=== PATIENT | male | born 1950 | race Caucasian/White ===

== ENCOUNTER 2017-05-04 19:00 | Inpatient (IN) ==
--- NOTE | 2017-05-04 19:23 | Emergency Department Note ---
Disposition Clinical Impression: Acute kidney injury Osteomyelitis Qualifiers: Osteomyelitis type: unspecified type Osteomyelitis location: foot Laterality: left Qualified Code(s): M86.9 - Osteomyelitis, unspecified Septic arthritis Qualifiers: Septic arthritis location: foot Septic arthritis organism: due to unspecified organism Laterality: left Qualified Code(s): M00.9 - Pyogenic arthritis, unspecified Leukocytosis Qualifiers: Leukocytosis type: unspecified Qualified Code(s): D72.829 - Elevated white blood cell count, unspecified Disposition: Admitted As Inpatient Condition: Fair Referrals: NONE,PCP [Primary Care Provider] - Extremity Problem HPI - General Chief complaint: ED Extremity Problem,Nontraumatic Stated complaint: Left Foot Infection Time Seen by Provider: 05/04/17 19:08 Source: patient, EMS Mode of arrival: EMS Limitations: no limitations Nursing Notes Reviewed: Yes Vital Signs Reviewed: Yes - History of Present Illness HPI Narrative: 67-year-old male presents to the ER via EMS from the [facility] due to concern for left foot wound. Patient states that he fell on the of this month. States prior to that that his foot had no discoloration whatsoever. States he has had an ulcer on the left foot for one month. He denies any diabetes but he has not seen a physician since 1994. Denies any fevers nausea vomiting or diarrhea. No chest pain or shortness of breath. No recent antibiotics. No other complaints. Pt Subjective Complaint: extremity swelling Onset (ago): day(s) Consistency: constant Injury Location: left, lower extremity Pain Scale: 3 Radiation: none Improves with: nothing Worsens with: nothing Associated symptoms: Reports: denies other symptoms - Related Data Home Medications Medication Instructions Recorded Confirmed No Known Home Drugs 05/04/17 05/04/17 Allergies Allergy/AdvReac Type Severity Reaction Status Date / Time No Known Allergies Allergy Verified 05/04/17 16:35 All systems ED: reviewed and negative except as stated. Constitutional: Denies: fever, chills Cardiovascular: Denies: chest pain Respiratory: Denies: dyspnea Gastrointestinal: Denies: abdominal pain, nausea, vomiting Integumentary: Reports: lesions Past Medical History - Past Medical History Attestation: Yes The following information was validated with the patient. Source: patient Medical history: Reports: no medical history Psychiatric history: Reports: no psych history - Social History Smoking Status: Never smoker Smokeless Tobacco Status: No Alcohol use: Reports: none Drug use: Reports: none Physical Exam - General Limitations: no limitations General appearance: alert, in no apparent distress - Head Head exam: atraumatic, normocephalic - Eye Eye exam: Present: normal appearance - ENT ENT exam: normal exam - Neck Neck exam: Present: normal inspection, full ROM - Chest Chest inspection: Present: normal inspection, symmetric chest wall rise - Respiratory Respiratory exam: Present: normal lung sounds bilaterally - Cardiovascular Cardiovascular exam: Present: regular rate, normal rhythm, normal heart sounds - Abdominal Exam Abdominal exam: Present: soft, Non-Tender. Absent: tenderness - Extremities Exam Extremities exam: Present: normal inspection, full ROM - Expanded Upper Extremity Exam Shoulder exam: Present: normal inspection, full ROM Arm exam: Present: normal inspection, full ROM Elbow exam: Present: normal inspection, full ROM Forearm/Wrist exam: Present: normal inspection, full ROM Hand exam: Present: normal inspection, full ROM - Expanded Lower Extremity Exam Hip/Pelvis exam: Present: normal inspection, full ROM Upper leg exam: Present: normal inspection, full ROM Knee exam: Present: normal inspection, full ROM Lower leg exam: Present: normal inspection, full ROM Ankle exam: Present: full ROM Foot/toe exam: Present: full ROM, swelling (There is significant swelling to the left lower extremity from the ankle to the toes as well as overlying erythematous changes with discoloration of the left toes. There is also an open ulceration to the plantar aspect of the left foot over the first metatarsal.) - Skin Skin exam: Present: warm, dry Course Course Narrative: Patient seen and examined. Vital signs reviewed. We will get labs, CT imaging of the left leg and admit for IV antibiotics and podiatry consultation. - Reevaluation(s) Reevaluation #1: Discussed results of imaging and labs with the patient. Evidence of osteomyelitis and septic arthritis. He has an acute kidney injury with a creatinine of 3.9. He is agreeable with staying. - Consultations Consultation #1: I spoke with the on-call barrel assembler helper Dr. Garcia. Discussed the patient's history exam and labs including a creatinine of 3.9. Electrolytes stable. Agreeable to see the patient in consultation. Consultation #2: I spoke with the on-call supervisor forming and tempering Dr. ba. Discussed the patient's history exam CT findings and labs as well as hemodynamics. Agreeable to see the patient in the morning in consultation. Agrees with IV antibiotics. Vital Signs Temperature 97.5 F L 05/04/17 19:03 Pulse Rate 83 05/04/17 19:03 Respiratory Rate 18 05/04/17 19:03 Blood Pressure 114/87 05/04/17 19:03 O2 Sat by Pulse Oximetry 90 05/04/17 19:03 Temperature 97.5 F L 05/04/17 19:03 Pulse Rate 83 05/04/17 19:03 Respiratory Rate 18 05/04/17 19:03 Blood Pressure 114/87 05/04/17 19:03 O2 Sat by Pulse Oximetry 90 05/04/17 19:03 Oxygen Delivery Oxygen Delivery Room Air Extremity Problem, Nontraumati - MDM Narrative Medical decision making narrative: 67-year-old male presents to the ER with a chief complaint of left foot wound. Ulcer there for the last month. Discoloration over the last 2-3 days. Afebrile here. Hemodynamically stable. He has a large ulcer as well as soft tissue swelling to the left foot. Labs reviewed with a markedly leukocytosis. Acute kidney injury with creatinine of 3.9 with stable electrolytes. Case discussed with nephrology and podiatry. Patient given broad-spectrum antibiotics. Admitted to the hospitalist service with consultation to nephrology and podiatry. - Lab Data Lab results reviewed: Yes I reviewed the patient's lab results. Result diagrams: 05/04/17 19:38 05/04/17 19:38 Lab Results 05/04/17 05/04/17 05/04/17 Range/Units 19:38 19:38 19:38 WBC 22.6 H (4.3-11.1) K/mcL RBC 6.18 H (4.19-5.50) M/mcL Hgb 16.8 (12.9-16.9) g/dL Hct 49.3 (37.5-50.1) % MCV 79.8 L (83.0-100.0) fL MCH 27.2 L (28.0-33.3) pg MCHC 34.1 (31.6-35.5) g/dL RDW 16.8 H (11.5-14.5) % Plt Count 128 L (140-400) K/mcL MPV 11.8 (9.4-12.4) fL Immature Gran % 0.5 (0-4) % Seg Neutrophils % 90.2 % Lymphocytes % 3.5 % Monocytes % 5.6 % Eosinophils % 0.0 % Basophils % 0.2 % Neutrophils # 20.4 H (1.6-8.9) K/mcL Lymphocytes # 0.8 (0.6-4.6) K/mcL Monocytes # 1.3 (0.0-1.3) K/mcL Eosinophils # 0.0 (0.0-0.6) K/mcL Basophils # 0.1 (0.0-0.2) K/mcL ESR 56 H (0-10) mm/hr PT (9.4-12.1) Seconds INR Sodium 127 L (136-145) mEq/L Potassium 4.9 (3.5-5.1) mEq/L Chloride 93 L (98-107) mEq/L Carbon Dioxide 18 L (23-29) mEq/L BUN 98 H (8-23) mg/dL Creatinine 3.91 H (0.70-1.30) mg/dL Est GFR ( Amer) 19 L (> 60) Est GFR (Non-Af Amer) 15 L (> 60) BUN/Creatinine Ratio 25 (6-26) Glucose 156 H (70-105) mg/dL Calculated Osmolality 298 (280-300) Calcium 7.7 L (8.6-10.3) mg/dL C-Reactive Protein (Less than 10) mg/L 05/04/17 05/04/17 Range/Units 19:38 19:38 WBC (4.3-11.1) K/mcL RBC (4.19-5.50) M/mcL Hgb (12.9-16.9) g/dL Hct (37.5-50.1) % MCV (83.0-100.0) fL MCH (28.0-33.3) pg MCHC (31.6-35.5) g/dL RDW (11.5-14.5) % Plt Count (140-400) K/mcL MPV (9.4-12.4) fL Immature Gran % (0-4) % Seg Neutrophils % % Lymphocytes % % Monocytes % % Eosinophils % % Basophils % % Neutrophils # (1.6-8.9) K/mcL Lymphocytes # (0.6-4.6) K/mcL Monocytes # (0.0-1.3) K/mcL Eosinophils # (0.0-0.6) K/mcL Basophils # (0.0-0.2) K/mcL ESR (0-10) mm/hr PT 13.6 H (9.4-12.1) Seconds INR 1.3 Sodium (136-145) mEq/L Potassium (3.5-5.1) mEq/L Chloride (98-107) mEq/L Carbon Dioxide (23-29) mEq/L BUN (8-23) mg/dL Creatinine (0.70-1.30) mg/dL Est GFR ( Amer) (> 60) Est GFR (Non-Af Amer) (> 60) BUN/Creatinine Ratio (6-26) Glucose (70-105) mg/dL Calculated Osmolality (280-300) Calcium (8.6-10.3) mg/dL C-Reactive Protein 265 H (Less than 10) mg/L - Radiology Data Radiology results reviewed: Yes I reviewed the patient's radiology results. Lower Extremity CT 05/04/17 19:20 IMPRESSION: 1. Deep soft tissue ulceration plantar to the 1st MTP joint with soft tissue gas throughout the 1st digit and dorsal to the 1st metatarsal and medial cuneiform. Diffuse subcutaneous fat stranding compatible with cellulitis. No well-defined drainable fluid collection. 2. Gas within the 1st metatarsal head and 1st proximal phalangeal base and shaft compatible with osteomyelitis. If clinically indicated MRI could be obtained to evaluate the extent of osteomyelitis. 3. Gas within the 1st metatarsophalangeal joint space compatible with septic arthritis. D/ / Roger Deutsch MD / Roger Deutsch MD Interpreting Provider: Roger Deutsch MD Chest X-Ray 05/04/17 20:39 IMPRESSION: No acute process. D/ / Valentin Walter MD / Valentin Walter MD Interpreting Provider: Valentin Walter MD Critical Care Time Critical Care Time: Yes Total Critical Care Time: 40 Attestation: Critical care performed: Time is exclusive of separately billable procedures. Time includes: direct patient care, patient reassessment, coordination of patient care, interpretation of data (laboratory data, radiology data, and respiratory data), review of patient's medical records, medical consultation and documentation of patient care. Procedures included in critical care time: Procedures excluded from critical care time: S.B.A.R. - S.B.A.R. Situation: Demographics, MOA Background: Presenting Complaint, Relevant PMH, Meds, & Allergies Assessment: Vital Signs, Course and respsone to treatment, Exam Concerns, Patient/Family Expectation, Pertinant Lab Results Recommendation: Barrier(s) to disposition, Recommendation based on pending studies, treatments, or consults S.B.A.RShirlene Report Given to: Dr. Gaona Attestation Statement - Attestation Attestation: I, Froylan Donaldson MD, personally evaluated this patient and discussed their management with the resident physician. I reviewed the resident's note and agree with the documented findings, medical decision making, and plan of care. 67-year-old male presents to the emergency department with a complaint of pain and swelling and redness and discoloration of his left foot which started 2 days ago after he fell and hurt foot. There is an ulceration on the plantar aspect of the foot which has been present for about a month. He states that it looked just like his other foot until 2 days ago actually fell and since then it is turned black with some sloughing of the skin on the dorsum of the foot. He has not noticed any fever. No chest pain or shortness of breath. On examination patient is a well-developed well-nourished elderly male in no acute distress. He is alert and oriented 3. There is no cyanosis or diaphoresis. Breath sounds are clear and equal bilaterally. Heart regular rate and rhythm. Abdomen soft and nontender with normal bowel sounds. Patient has gangrene of the distal left foot with an open foul smelling ulcer on the plantar aspect and some skin sloughing on the dorsum of the foot. Erythema and swelling. Black discoloration of the toes and distal foot. Labs reviewed. WBC 22.6 with 90.2% segs. ESR 56. CRP 265. Creatinine 3.91. Chest x-ray negative. CT of the extremities shows: 1. Deep soft tissue ulceration plantar to the 1st MTP joint with soft tissue gas throughout the 1st digit and dorsal to the 1st metatarsal and medial cuneiform. Diffuse subcutaneous fat stranding compatible with cellulitis. No well-defined drainable fluid collection. 2. Gas within the 1st metatarsal head and 1st proximal phalangeal base and shaft compatible with osteomyelitis. If clinically indicated MRI could be obtained to evaluate the extent of osteomyelitis. 3. Gas within the 1st metatarsophalangeal joint space compatible with septic arthritis. Cultures obtained. IV antibiotics initiated. Dr. Goncalves discussed the case with nephrology and also podiatry. The hospitalist, Dr. Gaona, was consulted and accepted admission of the patient.
[2017-05-04 19:48] LABS: Basophils # 0.1 K/mcL (0.0-0.2); Basophils % 0.2 %; Hematocrit 49.3 % (37.5-50.1); Hemoglobin 16.8 g/dL (12.9-16.9); Immature Granulocytes % 0.5 % (0-4); Lymphocytes # 0.8 K/mcL (0.6-4.6); Lymphocytes % 3.5 %; Mean Corpuscular HGB Conc 34.1 g/dL (31.6-35.5); Mean Corpuscular Hemoglobin 27.2 pg (28.0-33.3); Mean Corpuscular Volume 79.8 fL (83.0-100.0); Mean Platelet Volume 11.8 fL (9.4-12.4); Monocytes # 1.3 K/mcL (0.0-1.3); Monocytes % 5.6 %; Neutrophils # 20.4 K/mcL (1.6-8.9); Platelet Count 128 K/mcL (140-400); Red Blood Count 6.18 M/mcL (4.19-5.50); Red Cell Distribution Width 16.8 % (11.5-14.5); Segmented Neutrophils % 90.2 %
[2017-05-04 19:50] LABS: INR 1.3; Prothrombin Time 13.6 Seconds (9.4-12.1)
[2017-05-04 20:05] LABS: Calcium 7.7 mg/dL (8.6-10.3); Potassium 4.9 mEq/L (3.5-5.1)
[2017-05-04] MEDS ORDERED: Piperacillin/Tazobactam 3.375 GM in 0.9 % Sodium Chloride Mini Bag 100 ML IVPB ONE (20:41)
[2017-05-04] MEDS ORDERED: Clindamycin 600 MG/50 ML 600 MG/50 ML IV.SOLN IVPB ONE (21:29)
[2017-05-04] MEDS ORDERED: 0.9 % Sodium Chloride 1,000 ML IVC SCH (23:45)
[2017-05-04] MEDS ORDERED: Naloxone 0.4 MG/ML INJ IVP PRN (23:45)
--- NOTE | 2017-05-04 23:56 | Internal Med History&Physical ---
Date of Encounter: 05/05/17 Time of Encounter: 23:30 Assessment and Plan (1) Septic arthritis Current visit: No Status: Inactive Left foot septic arthritis, osteomyelitis secondary to foot ulcer. Patient hemodynamically stable and podiatry consulted from ED. - Continue IV vancomycin and zosyn - Blood cultures pending - Podiatry consult - likely to OR in AM - appreciate assistance Qualifiers: Septic arthritis location: foot Septic arthritis organism: due to unspecified organism Laterality: left Qualified Code(s): M00.9 - Pyogenic arthritis, unspecified (2) Acute kidney injury Current visit: No Status: Inactive Likely multifactorial (dehydration, possible rhabdo?, sepsis?, etc). Unknown baseline creatinine. - Nephrology consulted from ED - IV fluids - Check CK, Urinalysis - Treat infectious process (3) Leukocytosis Current visit: No Status: Inactive Secondary to infectious process in foot. Treat as above. Qualifiers: Leukocytosis type: unspecified Qualified Code(s): D72.829 - Elevated white blood cell count, unspecified (4) Hyponatremia Current visit: Yes Status: Acute Sodium 127, likely hypovolemic hyponaremia - Volume resuscitation - Recheck Na in AM (5) Pre-op evaluation Current visit: Yes Status: Acute Patient states he can perform 4 METS (can climb two flights of stairs), no history of cardiopulmonary disease. EKG pending. Given the urgent need for surgical intervention on his septic arthritis, no further testing indicated at this time, patient medically optimized for surgery (pending EKG). Internal Medicine - H&P: HPI Chief complaint: Left foot pain, weakness Admitted From: Emergency Dept Plans for Post Hospital Care: Home History of present illness: Mr. Collado is a 67 year old male without known medical history (has not seen physician since 1994), who presented to the ED this evening because of left foot pain and erythema and fall and weakness. He states that he has had ulcers on the plantar surface of bilateral MTPs for the past one month. Two days ago he was walking out of his house and his legs "gave out" and he fell. He was extremely weak and unable to get up, so he spent two hour slowly dragging himself back into his house. He then laid on the floor and slept for nine hours. When he woke up he was able to drag himself to his sofa where he sat until today he was able to reach his phone and call for help. He had a gallon of milk sitting on the floor where he had been bringing in groceries at the time of the fall, and he was able to drink it for the past two days. He has had nothing to eat. He noticed that his left foot was more painful and the great toe had become dark colored. [facility] to have evidence of an ALEK with creatinine >3. He denies history of known kidney disease. He denies fever, but did notice that he had chills three days ago. He does not look at his feet often, and is unsure when the left foot began to look dark. Past Med Surg Social Fam HX - Past Medical History Medical history: no medical history Psychiatric history: no psych history - Social History Smoking Status: Never smoker Smokeless Tobacco Status: No Alcohol use: none Drug use: none Internal Medicine - H&P: Meds No Known Home Drugs 05/04/17 [History] 3 Allergy/AdvReac Type Severity Reaction Status Date / Time No Known Allergies Allergy Verified 05/04/17 16:35 All Systems PM: A 10-system review of systems was performed and is negative for pertinent findings except as documented above in the HPI. - Constitutional Constitutional: chills, falls, weakness - EENT Eyes: no change in vision Nose, mouth and throat: no mouth pain, no sinus pain - Cardiovascular Cardiovascular ROS IM: no chest pain, no claudication, no diaphoresis - Respiratory Respiratory: no dyspnea, no hemoptysis - Gastrointestinal Gastrointestinal: no abdominal pain - Musculoskeletal Musculoskeletal ROS IM: no muscle cramps, no muscle weakness - Integumentary Integumentary IM: no rash - Neurological Neurological ROS: weakness - Psychiatric Psychiatric: no confusion - Constitutional Vitals: Temp Pulse Resp BP Pulse Ox 97.5 F L 83 20 125/78 90 05/04/17 19:03 05/04/17 19:03 05/04/17 23:33 05/04/17 23:33 05/04/17 19:03 General appearance: Present: A&O X 3, pleasant, no acute distress - Head Head exam: Present: atraumatic - Eye Eye exam: Present: EOMI, sclera anicteric - ENT ENT exam: Present: mucous membranes dry - Neck Neck exam general surgery: Present: supple - Respiratory Respiratory exam: Present: CTAB - Cardiovascular Cardiovascular exam: Present: RRR. Absent: diastolic murmur, gallop, rubs, systolic murmur - GI/Abdominal GI/Abdominal exam: Present: normal bowel sounds, soft. Absent: distended, tenderness - Extremities Exam Additional comments: Bilateral changes consistent with venous stasis. Right foot with ulcer at plantar surface of MTP #1, no surrounding erythema. Left foot with ulcer on plantar surface of left MTP #1 with surrounding erythema and darkened skin along dorsal surface of Toes #1 and #2 extending up to medial midfoot. Large area of skin sloughing on dorsal aspect of midfoot. - Neurological Exam Neurological exam: Present: CN II-XII intact Additional comments: 3/5 strength in bilateral lower extremities throughout - Skin Skin exam: Absent: rash Internal Med - H&P Results - Labs CBC & Chem 7: 05/05/17 00:15 05/04/17 19:38
[2017-05-05 01:24] LABS: Hemoglobin A1C 7.6 %
[2017-05-05 01:36] LABS: Basophils % 0.2 %; Hematocrit 50.1 % (37.5-50.1); Hemoglobin 16.7 g/dL (12.9-16.9); Immature Granulocytes % 0.4 % (0-4); Lymphocytes # 0.5 K/mcL (0.6-4.6); Lymphocytes % 3.3 %; Mean Corpuscular HGB Conc 33.3 g/dL (31.6-35.5); Mean Corpuscular Hemoglobin 27.2 pg (28.0-33.3); Mean Corpuscular Volume 81.5 fL (83.0-100.0); Mean Platelet Volume 11.6 fL (9.4-12.4); Monocytes # 0.2 K/mcL (0.0-1.3); Monocytes % 1.1 %; Neutrophils # 15.3 K/mcL (1.6-8.9); Nucleated Red Blood Cells 0.1 /100 WBC (0); Platelet Count 130 K/mcL (140-400); Red Blood Count 6.15 M/mcL (4.19-5.50); Red Cell Distribution Width 15.9 % (11.5-14.5)
[2017-05-05 01:42] LABS: INR 1.2
[2017-05-05 02:09] LABS: Alanine Aminotransferase > 500 Units/L (7-52); Albumin 3.1 g/dL (3.5-5.7); Albumin/Globulin Ratio 0.7 (1.1-2.2); Alkaline Phosphatase 80 Units/L (34-104); Aspartate Amino Transferase 605 Units/L (13-39); BUN/Creatinine Ratio 26 (6-26); Bilirubin,Total 1.4 mg/dL (0.3-1.0); Blood Urea Nitrogen 101 mg/dL (8-23); Calcium 7.6 mg/dL (8.6-10.3); Carbon Dioxide 21 mEq/L (23-29); Chloride 92 mEq/L (98-107); Globulin 4.5 g/dL (2.4-3.5); Glucose 185 mg/dL (70-105); Osmolality,Calculated 302 (280-300); Potassium 4.8 mEq/L (3.5-5.1); Sodium 128 mEq/L (136-145); Total Protein 7.6 g/dL (6.4-8.9); eGFR For African Americans 19 (> 60); eGFR For Non-African Americans 15 (> 60)
[2017-05-05 02:19] LABS: Alanine Aminotransferase > 500 Units/L (7-52); Albumin 3.1 g/dL (3.5-5.7); Albumin/Globulin Ratio 0.7 (1.1-2.2); Alkaline Phosphatase 82 Units/L (34-104); Aspartate Amino Transferase 617 Units/L (13-39); Bilirubin,Direct 0.6 mg/dL (0.0-0.2); Bilirubin,Indirect 0.8 mg/dL (0.0-1.2); Bilirubin,Total 1.4 mg/dL (0.3-1.0); Creatine Kinase 8304 Units/L (30-223); Globulin 4.6 g/dL (2.4-3.5); Total Protein 7.7 g/dL (6.4-8.9)
[2017-05-05] MEDS: 0.9 % Sodium Chloride 1,000 ML IVC SCH ×9 (02:53→20:52)
[2017-05-05 03:52] LABS: Alanine Aminotransferase > 500 Units/L (7-52); Albumin 2.6 g/dL (3.5-5.7); Albumin/Globulin Ratio 0.7 (1.1-2.2); Alkaline Phosphatase 86 Units/L (34-104); Aspartate Amino Transferase 465 Units/L (13-39); BUN/Creatinine Ratio 27 (6-26); Bilirubin,Total 1.2 mg/dL (0.3-1.0); Blood Urea Nitrogen 104 mg/dL (8-23); Carbon Dioxide 18 mEq/L (23-29); Chloride 95 mEq/L (98-107); Globulin 3.9 g/dL (2.4-3.5); Glucose 237 mg/dL (70-105); Osmolality,Calculated 306 (280-300); Potassium 4.5 mEq/L (3.5-5.1); Sodium 128 mEq/L (136-145); Total Protein 6.5 g/dL (6.4-8.9); eGFR For African Americans 19 (> 60); eGFR For Non-African Americans 15 (> 60)
[2017-05-05 05:41] LABS: Bilirubin,Urine Negative (Negative); Blood,Urine Large (Negative); Clarity,Urine Turbid (Clear); Color,Urine Yellow (Yellow); Glucose,Urine (UA) 100 mg/dL (Normal); Ketones,Urine Negative (Negative); Leukocyte Esterase,Urine Negative (Negative); Nitrite,Urine Negative (Negative); Protein,Urine 30 mg/dL (Neg-Trace); Specific Gravity,Urine 1.024 (1.010-1.025); Urobilinogen,Urine Normal (Normal)
[2017-05-05 05:43] LABS: Squamous Epithelial Cell,Urine Many per lpf (None-Few)
[2017-05-05 05:58] LABS: Amorphous Sediment,Urine Moderate (Few); Bacteria,Urine Few per hpf (None-Few)
[2017-05-05 05:59] LABS: Hyaline Casts,Urine Few per lpf (None-Few); WBC,Urine 15-30 per hpf (0-3)
--- NOTE | 2017-05-05 11:23 | Podiatry Consult Note ---
Date of Encounter: 05/05/17 Time of Encounter: 11:21 Assessment and Plan (1) Osteomyelitis Current visit: No Status: Acute The patient was instructed that he has ischemic tissue secondary to infection on the medial aspect of his left foot. The patient was instructed that he needs an aggressive debridement to prevent loss of limb. The patient was instructed that at this time there is a small chance that we are able to save his foot. The patient was instructed that there is a chance also that he may need a below the knee amputation at a later time. The patient was instructed that this time we will try to remove the infection aggressively and if his tissue improves we might be able to save his foot. The patient understands that this is a salvage procedure and that it may fail. The procedure discussed was a left midfoot amputation. The patient understands that if this is unsuccessful we will need to proceed with a below the knee amputation. After discussion with the hospitalist, the hospitalist will like him to get into surgery as soon as possible due to his sepsis. The surgery was discussed at length with the patient and the patient is agreeable with the foot salvage procedure.Patient was informed of the risks and complications of surgery. These may include but are not limited to the following; nerve damage, numbness, tingling, RSD/CRPS, loss of motor function, loss of toe, loss of limb, loss of life, ischemia, wound healing issues, infection, scarring, keloid formation, continued pain, arthritis, non-union, mal-union, prominent hardware, displaced hardware, reaction to hardware, the need to remove hardware, bruising, continued limp, the need for future surgery, over correction, under correction, chronic swelling, the need for physical therapy, stiffness of joints, ulceration , slow healing, wound dehiscence, reaction to implant, reaction to sutures. The patient was informed of the possible conservative treatments available which may include but are not limited to the following: Orthotics, bracing, non -weight bearing, physical therapy, padding, taping, steroid injections, NSAIDS, casting. The patient was given the option to seek a second opinion. It was explained that surgery is an art and not an exact science therefore results cannot be guaranteed. All the patients questions and concerns were addressed. Patient agrees to have the surgery despite the possible risks and complications. Absolutely no guarantees were given or implied. Qualifiers: Osteomyelitis type: unspecified type Osteomyelitis location: foot Laterality: left Qualified Code(s): M86.9 - Osteomyelitis, unspecified History of Present Illness Chief complaint: Left foot infection HPI: Mr. Collado is a 67 year old male who states that a couple days ago he noticed his foot infection. Patient relates no medical history. Patient relates that he does not see doctors. Patient is not sure of why his foot is hurting or infected. Patient thinks that it may be from an injury on may 02. Past Med Surg Social Fam HX - Past Medical History Medical history: no medical history Psychiatric history: no psych history - Social History Smoking Status: Never smoker Smokeless Tobacco Status: No Alcohol use: none Drug use: none - Family History Mother History Unknown: Yes Living Status: Cause of : "organs failed" Medications and Allergies No Known Home Drugs 05/04/17 [History] 3 Allergy/AdvReac Type Severity Reaction Status Date / Time No Known Allergies Allergy Verified 05/04/17 16:35 All Systems Reviewed: A 10-system review of systems was performed and is negative for pertinent findings except as documented above in the HPI. Physical Exam - Constitutional Vitals: Temp Pulse Resp BP Pulse Ox 97.4 F L 80 20 96/60 97 05/05/17 07:20 05/05/17 07:20 05/05/17 07:20 05/05/17 07:20 05/05/17 09:40 Exam: Ischemia noted to the first and second digits of the left foot and extending up to the midfoot. Severely malodorous tissue noted and the ischemic tissue corresponds with the gas seen on the CT scan. Pedal pulses are dopplerable. The patient has capillary fill time intact to the remaining digits. Sensation slightly decreased to light touch. Patient is able to dorsiflex and plantarflex ankle. Results - Labs Result Diagrams: 05/05/17 00:15 05/05/17 02:54 Labs: Abnormal lab results WBC 16.1 K/mcL (4.3-11.1) H 05/05/17 00:15 RBC 6.15 M/mcL (4.19-5.50) H 05/05/17 00:15 MCV 81.5 fL (83.0-100.0) L 05/05/17 00:15 MCH 27.2 pg (28.0-33.3) L 05/05/17 00:15 RDW 15.9 % (11.5-14.5) H 05/05/17 00:15 Plt Count 130 K/mcL (140-400) L 05/05/17 00:15 Neutrophils # 15.3 K/mcL (1.6-8.9) H 05/05/17 00:15 Lymphocytes # 0.5 K/mcL (0.6-4.6) L 05/05/17 00:15 Nucleated RBCs/100 WBC 0.1 /100 WBC (0) H 05/05/17 00:15 ESR 56 mm/hr (0-10) H 05/04/17 19:38 PT 13.0 Seconds (9.4-12.1) H 05/05/17 00:15 Sodium 128 mEq/L (136-145) L 05/05/17 02:54 Chloride 95 mEq/L (98-107) L 05/05/17 02:54 Carbon Dioxide 18 mEq/L (23-29) L 05/05/17 02:54 BUN 104 mg/dL (8-23) H 05/05/17 02:54 Creatinine 3.90 mg/dL (0.70-1.30) H 05/05/17 02:54 Est GFR ( Amer) 19 (> 60) L 05/05/17 02:54 Est GFR (Non-Af Amer) 15 (> 60) L 05/05/17 02:54 BUN/Creatinine Ratio 27 (6-26) H 05/05/17 02:54 Glucose 237 mg/dL (70-105) H 05/05/17 02:54 POC Glucose 234 (58-89) H 05/05/17 05:58 Hemoglobin A1c 7.6 % (-5.6) H 05/04/17 19:38 Calculated Osmolality 306 (280-300) H 05/05/17 02:54 Calcium 7.0 mg/dL (8.6-10.3) L 05/05/17 02:54 Total Bilirubin 1.2 mg/dL (0.3-1.0) H 05/05/17 02:54 Direct Bilirubin 0.6 mg/dL (0.0-0.2) H 05/05/17 00:15 AST 465 Units/L (13-39) H 05/05/17 02:54 ALT > 500 Units/L (7-52) H 05/05/17 02:54 Creatine Kinase 6003 Units/L (30-223) H 05/05/17 02:54 C-Reactive Protein 265 mg/L (Less than 10) H 05/04/17 19:38 Albumin 2.6 g/dL (3.5-5.7) L 05/05/17 02:54 Globulin 3.9 g/dL (2.4-3.5) H 05/05/17 02:54 Albumin/Globulin Ratio 0.7 (1.1-2.2) L 05/05/17 02:54 Urine Clarity Turbid (Clear) A 05/05/17 05:30 Urine Protein 30 mg/dL (Neg-Trace) H 05/05/17 05:30 Urine Glucose (UA) 100 mg/dL (Normal) H 05/05/17 05:30 Urine Blood Large (Negative) H 05/05/17 05:30 Urine Microscopic RBC 5-15 per hpf (0-3) H 05/05/17 05:30 Urine Microscopic WBC 15-30 per hpf (0-3) H 05/05/17 05:30 Ur Squamous Epith Cells Many per lpf (None-Few) H 05/05/17 05:30 Amorphous Sediment Moderate (Few) H 05/05/17 05:30 H & H 05/05/17 Range/Units 00:15 Hgb 16.7 (12.9-16.9) g/dL Hct 50.1 (37.5-50.1) % All other labs normal. Consult Discharge Plan - Plan Referrals: NONE,PCP [Primary Care Provider] -
[2017-05-05] MEDS ORDERED: Bupivacaine/Clonidine Syringe 1 EACH SYRINGE ONE (13:28)
--- NOTE | 2017-05-05 13:32 | Anesthesia Evaluation PreOp ---
Date of Encounter: 05/05/17 Time of Encounter: 13:31 - Past History Planned Operation: Left mid foot ampuation Cardiac History: Denies any Significant Hx HOT TAMALE MAN History: Denies Any Significant HX Other Medical History: Renal (ALEK), Other (Sepsis, osteomyelitis, hyponatremia) Anesthesia History: No Prior Anesthetic Complications, Past Anesthesia ( tonsillectomy) Alcohol Use: none Drug use: none Medications and Allergies No Known Home Drugs 05/04/17 [History] 3 Allergy/AdvReac Type Severity Reaction Status Date / Time chicken derived Allergy Vomiting Verified 05/05/17 12:26 - Meds/Allergy Pre-op Review Medications Reviewed: Yes Allergies Reviewed: Yes Beta Blockers on Current Med List: No Anesthesia Results - Labs 05/05/17 00:15 05/05/17 02:54 Anesthesia Exam Vital Signs/O2 Sat, Most Current Temp Pulse Resp BP Pulse Ox 96.1 F L 74 16 92/65 94 05/05/17 11:30 05/05/17 11:30 05/05/17 11:30 05/05/17 11:30 05/05/17 11:30 Height: 1.65m Weight: 90kg NPO (# of Hours): >8 - HEENT Pupil (Motor): Pupils equal, EOMI Mallampati: II Teeth: Poor dentition Oral Opening: Greater than 3 - HOT TAMALE MAN LOC: Oriented HOT [place] MAN Motor: Normal RUE, Normal LUE, Normal RLE, Normal LLE, Normal Face H[employer] MAN Sensory: Normal: RUE, LUE, RLE, LLE, Face - Cardiac Rhythm: Regular - Pulmonary Breath Sounds: bilateral Clear Respiratory Effort: Symmetrical Anesthesia Assess/Plan ASA Score: 3 (sepsis, alek, osteomyelitis, hyponatremia) Anesthetic Plan: General, MAC Monitoring Plan: Standard Monitors Recovery Plan: PACU
[2017-05-05] MEDS ORDERED: *HR* OxyCODONE Immed Rel 5 MG TABLET PO PRN (13:34)
[2017-05-05] MEDS ORDERED: Ondansetron 4 MG/2 ML VIAL IVP ONE (13:34)
[2017-05-05] MEDS ORDERED: *HR* Promethazine 25 MG/ML VIAL IVP PRN (13:34)
[2017-05-05] MEDS ORDERED: *HR* Meperidine 25 MG/ML SYRINGE IVP PRN (13:34)
[2017-05-05] MEDS ORDERED: Lidocaine -MPF 2% 2 ML VIAL ONE (13:37)
[2017-05-05] MEDS ORDERED: *HR* Midazolam HCl 2 MG/2 ML VIAL ONE (13:38)
[2017-05-05] MEDS ORDERED: *HR* Propofol 200 MG/20 ML VIAL IVP ONE (13:38)
[2017-05-05] MEDS ORDERED: 0.9 % Sodium Chloride 500 ML IVC SCH (13:45)
--- NOTE | 2017-05-05 13:49 | Nephrology Consult Note ---
Date of Encounter: 05/05/17 Time of Encounter: 12:15 Assessment and Plan (1) ALEK (acute kidney injury) Current Visit: Yes Status: Acute Elevated SCr in the setting of possible sepsis, rhabdo and decreased po intake Agree with volume repletion already done, will reduce rate Continue to avoid nephrotoxinsis possible No acute indication for PHYSIATRIST at this time will check urine studies will check uric acid levels (2) Hyponatremia Current Visit: Yes Status: Acute sodium noted at 127 improving to 128 with IVF, will monitor (3) Osteomyelitis Current Visit: No Status: Inactive Per podiatry, OR time planned Qualifiers: Osteomyelitis type: unspecified type Osteomyelitis location: foot Laterality: left Qualified Code(s): M86.9 - Osteomyelitis, unspecified History of Present Illness - Reason for Consult Consult date: 05/05/17 Acute Kidney Injury Requesting physician: Sukhi Goncalves - History of Present Illness 67 y o male with no known PMH (no doctor visits since ) admitted with leg pain after recent fall on his way out of his house. he dragged himself inside but remained down to a length of time sustaining on milk till calling for help. renal consulted as he was noted to have Scr at 3.91 on presentation. No previous baseline SCr exist as he has not had any labs in years. He denies any prior history of renal disease and felt he was in good health as he did not drink or smoke. LLE noted with necrotic tissue on presentation. CK noted in the 8000s on presentation. Past Med Surg Social Fam HX - Past Medical History Medical history: no medical history Psychiatric history: no psych history - Social History Smoking Status: Never smoker Smokeless Tobacco Status: No Alcohol use: none Drug use: none - Family History Mother History Unknown: Yes Living Status: Cause of : "organs failed" Medications and Allergies No Known Home Drugs 05/04/17 [History] 3 Allergy/AdvReac Type Severity Reaction Status Date / Time chicken derived Allergy Vomiting Verified 05/05/17 12:26 Review of Systems All Systems: reviewed and no additional remarkable complaints except as stated ( 10 systems noted and reviewed) Exam - Vital Signs Vital signs: Initial Vital Signs Temp Pulse Resp BP Pulse Ox 97.5 F L 83 18 114/87 90 05/04/17 19:03 05/04/17 19:03 05/04/17 19:03 05/04/17 19:03 05/04/17 19:03 Vital Signs - Last 8 Hours Temp Pulse Resp BP Pulse Ox 05/05/17 11:30 96.1 F L 74 16 92/65 94 05/05/17 09:40 97 05/05/17 07:20 97.4 F L 80 20 96/60 96 Intake and Output 05/04/17 05/05/17 05/05/17 23:59 07:59 15:59 Intake Total 2450 / 2450 1817 / 1817 Output Total 475 / 475 225 / 225 Balance 1974 1592 / 1592 Intake: IV Fluids 1999 1817 / 1817 0.9 % Sodium Chloride 1,000 ML 1999 1717 / 1717 @ 500 mls/hr IVC .Q2H [facility]O Rx#: [id number] Zosyn 3.375 GM In 0.9 % Sodium 100 / 100 Chloride 100 ML @ 25 mls/hr IVPB Q12H [facility]ANDO Rx#:[id number] Oral 450 / 450 Output: Urine 350 / 350 150 / 150 Catheter 125 / 125 75 / 75 Other: Meal npo Percent of Meal Consumed 100% # Voids 2 Blood Glucose* 234 194 - General Appearance General appearance: chronically ill EENT: ATNC, mucous membranes dry Neck: no JVD, supple Respiratory: clear (ant bilat) Cardiology: no edema ( RLE wrapped in sheet, unable to exam due to pain), normal S1, normal S2 Gastrointestinal: no tenderness, no guarding Integumentary: warm and dry, ulcer Neurologic: no focal deficit Musculoskeletal: no deformities Psychiatric: mood/affect appropriate, cooperative Results - Lab Results 05/06/17 08:40 05/06/17 08:40 Most recent lab results Calcium 7.0 mg/dL (8.6-10.3) L 05/05/17 02:54 Consult Discharge Plan - Plan Instructions: Diabetic Foot Care (DC), Managing Diabetes During Sick Days (DC) , Diabetic Hyperglycemia (DC), Diabetes Mellitus Type 2 in Adults, Biophysics Teacher (GEN) Referrals: NONE,PCP [Primary Care Provider] -
[2017-05-05] MEDS ORDERED: *HR* PHENYLEPHRINE 1,000 MCG/10 ML SYRINGE IVP ONE (14:34)
[2017-05-05] MEDS ORDERED: EPHEDrine 50 MG/ML VIAL ONE (14:35)
--- NOTE | 2017-05-05 16:11 | Anesthesia Evaluation Post Op ---
Date of Encounter: 05/05/17 Time of Encounter: 16:11 - Vital Signs Vital Signs: Vital Signs/O2 Sat, Most Current Temp Pulse Resp BP Pulse Ox 97.1 F L 84 18 93/59 96 05/05/17 15:35 05/05/17 16:05 05/05/17 16:05 05/05/17 16:05 05/05/17 16:05 - Lungs Lungs: Clear Ascult./Percussion - Airway Airway: Non-obstructed - Cardiovascular Regular Rate - Mental Status Mental Status: Alert & Oriented, Answers Appropriately - Pain Pain Scale: 0 Pain Scale used: Numeric (1 - 10) - Nausea Vomiting Nausea Vomiting: Not Present - Hydration Hydration: NPO - Discharge PostOp Status: Transfer Patient to floor Attestation: I have assessed this patient and find they meet discharge criteria.
--- NOTE | 2017-05-05 17:26 | Internal Med Progress Note ---
Date of Encounter: 05/05/17 Time of Encounter: 11:00 - Assessment and plan (1) Sepsis Current Visit: Yes Status: Acute Assessment and plan: Secondary to left foot osteomyelitis Continue IV vancomycin and zosyn in addition to IV fluid resuscitation Blood cultures pending Qualifiers: Sepsis type: sepsis due to unspecified organism Qualified Code(s): A41.9 - Sepsis, unspecified organism (2) Osteomyelitis Current Visit: No Status: Acute Assessment and plan: -CT of the left lower leg showed: 1. Deep soft tissue ulceration plantar to the 1st MTP joint with soft tissue gas throughout the 1st digit and dorsal to the 1st metatarsal and medial cuneiform. Diffuse subcutaneous fat stranding compatible with cellulitis. No well-defined drainable fluid collection. 2. Gas within the 1st metatarsal head and 1st proximal phalangeal base and shaft compatible with osteomyelitis. If clinically indicated MRI could be obtained to evaluate the extent of osteomyelitis. 3. Gas within the 1st metatarsophalangeal joint space compatible with septic arthritis. -Podiatry consulted and patient was taken to surgery for amputation this morning -Continue IV Zosyn and vancomycin until culture results Qualifiers: Osteomyelitis type: unspecified type Osteomyelitis location: foot Laterality: left Qualified Code(s): M86.9 - Osteomyelitis, unspecified (3) Hyponatremia Current Visit: Yes Status: Acute Assessment and plan: -Sodium 127 on admission and 128 this morning -Fall G following and appreciate recommendations (4) Acute renal failure (ARF) Current Visit: Yes Status: Acute Assessment and plan: -Patient with a creatinine of 3.9 and GFR of 15 -Nephrology consulted and appreciate recommendations Qualifiers: Acute renal failure type: unspecified Qualified Code(s): N17.9 - Acute kidney failure, unspecified - Subjective Interval history: Patient for procedure this afternoon with podiatry - Constitutional Vitals: Temp Pulse Resp BP Pulse Ox 97.1 F L 80 16 92/64 94 05/05/17 15:35 05/05/17 17:00 05/05/17 16:27 05/05/17 17:00 05/05/17 17:00 General appearance: Present: A&O X 3, pleasant, no acute distress - Respiratory Respiratory exam: Present: CTAB. Absent: accessory muscle use, rales, rhonchi, wheezes - Cardiovascular Cardiovascular exam: Present: RRR, +S1, +S2. Absent: diastolic murmur, gallop, rubs, systolic murmur Internal Medicine: Result - Labs CBC & Chem 7: 05/05/17 00:15 05/05/17 02:54 Labs: Short CBC 05/05/17 Range/Units 00:15 WBC 16.1 H (4.3-11.1) K/mcL Hgb 16.7 (12.9-16.9) g/dL Hct 50.1 (37.5-50.1) % Plt Count 130 L (140-400) K/mcL Neutrophils # 15.3 H (1.6-8.9) K/mcL BMP 05/05/17 05/05/17 00:15 02:54 Sodium 128 L 128 L Potassium 4.8 4.5 Chloride 92 L 95 L Carbon Dioxide 21 L 18 L BUN 101 H 104 H Creatinine 3.90 H 3.90 H Glucose 185 H 237 H Calcium 7.6 L 7.0 L Liver Function 05/05/17 05/05/17 05/05/17 Range/Units 00:15 00:15 02:54 Total Bilirubin 1.4 H 1.4 H 1.2 H (0.3-1.0) mg/dL Direct Bilirubin 0.6 H (0.0-0.2) mg/dL AST 617 H 605 H 465 H (13-39) Units/L ALT > 500 H > 500 H > 500 H (7-52) Units/L Alkaline Phosphatase 82 80 86 (34-104) Units/L Albumin 3.1 L 3.1 L 2.6 L (3.5-5.7) g/dL Urine 05/05/17 Range/Units 05:30 Urine Color Yellow (Yellow) Urine Clarity Turbid A (Clear) Urine pH 5.0 (5.0-8.0) pH Units Ur Specific [place] 1.024 (1.010-1.025) Urine Protein 30 H (Neg-Trace) mg/dL Urine Glucose (UA) 100 H (Normal) mg/dL - ABG Interpretation ABG results: PT/INR, D-dimer PT 13.0 Seconds (9.4-12.1) H 05/05/17 00:15 - VTE Documentation of Mechanical Device: Intermittent pneumatic compression device Consult Discharge Plan - Plan Referrals: NONE,PCP [Primary Care Provider] -
[2017-05-05 17:52] LABS: Protein/Creatinine Ratio,Urine 0.59 mg/mg (0.00-0.20); Sodium, Urine 19.8 mEq/L
--- NOTE | 2017-05-05 21:42 | Operative Note ---
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 Post-op diagnosis: same Procedure: Proximal transmetatarsal amputation with bone biopsy with partial resection of the medial cuneiform with flap advancement, all left foot. Implants: wound vac Anesthesia: [facility] [place] Surgeon: Jeramy Saavedra Was there an neurosurgical physician assistant present: No Estimated blood loss (cc): 20 Specimen: wound cultures, bone cultures/biopsy 1st metatarsal, clearance fragment cun Condition: stable Disposition: floor Procedure in Detail: The patient was transported to the operative room and placed on the operating table in the supine position. Following anesthesia the site was localized with a marking clonidine matrix. After the site was localized and incision was made near the ischemic tissue. There was noted to be bleeding and the tourniquet was inflated to minimize bleeding. The ischemic tissue was excised. The ischemic tissue ran from the second and first digits along the dorsal aspect of the foot especially along the first metatarsal. After the ischemic tissue was resected the transmetatarsal amputation was performed. There is noted to be a flap of skin plantarly that could be moved in a dorsal direction to cover the skin defect. The plantar flap was moved dorsally along the dorsal aspect of the foot. There is noted to be enough skin to close the side or almost close the site. After further inspection of the first metatarsal and the cuneiform there is noted to be additional bony destruction along the first metatarsal. A clearance fragment of bone was obtained from the cuneiform and bone biopsy was obtained from the metatarsal which was also sent for culture. The site was irrigated thoroughly with pulse irrigation. Wound cultures were obtained as well. The plantar flap was removed dorsally and loosely sutured in place. A wound VAC was applied along the incision line and will be utilized to potentially close the site. If this is unsuccessful the patient will need a [id number] amputation. In summary-Partial resection of the metatarsals 2,3,4 and 5 was performed, complete resection of the first metatarsal and partial resection of the cuneiform was performed. The patient tolerated the procedure and anesthesia well and without complications. The patient will have wound VAC changes every Sunday, Sunday, Sunday. We will await either healing or demarcation of the surgical site. The patient will need continued antibiotic coverage for osteomyelitis due to the fact that purulence was intact with the bone and the patient had gas gangrene. The patient will need to remain nonweightbearing.
[2017-05-06] MEDS ORDERED: Ibuprofen 400 MG TABLET PO PRN (01:29)
[2017-05-06] MEDS ORDERED: traMADol 50 MG TABLET PO PRN (01:29)
[2017-05-06] MEDS ORDERED: Naloxone 0.4 MG/ML INJ IVP PRN (01:29)
[2017-05-06] MEDS: 0.9 % Sodium Chloride 1,000 ML IVC SCH ×5 (01:39→20:55)
[2017-05-06] MEDS: *HR* Heparin 5,000 UNIT/ML VIAL SQ SCH ×3 (05:35→20:55)
[2017-05-06] MEDS: *HR* OxyCODONE Immed Rel 5 MG TABLET PO PRN ×2 (05:35→20:56)
[2017-05-06 09:02] LABS: Basophils % 0.2 %; Immature Granulocytes % 0.8 % (0-4); Segmented Neutrophils % 88.7 %
[2017-05-06 09:04] LABS: Hematocrit 45.6 % (37.5-50.1); Hemoglobin 14.8 g/dL (12.9-16.9); Immature Platelets 8.5 % (1.1-6.1); Lymphocytes # 0.8 K/mcL (0.6-4.6); Lymphocytes % 4.2 %; Mean Corpuscular HGB Conc 32.5 g/dL (31.6-35.5); Mean Corpuscular Hemoglobin 27.1 pg (28.0-33.3); Mean Corpuscular Volume 83.5 fL (83.0-100.0); Mean Platelet Volume 12.2 fL (9.4-12.4); Monocytes # 1.1 K/mcL (0.0-1.3); Monocytes % 6.1 %; Neutrophils # 16.1 K/mcL (1.6-8.9); Red Blood Count 5.46 M/mcL (4.19-5.50); Red Cell Distribution Width 16.9 % (11.5-14.5)
[2017-05-06 09:08] LABS: Platelet Count 87 K/mcL (140-400)
[2017-05-06 09:25] LABS: Magnesium 2.7 mg/dL (1.6-2.6); Phosphorous 7.1 mg/dL (2.7-4.5)
[2017-05-06 09:26] LABS: Calcium 6.4 mg/dL (8.6-10.3); Potassium 4.9 mEq/L (3.5-5.1)
[2017-05-06 09:29] LABS: Albumin 2.6 g/dL (3.5-5.7); Albumin/Globulin Ratio 0.7 (1.1-2.2); Bilirubin,Total 1.1 mg/dL (0.3-1.0); Calcium 6.4 mg/dL (8.6-10.3); Globulin 3.6 g/dL (2.4-3.5); Potassium 4.8 mEq/L (3.5-5.1); Total Protein 6.2 g/dL (6.4-8.9)
[2017-05-06 10:09] LABS: Platelet Estimate Slight Decrease (Normal)
[2017-05-06] MEDS ORDERED: *HR* Dextrose 50 % in Water (Syg) 50 ML SYRINGE IVP PRN (10:21)
[2017-05-06] MEDS ORDERED: D5% in Water 1,000 ML IVC PRN (10:21)
[2017-05-06] MEDS ORDERED: Dextrose Gel 15 GM/37.5 ML TUBE PO PRN ×2 (10:21)
[2017-05-06] MEDS: Insulin LISPRO 300 UNITS/3 ML VIAL SQ SCH ×3 (11:36→20:54)
--- NOTE | 2017-05-06 13:54 | Nephrology Progress Note ---
Date of Encounter: 05/06/17 Time of Encounter: 13:00 - Assessment and Plan (1) ALEK (acute kidney injury) Status: Resolved SCr slightly improved at 3.54, GFR 17 UOP good at 1120cc in the past 24hrs No acute indication for PROGRESSIVE CARE NURSE today Continue IVF and avoid nephrotoxins if possible, vanco by levels only CPK decreasing, uric acid elevated around 11 Urine sodium low consistent with pre-renal US of kidney pending Mild acidotic, will consider adding bicarb to fluids once adequately volume resuscitated (2) Hyponatremia Status: Resolved Improving with NS at 133, will continue (3) Osteomyelitis Status: Inactive s/p TMA, per podiatry Qualifiers: Osteomyelitis type: unspecified type Osteomyelitis location: foot Laterality: left Qualified Code(s): M86.9 - Osteomyelitis, unspecified (4) Hypocalcemia Status: Resolved Calcium noted at 6.4, corrected better given low albumin Will check ionized calcium, PTH and vitamin d levels. currently asymptomatic, no repletion needed Subjective Interval history: Pt seen and examined, interim events noted s/p TMA with Dr Sessions. Objective - Vital Signs Vital signs: Vital Signs Temp Pulse Resp BP Pulse Ox 05/06/17 11:25 93 05/06/17 11:10 97.4 F L 81 18 116/70 93 05/06/17 07:45 96.7 F L 77 19 100/63 92 05/06/17 07:41 92 05/06/17 03:51 97.6 F 72 20 97/71 96 05/06/17 00:10 97.9 F 81 22 97/65 95 05/05/17 22:00 86 20 104/74 92 05/05/17 19:42 74 96/54 92 05/05/17 18:44 97.8 F 82 20 102/61 96 05/05/17 18:41 100/70 05/05/17 18:25 98/67 98 05/05/17 18:08 81/59 05/05/17 17:57 73 20 97/63 94 05/05/17 17:31 75 20 81/61 93 05/05/17 17:00 80 92/64 94 05/05/17 16:27 81 16 90/66 93 05/05/17 16:05 84 18 93/59 96 05/05/17 15:55 85 18 90/62 95 05/05/17 15:45 85 18 84/62 96 05/05/17 15:35 97.1 F L 87 24 121/67 98 Intake and Output 05/05/17 05/06/17 05/06/17 23:59 07:59 15:59 Intake Total 2401 / 2401 2200 / 2200 1815 / 1815 Output Total 400 / 400 450 / 450 225 / 225 Balance 2000 1750 / 1750 1590 / 1590 Intake: IV Fluids 2101 / 2101 1999 975 / 975 0.9 % Sodium Chloride 1,000 ML 2000 975 / 975 @ 200 mls/hr IVC .Q5H [facility] Rx#: [id number] Zosyn 3.375 GM In 0.9 % Sodium 100 / 100 Chloride 100 ML @ 25 mls/hr IVPB Q12H [facility]O Rx#:[id number] Oral 300 / 300 200 / 200 840 / 840 Output: Urine 150 / 150 175 / 175 Stool 75 / 75 Catheter 250 / 250 200 / 200 225 / 225 Other: Meal Lunch Percent of Meal Consumed 20% Stool Size Small Small Stool Consistency loose liquid liquid Stool Color Brown Brown Black # Bowel Movements 1 Weight 89.721 kg Blood Glucose* 162 194 212 Patient Weight 05/06/17 23:59 Weight 89.721 kg - General Appearance General appearance: Present: chronically ill EENT: Present: ATNC, mucous membranes moist Neck: Present: no JVD, supple Respiratory: Present: clear Cardiology: Present: no edema (RLE with dressing), normal S1, normal S2 Gastrointestinal: Present: no tenderness, no guarding Integumentary: Present: warm and dry Neurologic: Present: no focal deficit Musculoskeletal: Present: no deformities Psychiatric: Present: mood/affect appropriate - Lab 05/15/17 05:05 05/15/17 05:05 Most recent lab results Calcium 6.4 mg/dL (8.6-10.3) L 05/06/17 08:40 Phosphorus 7.1 mg/dL (2.7-4.5) H 05/06/17 08:40 Magnesium 2.7 mg/dL (1.6-2.6) H 05/06/17 08:40 Urine Creatinine 188 mg/dL 05/05/17 17:14 Urine Sodium 19.8 mEq/L 05/05/17 17:14 Urine Total Protein 110 mg/dL (1-14) H 05/05/17 17:14 - VTE Documentation of Mechanical Device: Intermittent pneumatic compression device Consult Discharge Plan - Plan Instructions: Diabetic Foot Care (DC), Managing Diabetes During Sick Days (DC) , Diabetic Hyperglycemia (DC), Diabetes Mellitus Type 2 in Adults, Facilities Locator (GEN) Additional Instructions: Monitor ESR and CRP every week, continue ciprofloxacin and ampicillin IV for total of 6 weeks, follow-up with infectious diseases within the next 2 weeks. Continue insulin Referrals: Wound,Care [Other] - 05/17/17 9:30 am Argenis Werner, EXTRUDING PRESS ADJUSTER [Advanced Practice Nurse] - 05/29/17 9:00 am [facility],PCP [Non-Partnered Physician] - (patient is going to [facility] no PCP appointment needed) Prescriptions: OxyCODONE Immed Rel [Roxicodone 5 MG] 5 mg PO Q6HR PRN 7 Days #28 tablet PRN Reason: Severe Pain Ampicillin Sodium 2 gm IJ Q6H 30 Days vial Ciprofloxacin 400 MG/200 ML [Cipro Premix 400 MG/200 ML] 400 mg IVPB BID 30 Days #60 bag Insulin DETEMIR [Levemir] 5 unit SQ HS 30 Days [id number] Insulin LISPRO [HumaLOG] 2 units SQ TIDAC 30 Days vial
--- NOTE | 2017-05-06 18:35 | Internal Med Progress Note ---
Date of Encounter: 05/06/17 Time of Encounter: 11:00 - Assessment and plan (1) Sepsis Current Visit: Yes Status: Acute Assessment and plan: Secondary to left foot osteomyelitis Continue IV vancomycin and zosyn in addition to IV fluid resuscitation Wound culture positive for gram-negative rods;Blood cultures pending Qualifiers: Sepsis type: sepsis due to unspecified organism Qualified Code(s): A41.9 - Sepsis, unspecified organism (3) Hyponatremia Current Visit: Yes Status: Acute Assessment and plan: -Sodium 127 on admission and 128 on 05/05/17 and 133 on 05/06/17 -Nephrology following and appreciate recommendations (4) Acute renal failure (ARF) Current Visit: Yes Status: Acute Assessment and plan: -Patient with a creatinine of 3.9 on 05/05/17 and now 3.54 on 05/06/17 -Continue IV fluids -Nephrology consulted and appreciate recommendations Qualifiers: Acute renal failure type: unspecified Qualified Code(s): N17.9 - Acute kidney failure, unspecified (5) DVT prophylaxis Current Visit: Yes Status: Acute Assessment and plan: Subcutaneous heparin - Subjective Interval history: Patient found to have left foot osteomyelitis with gas gangrene Podiatry consulted status post proximal transmetatarsal amputation with bone biopsy with partial resection of the medial cuneiform with flap advancement, all left foot. Patient also with acute renal failure and nephrology following - Constitutional Vitals: Temp Pulse Resp BP Pulse Ox 97.4 F L 78 17 105/69 91 05/06/17 16:18 05/06/17 16:18 05/06/17 16:18 05/06/17 16:18 05/06/17 16:18 General appearance: Present: A&O X 3, pleasant, no acute distress - Respiratory Respiratory exam: Present: CTAB. Absent: accessory muscle use, rales, rhonchi, wheezes - Cardiovascular Cardiovascular exam: Present: RRR, +S1, +S2. Absent: diastolic murmur, gallop, rubs, systolic murmur Internal Medicine: Result - Labs CBC & Chem 7: 05/06/17 08:40 05/06/17 08:40 Labs: Short CBC 05/06/17 Range/Units 08:40 WBC 18.1 H (4.3-11.1) K/mcL Hgb 14.8 D (12.9-16.9) g/dL Hct 45.6 (37.5-50.1) % Plt Count 87 L (140-400) K/mcL Neutrophils # 16.1 H (1.6-8.9) K/mcL BMP 05/06/17 05/06/17 08:40 08:40 Sodium 132 L 133 L Potassium 4.9 4.8 Chloride 106 106 Carbon Dioxide 14 L 15 L BUN 102 H 100 H Creatinine 3.50 H 3.54 H Glucose 222 H 221 H Calcium 6.4 L 6.4 L Liver Function 05/06/17 Range/Units 08:40 Total Bilirubin 1.1 H (0.3-1.0) mg/dL AST 172 H (13-39) Units/L ALT 452 H (7-52) Units/L Alkaline Phosphatase 72 (34-104) Units/L Albumin 2.6 L (3.5-5.7) g/dL - ABG Interpretation ABG results: PT/INR, D-dimer PT 13.0 Seconds (9.4-12.1) H 05/05/17 00:15 - VTE Documentation of Mechanical Device: Intermittent pneumatic compression device Consult Discharge Plan - Plan Instructions: Diabetic Foot Care (DC), Managing Diabetes During Sick Days (DC) , Diabetic Hyperglycemia (DC), Diabetes Mellitus Type 2 in Adults, Cabbage Salter (GEN) Referrals: NONE,PCP [Primary Care Provider] -
--- NOTE | 2017-05-06 23:06 | Podiatry Progress Note ---
Date of Encounter: 05/06/17 Time of Encounter: 23:04 - Assessment and Plan (1) Osteomyelitis Current Visit: No Status: Inactive The patient will need to remain nonweightbearing to the left. The patient will keep the wound VAC intact and have it changed every Sunday, Sunday, Sunday. The patient will possibly need a below the knee amputation if his wound does not heal. Qualifiers: Osteomyelitis type: unspecified type Osteomyelitis location: foot Laterality: left Qualified Code(s): M86.9 - Osteomyelitis, unspecified Subjective Principal diagnosis: Infection, left Interval history: Patient is more lucid today and relates that he has no pain. Objective - Vital Signs Vital Signs: Vital Signs Temp Pulse Resp BP Pulse Ox 05/06/17 18:42 97.4 F L 80 20 113/63 92 05/06/17 16:18 97.4 F L 78 17 105/69 91 05/06/17 11:25 93 05/06/17 11:10 97.4 F L 81 18 116/70 93 05/06/17 07:45 96.7 F L 77 19 100/63 92 05/06/17 07:41 92 05/06/17 03:51 97.6 F 72 20 97/71 96 05/06/17 00:10 97.9 F 81 22 97/65 95 Intake and Output 05/06/17 05/06/17 05/06/17 07:59 15:59 23:59 Intake Total 2200 / 2200 1915 / 1915 2300 / 2300 Output Total 450 / 450 335 / 335 325 / 325 Balance 1750 / 1750 1580 / 1580 1974 / 1974 Intake: IV Fluids 1999 1075 / 1075 2100 / 2100 0.9 % Sodium Chloride 1,000 ML 1999 975 / 975 1999 @ 200 mls/hr IVC .Q5H [facility] Rx#: [id number] Zosyn 3.375 GM In 0.9 % Sodium 100 / 100 100 / 100 Chloride 100 ML @ 25 mls/hr IVPB Q12H [facility] Rx#:[id number] Oral 200 / 200 840 / 840 Free Water 200 / 200 Output: Urine 175 / 175 Stool 75 / 75 Catheter 200 / 200 335 / 335 325 / 325 Other: Meal Lunch Percent of Meal Consumed 20% Stool Size Small Small Small Stool Consistency loose liquid liquid liquid Stool Color Brown Brown Brown Black Black # Bowel Movements 1 Weight 89.721 kg Blood Glucose* 194 212 158 Patient Weight 05/06/17 23:59 Weight 89.721 kg - Exam Exam: Slight signs of ischemia noted on the dorsal aspect of the left lateral foot. No other ischemia noted at this time. Wound VAC is intact. Stable at this time. - Lab Result Diagrams: 05/06/17 08:40 05/06/17 08:40 Labs: Abnormal lab results WBC 18.1 K/mcL (4.3-11.1) H 05/06/17 08:40 MCH 27.1 pg (28.0-33.3) L 05/06/17 08:40 RDW 16.9 % (11.5-14.5) H 05/06/17 08:40 Plt Count 87 K/mcL (140-400) L 05/06/17 08:40 Neutrophils # 16.1 K/mcL (1.6-8.9) H 05/06/17 08:40 Nucleated RBCs/100 WBC 0.1 /100 WBC (0) H 05/05/17 00:15 Platelet Estimate Slight Decrease (Normal) L 05/06/17 08:40 Immature Plt Fraction 8.5 % (1.1-6.1) H 05/06/17 08:40 ESR 56 mm/hr (0-10) H 05/04/17 19:38 PT 13.0 Seconds (9.4-12.1) H 05/05/17 00:15 Sodium 133 mEq/L (136-145) L 05/06/17 08:40 Carbon Dioxide 15 mEq/L (23-29) L 05/06/17 08:40 BUN 100 mg/dL (8-23) H 05/06/17 08:40 Creatinine 3.54 mg/dL (0.70-1.30) H 05/06/17 08:40 Est GFR ( Amer) 21 (> 60) L 05/06/17 08:40 Est GFR (Non-Af Amer) 17 (> 60) L 05/06/17 08:40 BUN/Creatinine Ratio 28 (6-26) H 05/06/17 08:40 Glucose 221 mg/dL (70-105) H 05/06/17 08:40 POC Glucose 164 (58-89) H 05/06/17 16:24 Hemoglobin A1c 7.6 % (-5.6) H 05/04/17 19:38 Calculated Osmolality 314 (280-300) H 05/06/17 08:40 Uric Acid 11.8 mg/dL (2.3-7.6) H 05/05/17 17:14 Calcium 6.4 mg/dL (8.6-10.3) L 05/06/17 08:40 Phosphorus 7.1 mg/dL (2.7-4.5) H 05/06/17 08:40 Magnesium 2.7 mg/dL (1.6-2.6) H 05/06/17 08:40 Total Bilirubin 1.1 mg/dL (0.3-1.0) H 05/06/17 08:40 Direct Bilirubin 0.6 mg/dL (0.0-0.2) H 05/05/17 00:15 AST 172 Units/L (13-39) H 05/06/17 08:40 ALT 452 Units/L (7-52) H 05/06/17 08:40 Creatine Kinase 1404 Units/L (30-223) H 05/06/17 08:40 C-Reactive Protein 265 mg/L (Less than 10) H 05/04/17 19:38 Serum Total Protein 6.2 g/dL (6.4-8.9) L 05/06/17 08:40 Albumin 2.6 g/dL (3.5-5.7) L 05/06/17 08:40 Globulin 3.6 g/dL (2.4-3.5) H 05/06/17 08:40 Albumin/Globulin Ratio 0.7 (1.1-2.2) L 05/06/17 08:40 Urine Clarity Turbid (Clear) A 05/05/17 05:30 Urine Protein 30 mg/dL (Neg-Trace) H 05/05/17 05:30 Urine Glucose (UA) 100 mg/dL (Normal) H 05/05/17 05:30 Urine Blood Large (Negative) H 05/05/17 05:30 Urine Microscopic RBC 5-15 per hpf (0-3) H 05/05/17 05:30 Urine Microscopic WBC 15-30 per hpf (0-3) H 05/05/17 05:30 Ur Squamous Epith Cells Many per lpf (None-Few) H 05/05/17 05:30 Amorphous Sediment Moderate (Few) H 05/05/17 05:30 Microalb/Creat Ratio 74 mcg/mg (Less than 30) H 05/05/17 17:14 Protein/Creatinin Ratio 0.59 mg/mg (0.00-0.20) H 05/05/17 17:14 Urine Total Protein 110 mg/dL (1-14) H 05/05/17 17:14 Microbiology, Last 48 Hours 05/05/17 09:48 Surgical Biopsy Culture - Preliminary Left Foot - VTE Documentation of Mechanical Device: Intermittent pneumatic compression device Consult Discharge Plan - Plan Instructions: Diabetic Foot Care (DC), Managing Diabetes During Sick Days (DC) , Diabetic Hyperglycemia (DC), Diabetes Mellitus Type 2 in Adults, Fleet Director (GEN) Referrals: NONE,PCP [Primary Care Provider] -
[2017-05-07] MEDS: 0.9 % Sodium Chloride 1,000 ML IVC SCH ×4 (03:24→21:55)
[2017-05-07 04:44] LABS: VBG Ionized Calcium 0.83 mmol/L (1.15-1.35); VBG PH 7.21 pH Units (7.32-7.42)
[2017-05-07 04:46] LABS: Basophils % 0.2 %; Eosinophils % 0.3 %; Mean Corpuscular Volume 84.3 fL (83.0-100.0)
[2017-05-07 04:48] LABS: Eosinophils # 0.1 K/mcL (0.0-0.6); Hemoglobin 14.3 g/dL (12.9-16.9); Immature Granulocytes % 1.7 % (0-4); Immature Platelets 10.8 % (1.1-6.1); Lymphocytes # 1.3 K/mcL (0.6-4.6); Lymphocytes % 7.3 %; Mean Corpuscular HGB Conc 31.8 g/dL (31.6-35.5); Mean Corpuscular Hemoglobin 26.8 pg (28.0-33.3); Mean Platelet Volume 11.3 fL (9.4-12.4); Monocytes # 1.3 K/mcL (0.0-1.3); Monocytes % 7.3 %; Neutrophils # 14.3 K/mcL (1.6-8.9); Red Blood Count 5.34 M/mcL (4.19-5.50); Red Cell Distribution Width 16.7 % (11.5-14.5); Segmented Neutrophils % 83.2 %
[2017-05-07 04:51] LABS: Platelet Count 92 K/mcL (140-400)
[2017-05-07] MEDS: *HR* Heparin 5,000 UNIT/ML VIAL SQ SCH ×3 (04:52→20:26)
[2017-05-07 05:01] LABS: Albumin 2.6 g/dL (3.5-5.7); Albumin/Globulin Ratio 0.7 (1.1-2.2); Bilirubin,Total 1.2 mg/dL (0.3-1.0); Calcium 6.6 mg/dL (8.6-10.3); Globulin 3.6 g/dL (2.4-3.5); Potassium 4.7 mEq/L (3.5-5.1); Total Protein 6.2 g/dL (6.4-8.9)
[2017-05-07] MEDS: Insulin LISPRO 300 UNITS/3 ML VIAL SQ SCH ×4 (08:40→20:27)
--- NOTE | 2017-05-07 17:06 | Podiatry Progress Note ---
Date of Encounter: 05/07/17 Time of Encounter: 16:45 - Assessment and Plan (1) Sepsis Current Visit: Yes Status: Acute s/p proximal transmetatarsal amputation with bone biopsy with partial resection of the medial cuneiform with flap advancement, all left foot by Dr. Saavedra on 05/05/17. WBC: 17.2, CRP: 265. ESR: 56. Microbiology 05/04/17 19:54 Left Foot Wound Culture - Preliminary Klebsiella oxytoca Proteus mirabilis Enterococcus species 05/05/17 09:48 Left Foot Surgical Biopsy Culture - Preliminary Proteus mirabilis 05/05/17 09:48 Left Foot Wound Culture - Preliminary Proteus mirabilis Plan: Remain nonweightbearing to the left. Keep the wound VAC intact and have it changed every Sunday, Sunday, Sunday. Wound vac changed today at bedside. Infectious Disease consulted for antibiotic therapy. Will continue to closely monitor the patient. The patient will possibly need a below the knee amputation if his wound does not heal. Qualifiers: Sepsis type: sepsis due to unspecified organism Qualified Code(s): A41.9 - Sepsis, unspecified organism Subjective Principal diagnosis: Infection, left Interval history: Patient is s/p proximal transmetatarsal amputation with bone biopsy with partial resection of the medial cuneiform with flap advancement, all left foot by Sessions on 05/05/17. Patient is lying in bed with wound vac intact, 120 ml of serosanguineous drainage observed to canister. Patient rates left foot pain at a 6 out of 10. No c/o fever or chills. Objective - Vital Signs Vital Signs: Vital Signs Temp Pulse Resp BP Pulse Ox 05/07/17 16:42 97.6 F 67 19 118/77 92 05/07/17 11:30 97.5 F L 76 20 134/80 96 05/07/17 07:41 96.8 F L 74 18 113/71 92 05/07/17 03:35 98.4 F 73 18 119/77 97 05/06/17 23:04 97.5 F L 77 20 122/72 93 05/06/17 18:42 97.4 F L 80 20 113/63 92 Intake and Output 05/07/17 05/07/17 05/07/17 07:59 15:59 23:59 Intake Total 1999 1860 / 1860 Output Total 800 / 800 1626 / 1626 Balance 1200 / 1200 234 / 234 Intake: IV Fluids 1999 1000 / 1000 0.9 % Sodium Chloride 1,000 ML 1999 1000 / 1000 @ 200 mls/hr IVC .Q5H [facility] Rx#: [id number] Oral 860 / 860 Output: Urine 550 / 550 Catheter 250 / 250 1525 / 1525 Wound Drainage 101 / 101 Left Foot 101 / 101 Other: Meal Lunch Percent of Meal Consumed 85% Weight 107.2 kg Blood Glucose* 138 161 135 Patient Weight 05/07/17 23:59 Weight 107.2 kg - Exam Exam: General appearance: alert awake oriented X 3. Calm and pleasant, no acute distress.. Vascular: Unable to palpate pedal pulses secondary to edema, Edema graded at 1+/ 4, Skin Temperature warm, No calf pain with manual compression. capillary refill time is immediate. Neurologic: Sensation intact with light touch to foot. . Postop Exam: S/P Sutures intact to incision line with an open area to the distal medial aspect of the incision line measuring 2 cm in length x 0.2 cm in width x 1 cm in depth. No pus, no odor. Surrounding wound edges proximally laterally are dusky. Macerated wound edges to the medial aspect of the incision line. 120 mls of serosanguineous drainage observe to canister. 2 + edema. - Lab Result Diagrams: 05/07/17 04:28 05/07/17 04:28 Labs: Abnormal lab results WBC 17.2 K/mcL (4.3-11.1) H 05/07/17 04:28 MCH 26.8 pg (28.0-33.3) L 05/07/17 04:28 RDW 16.7 % (11.5-14.5) H 05/07/17 04:28 Plt Count 92 K/mcL (140-400) L 05/07/17 04:28 Neutrophils # 14.3 K/mcL (1.6-8.9) H 05/07/17 04:28 Nucleated RBCs/100 WBC 0.1 /100 WBC (0) H 05/05/17 00:15 Platelet Estimate Slight Decrease (Normal) L 05/06/17 08:40 Immature Plt Fraction 10.8 % (1.1-6.1) H 05/07/17 04:28 ESR 56 mm/hr (0-10) H 05/04/17 19:38 PT 13.0 Seconds (9.4-12.1) H 05/05/17 00:15 VBG pH 7.21 pH Units (7.32-7.42) L 05/07/17 04:41 Sodium 134 mEq/L (136-145) L 05/07/17 04:28 Chloride 109 mEq/L (98-107) H 05/07/17 04:28 Carbon Dioxide 16 mEq/L (23-29) L 05/07/17 04:28 BUN 97 mg/dL (8-23) H 05/07/17 04:28 Creatinine 2.89 mg/dL (0.70-1.30) H 05/07/17 04:28 Est GFR ( Amer) 26 (> 60) L 05/07/17 04:28 Est GFR (Non-Af Amer) 22 (> 60) L 05/07/17 04:28 BUN/Creatinine Ratio 34 (6-26) H 05/07/17 04:28 Glucose 170 mg/dL (70-105) H 05/07/17 04:28 POC Glucose 161 (58-89) H 05/07/17 11:33 Hemoglobin A1c 7.6 % (-5.6) H 05/04/17 19:38 Calculated Osmolality 312 (280-300) H 05/07/17 04:28 Uric Acid 11.8 mg/dL (2.3-7.6) H 05/05/17 17:14 Calcium 6.6 mg/dL (8.6-10.3) L 05/07/17 04:28 Venous Ioniz Calcium 0.83 mmol/L (1.15-1.35) L 05/07/17 04:41 Phosphorus 7.1 mg/dL (2.7-4.5) H 05/06/17 08:40 Magnesium 2.7 mg/dL (1.6-2.6) H 05/06/17 08:40 Total Bilirubin 1.2 mg/dL (0.3-1.0) H 05/07/17 04:28 Direct Bilirubin 0.6 mg/dL (0.0-0.2) H 05/05/17 00:15 AST 111 Units/L (13-39) H 05/07/17 04:28 ALT 353 Units/L (7-52) H 05/07/17 04:28 Creatine Kinase 863 Units/L (30-223) H 05/07/17 04:28 C-Reactive Protein 265 mg/L (Less than 10) H 05/04/17 19:38 Serum Total Protein 6.2 g/dL (6.4-8.9) L 05/07/17 04:28 Albumin 2.6 g/dL (3.5-5.7) L 05/07/17 04:28 Globulin 3.6 g/dL (2.4-3.5) H 05/07/17 04:28 Albumin/Globulin Ratio 0.7 (1.1-2.2) L 05/07/17 04:28 25-OH Vitamin D Total 13 ng/mL (30-80) L 05/07/17 04:28 PTH Intact 243.3 pg/ml (10.0-65.0) H 05/07/17 04:28 Urine Clarity Turbid (Clear) A 05/05/17 05:30 Urine Protein 30 mg/dL (Neg-Trace) H 05/05/17 05:30 Urine Glucose (UA) 100 mg/dL (Normal) H 05/05/17 05:30 Urine Blood Large (Negative) H 05/05/17 05:30 Urine Microscopic RBC 5-15 per hpf (0-3) H 05/05/17 05:30 Urine Microscopic WBC 15-30 per hpf (0-3) H 05/05/17 05:30 Ur Squamous Epith Cells Many per lpf (None-Few) H 05/05/17 05:30 Amorphous Sediment Moderate (Few) H 05/05/17 05:30 Microalb/Creat Ratio 74 mcg/mg (Less than 30) H 05/05/17 17:14 Protein/Creatinin Ratio 0.59 mg/mg (0.00-0.20) H 05/05/17 17:14 Urine Total Protein 110 mg/dL (1-14) H 05/05/17 17:14 Microbiology, Last 48 Hours 05/05/17 09:48 Surgical Biopsy Culture - Preliminary Left Foot Proteus mirabilis 05/05/17 09:48 Wound Culture - Preliminary Left Foot Proteus mirabilis - VTE Documentation of Mechanical Device: Intermittent pneumatic compression device Consult Discharge Plan - Plan Instructions: Diabetic Foot Care (DC), Managing Diabetes During Sick Days (DC) , Diabetic Hyperglycemia (DC), Diabetes Mellitus Type 2 in Adults, Starting Gate Driver (GEN) Referrals: NONE,PCP [Primary Care Provider] -
--- NOTE | 2017-05-07 17:30 | Nephrology Progress Note ---
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 Continue IVF but cand decrease rate and avoid nephrotoxins if possible, vanco by levels only CPK decreasing US of kidney pending Mild acidotic, will consider adding bicarb to fluids once adequately volume resuscitated (2) Hyponatremia Status: Resolved Improving with NS at 134, will continue (3) Osteomyelitis Status: Inactive s/p TMA, per podiatry Qualifiers: Osteomyelitis type: unspecified type Osteomyelitis location: foot Laterality: left Qualified Code(s): M86.9 - Osteomyelitis, unspecified (4) Hypocalcemia Status: Resolved Ionized calcium low, vitamin D low and PTH high, will start tums tid and ergocalciferol weekly Subjective Principal diagnosis: Infection, left Interval history: Pt seen and examined sitting up in chair eating luch. Pain controlled s/p TMA with wound vac in place Objective - Vital Signs Vital signs: Vital Signs Temp Pulse Resp BP Pulse Ox 05/07/17 16:42 97.6 F 67 19 118/77 92 05/07/17 11:30 97.5 F L 76 20 134/80 96 05/07/17 07:41 96.8 F L 74 18 113/71 92 05/07/17 03:35 98.4 F 73 18 119/77 97 05/06/17 23:04 97.5 F L 77 20 122/72 93 05/06/17 18:42 97.4 F L 80 20 113/63 92 Intake and Output 05/07/17 05/07/17 05/07/17 07:59 15:59 23:59 Intake Total 1999 Output Total 800 / 800 1626 / 1626 Balance 1200 / 1200 334 / 334 Intake: IV Fluids 1999 1100 / 1100 0.9 % Sodium Chloride 1,000 ML 1999 1000 / 1000 @ 200 mls/hr IVC .Q5H [facility] Rx#: [id number] Zosyn 3.375 GM In 0.9 % Sodium 100 / 100 Chloride 100 ML @ 25 mls/hr IVPB Q12H [facility] Rx#:[id number] Oral 860 / 860 Output: Urine 550 / 550 Catheter 250 / 250 1525 / 1525 Wound Drainage 101 / 101 Left Foot 101 / 101 Other: Meal Lunch Percent of Meal Consumed 85% Weight 107.2 kg Blood Glucose* 138 161 135 Patient Weight 05/07/17 23:59 Weight 107.2 kg - General Appearance General appearance: Present: chronically ill EENT: Present: ATNC, mucous membranes moist Neck: Present: no JVD, supple Respiratory: Present: clear Cardiology: Present: no edema (RLE with dressing), normal S1, normal S2 Gastrointestinal: Present: no tenderness, no guarding Integumentary: Present: warm and dry Neurologic: Present: no focal deficit Musculoskeletal: Present: no deformities Psychiatric: Present: mood/affect appropriate - Lab 05/15/17 05:05 05/15/17 05:05 Most recent lab results Calcium 6.6 mg/dL (8.6-10.3) L 05/07/17 04:28 Phosphorus 7.1 mg/dL (2.7-4.5) H 05/06/17 08:40 Magnesium 2.7 mg/dL (1.6-2.6) H 05/06/17 08:40 Urine Creatinine 188 mg/dL 05/05/17 17:14 Urine Sodium 19.8 mEq/L 05/05/17 17:14 Urine Total Protein 110 mg/dL (1-14) H 05/05/17 17:14 - VTE Documentation of Mechanical Device: Intermittent pneumatic compression device Consult Discharge Plan - Plan Instructions: Diabetic Foot Care (DC), Managing Diabetes During Sick Days (DC) , Diabetic Hyperglycemia (DC), Diabetes Mellitus Type 2 in Adults, [employer] (GEN) Additional Instructions: Monitor ESR and CRP every week, continue ciprofloxacin and ampicillin IV for total of 6 weeks, follow-up with infectious diseases within the next 2 weeks. Continue insulin Referrals: Wound,Care [Other] - 05/17/17 9:30 am Argenis Werner LIBRARY MEDIA TECHNICIAN [Advanced Practice Nurse] - 05/29/17 9:00 am [facility] [Non-Partnered Physician] - (patient is going to [facility] no PCP appointment needed) Prescriptions: OxyCODONE Immed Rel [Roxicodone 5 MG] 5 mg PO Q6HR PRN 7 Days #28 tablet PRN Reason: Severe Pain Ampicillin Sodium 2 gm IJ Q6H 30 Days vial Ciprofloxacin 400 MG/200 ML [Cipro Premix 400 MG/200 ML] 400 mg IVPB BID 30 Days #60 bag Insulin DETEMIR [Levemir] 5 unit SQ HS 30 Days [id number] Insulin LISPRO [HumaLOG] 2 units SQ TIDAC 30 Days vial
--- NOTE | 2017-05-07 17:56 | Internal Med Progress Note ---
Date of Encounter: 05/07/17 Time of Encounter: 11:00 - Assessment and plan (1) Sepsis Current Visit: Yes Status: Acute Assessment and plan: Secondary to left foot osteomyelitis Podiatry consulted; POD 2 proximal transmetatarsal amputation with bone biopsy with partial resection of the medial cuneiform with flap advancement, all left foot. Not much improvement in leukocytosis Continue IV vancomycin and zosyn in addition to IV fluid resuscitation Wound culture positive for gram-negative rods;Blood cultures pending Qualifiers: Sepsis type: sepsis due to unspecified organism Qualified Code(s): A41.9 - Sepsis, unspecified organism (2) Hyponatremia Current Visit: Yes Status: Acute Assessment and plan: -Sodium 127 on admission (05/04/17) and now 134 on 05/07/17 -Will continue to monitor -Nephrology following and appreciate recommendations (3) Acute renal failure (ARF) Current Visit: Yes Status: Acute Assessment and plan: -Patient with a creatinine of 3.91 on admission and is now 2.89 -Continue IV fluids -Will continue to monitor -Nephrology consulted and appreciate recommendations Qualifiers: Acute renal failure type: unspecified Qualified Code(s): N17.9 - Acute kidney failure, unspecified (4) DVT prophylaxis Current Visit: Yes Status: Acute Assessment and plan: Subcutaneous heparin - Subjective Interval history: Patient 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 Patient also with acute renal failure which is improving - Constitutional Vitals: Temp Pulse Resp BP Pulse Ox 97.6 F 67 19 118/77 92 05/07/17 16:42 05/07/17 16:42 05/07/17 16:42 05/07/17 16:42 05/07/17 16:42 General appearance: Present: A&O X 3, pleasant, no acute distress - Respiratory Respiratory exam: Present: CTAB. Absent: accessory muscle use, rales, rhonchi, wheezes - Cardiovascular Cardiovascular exam: Present: RRR, +S1, +S2. Absent: diastolic murmur, gallop, rubs, systolic murmur - GI/Abdominal GI/Abdominal exam: Present: distended, no peritoneal signs Internal Medicine: Result - Labs CBC & Chem 7: 05/07/17 04:28 05/07/17 04:28 Labs: Short CBC 05/07/17 Range/Units 04:28 WBC 17.2 H (4.3-11.1) K/mcL Hgb 14.3 (12.9-16.9) g/dL Hct 45.0 (37.5-50.1) % Plt Count 92 L (140-400) K/mcL Neutrophils # 14.3 H (1.6-8.9) K/mcL BMP 05/07/17 04:28 Sodium 134 L Potassium 4.7 Chloride 109 H Carbon Dioxide 16 L BUN 97 H Creatinine 2.89 H Glucose 170 H Calcium 6.6 L Liver Function 05/07/17 Range/Units 04:28 Total Bilirubin 1.2 H (0.3-1.0) mg/dL AST 111 H (13-39) Units/L ALT 353 H (7-52) Units/L Alkaline Phosphatase 79 (34-104) Units/L Albumin 2.6 L (3.5-5.7) g/dL - ABG Interpretation ABG results: PT/INR, D-dimer PT 13.0 Seconds (9.4-12.1) H 05/05/17 00:15 - Impressions Impressions Retroperitoneum Ultrasound 05/07/17 15:00 IMPRESSION: Unremarkable bilateral renal ultrasound. Unremarkable urinary bladder ultrasound. Question intraluminal filling defects, likely artifactual. D/ : / 05/07/2017 16:01:01 Andrew Adams MD / nakita Interpreting Provider: Andrew Adams MD - VTE Documentation of Mechanical Device: Intermittent pneumatic compression device Consult Discharge Plan - Plan Instructions: Diabetic Foot Care (DC), Managing Diabetes During Sick Days (DC) , Diabetic Hyperglycemia (DC), Diabetes Mellitus Type 2 in Adults, Jammer Operator (GEN) Referrals: NONE,PCP [Primary Care Provider] -
[2017-05-08 03:49] LABS: Basophils % 0.2 %; Eosinophils % 1.5 %
[2017-05-08 03:50] LABS: Eosinophils # 0.2 K/mcL (0.0-0.6); Hematocrit 43.5 % (37.5-50.1); Immature Granulocytes % 1.5 % (0-4); Lymphocytes % 8.3 %; Mean Corpuscular HGB Conc 32.2 g/dL (31.6-35.5); Mean Corpuscular Hemoglobin 26.9 pg (28.0-33.3); Mean Corpuscular Volume 83.5 fL (83.0-100.0); Mean Platelet Volume 11.7 fL (9.4-12.4); Monocytes # 0.8 K/mcL (0.0-1.3); Monocytes % 6.7 %; Neutrophils # 10.2 K/mcL (1.6-8.9); Red Blood Count 5.21 M/mcL (4.19-5.50); Red Cell Distribution Width 16.4 % (11.5-14.5); Segmented Neutrophils % 81.8 %
[2017-05-08 03:51] LABS: Platelet Count 94 K/mcL (140-400)
[2017-05-08 04:11] LABS: Albumin 2.3 g/dL (3.5-5.7); Albumin/Globulin Ratio 0.7 (1.1-2.2); Bilirubin,Total 1.5 mg/dL (0.3-1.0); Globulin 3.5 g/dL (2.4-3.5); Potassium 4.1 mEq/L (3.5-5.1); Total Protein 5.8 g/dL (6.4-8.9)
[2017-05-08 04:13] LABS: Chol/HDL Ratio 8.5 (0-4.9)
[2017-05-08] MEDS: 0.9 % Sodium Chloride 1,000 ML IVC SCH ×2 (06:13→15:07)
[2017-05-08] MEDS: *HR* Heparin 5,000 UNIT/ML VIAL SQ SCH ×3 (06:15→21:01)
[2017-05-08] MEDS ORDERED: Aminoglycoside Consult 1 EACH MC ONE (07:18)
[2017-05-08] MEDS: Insulin LISPRO 300 UNITS/3 ML VIAL SQ SCH ×4 (08:39→20:43)
--- NOTE | 2017-05-08 09:30 | Internal Med Progress Note ---
<Teofilo Mckenzie - Last Filed: 05/08/17 15:42> Date of Encounter: 05/08/17 Time of Encounter: 09:28 - Assessment and plan (1) Sepsis Current Visit: Yes Status: Acute Assessment and plan: 2/2 L foot osteomyelitis Podiatry consulted; POD 3 proximal transmetatarsal amputation with bone biopsy w / partial resection of the medial cuneiform with flap advancement, all left foot. Last WC was 12.5, down from 17.2 Plan: IVF NS at 125 ml/h IV vancomycin and zosyn will be switched to IV ancef and cipro Wound CX + for GNRs Blood CX pending Qualifiers: Sepsis type: sepsis due to unspecified organism Qualified Code(s): A41.9 - Sepsis, unspecified organism (2) Osteomyelitis Current Visit: Yes Status: Acute Assessment and plan: CT of the LE on 05/04/17 demonstrated the followin. Deep soft tissue ulceration plantar to the 1st MTP joint with soft tissue gas throughout the 1st digit and dorsal to the 1st metatarsal and medial cuneiform. Diffuse subcutaneous fat stranding compatible with cellulitis. No well-defined drainable fluid collection. 2. Gas within the 1st metatarsal head and 1st proximal phalangeal base and shaft compatible with osteomyelitis. If clinically indicated MRI could be obtained to evaluate the extent of osteomyelitis. 3. Gas within the 1st metatarsophalangeal joint space compatible with septic arthritis. Podiatry on board; continue IV abx Qualifiers: Osteomyelitis type: unspecified type Osteomyelitis location: foot Laterality: left Qualified Code(s): M86.9 - Osteomyelitis, unspecified (3) Acute renal failure (ARF) Current Visit: Yes Status: Acute Assessment and plan: -Patient with a creatinine of 3.91 on admission and is now 1.95 -Continue IV fluids -Will continue to monitor -Nephrology consulted; would appreciate recommendations Qualifiers: Acute renal failure type: unspecified Qualified Code(s): N17.9 - Acute kidney failure, unspecified (4) Hyponatremia Current Visit: Yes Status: Acute Assessment and plan: -Sodium 127 on admission (05/04/17) and now 135 -Will continue to monitor -Nephrology following and appreciate recommendations (5) DVT prophylaxis Current Visit: Yes Status: Acute Assessment and plan: SQ heparin - Subjective Interval history: Mr. Collado is a 67 year old male without known medical history (has not seen physician since 1994), who presented to the ED on 05/04/17 with L foot pain and erythema and fall and weakness. Has had ulcers on the plantar surface of b/l MTPs for the past month. Two days prior, was walking out of his house and his legs "gave out" and he fell. He was extremely weak and unable to get up, so he spent two hour slowly dragging himself back into his house. He then laid on the floor and slept for 9 hours. When he woke up he was able to drag himself to his sofa where he sat until he was able to reach his phone and call for help. He had a gallon of milk sitting on the floor where he had been bringing in groceries at the time of the fall, and he was able to drink it for the past two days. He has had nothing to eat. He noticed that his L foot was more painful and the great toe had become dark colored. [facility] to have evidence of an ALEK with creatinine >3. He denies history of known kidney disease. He denies fever, but did notice that he had chills three days ago. He does not look at his feet often, and is unsure when the left foot began to look dark. Podiatry was consulted on 05/05. Underwent proximal transmetatarsal amputation. Currently POD 3. States that he is feeling well today. No pain in his foot. L foot is currently wrapped. No blood or discharge observed. No complaints at this time. - Constitutional Vitals: Temp Pulse Resp BP Pulse Ox 97.4 F L 77 18 121/77 98 05/08/17 07:33 05/08/17 07:33 05/08/17 07:33 05/08/17 07:33 05/08/17 07:33 General appearance: Present: A&O X 3, pleasant, no acute distress - Head Head exam: Present: atraumatic, normocephalic - Eye Eye exam: Present: PERRL, conjuntiva pink, sclera anicteric Pupils: Present: PERRL - Neck Neck exam general surgery: Present: supple, trachea midline. Absent: lymphadenopathy - Respiratory Respiratory exam: Present: CTAB. Absent: accessory muscle use, rales, rhonchi, wheezes - Cardiovascular Cardiovascular exam: Present: RRR, +S1, +S2. Absent: diastolic murmur, gallop, rubs, systolic murmur - GI/Abdominal GI/Abdominal exam: Present: normal bowel sounds, soft, no peritoneal signs. Absent: distended, tenderness - Extremities Exam Extremities exam: Present: warm, radial pulses palpable and symmetrical. Absent : calf tenderness, cyanotic, pedal edema - Neurological Exam Neurological exam: Present: CN II-XII intact, oriented X3, no focal deficits. Absent: pronater drift, facial droop, speech deficit - Skin Skin exam: Present: dry, intact Internal Medicine: Result - Labs CBC & Chem 7: 05/08/17 02:34 05/08/17 02:34 Labs: Short CBC 05/08/17 Range/Units 02:34 WBC 12.5 H (4.3-11.1) K/mcL Hgb 14.0 (12.9-16.9) g/dL Hct 43.5 (37.5-50.1) % Plt Count 94 L (140-400) K/mcL Neutrophils # 10.2 H (1.6-8.9) K/mcL BMP 05/08/17 02:34 Sodium 135 L Potassium 4.1 Chloride 110 H Carbon Dioxide 16 L BUN 72 H Creatinine 1.95 H Glucose 146 H Calcium 7.0 L Liver Function 05/08/17 Range/Units 02:34 Total Bilirubin 1.5 H (0.3-1.0) mg/dL AST 68 H (13-39) Units/L ALT 253 H (7-52) Units/L Alkaline Phosphatase 75 (34-104) Units/L Albumin 2.3 L (3.5-5.7) g/dL - ABG Interpretation ABG results: PT/INR, D-dimer PT 13.0 Seconds (9.4-12.1) H 05/05/17 00:15 - Impressions Impressions Retroperitoneum Ultrasound 05/07/17 15:00 IMPRESSION: Unremarkable bilateral renal ultrasound. Unremarkable urinary bladder ultrasound. Question intraluminal filling defects, likely artifactual. D/ / 05/07/2017 16:01:01 Andrew Adams MD / nakita Interpreting Provider: Yariel. Bryan, MD - VTE Documentation of Mechanical Device: Intermittent pneumatic compression device Consult Discharge Plan - Plan Instructions: Diabetic Foot Care (DC), Managing Diabetes During Sick Days (DC) , Diabetic Hyperglycemia (DC), Diabetes Mellitus Type 2 in Adults, Senior [employer] D[employer] (GEN) Referrals: Wound,Care [Other] - 05/17/17 9:30 am NONE,PCP [Primary Care Provider] - (patient is going to [facility] No PCP appointment needed) <Peter Pennington - Last Filed: 05/08/17 16:31> Date of Encounter: 05/08/17 - Constitutional Vitals: Temp Pulse Resp BP Pulse Ox 97.5 F L 63 14 117/81 96 05/08/17 16:00 05/08/17 16:00 05/08/17 16:00 05/08/17 16:00 05/08/17 16:00 Internal Medicine: Result - Labs CBC & Chem 7: 05/08/17 02:34 05/08/17 02:34 Labs: Short CBC 05/08/17 Range/Units 02:34 WBC 12.5 H (4.3-11.1) K/mcL Hgb 14.0 (12.9-16.9) g/dL Hct 43.5 (37.5-50.1) % Plt Count 94 L (140-400) K/mcL Neutrophils # 10.2 H (1.6-8.9) K/mcL BMP 05/08/17 02:34 Sodium 135 L Potassium 4.1 Chloride 110 H Carbon Dioxide 16 L BUN 72 H Creatinine 1.95 H Glucose 146 H Calcium 7.0 L Liver Function 05/08/17 Range/Units 02:34 Total Bilirubin 1.5 H (0.3-1.0) mg/dL AST 68 H (13-39) Units/L ALT 253 H (7-52) Units/L Alkaline Phosphatase 75 (34-104) Units/L Albumin 2.3 L (3.5-5.7) g/dL - ABG Interpretation ABG results: PT/INR, D-dimer PT 13.0 Seconds (9.4-12.1) H 05/05/17 00:15 - Attending Attestation I personally interviewed and examined this patient. I agree with the findings, assessment, and plan of Dr. Mckenzie, internal medicine post graduate intern. She continues on IV antibiotics as outlined above with infectious disease to follow. He is currently on Ancef and Cipro (day #1 of these antibiotics). Patient's renal failure appears to be improving. This is likely a combination of sepsis and possibly mild rhabdo. Did Hep-Lock his IV fluids today and continue him to encourage oral fluid area and his hyponatremia has resolved. This is likely a hypovolemic hyponatremia. She otherwise is improved. Awaiting final disposition. Physical exam: Gen. no acute distress Oral pharynx moist Supple Clear bilaterally Heart regular rate and rhythm without murmur Abdomen nontender soft with normal active bowel sounds Strongly show 1+ edema bilaterally Her logical grossly nonfocal. Foot is dressed
--- NOTE | 2017-05-08 09:38 | Podiatry Progress Note ---
Date of Encounter: 05/08/17 Time of Encounter: 07:00 - Assessment and Plan (1) Sepsis Current Visit: Yes Status: Acute s/p proximal transmetatarsal amputation with bone biopsy with partial resection of the medial cuneiform with flap advancement, all left foot by Dr. Saavedra on 05/05/17. Flap is pink, warm and dry with immediate capillary refill time. Proximal lateral wound edge of incision line is dusky with erythema. WBC: decreased to 12.5, CRP: 265. ESR: 56. Microbiology 05/04/17 19:54 Left Foot Wound Culture - Final Klebsiella oxytoca Proteus mirabilis Enterococcus faecalis Plan: Remain nonweightbearing to the left. Keep the wound VAC intact and have it changed every Sunday, Sunday, Sunday. Small black simplace wound vac sponge to incision line, connected to 125mmhg continuous suction. Currently receiving IV Vancomycin and Zosyn. Recommend consult to Infectious Disease for antibiotic therapy recommendations. Will continue to closely monitor the patient. The patient will possibly need a below the knee amputation if his wound does not heal. Qualifiers: Sepsis type: sepsis due to unspecified organism Qualified Code(s): A41.9 - Sepsis, unspecified organism Subjective Principal diagnosis: Infection, left Interval history: Patient is s/p proximal transmetatarsal amputation with bone biopsy with partial resection of the medial cuneiform with flap advancement, all left foot by Dr. Saavedra on 05/05/17. Patient is lying in bed with wound vac intact, 20 ml of serosanguineous drainage observed to canister. No c/o fever or chills. Objective - Vital Signs Vital Signs: Vital Signs Temp Pulse Resp BP Pulse Ox 05/08/17 07:33 97.4 F L 77 18 121/77 98 05/08/17 04:55 73 18 96 05/08/17 04:07 97.8 F 72 18 124/74 96 05/08/17 00:15 71 19 96 05/08/17 00:02 97.9 F 68 19 125/82 96 05/07/17 21:22 68 18 94 05/07/17 19:14 98.7 F 64 18 116/78 94 05/07/17 16:42 97.6 F 67 19 118/77 92 05/07/17 11:30 97.5 F L 76 20 134/80 96 Intake and Output 05/07/17 05/08/17 05/08/17 23:59 07:59 15:59 Intake Total 340 / 340 1000 / 1000 140 / 140 Output Total 450 / 450 3200 / 3200 Balance -110 / -110 -2200 / -2200 140 / 140 Intake: IV Fluids 100 / 100 1000 / 1000 0.9 % Sodium Chloride 1,000 ML 1000 / 1000 @ 125 mls/hr IVC .Q8H [facility] Rx#: [id number] Zosyn 3.375 GM In 0.9 % Sodium 100 / 100 Chloride 100 ML @ 25 mls/hr IVPB Q12H [facility] Rx#:[id number] Oral 240 / 240 140 / 140 Output: Urine 900 / 900 Catheter 450 / 450 2300 / 2300 Other: Meal Dinner Breakfast Percent of Meal Consumed 35% 75% Weight 106.5 kg Blood Glucose* 148 142 Patient Weight 05/08/17 23:59 Weight 106.5 kg - Exam Exam: General appearance: alert awake oriented X 3. Calm and pleasant, no acute distress.. Vascular: Unable to palpate pedal pulses secondary to edema, Edema graded at 1+/ 4, Skin Temperature warm, No calf pain with manual compression. capillary refill time is immediate to skin flap. Neurologic: Sensation intact with light touch to foot. . Postop Exam: S/P Sutures intact to incision line with an open area to the distal medial aspect of the incision line measuring 2 cm in length x 0.2 cm in width x 1 cm in depth. No pus, no odor. Surrounding wound edges proximally laterally are dusky. Macerated wound edges to the medial aspect of the incision line. 20 mls of serosanguineous drainage observe to canister. 2 + edema. - Lab Result Diagrams: 05/08/17 02:34 05/08/17 02:34 Labs: Abnormal lab results WBC 12.5 K/mcL (4.3-11.1) H 05/08/17 02:34 MCH 26.9 pg (28.0-33.3) L 05/08/17 02:34 RDW 16.4 % (11.5-14.5) H 05/08/17 02:34 Plt Count 94 K/mcL (140-400) L 05/08/17 02:34 Neutrophils # 10.2 K/mcL (1.6-8.9) H 05/08/17 02:34 Nucleated RBCs/100 WBC 0.1 /100 WBC (0) H 05/05/17 00:15 Platelet Estimate Slight Decrease (Normal) L 05/06/17 08:40 Immature Plt Fraction 11.0 % (1.1-6.1) H 05/08/17 02:34 ESR 56 mm/hr (0-10) H 05/04/17 19:38 PT 13.0 Seconds (9.4-12.1) H 05/05/17 00:15 VBG pH 7.21 pH Units (7.32-7.42) L 05/07/17 04:41 Sodium 135 mEq/L (136-145) L 05/08/17 02:34 Chloride 110 mEq/L (98-107) H 05/08/17 02:34 Carbon Dioxide 16 mEq/L (23-29) L 05/08/17 02:34 BUN 72 mg/dL (8-23) H 05/08/17 02:34 Creatinine 1.95 mg/dL (0.70-1.30) H 05/08/17 02:34 Est GFR ( Amer) 42 (> 60) L 05/08/17 02:34 Est GFR (Non-Af Amer) 34 (> 60) L 05/08/17 02:34 BUN/Creatinine Ratio 37 (6-26) H 05/08/17 02:34 Glucose 146 mg/dL (70-105) H 05/08/17 02:34 POC Glucose 135 (58-89) H 05/07/17 16:47 Hemoglobin A1c 7.6 % (-5.6) H 05/04/17 19:38 Calculated Osmolality 304 (280-300) H 05/08/17 02:34 Uric Acid 11.8 mg/dL (2.3-7.6) H 05/05/17 17:14 Calcium 7.0 mg/dL (8.6-10.3) L 05/08/17 02:34 Venous Ioniz Calcium 0.83 mmol/L (1.15-1.35) L 05/07/17 04:41 Phosphorus 7.1 mg/dL (2.7-4.5) H 05/06/17 08:40 Magnesium 2.7 mg/dL (1.6-2.6) H 05/06/17 08:40 Total Bilirubin 1.5 mg/dL (0.3-1.0) H 05/08/17 02:34 Direct Bilirubin 0.6 mg/dL (0.0-0.2) H 05/05/17 00:15 AST 68 Units/L (13-39) H 05/08/17 02:34 ALT 253 Units/L (7-52) H 05/08/17 02:34 Creatine Kinase 352 Units/L (30-223) H 05/08/17 02:34 C-Reactive Protein 265 mg/L (Less than 10) H 05/04/17 19:38 Serum Total Protein 5.8 g/dL (6.4-8.9) L 05/08/17 02:34 Albumin 2.3 g/dL (3.5-5.7) L 05/08/17 02:34 Albumin/Globulin Ratio 0.7 (1.1-2.2) L 05/08/17 02:34 Triglycerides 225 mg/dL (< 150) H 05/08/17 02:34 VLDL Cholesterol, Calc 45 mg/dL (< 31) H 05/08/17 02:34 HDL Cholesterol 13 mg/dL (40-59) L 05/08/17 02:34 Cholesterol/HDL Ratio 8.5 (0-4.9) H 05/08/17 02:34 25-OH Vitamin D Total 13 ng/mL (30-80) L 05/07/17 04:28 PTH Intact 243.3 pg/ml (10.0-65.0) H 05/07/17 04:28 Urine Clarity Turbid (Clear) A 05/05/17 05:30 Urine Protein 30 mg/dL (Neg-Trace) H 05/05/17 05:30 Urine Glucose (UA) 100 mg/dL (Normal) H 05/05/17 05:30 Urine Blood Large (Negative) H 05/05/17 05:30 Urine Microscopic RBC 5-15 per hpf (0-3) H 05/05/17 05:30 Urine Microscopic WBC 15-30 per hpf (0-3) H 05/05/17 05:30 Ur Squamous Epith Cells Many per lpf (None-Few) H 05/05/17 05:30 Amorphous Sediment Moderate (Few) H 05/05/17 05:30 Microalb/Creat Ratio 74 mcg/mg (Less than 30) H 05/05/17 17:14 Protein/Creatinin Ratio 0.59 mg/mg (0.00-0.20) H 05/05/17 17:14 Urine Total Protein 110 mg/dL (1-14) H 05/05/17 17:14 Microbiology, Last 48 Hours 05/05/17 09:48 Surgical Biopsy Culture - Preliminary Left Foot Proteus mirabilis Enterococcus species 05/05/17 09:48 Wound Culture - Preliminary Left Foot Proteus mirabilis - VTE Documentation of Mechanical Device: Intermittent pneumatic compression device Consult Discharge Plan - Plan Instructions: Diabetic Foot Care (DC), Managing Diabetes During Sick Days (DC) , Diabetic Hyperglycemia (DC), Diabetes Mellitus Type 2 in Adults, 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
--- NOTE | 2017-05-08 12:33 | Nephrology Progress Note ---
<Marisol Chaney Praneeth - Last Filed: 05/08/17 12:36> Date of Encounter: 05/08/17 Time of Encounter: 12:28 - Assessment and Plan (1) ALEK (acute kidney injury) Status: Acute Kidney function much better Scr 1.95, GFR 34 UOP 550ml yesterday; 900ml already today Vanco to be dosed by pharmacy/levels Renal ultrasound shows right kidney 11.6cm and left kidney 11.5 cm-WNL; unremarkable bilateral renal ultrasound (2) Hypocalcemia Status: Acute Ca+ up to 7.0 Continue Tums TID and Ergocalciferol weekly (3) Hyponatremia Status: Acute Na+ improving at 135 (4) Osteomyelitis Status: Acute per podiatry team Qualifiers: Osteomyelitis type: unspecified type Osteomyelitis location: foot Laterality: left Qualified Code(s): M86.9 - Osteomyelitis, unspecified Subjective Principal diagnosis: Infection, left foot Interval history: Patient seen and examined. Sitting up in chair, states feeling better. Objective - Vital Signs Vital signs: Vital Signs Temp Pulse Resp BP Pulse Ox 05/08/17 11:38 98.1 F 74 15 124/72 95 05/08/17 07:33 97.4 F L 77 18 121/77 98 05/08/17 04:55 73 18 96 05/08/17 04:07 97.8 F 72 18 124/74 96 05/08/17 00:15 71 19 96 05/08/17 00:02 97.9 F 68 19 125/82 96 05/07/17 21:22 68 18 94 05/07/17 19:14 98.7 F 64 18 116/78 94 05/07/17 16:42 97.6 F 67 19 118/77 92 Intake and Output 05/07/17 05/08/17 05/08/17 23:59 07:59 15:59 Intake Total 340 / 340 1000 / 1000 140 / 140 Output Total 450 / 450 3200 / 3200 400 / 400 Balance -110 / -110 -2200 / -2200 -260 / -260 Intake: IV Fluids 100 / 100 1000 / 1000 0.9 % Sodium Chloride 1,000 ML 1000 / 1000 @ 125 mls/hr IVC .Q8H [facility] Rx#: [id number] Zosyn 3.375 GM In 0.9 % Sodium 100 / 100 Chloride 100 ML @ 25 mls/hr IVPB Q12H [facility] Rx#:[id number] Oral 240 / 240 140 / 140 Output: Urine 900 / 900 Catheter 450 / 450 2300 / 2300 350 / 350 Urethral (Canela) 350 / 350 Wound Drainage 50 / 50 Left Foot 50 / 50 Other: Meal Dinner Breakfast Percent of Meal Consumed 35% 75% Weight 106.5 kg Blood Glucose* 148 142 142 Patient Weight 05/08/17 23:59 Weight 106.5 kg - General Appearance General appearance: Present: obese EENT: Present: ATNC, mucous membranes moist, hearing intact, vision intact Neck: Present: supple Respiratory: Present: clear Cardiology: Present: edema (LLL>RLL), normal S1, normal S2 Gastrointestinal: Present: no tenderness, no guarding, obese Integumentary: Present: warm and dry Neurologic: Present: alert and oriented x3 Psychiatric: Present: mood/affect appropriate, cooperative - Lab 05/08/17 02:34 05/08/17 02:34 Most recent lab results Calcium 7.0 mg/dL (8.6-10.3) L 05/08/17 02:34 Phosphorus 7.1 mg/dL (2.7-4.5) H 05/06/17 08:40 Magnesium 2.7 mg/dL (1.6-2.6) H 05/06/17 08:40 Urine Creatinine 188 mg/dL 05/05/17 17:14 Urine Sodium 19.8 mEq/L 05/05/17 17:14 Urine Total Protein 110 mg/dL (1-14) H 05/05/17 17:14 - VTE Documentation of Mechanical Device: Intermittent pneumatic compression device Consult Discharge Plan - Plan Instructions: Diabetic Foot Care (DC), Managing Diabetes During Sick Days (DC) , Diabetic Hyperglycemia (DC), Diabetes Mellitus Type 2 in Adults, Primary Teaching Assistant (GEN) Additional Instructions: Monitor ESR and CRP every week, continue ciprofloxacin and ampicillin IV for total of 6 weeks, follow-up with infectious diseases within the next 2 weeks. Continue insulin Referrals: Wound,Care [Other] - 05/17/17 9:30 am Argenis Werner, CONSERVATION EDUCATOR [Advanced Practice Nurse] - 05/29/17 9:00 am [facility] Phys[facility] - (patient is going to [facility] no PCP appointment needed) Prescriptions: OxyCODONE Immed Rel [Roxicodone 5 MG] 5 mg PO Q6HR PRN 7 Days #28 tablet PRN Reason: Severe Pain Ampicillin Sodium 2 gm IJ Q6H 30 Days vial Ciprofloxacin 400 MG/200 ML [Cipro Premix 400 MG/200 ML] 400 mg IVPB BID 30 Days #60 bag Insulin DETEMIR [Levemir] 5 unit SQ HS 30 Days [id number] Insulin LISPRO [HumaLOG] 2 units SQ TIDAC 30 Days vial <JuanSamantha cardenas - Last Filed: 05/21/17 16:24> Date of Encounter: 05/08/17 - Assessment and Plan (1) ALEK (acute kidney injury) Status: Resolved (2) Hyponatremia Status: Resolved (3) Osteomyelitis Status: Inactive Qualifiers: Qualified Code(s): M86.9 - Osteomyelitis, unspecified (4) Hypocalcemia Status: Resolved Objective - Lab 05/15/17 05:05 05/15/17 05:05 Most recent lab results Calcium 8.8 mg/dL (8.6-10.3) 05/15/17 05:05 Phosphorus 7.1 mg/dL (2.7-4.5) H 05/06/17 08:40 Magnesium 1.7 mg/dL (1.6-2.6) 05/11/17 04:41 Urine Creatinine 188 mg/dL 05/05/17 17:14 Urine Sodium 19.8 mEq/L 05/05/17 17:14 Urine Total Protein 110 mg/dL (1-14) H 05/05/17 17:14 - Attending Attestation I examined this patient and my medical decision-making was reviewed with the Resident Physician. I agree with the documented findings, disposition and treatment plan as described except to the extent set forth below. Pt seen and examined with no new complaints. SCr continues to improve at 1.95, GFR 34. Cotninue to avoid nephrotoxins if possible and vanco by levels Lytes stabilizing with sodium improving with IVF and calcicum with vitamin D and supplements. UOP very good.
[2017-05-08] MEDS: ceFAZolin 1,000 MG in Water for inj. (sterile) 20 ML 10 ML IVP SCH (18:16)
[2017-05-09] MEDS: 0.9 % Sodium Chloride 1,000 ML IVC SCH ×3 (00:37→16:50)
[2017-05-09] MEDS: Nystatin POWDER 30 GM BOTTLE TP SCH ×3 (01:37→21:19)
[2017-05-09 04:46] LABS: Basophils % 0.1 %; Eosinophils # 0.1 K/mcL (0.0-0.6); Hematocrit 43.1 % (37.5-50.1); Hemoglobin 14.1 g/dL (12.9-16.9); Immature Granulocytes % 0.8 % (0-4); Lymphocytes # 1.1 K/mcL (0.6-4.6); Lymphocytes % 7.9 %; Mean Corpuscular HGB Conc 32.7 g/dL (31.6-35.5); Mean Corpuscular Hemoglobin 27.3 pg (28.0-33.3); Mean Corpuscular Volume 83.4 fL (83.0-100.0); Mean Platelet Volume 12.1 fL (9.4-12.4); Monocytes # 0.9 K/mcL (0.0-1.3); Monocytes % 6.1 %; Neutrophils # 11.7 K/mcL (1.6-8.9); Platelet Count 109 K/mcL (140-400); Red Blood Count 5.17 M/mcL (4.19-5.50); Red Cell Distribution Width 16.3 % (11.5-14.5); Segmented Neutrophils % 84.1 %
[2017-05-09 05:07] LABS: Albumin 2.4 g/dL (3.5-5.7); Albumin/Globulin Ratio 0.7 (1.1-2.2); Bilirubin,Total 1.5 mg/dL (0.3-1.0); Calcium 7.7 mg/dL (8.6-10.3); Globulin 3.6 g/dL (2.4-3.5); Potassium 4.3 mEq/L (3.5-5.1)
[2017-05-09] MEDS: ceFAZolin 1,000 MG in Water for inj. (sterile) 20 ML 10 ML IVP SCH (05:55)
[2017-05-09] MEDS: *HR* Heparin 5,000 UNIT/ML VIAL SQ SCH ×3 (06:04→21:18)
[2017-05-09] MEDS: Insulin LISPRO 300 UNITS/3 ML VIAL SQ SCH ×4 (08:57→20:53)
--- NOTE | 2017-05-09 09:29 | Internal Med Progress Note ---
<Peter Pennington - Last Filed: 05/09/17 12:57> Date of Encounter: 05/09/17 - Constitutional Vitals: Temp Pulse Resp BP Pulse Ox 97.6 F 72 18 139/92 96 05/09/17 11:39 05/09/17 11:39 05/09/17 11:39 05/09/17 11:39 05/09/17 11:39 Internal Medicine: Result - Labs CBC & Chem 7: 05/09/17 04:20 05/09/17 04:20 Labs: Short CBC 05/09/17 Range/Units 04:20 WBC 13.9 H (4.3-11.1) K/mcL Hgb 14.1 (12.9-16.9) g/dL Hct 43.1 (37.5-50.1) % Plt Count 109 L (140-400) K/mcL Neutrophils # 11.7 H (1.6-8.9) K/mcL BMP 05/09/17 04:20 Sodium 138 Potassium 4.3 Chloride 113 H Carbon Dioxide 21 L BUN 52 H Creatinine 1.45 H Glucose 157 H Calcium 7.7 L Liver Function 05/09/17 Range/Units 04:20 Total Bilirubin 1.5 H (0.3-1.0) mg/dL AST 46 H (13-39) Units/L ALT 176 H (7-52) Units/L Alkaline Phosphatase 85 (34-104) Units/L Albumin 2.4 L (3.5-5.7) g/dL - ABG Interpretation ABG results: PT/INR, D-dimer PT 13.0 Seconds (9.4-12.1) H 05/05/17 00:15 - Impressions Impressions Retroperitoneum Ultrasound 05/07/17 15:00 IMPRESSION: Unremarkable bilateral renal ultrasound. Unremarkable urinary bladder ultrasound. Question intraluminal filling defects, likely artifactual. D/ / 05/07/2017 16:01:01 Andrew Adams MD / nakita Interpreting Provider: Andrew Adams MD Consult Discharge Plan - Plan Instructions: Diabetic Foot Care (DC), Managing Diabetes During Sick Days (DC) , Diabetic Hyperglycemia (DC), Diabetes Mellitus Type 2 in Adults, Global Security Architect (GEN) Referrals: Wound,Care [Other] - 05/17/17 9:30 am NONE,PCP [Primary Care Provider] - (patient is going to [facility] No PCP appointment needed) - Attending Attestation I personally interviewed and examined this patient. I agree with the findings, assessment, plan of Dr. Mckenzie, internal medicine audit intern. She has multi organism left foot infection including Klebsiella, Proteus, enterococcus faecalis. He remains on IV Zosyn and vancomycin, and we will consult infectious disease for treatment recommendations. Podiatry input appreciated. Patient's sepsis has resolved. His renal function has improved significantly, today creatinine is 1.45. Once infectious disease recommendations are replaced , we can work towards disposition. <Teofilo Mckenzie - Last Filed: 05/09/17 13:14> Date of Encounter: 05/09/17 Time of Encounter: 09:27 - Assessment and plan (1) Sepsis Current Visit: Yes Status: Acute Assessment and plan: 2/2 L foot osteomyelitis Podiatry consulted; POD 3 proximal transmetatarsal amputation with bone biopsy w / partial resection of the medial cuneiform with flap advancement, all left foot. Last WC was 13.9. Plan: -IVF NS at 125 ml/h -IV ancef and cipro -Wound CX + for GNRs -Blood CX pending Qualifiers: Sepsis type: sepsis due to unspecified organism Qualified Code(s): A41.9 - Sepsis, unspecified organism (2) Osteomyelitis Current Visit: Yes Status: Acute Assessment and plan: CT of the LE on 05/04/17 demonstrated the followin. Deep soft tissue ulceration plantar to the 1st MTP joint with soft tissue gas throughout the 1st digit and dorsal to the 1st metatarsal and medial cuneiform. Diffuse subcutaneous fat stranding compatible with cellulitis. No well-defined drainable fluid collection. 2. Gas within the 1st metatarsal head and 1st proximal phalangeal base and shaft compatible with osteomyelitis. If clinically indicated MRI could be obtained to evaluate the extent of osteomyelitis. 3. Gas within the 1st metatarsophalangeal joint space compatible with septic arthritis. Podiatry on board; continue IV abx Qualifiers: Osteomyelitis type: unspecified type Osteomyelitis location: foot Laterality: left Qualified Code(s): M86.9 - Osteomyelitis, unspecified (3) Acute renal failure (ARF) Current Visit: Yes Status: Acute Assessment and plan: -Patient with a creatinine of 3.91 on admission and is now 1.45 -Continue IV fluids -Will continue to monitor -Nephrology consulted; would appreciate recommendations Qualifiers: Acute renal failure type: unspecified Qualified Code(s): N17.9 - Acute kidney failure, unspecified (4) Hyponatremia Current Visit: Yes Status: Acute Assessment and plan: -Sodium 127 on admission (05/04/17) and now 138 -Will continue to monitor -Nephrology following; would appreciate recommendations (5) DVT prophylaxis Current Visit: Yes Status: Acute Assessment and plan: SQ heparin - Subjective Interval history: Patient was seen and examined at bedside this morning. No complaints todya; denies having any pain in his foot. - Constitutional Vitals: Temp Pulse Resp BP Pulse Ox 97.6 F 82 17 152/88 96 05/09/17 07:40 05/09/17 07:40 05/09/17 07:40 05/09/17 07:40 05/09/17 07:40 General appearance: Present: A&O X 3, pleasant, no acute distress - Head Head exam: Present: atraumatic, normocephalic - Eye Eye exam: Present: PERRL, conjuntiva pink, sclera anicteric Pupils: Present: PERRL - Neck Neck exam general surgery: Present: supple, trachea midline. Absent: lymphadenopathy - Respiratory Respiratory exam: Present: CTAB. Absent: accessory muscle use, rales, rhonchi, wheezes - Cardiovascular Cardiovascular exam: Present: RRR, +S1, +S2. Absent: diastolic murmur, gallop, rubs, systolic murmur - GI/Abdominal GI/Abdominal exam: Present: normal bowel sounds, soft, no peritoneal signs. Absent: distended, tenderness - Extremities Exam Extremities exam: Present: warm, radial pulses palpable and symmetrical. Absent : calf tenderness, cyanotic, pedal edema - Neurological Exam Neurological exam: Present: CN II-XII intact, oriented X3, no focal deficits. Absent: pronater drift, facial droop, speech deficit - Skin Skin exam: Present: dry, intact Internal Medicine: Result - Labs CBC & Chem 7: 05/09/17 04:20 05/09/17 04:20 Labs: Short CBC 05/09/17 Range/Units 04:20 WBC 13.9 H (4.3-11.1) K/mcL Hgb 14.1 (12.9-16.9) g/dL Hct 43.1 (37.5-50.1) % Plt Count 109 L (140-400) K/mcL Neutrophils # 11.7 H (1.6-8.9) K/mcL BMP 05/09/17 04:20 Sodium 138 Potassium 4.3 Chloride 113 H Carbon Dioxide 21 L BUN 52 H Creatinine 1.45 H Glucose 157 H Calcium 7.7 L Liver Function 05/09/17 Range/Units 04:20 Total Bilirubin 1.5 H (0.3-1.0) mg/dL AST 46 H (13-39) Units/L ALT 176 H (7-52) Units/L Alkaline Phosphatase 85 (34-104) Units/L Albumin 2.4 L (3.5-5.7) g/dL - ABG Interpretation ABG results: PT/INR, D-dimer PT 13.0 Seconds (9.4-12.1) H 05/05/17 00:15 - Impressions Impressions Retroperitoneum Ultrasound 05/07/17 15:00 IMPRESSION: Unremarkable bilateral renal ultrasound. Unremarkable urinary bladder ultrasound. Question intraluminal filling defects, likely artifactual. D/ / 05/07/2017 16:01:01 Andrew Adams MD / nakita Interpreting Provider: Andrew Adams MD - VTE Documentation of Mechanical Device: Intermittent pneumatic compression device
--- NOTE | 2017-05-09 10:16 | Nephrology Progress Note ---
Date of Encounter: 05/09/17 Time of Encounter: 10:15 - Assessment and Plan (1) ALEK (acute kidney injury) Current Visit: Yes Status: Acute Renal function continues to improve. No change in management at this time. (2) Osteomyelitis Current Visit: Yes Status: Acute Continue antibiotics per primary team. Qualifiers: Osteomyelitis type: unspecified type Osteomyelitis location: foot Laterality: left Qualified Code(s): M86.9 - Osteomyelitis, unspecified (3) Sepsis Current Visit: Yes Status: Acute secondary to osteomyelitis. Continue antibiotics per primary team. Qualifiers: Sepsis type: sepsis due to unspecified organism Qualified Code(s): A41.9 - Sepsis, unspecified organism Subjective Principal diagnosis: Infection, left Interval history: Patient was seen and evaluated. He feels better. He has no new complaint. Objective - Vital Signs Vital signs: Vital Signs Temp Pulse Resp BP Pulse Ox 05/09/17 07:40 97.6 F 82 17 152/88 96 05/09/17 04:35 97.9 F 77 18 135/85 100 05/09/17 04:20 78 05/09/17 00:37 79 05/08/17 22:40 97.9 F 76 17 144/83 90 05/08/17 19:54 78 05/08/17 18:39 98.2 F 83 18 133/77 93 05/08/17 16:00 97.5 F L 63 14 117/81 96 05/08/17 11:38 98.1 F 74 15 124/72 95 Intake and Output 05/08/17 05/09/17 05/09/17 23:59 07:59 15:59 Intake Total 1210 / 1210 1800 / 1800 1940 / 1940 Output Total 2705 / 2705 2850 / 2850 950 / 950 Balance -1495 / -1495 -1050 / -1050 990 / 990 Intake: IV Fluids 110 / 110 1000 / 1000 1000 / 1000 0.9 % Sodium Chloride 1,000 ML 1000 / 1000 1000 / 1000 @ 125 mls/hr IVC .Q8H [facility] Rx#: [id number] Ancef 1,000 MG In Water for inj 10 / 10 . (sterile) 10 ML @ 200 mls/hr IVP Q12HR [facility] Rx#:[id number] Zosyn 3.375 GM In 0.9 % Sodium 100 / 100 Chloride 100 ML @ 25 mls/hr IVPB Q8H [facility] Rx#:[id number] Oral 1100 / 1100 800 / 800 940 / 940 Output: Catheter 2700 / 2700 2800 / 2800 900 / 900 Wound Drainage 5 / 5 50 / 50 50 / 50 Left Foot 5 / 5 50 / 50 50 / 50 Other: Meal Dinner Breakfast Percent of Meal Consumed 100% 5% Stool Size Small Stool Consistency loose Stool Color Brown Green Weight 106.7 kg Blood Glucose* 146 147 Patient Weight 05/09/17 23:59 Weight 106.7 kg - General Appearance General appearance: Present: well-developed, well-nourished EENT: Present: ATNC Cardiology: Present: edema, regular rate Integumentary: Present: warm and dry Neurologic: Present: alert and oriented x3 Psychiatric: Present: mood/affect appropriate - Lab 05/10/17 06:21 05/10/17 06:21 Most recent lab results Calcium 7.7 mg/dL (8.6-10.3) L 05/09/17 04:20 Phosphorus 7.1 mg/dL (2.7-4.5) H 05/06/17 08:40 Magnesium 2.7 mg/dL (1.6-2.6) H 05/06/17 08:40 Urine Creatinine 188 mg/dL 05/05/17 17:14 Urine Sodium 19.8 mEq/L 05/05/17 17:14 Urine Total Protein 110 mg/dL (1-14) H 05/05/17 17:14 - VTE Documentation of Mechanical Device: Intermittent pneumatic compression device Consult Discharge Plan - Plan Instructions: Diabetic Foot Care (DC), Managing Diabetes During Sick Days (DC) , Diabetic Hyperglycemia (DC), Diabetes Mellitus Type 2 in Adults, Filter Tank Tender (GEN) Referrals: Wound,Care [Other] - 05/17/17 9:30 am NONE,PCP [Primary Care Provider] - (patient is going to [facility] No PCP appointment needed)
--- NOTE | 2017-05-09 11:04 | Podiatry Progress Note ---
Date of Encounter: 05/09/17 Time of Encounter: 09:45 - Assessment and Plan (1) Sepsis Current Visit: Yes Status: Acute s/p proximal transmetatarsal amputation with bone biopsy with partial resection of the medial cuneiform with flap advancement, all left foot by Dr. Saavedra on 05/05/17. Flap is pink, warm and dry with immediate capillary refill time. Proximal lateral wound edge of incision line is dusky with erythema, there is a small area of granulation tissue. WBC: 13.9, CRP: 265. ESR: 56. Microbiology 05/04/17 19:54 Left Foot Wound Culture - Final Klebsiella oxytoca Proteus mirabilis Enterococcus faecalis Plan: Remain nonweightbearing to the left. Keep the wound VAC intact and have it changed every Sunday, Sunday, Sunday. Small black simplace wound vac sponge to incision line, connected to 125mmhg continuous suction. Wound vac changed today. Currently receiving IV Vancomycin and Zosyn. Recommend consult to Infectious Disease for antibiotic therapy recommendations. Will continue to closely monitor the patient. The patient will possibly need a below the knee amputation if his wound does not heal. Qualifiers: Sepsis type: sepsis due to unspecified organism Qualified Code(s): A41.9 - Sepsis, unspecified organism Subjective Principal diagnosis: Infection, left Interval history: Patient is s/p proximal transmetatarsal amputation with bone biopsy with partial resection of the medial cuneiform with flap advancement, all left foot by Dr. Saavedra on 05/05/17. Patient is sitting up in chair with wound vac intact, 200 ml of serosanguineous drainage observed to canister. No c/o fever or chills. Objective - Vital Signs Vital Signs: Vital Signs Temp Pulse Resp BP Pulse Ox 05/09/17 07:40 97.6 F 82 17 152/88 96 05/09/17 04:35 97.9 F 77 18 135/85 100 05/09/17 04:20 78 05/09/17 00:37 79 05/08/17 22:40 97.9 F 76 17 144/83 90 05/08/17 19:54 78 05/08/17 18:39 98.2 F 83 18 133/77 93 05/08/17 16:00 97.5 F L 63 14 117/81 96 05/08/17 11:38 98.1 F 74 15 124/72 95 Intake and Output 05/08/17 05/09/17 05/09/17 23:59 07:59 15:59 Intake Total 1210 / 1210 1800 / 1800 1940 / 1940 Output Total 2705 / 2705 2850 / 2850 950 / 950 Balance -1495 / -1495 -1050 / -1050 990 / 990 Intake: IV Fluids 110 / 110 1000 / 1000 1000 / 1000 0.9 % Sodium Chloride 1,000 ML 1000 / 1000 1000 / 1000 @ 125 mls/hr IVC .Q8H [facility] Rx#: [id number] Ancef 1,000 MG In Water for inj . (sterile) 10 ML @ 200 mls/hr IVP Q12HR [facility] Rx#:[id number] Zosyn 3.375 GM In 0.9 % Sodium 100 / 100 Chloride 100 ML @ 25 mls/hr IVPB Q8H [facility] Rx#:[id number] Oral 1100 / 1100 800 / 800 940 / 940 Output: Catheter 2700 / 2700 2800 / 2800 900 / 900 Wound Drainage 5 / 5 50 / 50 50 / 50 Left Foot 5 / 5 50 / 50 50 / 50 Other: Meal Dinner Breakfast Percent of Meal Consumed 100% 5% Stool Size Small Stool Consistency loose Stool Color Brown Green Weight 106.7 kg Blood Glucose* 146 147 Patient Weight 05/09/17 23:59 Weight 106.7 kg - Exam Exam: General appearance: alert awake oriented X 3. Calm and pleasant, no acute distress.. Vascular: Unable to palpate pedal pulses secondary to edema, Edema graded at 1+/ 4, Skin Temperature warm, No calf pain with manual compression. capillary refill time is immediate. Neurologic: Sensation intact with light touch to foot. . Postop Exam: S/P Sutures intact to incision line with an open area to the distal medial aspect of the incision line measuring 2 cm in length x 0.2 cm in width x 1 cm in depth. No pus, no odor. Surrounding wound edges proximally laterally are dusky, with a small amount of the granulation tissue. Macerated wound edges to the medial aspect of the incision line. 120 mls of serosanguineous drainage observe to canister. 2 + edema. - Lab Result Diagrams: 05/09/17 04:20 05/09/17 04:20 Labs: Abnormal lab results WBC 13.9 K/mcL (4.3-11.1) H 05/09/17 04:20 MCH 27.3 pg (28.0-33.3) L 05/09/17 04:20 RDW 16.3 % (11.5-14.5) H 05/09/17 04:20 Plt Count 109 K/mcL (140-400) L 05/09/17 04:20 Neutrophils # 11.7 K/mcL (1.6-8.9) H 05/09/17 04:20 Nucleated RBCs/100 WBC 0.1 /100 WBC (0) H 05/05/17 00:15 Platelet Estimate Slight Decrease (Normal) L 05/06/17 08:40 Immature Plt Fraction 11.0 % (1.1-6.1) H 05/08/17 02:34 ESR 56 mm/hr (0-10) H 05/04/17 19:38 PT 13.0 Seconds (9.4-12.1) H 05/05/17 00:15 VBG pH 7.21 pH Units (7.32-7.42) L 05/07/17 04:41 Chloride 113 mEq/L (98-107) H 05/09/17 04:20 Carbon Dioxide 21 mEq/L (23-29) L 05/09/17 04:20 BUN 52 mg/dL (8-23) H 05/09/17 04:20 Creatinine 1.45 mg/dL (0.70-1.30) H 05/09/17 04:20 Est GFR ( Amer) 58 (> 60) L 05/09/17 04:20 Est GFR (Non-Af Amer) 48 (> 60) L 05/09/17 04:20 BUN/Creatinine Ratio 36 (6-26) H 05/09/17 04:20 Glucose 157 mg/dL (70-105) H 05/09/17 04:20 POC Glucose 106 (58-89) H 05/08/17 16:03 Hemoglobin A1c 7.6 % (-5.6) H 05/04/17 19:38 Calculated Osmolality 303 (280-300) H 05/09/17 04:20 Uric Acid 11.8 mg/dL (2.3-7.6) H 05/05/17 17:14 Calcium 7.7 mg/dL (8.6-10.3) L 05/09/17 04:20 Venous Ioniz Calcium 0.83 mmol/L (1.15-1.35) L 05/07/17 04:41 Phosphorus 7.1 mg/dL (2.7-4.5) H 05/06/17 08:40 Magnesium 2.7 mg/dL (1.6-2.6) H 05/06/17 08:40 Total Bilirubin 1.5 mg/dL (0.3-1.0) H 05/09/17 04:20 Direct Bilirubin 0.6 mg/dL (0.0-0.2) H 05/05/17 00:15 AST 46 Units/L (13-39) H 05/09/17 04:20 ALT 176 Units/L (7-52) H 05/09/17 04:20 C-Reactive Protein 265 mg/L (Less than 10) H 05/04/17 19:38 Serum Total Protein 6.0 g/dL (6.4-8.9) L 05/09/17 04:20 Albumin 2.4 g/dL (3.5-5.7) L 05/09/17 04:20 Globulin 3.6 g/dL (2.4-3.5) H 05/09/17 04:20 Albumin/Globulin Ratio 0.7 (1.1-2.2) L 05/09/17 04:20 Triglycerides 225 mg/dL (< 150) H 05/08/17 02:34 VLDL Cholesterol, Calc 45 mg/dL (< 31) H 05/08/17 02:34 HDL Cholesterol 13 mg/dL (40-59) L 05/08/17 02:34 Cholesterol/HDL Ratio 8.5 (0-4.9) H 05/08/17 02:34 25-OH Vitamin D Total 13 ng/mL (30-80) L 05/07/17 04:28 PTH Intact 243.3 pg/ml (10.0-65.0) H 05/07/17 04:28 Urine Clarity Turbid (Clear) A 05/05/17 05:30 Urine Protein 30 mg/dL (Neg-Trace) H 05/05/17 05:30 Urine Glucose (UA) 100 mg/dL (Normal) H 05/05/17 05:30 Urine Blood Large (Negative) H 05/05/17 05:30 Urine Microscopic RBC 5-15 per hpf (0-3) H 05/05/17 05:30 Urine Microscopic WBC 15-30 per hpf (0-3) H 05/05/17 05:30 Ur Squamous Epith Cells Many per lpf (None-Few) H 05/05/17 05:30 Amorphous Sediment Moderate (Few) H 05/05/17 05:30 Microalb/Creat Ratio 74 mcg/mg (Less than 30) H 05/05/17 17:14 Protein/Creatinin Ratio 0.59 mg/mg (0.00-0.20) H 05/05/17 17:14 Urine Total Protein 110 mg/dL (1-14) H 05/05/17 17:14 Microbiology, Last 48 Hours 05/05/17 14:30 Anaerobic Culture - Final Left Foot 05/05/17 09:48 Surgical Biopsy Culture - Preliminary Left Foot Proteus mirabilis Enterococcus species 05/05/17 09:48 Wound Culture - Preliminary Left Foot Proteus mirabilis - VTE Documentation of Mechanical Device: Intermittent pneumatic compression device Consult Discharge Plan - Plan Instructions: Diabetic Foot Care (DC), Managing Diabetes During Sick Days (DC) , Diabetic Hyperglycemia (DC), Diabetes Mellitus Type 2 in Adults, Flavorer (GEN) Referrals: Wound,Care [Other] - 05/17/17 9:30 am NONE,PCP [Primary Care Provider] - (patient is going to [facility] No PCP appointment needed)
[2017-05-09] MEDS ORDERED: ceFAZolin 2,000 MG in Water for inj. (sterile) 20 ML IVP SCH (14:00)
[2017-05-09] MEDS ORDERED: CeFAZolin Premix DUPLEX 2,000 MG/50 ML BAG IVPB SCH (14:00)
--- NOTE | 2017-05-09 15:25 | Infectious Disease Consult ---
Date of Encounter: 05/09/17 Time of Encounter: 15:20 Assessment and Plan (1) Sepsis Status: Acute Assessment and plan: Severe sepsis: The patient had two SIRS criteria plus ALEK, hypotension, elevated LFTs, and thrombocytopenia on admission. Likely secondary to left foot infection. Improved. WBC trending down. Afebrile. Hypotension resolved. ALEK and LFTs improving. Thrombocytopenia persists. No blood cultures were drawn on admission. Not sure if any were drawn at the [facility]. Get blood cultures x 2 sets now. Lactic acid normal on admission. Qualifiers: Sepsis type: sepsis due to unspecified organism Qualified Code(s): A41.9 - Sepsis, unspecified organism (2) Osteomyelitis Status: Acute Assessment and plan: Causative organism: E. faecalis and P. mirabilis per bone culture. Wound culture also grew K. oxytoca. Likely secondary to left foot ulcer. CT of the LLE showed findings consistent with OM of the 1st metatarsal and 1st proximal phalanx base. Podiatry consulted. Status post left TMA. Operative note reviewed. Intra-op cultures positive. Pathology pending. Per Podiatry, the patient may require BKA if the wound does not heal. Baseline ESR 56, CRP 265. Continue Cipro, but switch to 400mg IV BID to cover Klebsiella. Discontinue cefazolin. Start Unasyn 3 grams IV Q6H to cover Enterococcus and Proteus, as well as possible anaerobes given the soft tissue gas noted on CT scan. Duration of treatment depends on the clinical picture, but likely 6 weeks of IV antibiotics if the limb is salvageable. Monitor renal function and dose-adjust antibiotics. Avoid insertion of central venous access until blood cultures are negative x 48 hours. Qualifiers: Osteomyelitis type: unspecified type Osteomyelitis location: foot Laterality: left Qualified Code(s): M86.9 - Osteomyelitis, unspecified (3) Gas gangrene Status: Acute Assessment and plan: Location: Left foot. Status post left foot TMA 05/05/[address] Saavedra. Extensive gangrenous tissue noted and was debrided. Wound care per the podiatry team. (4) Rhabdomyolysis Status: Acute Assessment and plan: CK level 2495 on admission. Trending down, 137 today. Likely secondary to fall and lying on the floor for several hours. Management per the primary team. Qualifiers: Rhabdomyolysis type: non-traumatic Qualified Code(s): M62.82 - Rhabdomyolysis (5) ALEK (acute kidney injury) Status: Acute Assessment and plan: Likely multifactorial: sepsis + rhabdo + poor PO intake. Improved. Nephrology consulted and following. Continue to trend. Dose-adjust antibiotics. Avoid nephrotoxins as able. (6) Elevated liver enzymes Status: Acute Assessment and plan: Etiology unclear: sepsis vs. other. Improved. Abdominal exam benign. Continue to trend. (7) Hyponatremia Status: Resolved (8) Hypocalcemia Status: Resolved (9) Diabetes mellitus Status: Acute Assessment and plan: New diagnosis. HgbA1C 7.6%. Recommend aggressive glucose monitoring and control to promote wound healing and prevent re-infection. Management per the primary team. Qualifiers: Diabetes mellitus type: other specified (including THAO) Diabetes mellitus complication status: with skin complications Diabetes mellitus complication detail: with foot ulcer Diabetes mellitus oil heaterman insulin use: without oil heaterman use Qualified Code(s): E13.621 - Other specified diabetes mellitus with foot ulcer; L97.509 - Non-pressure chronic ulcer of other part of unspecified foot with unspecified severity; L97.509 - Non-pressure chronic ulcer of other part of unspecified foot with unspecified severity; L97.509 - Non-pressure chronic ulcer of other part of unspecified foot with unspecified severity; L97.509 - Non-pressure chronic ulcer of other part of unspecified foot with unspecified severity Infectious Disease HPI - Data of Consult Patient: new to practice Consult date: 05/09/17 Requesting Physician: Cruz Alberto Primary Care Provider: PCP NONE - Consult Narrative Reason for consult: Left foot gas gangrene History of present illness: Mr. Collado is a 67 year old male with no known past medical history. She was admitted to the hospital for acute kidney injury, osteomyelitis of the left foot, and septic arthritis of the left foot. We are consulted May 09 for antibiotic recommendations for left foot osteomyelitis. Briefly, the patient is a 67-year-old male with past medical history as stated above. The patient presented to the emergency department from the [facility] with complaints of a left foot infection. Apparently, the patient had sudden onset of generalized weakness on May 02. He states he fell outside his home and it took several hours for him to drag himself in the house. He states he unable to get up and has to while the floor and slept there for about 9 hours before he finally got himself up to the couch and was able to call for help. He states he called the squad and they took him to the [facility] who separately transferred him here due to the extent of his left foot infection. Upon arrival, the patient was afebrile and hemodynamically stable. He did have a neutrophilic leukocytosis with an acute kidney injury and a markedly elevated CK level. His ESR was 56 and a CRP was 265. He underwent a left lower extremity CT scan that showed soft tissue gas over the first digit, metatarsal, and cuneiform as well as findings consistent with cellulitis. There were also osteolytic changes of the first metatarsal and first proximal phalanx base as well as septic arthritis of the first MTP joint. He is x-ray that was negative. A wound culture was obtained grew out Klebsiella oxytoca, Proteus mirabilis, and Enterococcus faecalis. He was started on IV antibiotics and admitted to the hospital for further evaluation. Since admission, the patient has been evaluated by podiatry. He was taken to the OR on May 05 and underwent a proximal TMA. Bone cultures were obtained and were positive for Enterococcus faecalis and Proteus mirabilis. Allergy was consulted due to his acute kidney injury as well. He also has markedly elevated transaminases that have been improving. His CK level has trended down. His white blood cell count remains elevated at 13,000 today. His antibiotics were transitioned from vancomycin and Zosyn to Cipro and cefazolin. We have been asked to evaluate and make further recommendations. My exam today, the patient endorses a history as stated above. He tells me that he doesn't really have any major medical problems and he has not seen a doctor since 1994. He denies any illness up until the day that he fell and states he just suddenly felt weak. He denies any fevers or chills or rigors except a couple of days prior to his fall he said he felt like he couldn't get warm with shivering, but states this resolved. He denies any congestion, earache, or sore throat. He denies any chest pain, shortness of breath, or cough. He denies any nausea, vomiting, diarrhea, or constipation. He reports pain in the left foot since surgery, but denies the pain prior to that. He states he is unsure when his foot started to develop the ulcer and states he was unaware that anything was wrong with [facility] He states that up until the day he was admitted his appetite was fine and he was in his usual state of health. Patient lives at home alone. He is retired. He denies any tobacco, alcohol, or illicit drug use. CC: Cruz Alberto Past Med Surg Social Fam HX - Past Medical History Attestation: Yes The following information was validated with the patient. Source: patient, old records reviewed, nursing notes reviewed Medical history: no medical history Psychiatric history: no psych history - Past Surgical History Surgical History: other (Tonsillectomy) - Social History Smoking Status: Never smoker Smokeless Tobacco Status: No Alcohol use: none Drug use: none Occupational status: retired Current living situation: Home - Independent Activity Level: Independent ambulation Recent Out of Country Travel Within the Last 8 Weeks: No Exposure or Possible Exposure to Illness During Travel: No - Family History Mother History Unknown: Yes Living Status: Cause of : "organs failed" Infectious Disease-CN:Meds No Known Home Drugs 05/04/17 [History] 3 Allergy/AdvReac Type Severity Reaction Status Date / Time chicken derived Allergy Vomiting Verified 05/05/17 12:26 All systems: reviewed and no additional remarkable complaints except as stated Exam - Constitutional Vitals: Temp Pulse Resp BP Pulse Ox 97.6 F 72 18 139/92 96 05/09/17 11:39 05/09/17 11:39 05/09/17 11:39 05/09/17 11:39 05/09/17 11:39 General appearance: cooperative, no acute distress, obese - Head Head exam: Present: atraumatic, normal inspection, normocephalic - Eye Eye exam: Present: EOMI, normal appearance, PERRL Pupils: Present: normal accommodation - ENT ENT exam: Present: mucous membranes moist Additional comments: Very poor dentition noted. - Neck Neck exam: Present: normal inspection - Respiratory Respiratory exam: Present: CTAB. Absent: rales, respiratory distress, rhonchi, wheezes - Cardiovascular Cardiovascular exam: Present: RRR, +S1, +S2 - GI/Abdominal GI/Abdominal exam: Present: distended ( Obese), normal bowel sounds, soft. Absent: tenderness - Extremities Exam Additional comments: The stasis dermatitis noted to the bilateral extremities. Scabbed lesions noted to the right anterior calf and right knee without marked erythema or warmth or drainage. Left foot dressing clean, dry, and intact with wound VAC with small amount of serous sanguinous drainage noted in the canister - Neurological Exam Neurological exam: Present: alert, oriented X3, no focal deficits - Psychiatric Psychiatric exam: Present: normal affect, normal mood - Skin Skin exam: Present: dry, intact, normal color, warm Infectious Disease CN: Results - Labs CBC & Chem 7: 05/09/17 04:20 05/09/17 04:20 Cultures: Cultures 05/05/17 09:48 Wound Culture - Final Left Foot Proteus mirabilis 05/05/17 14:30 Anaerobic Culture - Final Left Foot 05/05/17 09:48 Surgical Biopsy Culture - Preliminary Left Foot Proteus mirabilis Enterococcus species Serology: Serology 05/05/17 05/05/17 05/05/17 Range/Units 17:14 17:14 05:30 Urine Color Yellow (Yellow) Urine Clarity Turbid A (Clear) Urine pH 5.0 (5.0-8.0) pH Units Ur Specific [place] 1.024 (1.010-1.025) Urine Protein 30 H (Neg-Trace) mg/dL Urine Glucose (UA) 100 H (Normal) mg/dL Urine Ketones Negative (Negative) mg/dL Urine Blood Large H (Negative) Urine Nitrite Negative (Negative) Urine Bilirubin Negative (Negative) Urine Urobilinogen Normal (Normal) mg/dL Ur Leukocyte Esterase Negative (Negative) Urine Microscopic RBC 5-15 H (0-3) per hpf Urine Microscopic WBC 15-30 H (0-3) per hpf Ur Eosinophil Smear 0 (None Seen) % Ur Squamous Epith Cells Many H (None-Few) per lpf Amorphous Sediment Moderate H (Few) Urine Bacteria Few (None-Few) per hpf Hyaline Casts Few (None-Few) per lpf Ur Culture Indicated? NO (NO) Urine Creatinine 188 mg/dL Urine Microalbumin 139 mg/L Microalb/Creat Ratio 74 H (Less than 30) mcg/mg Protein/Creatinin Ratio 0.59 H (0.00-0.20) mg/mg Urine Sodium 19.8 mEq/L Urine Total Protein 110 H (1-14) mg/dL - VTE Documentation of Mechanical Device: Intermittent pneumatic compression device Consult Discharge Plan - Plan Instructions: Diabetic Foot Care (DC), Managing Diabetes During Sick Days (DC) , Diabetic Hyperglycemia (DC), Diabetes Mellitus Type 2 in Adults, [employer] Ax Consultant (GEN) Referrals: Wound,Care [Other] - 05/17/17 9:30 am NONE,PCP [Primary Care Provider] - (patient is going to [facility] No PCP appointment needed)
[2017-05-09] MEDS: Ampicillin/Sulbactam 3,000 MG in 0.9 % Sodium Chloride Mini Bag 100 ML IVPB SCH (16:51)
[2017-05-10] MEDS: Ampicillin/Sulbactam 3,000 MG in 0.9 % Sodium Chloride Mini Bag 100 ML IVPB SCH ×4 (00:24→17:15)
[2017-05-10] MEDS ORDERED: Ondansetron 4 MG/2 ML VIAL ONE (03:02)
[2017-05-10] MEDS: 0.9 % Sodium Chloride 1,000 ML IVC SCH ×2 (03:03→03:05)
[2017-05-10] MEDS: Ondansetron 4 MG/2 ML VIAL IVP PRN (03:06)
[2017-05-10] MEDS ORDERED: Ondansetron 4 MG/2 ML VIAL IVP SCH (06:00)
[2017-05-10] MEDS: *HR* Heparin 5,000 UNIT/ML VIAL SQ SCH ×3 (06:09→20:31)
[2017-05-10 06:41] LABS: Hematocrit 46.7 % (37.5-50.1); Hemoglobin 15.4 g/dL (12.9-16.9); Mean Corpuscular Hemoglobin 27.5 pg (28.0-33.3); Mean Corpuscular Volume 83.2 fL (83.0-100.0); Mean Platelet Volume 10.9 fL (9.4-12.4); Platelet Count 123 K/mcL (140-400); Red Blood Count 5.61 M/mcL (4.19-5.50); Red Cell Distribution Width 17.7 % (11.5-14.5)
[2017-05-10 07:09] LABS: BUN/Creatinine Ratio 34 (6-26); Blood Urea Nitrogen 34 mg/dL (8-23); Calcium 8.5 mg/dL (8.6-10.3); Carbon Dioxide 19 mEq/L (23-29); Chloride 113 mEq/L (98-107); Glucose 185 mg/dL (70-105); Osmolality,Calculated 302 (280-300); Potassium 4.5 mEq/L (3.5-5.1); Sodium 140 mEq/L (136-145); eGFR For African Americans > 60 (> 60); eGFR For Non-African Americans > 60 (> 60)
--- NOTE | 2017-05-10 07:24 | Internal Med Progress Note ---
<Teofilo Mckenzie - Last Filed: 05/10/17 15:32> Date of Encounter: 05/10/17 Time of Encounter: 09:35 - Assessment and plan (1) Sepsis Current Visit: Yes Status: Acute Assessment and plan: 04/20 L foot osteomyelitis Podiatry consulted; S/P proximal transmetatarsal amputation with bone biopsy w/ partial resection of the medial cuneiform with flap advancement, all left foot. Patient's WC increased to 21.4 from 13.9; patient reports having diarrhea; cdiff pending. Patient denies fever or chills. New onset b/l swelling in LEs; no increase in erythema or weeping observed. Plan: -IVF NS at 125 ml/h -IV unasyn and cipro; ancef was discontinued per the recommendations of ID -Wound CX + for GNRs -Blood CX pending Qualifiers: Sepsis type: sepsis due to unspecified organism Qualified Code(s): A41.9 - Sepsis, unspecified organism (2) Osteomyelitis Current Visit: Yes Status: Acute Assessment and plan: CT of the LE on 05/04/17 demonstrated the followin. Deep soft tissue ulceration plantar to the 1st MTP joint with soft tissue gas throughout the 1st digit and dorsal to the 1st metatarsal and medial cuneiform. Diffuse subcutaneous fat stranding compatible with cellulitis. No well-defined drainable fluid collection. 2. Gas within the 1st metatarsal head and 1st proximal phalangeal base and shaft compatible with osteomyelitis. If clinically indicated MRI could be obtained to evaluate the extent of osteomyelitis. 3. Gas within the 1st metatarsophalangeal joint space compatible with septic arthritis. Podiatry and ID on board; continue IV abx Qualifiers: Osteomyelitis type: unspecified type Osteomyelitis location: foot Laterality: left Qualified Code(s): M86.9 - Osteomyelitis, unspecified (3) Acute renal failure (ARF) Current Visit: Yes Status: Acute Assessment and plan: Resolved -Patient with a creatinine of 3.91 on admission; last Cr was 1.01 -Continue IV fluids -Will continue to monitor -Nephrology consulted; would appreciate recommendations Qualifiers: Acute renal failure type: unspecified Qualified Code(s): N17.9 - Acute kidney failure, unspecified (4) Hyponatremia Current Visit: Yes Status: Resolved Assessment and plan: Resolved -Sodium 127 on admission (05/04/17) and now 140 -Will continue to monitor -Nephrology following; would appreciate recommendations (5) DVT prophylaxis Current Visit: Yes Status: Acute Assessment and plan: SQ heparin (6) Diarrhea Current Visit: Yes Status: Acute Assessment and plan: Patient admits to diarrhea this morning. -Denies any nausea, vomiting, or abdominal pain. -Patient has elevated white count at 21.4. -C diff toxin pending. Qualifiers: Qualified Code(s): R19.7 - Diarrhea, unspecified (7) Swelling of both lower extremities Current Visit: Yes Status: Acute Assessment and plan: Patient admits to swelling in his LEs. -Patient's legs appear larger compared to yesterday. -Currently on would vac. -No new redness, erythema, or pain. -States that this is a chronic issue for him. -Continue to observe. - Subjective Interval history: Patient was seen and examined at bedside this morning. Patient has new onset swelling bilaterally in his lower extremities. Patient denies having any pain in his legs. Patient reports that he has had several episodes like this for years; notes that he ocassionally develops LE swelling without pain and that he usually wraps his legs. He has never received a formal diagnosis for this. Admits to diarrhea this morning. Denies having n/v, abdominal pain, fever, chills, or pain in his LEs. No further complaints at this time. - Constitutional Vitals: Temp Pulse Resp BP Pulse Ox 98.5 F 83 20 144/94 91 05/10/17 03:50 05/10/17 03:50 05/10/17 03:50 05/10/17 03:50 05/10/17 03:50 General appearance: Present: A&O X 3, pleasant, no acute distress - Head Head exam: Present: atraumatic, normocephalic - Eye Eye exam: Present: PERRL, conjuntiva pink, sclera anicteric Pupils: Present: PERRL - Neck Neck exam general surgery: Present: supple, trachea midline. Absent: lymphadenopathy - Respiratory Respiratory exam: Present: CTAB. Absent: accessory muscle use, rales, rhonchi, wheezes - Cardiovascular Cardiovascular exam: Present: RRR, +S1, +S2. Absent: diastolic murmur, gallop, rubs, systolic murmur - GI/Abdominal GI/Abdominal exam: Present: normal bowel sounds, soft, no peritoneal signs. Absent: distended, tenderness - Extremities Exam Extremities exam: Present: warm, radial pulses palpable and symmetrical. Absent : calf tenderness, cyanotic, pedal edema - Neurological Exam Neurological exam: Present: CN II-XII intact, oriented X3, no focal deficits. Absent: pronater drift, facial droop, speech deficit - Skin Skin exam: Present: dry, intact Internal Medicine: Result - Labs CBC & Chem 7: 05/10/17 06:21 05/10/17 06:21 Labs: Short CBC 05/10/17 Range/Units 06:21 WBC 21.4 H D (4.3-11.1) K/mcL Hgb 15.4 (12.9-16.9) g/dL Hct 46.7 (37.5-50.1) % Plt Count 123 L (140-400) K/mcL BMP 05/10/17 06:21 Sodium 140 Potassium 4.5 Chloride 113 H Carbon Dioxide 19 L BUN 34 H Creatinine 1.01 Glucose 185 H Calcium 8.5 L - ABG Interpretation ABG results: PT/INR, D-dimer PT 13.0 Seconds (9.4-12.1) H 05/05/17 00:15 - VTE Documentation of Mechanical Device: Intermittent pneumatic compression device Consult Discharge Plan - Plan Instructions: Diabetic Foot Care (DC), Managing Diabetes During Sick Days (DC) , Diabetic Hyperglycemia (DC), Diabetes Mellitus Type 2 in Adults, Plant Taxonomist (GEN) Referrals: Wound,Care [Other] - 05/17/17 9:30 am [facility] Physician] - (patient is going to [facility] no PCP appointment needed) <Peter Pennington - Last Filed: 05/10/17 15:50> Date of Encounter: 05/10/17 - Subjective Interval history: Other than HPI, a 10 pt ROS is negative - Constitutional Vitals: Temp Pulse Resp BP Pulse Ox 97.2 F L 83 22 129/82 97 05/10/17 11:13 05/10/17 11:13 05/10/17 11:13 05/10/17 11:13 05/10/17 11:13 Internal Medicine: Result - Labs CBC & Chem 7: 05/10/17 06:21 05/10/17 06:21 Labs: Short CBC 05/10/17 Range/Units 06:21 WBC 21.4 H D (4.3-11.1) K/mcL Hgb 15.4 (12.9-16.9) g/dL Hct 46.7 (37.5-50.1) % Plt Count 123 L (140-400) K/mcL Neutrophils # 19.2 H (1.6-8.9) K/mcL BMP 05/10/17 06:21 Sodium 140 Potassium 4.5 Chloride 113 H Carbon Dioxide 19 L BUN 34 H Creatinine 1.01 Glucose 185 H Calcium 8.5 L Liver Function 05/10/17 Range/Units 06:21 Total Bilirubin 1.6 H (0.3-1.0) mg/dL Direct Bilirubin 0.4 H (0.0-0.2) mg/dL AST 47 H (13-39) Units/L ALT 117 H (7-52) Units/L Alkaline Phosphatase 83 (34-104) Units/L Albumin 2.6 L (3.5-5.7) g/dL - ABG Interpretation ABG results: PT/INR, D-dimer PT 13.0 Seconds (9.4-12.1) H 05/05/17 00:15 - Attending Attestation I personally interviewed and examined this patient. I agree with the findings, assessment, and plan of Dr. Mckenzie, internal medicine risk intern. Antibiotics as outlined by infectious disease, we are waiting final culture data. Patient does have an increased white blood cell count today and we will monitor. Duration of antibiotic treatment as of yet unknown, and will depend on his clinical course. We are also awaiting final decision regarding potential further procedures. She remains hemogenic stable. Creatinine has normalized. I will also as outlined above.
[2017-05-10] MEDS: Nystatin POWDER 30 GM BOTTLE TP SCH ×2 (09:02→20:32)
[2017-05-10] MEDS: Insulin LISPRO 300 UNITS/3 ML VIAL SQ SCH ×4 (09:02→20:12)
--- NOTE | 2017-05-10 10:05 | Nephrology Progress Note ---
Date of Encounter: 05/10/17 Time of Encounter: 10:01 - Assessment and Plan (1) ALEK (acute kidney injury) Current Visit: Yes Status: Acute Kidney function now WNL Extremely robust UOP Nephrology will sign off case Patient should have a BMP 1 week after discharge and f/u with nephrology in 3-4 weeks Please re-consult if kidney function should decrease before discharge (2) Hypocalcemia Current Visit: Yes Status: Resolved Ca+ up to 8.5 Continue Tums TID and Ergocalciferol weekly (3) Hyponatremia Current Visit: Yes Status: Resolved Na+ 140 WNL (4) Osteomyelitis Current Visit: Yes Status: Acute per podiatry team Qualifiers: Osteomyelitis type: unspecified type Osteomyelitis location: foot Laterality: left Qualified Code(s): M86.9 - Osteomyelitis, unspecified Subjective Principal diagnosis: Infection, left Interval history: Patient seen and examined. Lying in bed getting bath, states feeling better. Objective - Vital Signs Vital signs: Vital Signs Temp Pulse Resp BP Pulse Ox 05/10/17 07:36 97.5 F L 83 20 162/110 96 05/10/17 03:50 98.5 F 83 20 144/94 91 05/09/17 23:09 98.4 F 96 18 128/70 96 05/09/17 19:07 98.3 F 71 20 115/89 96 05/09/17 16:15 97.8 F 85 19 130/77 91 05/09/17 11:39 97.6 F 72 18 139/92 96 Intake and Output 05/09/17 05/10/17 05/10/17 23:59 07:59 15:59 Intake Total 2110 / 2110 1800 / 1800 Output Total 3290 / 3290 1310 / 1310 25 / 25 Balance -1180 / -1180 490 / 490 -25 / -25 Intake: IV Fluids 1300 / 1300 1200 / 1200 0.9 % Sodium Chloride 1,000 ML 1000 / 1000 1000 / 1000 @ 125 mls/hr IVC .Q8H [facility] Rx#: [id number] Unasyn 3,000 MG In 0.9 % Sodium 100 / 100 200 / 200 Chloride (Mini-Bag +) 100 ML @ 200 mls/hr IVPB Q6HR [facility] Rx#: [id number] Cipro Premix 400 MG/200 ML 400 200 / 200 mg In 200 ml @ 200 mls/hr IVPB Q12HR [facility] Rx#:[id number] Oral 810 / 810 600 / 600 Output: Urine 1000 / 1000 1250 / 1250 Catheter 2250 / 2250 Wound Drainage 40 / 40 60 / 60 25 / 25 Left Foot 40 / 40 60 / 60 25 / 25 Other: Meal Dinner Percent of Meal Consumed 50% Stool Size Small Stool Consistency loose Stool Color Brown # Bowel Movements 1 Weight 106.2 kg Blood Glucose* 170 Patient Weight 05/10/17 23:59 Weight 106.2 kg - General Appearance General appearance: Present: obese EENT: Present: ATNC, mucous membranes moist, hearing intact, vision intact Neck: Present: supple Respiratory: Present: clear Cardiology: Present: edema, normal S1, normal S2 Gastrointestinal: Present: no tenderness, no guarding, obese Integumentary: Present: warm and dry Neurologic: Present: alert and oriented x3 Psychiatric: Present: mood/affect appropriate, cooperative - Lab 05/10/17 06:21 05/10/17 06:21 Most recent lab results Calcium 8.5 mg/dL (8.6-10.3) L 05/10/17 06:21 Phosphorus 7.1 mg/dL (2.7-4.5) H 05/06/17 08:40 Magnesium 2.7 mg/dL (1.6-2.6) H 05/06/17 08:40 Urine Creatinine 188 mg/dL 05/05/17 17:14 Urine Sodium 19.8 mEq/L 05/05/17 17:14 Urine Total Protein 110 mg/dL (1-14) H 05/05/17 17:14 - VTE Documentation of Mechanical Device: Intermittent pneumatic compression device Consult Discharge Plan - Plan Instructions: Diabetic Foot Care (DC), Managing Diabetes During Sick Days (DC) , Diabetic Hyperglycemia (DC), Diabetes Mellitus Type 2 in Adults, Nib Finisher (GEN) Referrals: Wound,Care [Other] - 05/17/17 9:30 am NONE,PCP [Primary Care Provider] - (patient is going to [facility] No PCP appointment needed)
--- NOTE | 2017-05-10 12:51 | Infectious Disease Progress No ---
Date of Encounter: 05/10/17 Time of Encounter: 12:48 - Assessment and Plan (1) Sepsis Current Visit: Yes Status: Acute Severe sepsis: The patient had two SIRS criteria plus ALEK, hypotension, elevated LFTs, and thrombocytopenia on admission. Likely secondary to left foot infection. Improved. WBC back up to 21 this morning. No differential done, but will call lab and ask them to add it on. Afebrile. Hypotension resolved. ALEK resolved and LFTs improving. Thrombocytopenia improving. No blood cultures were drawn on admission. Not sure if any were drawn at the [facility]. Blood cultures x 2 sets drawn 05/09/17 are pending. Lactic acid normal on admission. Qualifiers: Sepsis type: sepsis due to unspecified organism Qualified Code(s): A41.9 - Sepsis, unspecified organism (2) Osteomyelitis Current Visit: Yes Status: Acute Causative organism: E. faecalis and P. mirabilis per bone culture. Wound culture also grew K. oxytoca. Likely secondary to left foot ulcer. CT of the LLE showed findings consistent with OM of the 1st metatarsal and 1st proximal phalanx base. Podiatry consulted. Status post left TMA. Operative note reviewed. Intra-op cultures positive. Pathology positive for gangrenous changes. Per Podiatry, the patient may require BKA if the wound does not heal. Baseline ESR 56, CRP 265. Continue Cipro 400mg IV BID to cover Klebsiella. Continue Unasyn 3 grams IV Q6H to cover Enterococcus and Proteus, as well as possible anaerobes given the soft tissue gas noted on CT scan. Duration of treatment depends on the clinical picture, but likely 6 weeks of IV antibiotics if the limb is salvageable. Monitor renal function and dose-adjust antibiotics. Avoid insertion of central venous access until blood cultures are negative x 48 hours. Qualifiers: Osteomyelitis type: unspecified type Osteomyelitis location: foot Laterality: left Qualified Code(s): M86.9 - Osteomyelitis, unspecified (3) Gas gangrene Current Visit: Yes Status: Acute Location: Left foot. Status post left foot TMA 05/05/[address] Saavedra. Extensive gangrenous tissue noted and was debrided. Wound care per the podiatry team. (4) Rhabdomyolysis Current Visit: Yes Status: Resolved CK level 2495 on admission. Trending down. Likely secondary to fall and lying on the floor for several hours. Re-check CK level. Management per the primary team. Qualifiers: Rhabdomyolysis type: non-traumatic Qualified Code(s): M62.82 - Rhabdomyolysis (5) ALEK (acute kidney injury) Current Visit: Yes Status: Resolved Likely multifactorial: sepsis + rhabdo + poor PO intake. Resolved. Nephrology consulted and following. Continue to trend. Dose-adjust antibiotics. Avoid nephrotoxins as able. (6) Elevated liver enzymes Current Visit: Yes Status: Acute Etiology unclear: sepsis vs. other. Improved. Abdominal exam benign. Continue to trend. (7) Hyponatremia Current Visit: Yes Status: Resolved (8) Hypocalcemia Current Visit: Yes Status: Resolved (9) Diabetes mellitus Current Visit: Yes Status: Acute New diagnosis. HgbA1C 7.6%. Recommend aggressive glucose monitoring and control to promote wound healing and prevent re-infection. Management per the primary team. Needs to establish with PCP on discharge to assist with management. Qualifiers: Diabetes mellitus type: other specified (including THAO) Diabetes mellitus complication status: with skin complications Diabetes mellitus complication detail: with foot ulcer Diabetes mellitus terminal operator insulin use: without senior care use Qualified Code(s): E13.621 - Other specified diabetes mellitus with foot ulcer; L97.509 - Non-pressure chronic ulcer of other part of unspecified foot with unspecified severity; L97.509 - Non-pressure chronic ulcer of other part of unspecified foot with unspecified severity; L97.509 - Non-pressure chronic ulcer of other part of unspecified foot with unspecified severity; L97.509 - Non-pressure chronic ulcer of other part of unspecified foot with unspecified severity (10) Diarrhea Current Visit: Yes Status: Acute Etiology unclear: medications vs. infectious. The patient had three loose watery stools yesterday and two overnight. C. diff testing ordered by the primary team. Continue C. diff precautions. Start Flagyl 500mg PO TID empirically. If C. diff testing negative, discontinue Flagyl and C. diff precautions. Qualifiers: Diarrhea type: presumed infectious Qualified Code(s): R19.7 - Diarrhea, unspecified - Subjective Interval history: Patient seen and examined. No acute events noted overnight. Patient reports that overall he doesn't feel well today. Reports one episode of abdominal pain with nausea and vomiting this morning after breakfast. Denies fevers, chills, or rigors. Denies chest pain, shortness of breath, or cough. Reports 3 loose stools yesterday and two so far this morning. Denies urinary complaints. Complains of pain with movement of the left foot. Denies oral thrush or new skin lesions. Infect Dis PN-Objective Data - Labs CBC & Chem 7: 05/11/17 08:47 05/11/17 04:41 Labs: Laboratory Results - last 24 hr 05/08/17 05/09/17 05/09/17 20:11 07:42 11:42 WBC RBC Hgb Hct MCV MCH MCHC RDW Plt Count MPV Sodium Potassium Chloride Carbon Dioxide BUN Creatinine Est GFR ( Amer) Est GFR (Non-Af Amer) BUN/Creatinine Ratio Glucose POC Glucose 146 H 147 H 202 H Calculated Osmolality Calcium 05/09/17 05/10/17 05/10/17 16:18 06:21 06:21 WBC 21.4 H D RBC 5.61 H Hgb 15.4 Hct 46.7 MCV 83.2 MCH 27.5 L MCHC 33.0 RDW 17.7 H Plt Count 123 L MPV 10.9 Sodium 140 Potassium 4.5 Chloride 113 H Carbon Dioxide 19 L BUN 34 H Creatinine 1.01 Est GFR ( Amer) > 60 Est GFR (Non-Af Amer) > 60 BUN/Creatinine Ratio 34 H Glucose 185 H POC Glucose 145 H Calculated Osmolality 302 H Calcium 8.5 L Cultures: Cultures 05/05/17 09:48 Wound Culture - Final Left Foot Proteus mirabilis 05/05/17 14:30 Anaerobic Culture - Final Left Foot 05/05/17 09:48 Surgical Biopsy Culture - Preliminary Left Foot Proteus mirabilis Enterococcus species Serology 05/05/17 05/05/17 05/05/17 Range/Units 17:14 17:14 05:30 Urine Color Yellow (Yellow) Urine Clarity Turbid A (Clear) Urine pH 5.0 (5.0-8.0) pH Units Ur Specific [place] 1.024 (1.010-1.025) Urine Protein 30 H (Neg-Trace) mg/dL Urine Glucose (UA) 100 H (Normal) mg/dL Urine Ketones Negative (Negative) mg/dL Urine Blood Large H (Negative) Urine Nitrite Negative (Negative) Urine Bilirubin Negative (Negative) Urine Urobilinogen Normal (Normal) mg/dL Ur Leukocyte Esterase Negative (Negative) Urine Microscopic RBC 5-15 H (0-3) per hpf Urine Microscopic WBC 15-30 H (0-3) per hpf Ur Eosinophil Smear 0 (None Seen) % Ur Squamous Epith Cells Many H (None-Few) per lpf Amorphous Sediment Moderate H (Few) Urine Bacteria Few (None-Few) per hpf Hyaline Casts Few (None-Few) per lpf Ur Culture Indicated? NO (NO) Urine Creatinine 188 mg/dL Urine Microalbumin 139 mg/L Microalb/Creat Ratio 74 H (Less than 30) mcg/mg Protein/Creatinin Ratio 0.59 H (0.00-0.20) mg/mg Urine Sodium 19.8 mEq/L Urine Total Protein 110 H (1-14) mg/dL Exam - Constitutional Vitals: Temp Pulse Resp BP Pulse Ox 97.2 F L 83 22 129/82 97 05/10/17 11:13 05/10/17 11:13 05/10/17 11:13 05/10/17 11:13 05/10/17 11:13 Exam: Severe sepsis: The patient had two SIRS criteria plus ALEK, hypotension, elevated LFTs, and thrombocytopenia on admission. Likely secondary to left foot infection. Improved. WBC back up to 21 this morning. Afebrile. Hypotension resolved. ALEK resolved and LFTs improving. Thrombocytopenia improving as well. Blood cultures x 2 sets drawn 05/09/17 are pending. Lactic acid normal on admission. - Head Head exam: Present: atraumatic, normal inspection, normocephalic - Eye Eye exam: Present: EOMI, normal appearance, PERRL Pupils: Present: normal accommodation - ENT ENT exam: Present: mucous membranes moist Additional comments: Very poor dentition noted. - Neck Neck exam: Present: normal inspection - Respiratory Respiratory exam: Present: CTAB. Absent: rales, respiratory distress, rhonchi, wheezes - Cardiovascular Cardiovascular exam: Present: RRR, +S1, +S2 - GI/Abdominal GI/Abdominal exam: Present: normal bowel sounds, soft. Absent: distended, tenderness - Extremities Exam Additional comments: Left foot surgical site with wound VAC dressing C/d/I. Small amount of serosanguinous drainage noted in the wound VAC canister. One area of duskiness noted to the skin on the dorsal medial aspect of the foot with slight maceration of the surgical wound. No fluctuance noted. Erythema improved. - Neurological Exam Neurological exam: Present: alert, oriented X3, no focal deficits - Psychiatric Psychiatric exam: Present: normal affect, normal mood - Skin Skin exam: Present: dry, intact, normal color, warm - VTE Documentation of Mechanical Device: Intermittent pneumatic compression device Consult Discharge Plan - Plan Instructions: Diabetic Foot Care (DC), Managing Diabetes During Sick Days (DC) , Diabetic Hyperglycemia (DC), Diabetes Mellitus Type 2 in Adults, Cancer Program Director (GEN) Referrals: Wound,Care [Other] - 05/17/17 9:30 am [facility]P [Non-Partnered Physician] - (patient is going to [facility] no PCP appointment needed) - Attending Attestation I examined this patient and my medical decision-making was reviewed with the Resident Physician. I agree with the documented findings, disposition and treatment plan as described except to the extent set forth below.
[2017-05-10 14:44] LABS: Albumin 2.6 g/dL (3.5-5.7); Bilirubin,Direct 0.4 mg/dL (0.0-0.2); Bilirubin,Indirect 1.2 mg/dL (0.0-1.2); Bilirubin,Total 1.6 mg/dL (0.3-1.0)
[2017-05-10 14:48] LABS: Basophils # 0.1 K/mcL (0.0-0.2); Basophils % 0.3 %; Eosinophils # 0.1 K/mcL (0.0-0.6); Eosinophils % 0.3 %; Immature Granulocytes % 0.9 % (0-4); Lymphocytes # 1.1 K/mcL (0.6-4.6); Lymphocytes % 5.1 %; Monocytes # 0.8 K/mcL (0.0-1.3); Monocytes % 3.8 %; Neutrophils # 19.2 K/mcL (1.6-8.9); Nucleated Red Blood Cells 0.2 /100 WBC (0); Segmented Neutrophils % 89.6 %
[2017-05-10 14:50] LABS: Alanine Aminotransferase 117 Units/L (7-52); Albumin/Globulin Ratio 0.7 (1.1-2.2); Alkaline Phosphatase 83 Units/L (34-104); Aspartate Amino Transferase 47 Units/L (13-39); Creatine Kinase 96 Units/L (30-223); Globulin 3.9 g/dL (2.4-3.5); Total Protein 6.5 g/dL (6.4-8.9)
--- NOTE | 2017-05-10 16:58 | Podiatry Progress Note ---
Date of Encounter: 05/10/17 Time of Encounter: 15:45 - Assessment and Plan (1) Sepsis Current Visit: Yes Status: Acute s/p proximal transmetatarsal amputation with bone biopsy with partial resection of the medial cuneiform with flap advancement, all left foot by Dr. Saavedra on 05/05/17. Flap is pink, warm and dry with immediate capillary refill time. Proximal lateral wound edge of incision line is dusky with erythema, there is a small area of granulation tissue. WBC: increased to 21.4 from 13.9 yesterday, CRP: 265. ESR: 56. Blood cultures pending. Microbiology 05/05/17 09:48 Left Foot Wound Culture - Final Proteus mirabilis 05/04/17 19:54 Left Foot Wound Culture - Final Klebsiella oxytoca Proteus mirabilis Enterococcus faecalis Plan: Remain nonweightbearing to the left. Keep the wound VAC intact and have it changed every Sunday, Sunday, Sunday. Small black simplace wound vac sponge to incision line, connected to 125mmhg continuous suction. Infectious disease was consulted and following patient. Cefazolin was discontinued and Cipro dosage was increased with the addition of Unasyn. Will continue to closely monitor the patient, if no improvement in WBC with adjustment of antibiotics patient will most likely need a below the knee amputation. Qualifiers: Sepsis type: sepsis due to unspecified organism Qualified Code(s): A41.9 - Sepsis, unspecified organism Subjective Principal diagnosis: Infection, left Interval history: Patient is s/p proximal transmetatarsal amputation with bone biopsy with partial resection of the medial cuneiform with flap advancement, all left foot by Dr. Saavedra on 05/05/17. Patient is sitting up in bed with wound vac intact , 100 ml of serosanguineous drainage observed to canister. No c/o fever or chills. Patient denies any pain at rest. Objective - Vital Signs Vital Signs: Vital Signs Temp Pulse Resp BP Pulse Ox 05/10/17 16:03 97.2 F L 84 18 136/101 92 05/10/17 11:13 97.2 F L 83 22 129/82 97 05/10/17 07:36 97.5 F L 83 20 162/110 96 05/10/17 03:50 98.5 F 83 20 144/94 91 05/09/17 23:09 98.4 F 96 18 128/70 96 05/09/17 19:07 98.3 F 71 20 115/89 96 Intake and Output 05/10/17 05/10/17 05/10/17 07:59 15:59 23:59 Intake Total 1999 / 1999 720 / 720 Output Total 1310 / 1310 1650 / 1650 Balance 690 / 690 -930 / -930 Intake: IV Fluids 1400 / 1400 100 / 100 0.9 % Sodium Chloride 1,000 ML 1000 / 1000 @ 125 mls/hr IVC .Q8H [facility] Rx#: [id number] Unasyn 3,000 MG In 0.9 % Sodium 200 / 200 100 / 100 Chloride (Mini-Bag +) 100 ML @ 200 mls/hr IVPB Q6HR [facility] Rx#: [id number] Cipro Premix 400 MG/200 ML 400 200 / 200 mg In 200 ml @ 200 mls/hr IVPB Q12HR [facility] Rx#:[id number] Oral 600 / 600 620 / 620 Output: Urine 1250 / 1250 1600 / 1600 Wound Drainage 60 / 60 50 / 50 Left Foot 60 / 60 25 / 25 right foot near great toe. 25 / 25 Other: Meal Lunch Percent of Meal Consumed 20% Weight 106.2 kg Blood Glucose* 193 182 Patient Weight 05/10/17 23:59 Weight 106.2 kg - Exam Exam: General appearance: alert awake oriented X 3. Calm and pleasant, no acute distress.. Vascular: Unable to palpate pedal pulses secondary to edema, Edema graded at 1+/ 4, Skin Temperature warm, No calf pain with manual compression. capillary refill time is immediate. Neurologic: Sensation intact with light touch to foot. . Postop Exam: S/P Small black simplace wound vac sponge intact to the left foot, connected to 125 mmhg continuous suction. 100 mls of serosanguineous drainage observe to canister. 2 + edema with periwound erythema, no pus, no odor, no fluctuance. - Lab Result Diagrams: 05/10/17 06:21 05/10/17 06:21 Labs: Abnormal lab results WBC 21.4 K/mcL (4.3-11.1) H D 05/10/17 06:21 RBC 5.61 M/mcL (4.19-5.50) H 05/10/17 06:21 MCH 27.5 pg (28.0-33.3) L 05/10/17 06:21 RDW 17.7 % (11.5-14.5) H 05/10/17 06:21 Plt Count 123 K/mcL (140-400) L 05/10/17 06:21 Neutrophils # 19.2 K/mcL (1.6-8.9) H 05/10/17 06:21 Nucleated RBCs/100 WBC 0.2 /100 WBC (0) H 05/10/17 06:21 Platelet Estimate Slight Decrease (Normal) L 05/06/17 08:40 Immature Plt Fraction 11.0 % (1.1-6.1) H 05/08/17 02:34 ESR 56 mm/hr (0-10) H 05/04/17 19:38 PT 13.0 Seconds (9.4-12.1) H 05/05/17 00:15 VBG pH 7.21 pH Units (7.32-7.42) L 05/07/17 04:41 Chloride 113 mEq/L (98-107) H 05/10/17 06:21 Carbon Dioxide 19 mEq/L (23-29) L 05/10/17 06:21 BUN 34 mg/dL (8-23) H 05/10/17 06:21 BUN/Creatinine Ratio 34 (6-26) H 05/10/17 06:21 Glucose 185 mg/dL (70-105) H 05/10/17 06:21 POC Glucose 145 (58-89) H 05/09/17 16:18 Hemoglobin A1c 7.6 % (-5.6) H 05/04/17 19:38 Calculated Osmolality 302 (280-300) H 05/10/17 06:21 Uric Acid 11.8 mg/dL (2.3-7.6) H 05/05/17 17:14 Calcium 8.5 mg/dL (8.6-10.3) L 05/10/17 06:21 Venous Ioniz Calcium 0.83 mmol/L (1.15-1.35) L 05/07/17 04:41 Phosphorus 7.1 mg/dL (2.7-4.5) H 05/06/17 08:40 Magnesium 2.7 mg/dL (1.6-2.6) H 05/06/17 08:40 Total Bilirubin 1.6 mg/dL (0.3-1.0) H 05/10/17 06:21 Direct Bilirubin 0.4 mg/dL (0.0-0.2) H 05/10/17 06:21 AST 47 Units/L (13-39) H 05/10/17 06:21 ALT 117 Units/L (7-52) H 05/10/17 06:21 C-Reactive Protein 265 mg/L (Less than 10) H 05/04/17 19:38 Albumin 2.6 g/dL (3.5-5.7) L 05/10/17 06:21 Globulin 3.9 g/dL (2.4-3.5) H 05/10/17 06:21 Albumin/Globulin Ratio 0.7 (1.1-2.2) L 05/10/17 06:21 Triglycerides 225 mg/dL (< 150) H 05/08/17 02:34 VLDL Cholesterol, Calc 45 mg/dL (< 31) H 05/08/17 02:34 HDL Cholesterol 13 mg/dL (40-59) L 05/08/17 02:34 Cholesterol/HDL Ratio 8.5 (0-4.9) H 05/08/17 02:34 25-OH Vitamin D Total 13 ng/mL (30-80) L 05/07/17 04:28 PTH Intact 243.3 pg/ml (10.0-65.0) H 05/07/17 04:28 Urine Clarity Turbid (Clear) A 05/05/17 05:30 Urine Protein 30 mg/dL (Neg-Trace) H 05/05/17 05:30 Urine Glucose (UA) 100 mg/dL (Normal) H 05/05/17 05:30 Urine Blood Large (Negative) H 05/05/17 05:30 Urine Microscopic RBC 5-15 per hpf (0-3) H 05/05/17 05:30 Urine Microscopic WBC 15-30 per hpf (0-3) H 05/05/17 05:30 Ur Squamous Epith Cells Many per lpf (None-Few) H 05/05/17 05:30 Amorphous Sediment Moderate (Few) H 05/05/17 05:30 Microalb/Creat Ratio 74 mcg/mg (Less than 30) H 05/05/17 17:14 Protein/Creatinin Ratio 0.59 mg/mg (0.00-0.20) H 05/05/17 17:14 Urine Total Protein 110 mg/dL (1-14) H 05/05/17 17:14 Microbiology, Last 48 Hours 05/05/17 09:48 Wound Culture - Final Left Foot Proteus mirabilis - VTE Documentation of Mechanical Device: Intermittent pneumatic compression device Consult Discharge Plan - Plan Instructions: Diabetic Foot Care (DC), Managing Diabetes During Sick Days (DC) , Diabetic Hyperglycemia (DC), Diabetes Mellitus Type 2 in Adults, Driving Teacher (GEN) Referrals: Wound,Care [Other] - 05/17/17 9:30 am [facility] [Non-Partnered Physician] - (patient is going to [facility] no PCP appointment needed)
[2017-05-11] MEDS: Ampicillin/Sulbactam 3,000 MG in 0.9 % Sodium Chloride Mini Bag 100 ML IVPB SCH ×4 (02:22→20:23)
[2017-05-11 05:05] LABS: BUN/Creatinine Ratio 29 (6-26); Blood Urea Nitrogen 30 mg/dL (8-23); Calcium 8.8 mg/dL (8.6-10.3); Carbon Dioxide 23 mEq/L (23-29); Chloride 110 mEq/L (98-107); Glucose 157 mg/dL (70-105); Magnesium 1.7 mg/dL (1.6-2.6); Osmolality,Calculated 295 (280-300); Potassium 4.6 mEq/L (3.5-5.1); Sodium 138 mEq/L (136-145); eGFR For African Americans > 60 (> 60); eGFR For Non-African Americans > 60 (> 60)
[2017-05-11] MEDS: *HR* Heparin 5,000 UNIT/ML VIAL SQ SCH ×3 (06:36→20:24)
--- NOTE | 2017-05-11 07:54 | Electrocardiograph Report ---
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
[2017-05-11] MEDS: Insulin LISPRO 300 UNITS/3 ML VIAL SQ SCH ×4 (08:20→20:25)
[2017-05-11] MEDS: Nystatin POWDER 30 GM BOTTLE TP SCH ×2 (08:20→20:24)
--- NOTE | 2017-05-11 08:26 | Internal Med Progress Note ---
<PenningtonPeter - Last Filed: 05/11/17 14:33> Date of Encounter: 05/11/17 - Subjective Interval history: Other than HPI a 10 pt ROS is negative, - Constitutional Vitals: Temp Pulse Resp BP Pulse Ox 97.3 F L 77 20 135/87 97 05/11/17 11:32 05/11/17 11:32 05/11/17 11:32 05/11/17 11:32 05/11/17 11:32 Internal Medicine: Result - Labs CBC & Chem 7: 05/11/17 08:47 05/11/17 04:41 Labs: Short CBC 05/10/17 05/11/17 Range/Units 06:21 08:47 WBC 21.4 H D 21.8 H (4.3-11.1) K/mcL Hgb 15.4 14.3 (12.9-16.9) g/dL Hct 46.7 44.5 (37.5-50.1) % Plt Count 123 L 123 L (140-400) K/mcL Neutrophils # 19.2 H 19.2 H (1.6-8.9) K/mcL BMP 05/10/17 05/11/17 06:21 04:41 Sodium 140 138 Potassium 4.5 4.6 Chloride 113 H 110 H Carbon Dioxide 19 L 23 BUN 34 H 30 H Creatinine 1.01 1.03 Glucose 185 H 157 H Calcium 8.5 L 8.8 Liver Function 05/10/17 Range/Units 06:21 Total Bilirubin 1.6 H (0.3-1.0) mg/dL Direct Bilirubin 0.4 H (0.0-0.2) mg/dL AST 47 H (13-39) Units/L ALT 117 H (7-52) Units/L Alkaline Phosphatase 83 (34-104) Units/L Albumin 2.6 L (3.5-5.7) g/dL - ABG Interpretation ABG results: PT/INR, D-dimer PT 13.0 Seconds (9.4-12.1) H 05/05/17 00:15 Consult Discharge Plan - Plan Instructions: Diabetic Foot Care (DC), Managing Diabetes During Sick Days (DC) , Diabetic Hyperglycemia (DC), Diabetes Mellitus Type 2 in Adults, 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 Agree with the findings, assessment, and plan of Dr. Mckenzie internal medicine internal review and audit compliance. Input of infectious diseases and podiatry is greatly appreciated. She continues to have an elevated white blood cell count. Blood cultures thus far no growth to date. As per infectious disease note will likely need 6 weeks of IV antibiotics. Patient is at risk for BKA if he does not improve. All else as outlined above. note EKG AFib with rate controlled. No hx of afib. Will add asa (no anticoag for now due to surgical issue) and order echo. Pt is asymptomatic. Monitor eletrolytes. <Teofilo Mckenzie - Last Filed: 05/11/17 15:16> Date of Encounter: 05/11/17 Time of Encounter: 09:55 - Assessment and plan (1) Sepsis Current Visit: Yes Status: Acute Assessment and plan: 2/2 L foot osteomyelitis Podiatry consulted; S/P proximal transmetatarsal amputation with bone biopsy w/ partial resection of the medial cuneiform with flap advancement, all left foot. Patient's WC increased to 21.4 from 13.9; patient reports having diarrhea; cdiff pending. Patient denies fever or chills. New onset b/l swelling in LEs; no increase in erythema or weeping observed. Plan: -IVF NS at 125 ml/h -IV unasyn and cipro -Wound CX + for GNRs -Blood CX negative x2 Qualifiers: Sepsis type: sepsis due to unspecified organism Qualified Code(s): A41.9 - Sepsis, unspecified organism (2) Osteomyelitis Current Visit: Yes Status: Acute Assessment and plan: CT of the LE on 05/04/17 demonstrated the followin. Deep soft tissue ulceration plantar to the 1st MTP joint with soft tissue gas throughout the 1st digit and dorsal to the 1st metatarsal and medial cuneiform. Diffuse subcutaneous fat stranding compatible with cellulitis. No well-defined drainable fluid collection. 2. Gas within the 1st metatarsal head and 1st proximal phalangeal base and shaft compatible with osteomyelitis. If clinically indicated MRI could be obtained to evaluate the extent of osteomyelitis. 3. Gas within the 1st metatarsophalangeal joint space compatible with septic arthritis. Podiatry and ID on board; continue IV abx Per podiatry: -Remain nonweightbearing to the left. -Wound vac M W F -Patient may need below the knee amputation if white count does not improve Qualifiers: Osteomyelitis type: unspecified type Osteomyelitis location: foot Laterality: left Qualified Code(s): M86.9 - Osteomyelitis, unspecified (3) Acute renal failure (ARF) Current Visit: Yes Status: Acute Assessment and plan: Resolved -Patient with a creatinine of 3.91 on admission; last Cr was 1.03 -Continue IV fluids -Will continue to monitor Qualifiers: Acute renal failure type: unspecified Qualified Code(s): N17.9 - Acute kidney failure, unspecified (4) Hyponatremia Current Visit: Yes Status: Resolved Assessment and plan: Resolved -Sodium 127 on admission (05/04/17) and now 138 -Will continue to monitor -Nephrology following; would appreciate recommendations (5) DVT prophylaxis Current Visit: Yes Status: Acute Assessment and plan: SQ heparin (6) Diarrhea Current Visit: Yes Status: Acute Assessment and plan: Etiology unclear: medications vs. infectious. -Denies any nausea, vomiting, or abdominal pain. -Patient has elevated white count at 21.8. -C diff toxin pending. -C. diff precautions. -Start Flagyl 500mg PO TID empirically. If C. diff testing negative, discontinue Flagyl and C. diff precautions. Qualifiers: Qualified Code(s): R19.7 - Diarrhea, unspecified (7) Swelling of both lower extremities Current Visit: Yes Status: Acute Assessment and plan: Patient admits to swelling in his LEs. -Currently on would vac. -No new redness, erythema, or pain. -States that this is a chronic issue for him. -Continue to observe. - Subjective Interval history: Patient was seen and examined at bedside this morning. - Constitutional Vitals: Temp Pulse Resp BP Pulse Ox 97.5 F L 80 20 144/83 97 05/11/17 07:21 05/11/17 07:21 05/11/17 07:21 05/11/17 07:21 05/11/17 07:21 General appearance: Present: A&O X 3, pleasant, no acute distress - Head Head exam: Present: atraumatic, normocephalic - Eye Eye exam: Present: PERRL, conjuntiva pink, sclera anicteric Pupils: Present: PERRL - Neck Neck exam general surgery: Present: supple, trachea midline. Absent: lymphadenopathy - Respiratory Respiratory exam: Present: CTAB. Absent: accessory muscle use, rales, rhonchi, wheezes - Cardiovascular Cardiovascular exam: Present: RRR, +S1, +S2. Absent: diastolic murmur, gallop, rubs, systolic murmur - GI/Abdominal GI/Abdominal exam: Present: normal bowel sounds, soft, no peritoneal signs. Absent: distended, tenderness - Extremities Exam Extremities exam: Present: warm, radial pulses palpable and symmetrical. Absent : calf tenderness, cyanotic, pedal edema - Neurological Exam Neurological exam: Present: CN II-XII intact, oriented X3, no focal deficits. Absent: pronater drift, facial droop, speech deficit - Skin Skin exam: Present: dry, intact Internal Medicine: Result - Labs CBC & Chem 7: 05/11/17 08:47 05/11/17 04:41 Labs: Short CBC 05/10/17 Range/Units 06:21 WBC 21.4 H D (4.3-11.1) K/mcL Hgb 15.4 (12.9-16.9) g/dL Hct 46.7 (37.5-50.1) % Plt Count 123 L (140-400) K/mcL Neutrophils # 19.2 H (1.6-8.9) K/mcL BMP 05/10/17 05/11/17 06:21 04:41 Sodium 140 138 Potassium 4.5 4.6 Chloride 113 H 110 H Carbon Dioxide 19 L 23 BUN 34 H 30 H Creatinine 1.01 1.03 Glucose 185 H 157 H Calcium 8.5 L 8.8 Liver Function 05/10/17 Range/Units 06:21 Total Bilirubin 1.6 H (0.3-1.0) mg/dL Direct Bilirubin 0.4 H (0.0-0.2) mg/dL AST 47 H (13-39) Units/L ALT 117 H (7-52) Units/L Alkaline Phosphatase 83 (34-104) Units/L Albumin 2.6 L (3.5-5.7) g/dL - ABG Interpretation ABG results: PT/INR, D-dimer PT 13.0 Seconds (9.4-12.1) H 05/05/17 00:15 - VTE Documentation of Mechanical Device: Intermittent pneumatic compression device
[2017-05-11 08:54] LABS: Basophils % 0.1 %; Eosinophils # 0.1 K/mcL (0.0-0.6); Eosinophils % 0.6 %; Hematocrit 44.5 % (37.5-50.1); Hemoglobin 14.3 g/dL (12.9-16.9); Immature Granulocytes % 0.8 % (0-4); Lymphocytes # 1.4 K/mcL (0.6-4.6); Lymphocytes % 6.5 %; Mean Corpuscular HGB Conc 32.1 g/dL (31.6-35.5); Mean Corpuscular Hemoglobin 27.2 pg (28.0-33.3); Mean Corpuscular Volume 84.6 fL (83.0-100.0); Mean Platelet Volume 11.3 fL (9.4-12.4); Monocytes # 0.8 K/mcL (0.0-1.3); Monocytes % 3.4 %; Neutrophils # 19.2 K/mcL (1.6-8.9); Platelet Count 123 K/mcL (140-400); Red Blood Count 5.26 M/mcL (4.19-5.50); Red Cell Distribution Width 16.4 % (11.5-14.5); Segmented Neutrophils % 88.6 %
--- NOTE | 2017-05-11 09:28 | Infectious Disease Progress No ---
Date of Encounter: 05/11/17 Time of Encounter: 09:26 - Assessment and Plan (1) Sepsis Current Visit: Yes Status: Acute Severe sepsis: The patient had two SIRS criteria plus ALEK, hypotension, elevated LFTs, and thrombocytopenia on admission. Likely secondary to left foot infection. Improved. WBC remains elevated at 21 this morning. Afebrile. Hypotension resolved. ALEK resolved. LFTs remain slighlt elevated. Thrombocytopenia improving. No blood cultures were drawn on admission. Not sure if any were drawn at the [facility]. Blood cultures x 2 sets drawn 05/09/17 are NGTD. Lactic acid normal on admission. Qualifiers: Sepsis type: sepsis due to unspecified organism Qualified Code(s): A41.9 - Sepsis, unspecified organism (2) Osteomyelitis Current Visit: Yes Status: Acute Causative organism: E. faecalis and P. mirabilis per bone culture. Wound culture also grew K. oxytoca. Likely secondary to left foot ulcer. CT of the LLE showed findings consistent with OM of the 1st metatarsal and 1st proximal phalanx base. Podiatry consulted. Status post left TMA. Operative note reviewed. Intra-op cultures positive. Pathology positive for gangrenous changes. Per Podiatry, the patient may require BKA if the wound does not heal. Baseline ESR 56, CRP 265. Given the patient's persistent leukocytosis, concerned that the infection is not clearing. Will discuss with Podiatry. Continue Cipro 400mg IV BID to cover Klebsiella. Continue Unasyn 3 grams IV Q6H to cover Enterococcus and Proteus, as well as possible anaerobes given the soft tissue gas noted on CT scan. Duration of treatment depends on the clinical picture, but likely 6 weeks of IV antibiotics if the limb is salvageable. Monitor renal function and dose-adjust antibiotics. Qualifiers: Osteomyelitis type: unspecified type Osteomyelitis location: foot Laterality: left Qualified Code(s): M86.9 - Osteomyelitis, unspecified (3) Gas gangrene Current Visit: Yes Status: Acute Location: Left foot. Status post left foot TMA 05/05/[address] Saavedra. Extensive gangrenous tissue noted and was debrided. Wound care per the podiatry team. (4) Rhabdomyolysis Current Visit: Yes Status: Resolved CK level 2495 on admission. Trending down. Likely secondary to fall and lying on the floor for several hours. Repeat CK level yesterday normal. Management per the primary team. Qualifiers: Rhabdomyolysis type: non-traumatic Qualified Code(s): M62.82 - Rhabdomyolysis (5) ALEK (acute kidney injury) Current Visit: Yes Status: Resolved Likely multifactorial: sepsis + rhabdo + poor PO intake. Resolved. Nephrology consulted and following. Continue to trend. Dose-adjust antibiotics. Avoid nephrotoxins as able. (6) Elevated liver enzymes Current Visit: Yes Status: Acute Etiology unclear: sepsis vs. other. Improved. Abdominal exam benign. Continue to trend. (7) Hyponatremia Current Visit: Yes Status: Resolved (8) Hypocalcemia Current Visit: Yes Status: Resolved (9) Diabetes mellitus Current Visit: Yes Status: Acute New diagnosis. HgbA1C 7.6%. Recommend aggressive glucose monitoring and control to promote wound healing and prevent re-infection. Management per the primary team. Needs to establish with PCP on discharge to assist with management. Qualifiers: Diabetes mellitus type: other specified (including THAO) Diabetes mellitus complication status: with skin complications Diabetes mellitus complication detail: with foot ulcer Diabetes mellitus manager intermediate insulin use: without [facility] use Qualified Code(s): E13.621 - Other specified diabetes mellitus with foot ulcer; L97.509 - Non-pressure chronic ulcer of other part of unspecified foot with unspecified severity; L97.509 - Non-pressure chronic ulcer of other part of unspecified foot with unspecified severity; L97.509 - Non-pressure chronic ulcer of other part of unspecified foot with unspecified severity; L97.509 - Non-pressure chronic ulcer of other part of unspecified foot with unspecified severity (10) Diarrhea Current Visit: Yes Status: Acute Likely secondary to antibiotics. Improved. C. diff negative. Start probiotics. Qualifiers: Diarrhea type: presumed infectious Qualified Code(s): R19.7 - Diarrhea, unspecified - Subjective Interval history: Patient seen and examined. No acute events noted overnight. Patient states he feels okay today. Denies nausea or vomiting today. Denies fevers, chills, or rigors. Denies chest pain, shortness of breath, or cough. Reports diarrhea has improved. Denies urinary complaints. Complains of pain with movement of the left foot. Denies oral thrush or new skin lesions. Infect Dis PN-Objective Data - Labs CBC & Chem 7: 05/11/17 08:47 05/11/17 04:41 Labs: Laboratory Results - last 24 hr 05/09/17 05/10/17 05/10/17 19:43 06:21 06:21 WBC 21.4 H D RBC 5.61 H Hgb 15.4 Hct 46.7 MCV 83.2 MCH 27.5 L MCHC 33.0 RDW 17.7 H Plt Count 123 L MPV 10.9 Immature Gran % 0.9 Seg Neutrophils % 89.6 Lymphocytes % 5.1 Monocytes % 3.8 Eosinophils % 0.3 Basophils % 0.3 Neutrophils # 19.2 H Lymphocytes # 1.1 Monocytes # 0.8 Eosinophils # 0.1 Basophils # 0.1 Nucleated RBCs/100 WBC 0.2 H Sodium 140 Potassium 4.5 Chloride 113 H Carbon Dioxide 19 L BUN 34 H Creatinine 1.01 Est GFR ( Amer) > 60 Est GFR (Non-Af Amer) > 60 BUN/Creatinine Ratio 34 H Glucose 185 H POC Glucose 170 H Calculated Osmolality 302 H Calcium 8.5 L Magnesium Total Bilirubin 1.6 H Direct Bilirubin 0.4 H Indirect Bilirubin 1.2 AST 47 H ALT 117 H Alkaline Phosphatase 83 Creatine Kinase 96 Serum Total Protein 6.5 Albumin 2.6 L Globulin 3.9 H Albumin/Globulin Ratio 0.7 L Stl C. diff Tox B Gene 05/10/17 05/10/17 05/10/17 11:18 11:21 16:04 WBC RBC Hgb Hct MCV MCH MCHC RDW Plt Count MPV Immature Gran % Seg Neutrophils % Lymphocytes % Monocytes % Eosinophils % Basophils % Neutrophils # Lymphocytes # Monocytes # Eosinophils # Basophils # Nucleated RBCs/100 WBC Sodium Potassium Chloride Carbon Dioxide BUN Creatinine Est GFR ( Amer) Est GFR (Non-Af Amer) BUN/Creatinine Ratio Glucose POC Glucose 193 H 182 H Calculated Osmolality Calcium Magnesium Total Bilirubin Direct Bilirubin Indirect Bilirubin AST ALT Alkaline Phosphatase Creatine Kinase Serum Total Protein Albumin Globulin Albumin/Globulin Ratio Stl C. diff Tox B Gene Negative 05/10/17 05/11/17 05/11/17 20:05 04:41 08:47 WBC 21.8 H RBC 5.26 Hgb 14.3 Hct 44.5 MCV 84.6 MCH 27.2 L MCHC 32.1 RDW 16.4 H Plt Count 123 L MPV 11.3 Immature Gran % 0.8 Seg Neutrophils % 88.6 Lymphocytes % 6.5 Monocytes % 3.4 Eosinophils % 0.6 Basophils % 0.1 Neutrophils # 19.2 H Lymphocytes # 1.4 Monocytes # 0.8 Eosinophils # 0.1 Basophils # 0.0 Nucleated RBCs/100 WBC Sodium 138 Potassium 4.6 Chloride 110 H Carbon Dioxide 23 BUN 30 H Creatinine 1.03 Est GFR ( Amer) > 60 Est GFR (Non-Af Amer) > 60 BUN/Creatinine Ratio 29 H Glucose 157 H POC Glucose 161 H Calculated Osmolality 295 Calcium 8.8 Magnesium 1.7 Total Bilirubin Direct Bilirubin Indirect Bilirubin AST ALT Alkaline Phosphatase Creatine Kinase Serum Total Protein Albumin Globulin Albumin/Globulin Ratio Stl C. diff Tox B Gene Cultures: Cultures 05/05/17 09:48 Surgical Biopsy Culture - Final Left Foot Proteus mirabilis Enterococcus species 05/09/17 16:07 Blood Culture - Preliminary Peripheral Venipuncture No growth. 05/09/17 16:07 Blood Culture - Preliminary Peripheral Venipuncture No growth. 05/05/17 09:48 Wound Culture - Final Left Foot Proteus mirabilis 05/05/17 14:30 Anaerobic Culture - Final Left Foot Serology 05/10/17 05/05/17 05/05/17 Range/Units 11:21 17:14 17:14 Urine Color (Yellow) Urine Clarity (Clear) Urine pH (5.0-8.0) pH Units Ur Specific [place] (1.010-1.025) Urine Protein (Neg-Trace) mg/dL Urine Glucose (UA) (Normal) mg/dL Urine Ketones (Negative) mg/dL Urine Blood (Negative) Urine Nitrite (Negative) Urine Bilirubin (Negative) Urine Urobilinogen (Normal) mg/dL Ur Leukocyte Esterase (Negative) Urine Microscopic RBC (0-3) per hpf Urine Microscopic WBC (0-3) per hpf Ur Eosinophil Smear 0 (None Seen) % Ur Squamous Epith Cells (None-Few) per lpf Amorphous Sediment (Few) Urine Bacteria (None-Few) per hpf Hyaline Casts (None-Few) per lpf Ur Culture Indicated? (NO) Urine Creatinine 188 mg/dL Urine Microalbumin 139 mg/L Microalb/Creat Ratio 74 H (Less than 30) mcg/mg Protein/Creatinin Ratio 0.59 H (0.00-0.20) mg/mg Urine Sodium 19.8 mEq/L Urine Total Protein 110 H (1-14) mg/dL Stl C. diff Tox B Gene Negative (Negative) 05/05/17 Range/Units 05:30 Urine Color Yellow (Yellow) Urine Clarity Turbid A (Clear) Urine pH 5.0 (5.0-8.0) pH Units Ur Specific [place] 1.024 (1.010-1.025) Urine Protein 30 H (Neg-Trace) mg/dL Urine Glucose (UA) 100 H (Normal) mg/dL Urine Ketones Negative (Negative) mg/dL Urine Blood Large H (Negative) Urine Nitrite Negative (Negative) Urine Bilirubin Negative (Negative) Urine Urobilinogen Normal (Normal) mg/dL Ur Leukocyte Esterase Negative (Negative) Urine Microscopic RBC 5-15 H (0-3) per hpf Urine Microscopic WBC 15-30 H (0-3) per hpf Ur Eosinophil Smear (None Seen) % Ur Squamous Epith Cells Many H (None-Few) per lpf Amorphous Sediment Moderate H (Few) Urine Bacteria Few (None-Few) per hpf Hyaline Casts Few (None-Few) per lpf Ur Culture Indicated? NO (NO) Urine Creatinine mg/dL Urine Microalbumin mg/L Microalb/Creat Ratio (Less than 30) mcg/mg Protein/Creatinin Ratio (0.00-0.20) mg/mg Urine Sodium mEq/L Urine Total Protein (1-14) mg/dL Stl C. diff Tox B Gene (Negative) Exam - Constitutional Vitals: Temp Pulse Resp BP Pulse Ox 97.5 F L 80 20 144/83 97 05/11/17 07:21 05/11/17 07:21 05/11/17 07:21 05/11/17 07:21 05/11/17 07:21 General appearance: cooperative, no acute distress, obese - Head Head exam: Present: atraumatic, normal inspection, normocephalic - Eye Eye exam: Present: EOMI, normal appearance, PERRL Pupils: Present: normal accommodation - ENT ENT exam: Present: mucous membranes moist - Neck Neck exam: Present: normal inspection - Respiratory Respiratory exam: Present: CTAB. Absent: rales, respiratory distress, rhonchi, wheezes - Cardiovascular Cardiovascular exam: Present: RRR, +S1, +S2 - GI/Abdominal GI/Abdominal exam: Present: distended (obese), normal bowel sounds, soft. Absent: tenderness - Extremities Exam Extremities exam: Present: tenderness (Left foot). Absent: pedal edema Additional comments: Left foot with global edema. Wound VAC dressing intact with small amount of serosanguinous drainage noted in the wound VAC canister. Area of developing skin discoloration/ecchymosis noted to the dorsal/lateral aspect of the surgical wound. No fluctuance noted. Erythema persists, but not worsening. 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 I agree with the documented findings, disposition and treatment plan as described except to the extent set forth below.
[2017-05-11] MEDS: Lactobacillus 1 EACH CAP.SPRINK PO SCH (11:35)
--- NOTE | 2017-05-11 13:00 | Electrocardiograph Report ---
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
--- NOTE | 2017-05-11 13:09 | Podiatry Progress Note ---
Date of Encounter: 05/11/17 Time of Encounter: 12:30 - Assessment and Plan (1) Gas gangrene Current Visit: Yes Status: Acute s/p proximal transmetatarsal amputation with bone biopsy with partial resection of the medial cuneiform with flap advancement, all left foot by Dr. Saavedra on 05/05/17. Flap is pink, warm and dry with immediate capillary refill time. lateral wound edge of incision line is dusky and macerated, there is minimal granulation tissue. medial edge is macerated but not noted to be dusky at this time Wound erythema and edema has improved since previous assessment however skin maceration and dusky appearance of worsened slightly WBC: increased to 21.8 and remains elevated - concerned for continued infection of foot Will obtain repeat xray of ankle/remaining aspect of foot to evaluate for gas within the tissue There is minimal noted erythema or edema remaining to foot, no drainage, odor, streaking or fluctuance consistent with foot being continued source of infection however, due to continued elevated WBC will order a MRI Spoke with patient about plan, if gas noted, will consider possible BKA- patient verbalizes understanding Will reapply wound vac- 125mmHG suction- small back simplace sponge Blood cultures pending. Microbiology 05/05/17 09:48 Left Foot Wound Culture - Final Proteus mirabilis 05/04/17 19:54 Left Foot Wound Culture - Final Klebsiella oxytoca Proteus mirabilis Enterococcus faecalis Plan: Remain nonweightbearing to the left. Keep the wound VAC intact and have it changed every Sunday, Sunday, Sunday. Small black simplace wound vac sponge to incision line, connected to 125mmhg continuous suction. Infectious disease was consulted and following patient. Cefazolin was discontinued and Cipro dosage was increased with the addition of Unasyn. . (2) Sepsis Current Visit: Yes Status: Acute Qualifiers: Sepsis type: sepsis due to unspecified organism Qualified Code(s): A41.9 - Sepsis, unspecified organism Subjective Principal diagnosis: Infection, left Interval history: Patient is s/p proximal transmetatarsal amputation with bone biopsy with partial resection of the medial cuneiform with flap advancement, all left foot by Dr. Saavedra on 05/05/17. Patient is resting in bed with wound vac intact, 250 ml of serosanguineous drainage observed to canister. No c/o fever or chills. Patient denies any pain at rest. Objective - Vital Signs Vital Signs: Vital Signs Temp Pulse Resp BP Pulse Ox 05/11/17 11:32 97.3 F L 77 20 135/87 97 05/11/17 07:21 97.5 F L 80 20 144/83 97 05/11/17 04:31 68 20 95 05/11/17 03:48 97.3 F L 75 20 128/83 95 05/11/17 00:33 77 17 94 05/10/17 23:30 98.1 F 74 17 94 05/10/17 21:15 98.1 F 74 17 94 05/10/17 20:02 97.6 F 76 18 131/84 05/10/17 16:03 97.2 F L 84 18 136/101 92 Intake and Output 05/10/17 05/11/17 05/11/17 23:59 07:59 15:59 Intake Total 300 / 300 500 / 500 840 / 840 Output Total 400 / 400 530 / 530 525 / 525 Balance -100 / -100 -30 / -30 315 / 315 Intake: IV Fluids 300 / 300 Unasyn 3,000 MG In 0.9 % Sodium 100 / 100 Chloride (Mini-Bag +) 100 ML @ 200 mls/hr IVPB Q6HR [facility] Rx#: [id number] Cipro Premix 400 MG/200 ML 400 200 / 200 mg In 200 ml @ 200 mls/hr IVPB Q12HR [facility] Rx#:[id number] Oral 500 / 500 840 / 840 Output: Urine 400 / 400 530 / 530 500 / 500 Wound Drainage 25 / 25 Left Foot 25 / 25 Other: Meal Breakfast Percent of Meal Consumed 100% Weight 107.2 kg Blood Glucose* 161 136 245 Patient Weight 05/11/17 23:59 Weight 107.2 kg - Exam Exam: General appearance: alert awake oriented X 3. Calm and pleasant, no acute distress.. Vascular: Unable to palpate pedal pulses secondary to edema, Edema graded at 1+/ 4, Skin Temperature warm, No calf pain with manual compression. capillary refill time is immediate. Neurologic: Sensation intact with light touch to foot. . Postop Exam: S/P Small black simplace wound vac sponge intact to the left foot, connected to 125 mmhg continuous suction. 100 mls of serosanguineous drainage observe to canister. 1+ edema with periwound erythema, no pus, no odor, no fluctuance. Wound vac removed. Wound margins remain necrotic. 2.5 of necrotic skin along lateral incision with proximal macerated skin tissue noted to margins which appears dark and may become necrotic as well. Medial wound is macerated but intact. There is a small opening to medial distal surgical line, known, surgically created and has been packed with vac- [id number]. Painful to probe. There is decreasing edema and minimal erythema or warmth. No odor. No active drainage noted at this time. - Lab Result Diagrams: 05/14/17 04:47 05/14/17 04:47 Labs: Abnormal lab results WBC 21.8 K/mcL (4.3-11.1) H 05/11/17 08:47 MCH 27.2 pg (28.0-33.3) L 05/11/17 08:47 RDW 16.4 % (11.5-14.5) H 05/11/17 08:47 Plt Count 123 K/mcL (140-400) L 05/11/17 08:47 Neutrophils # 19.2 K/mcL (1.6-8.9) H 05/11/17 08:47 Nucleated RBCs/100 WBC 0.2 /100 WBC (0) H 05/10/17 06:21 Platelet Estimate Slight Decrease (Normal) L 05/06/17 08:40 Immature Plt Fraction 11.0 % (1.1-6.1) H 05/08/17 02:34 ESR 56 mm/hr (0-10) H 05/04/17 19:38 PT 13.0 Seconds (9.4-12.1) H 05/05/17 00:15 VBG pH 7.21 pH Units (7.32-7.42) L 05/07/17 04:41 Chloride 110 mEq/L (98-107) H 05/11/17 04:41 BUN 30 mg/dL (8-23) H 05/11/17 04:41 BUN/Creatinine Ratio 29 (6-26) H 05/11/17 04:41 Glucose 157 mg/dL (70-105) H 05/11/17 04:41 POC Glucose 161 (58-89) H 02/22/18 20:05 Hemoglobin A1c 7.6 % (-5.6) H 05/04/17 19:38 Uric Acid 11.8 mg/dL (2.3-7.6) H 05/05/17 17:14 Venous Ioniz Calcium 0.83 mmol/L (1.15-1.35) L 05/07/17 04:41 Phosphorus 7.1 mg/dL (2.7-4.5) H 05/06/17 08:40 Total Bilirubin 1.6 mg/dL (0.3-1.0) H 05/10/17 06:21 Direct Bilirubin 0.4 mg/dL (0.0-0.2) H 05/10/17 06:21 AST 47 Units/L (13-39) H 05/10/17 06:21 ALT 117 Units/L (7-52) H 05/10/17 06:21 C-Reactive Protein 265 mg/L (Less than 10) H 05/04/17 19:38 Albumin 2.6 g/dL (3.5-5.7) L 05/10/17 06:21 Globulin 3.9 g/dL (2.4-3.5) H 05/10/17 06:21 Albumin/Globulin Ratio 0.7 (1.1-2.2) L 05/10/17 06:21 Triglycerides 225 mg/dL (< 150) H 05/08/17 02:34 VLDL Cholesterol, Calc 45 mg/dL (< 31) H 05/08/17 02:34 HDL Cholesterol 13 mg/dL (40-59) L 05/08/17 02:34 Cholesterol/HDL Ratio 8.5 (0-4.9) H 05/08/17 02:34 25-OH Vitamin D Total 13 ng/mL (30-80) L 05/07/17 04:28 PTH Intact 243.3 pg/ml (10.0-65.0) H 05/07/17 04:28 Urine Clarity Turbid (Clear) A 05/05/17 05:30 Urine Protein 30 mg/dL (Neg-Trace) H 05/05/17 05:30 Urine Glucose (UA) 100 mg/dL (Normal) H 05/05/17 05:30 Urine Blood Large (Negative) H 05/05/17 05:30 Urine Microscopic RBC 5-15 per hpf (0-3) H 05/05/17 05:30 Urine Microscopic WBC 15-30 per hpf (0-3) H 05/05/17 05:30 Ur Squamous Epith Cells Many per lpf (None-Few) H 05/05/17 05:30 Amorphous Sediment Moderate (Few) H 05/05/17 05:30 Microalb/Creat Ratio 74 mcg/mg (Less than 30) H 05/05/17 17:14 Protein/Creatinin Ratio 0.59 mg/mg (0.00-0.20) H 05/05/17 17:14 Urine Total Protein 110 mg/dL (1-14) H 05/05/17 17:14 Microbiology, Last 48 Hours 05/05/17 09:48 Surgical Biopsy Culture - Final Left Foot Proteus mirabilis Enterococcus species 05/09/17 16:07 Blood Culture - Preliminary Peripheral Venipuncture No growth. 05/09/17 16:07 Blood Culture - Preliminary Peripheral Venipuncture No growth. 05/05/17 09:48 Wound Culture - Final Left Foot Proteus mirabilis - VTE Documentation of Mechanical Device: Intermittent pneumatic compression device Consult Discharge Plan - Plan Instructions: Diabetic Foot Care (DC), Managing Diabetes During Sick Days (DC) , Diabetic Hyperglycemia (DC), Diabetes Mellitus Type 2 in Adults, Family Day Carer (GEN) Referrals: Wound,Care [Other] - 05/17/17 9:30 am [facility] - (patient is going to [facility] no PCP appointment needed)
[2017-05-11] MEDS: Aspirin 81 MG TAB.CHEW PO SCH (15:38)
--- NOTE | 2017-05-11 17:54 | Electrocardiograph Report ---
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
[2017-05-11] MEDS: *HR* OxyCODONE Immed Rel 5 MG TABLET PO PRN (20:22)
[2017-05-12] MEDS: Ampicillin/Sulbactam 3,000 MG in 0.9 % Sodium Chloride Mini Bag 100 ML IVPB SCH ×4 (01:27→21:04)
[2017-05-12] MEDS: *HR* Heparin 5,000 UNIT/ML VIAL SQ SCH ×3 (05:34→21:04)
[2017-05-12] MEDS: Insulin LISPRO 300 UNITS/3 ML VIAL SQ SCH ×4 (07:55→21:02)
[2017-05-12] MEDS: Lactobacillus 1 EACH CAP.SPRINK PO SCH (07:58)
[2017-05-12] MEDS: Aspirin 81 MG TAB.CHEW PO SCH (07:58)
[2017-05-12] MEDS: Nystatin POWDER 30 GM BOTTLE TP SCH ×2 (08:00→21:04)
--- NOTE | 2017-05-12 11:00 | Internal Med Progress Note ---
Date of Encounter: 05/12/17 Time of Encounter: 09:00 - Assessment and plan (1) Osteomyelitis Current Visit: Yes Status: Acute Assessment and plan: CT of the LE on 05/04/17 demonstrated the followin. Deep soft tissue ulceration plantar to the 1st MTP joint with soft tissue gas throughout the 1st digit and dorsal to the 1st metatarsal and medial cuneiform. Diffuse subcutaneous fat stranding compatible with cellulitis. No well-defined drainable fluid collection. 2. Gas within the 1st metatarsal head and 1st proximal phalangeal base and shaft compatible with osteomyelitis. If clinically indicated MRI could be obtained to evaluate the extent of osteomyelitis. 3. Gas within the 1st metatarsophalangeal joint space compatible with septic arthritis. Podiatry and ID on board; continue IV abx Per podiatry: -Remain nonweightbearing to the left. -Wound vac M W F -Patient may need below the knee amputation if white count does not improve 05/12: Sepsis due to osteomyelitis present on admission, sepsis now resolved Patient understands that he may ultimately need a left BKA. He continues on IV antibiotics for multi-organism infection of his left foot including Proteus, Klebsiella, and Enterococcus faecalis. He is currently on Unasyn day #2 as well as Cipro day #4 for Klebsiella as directed by infectious disease. 3. Blood cultures remain negative and he will ultimately need a PICC line for long-term IV antibiotics. Still awaiting final surgical decision Qualifiers: Osteomyelitis type: unspecified type Osteomyelitis location: foot Laterality: left Qualified Code(s): M86.9 - Osteomyelitis, unspecified (2) Acute renal failure (ARF) Current Visit: Yes Status: Acute Assessment and plan: Resolved -Patient with a creatinine of 3.91 on admission; last Cr was 1.03 -Continue IV fluids -Will continue to monitor 05/12: Resolved, avoid unnecessary nephrotoxins Qualifiers: Acute renal failure type: unspecified Qualified Code(s): N17.9 - Acute kidney failure, unspecified (3) Diabetes mellitus Current Visit: Yes Status: Acute Assessment and plan: Has had reasonable glycemic control but now his blood sugars elevated. We will continue with insulin sliding scale. And will likely need to add basal insulin as well. Qualifiers: Diabetes mellitus type: type 2 Diabetes mellitus complication status: with skin complications Diabetes mellitus complication detail: with foot ulcer Diabetes mellitus manager long term care insulin use: without manager long term care use Qualified Code( s): E11.621 - Type 2 diabetes mellitus with foot ulcer; L97.509 - Non-pressure chronic ulcer of other part of unspecified foot with unspecified severity; L97.509 - Non-pressure chronic ulcer of other part of unspecified foot with unspecified severity; L97.509 - Non-pressure chronic ulcer of other part of unspecified foot with unspecified severity; L97.509 - Non-pressure chronic ulcer of other part of unspecified foot with unspecified severity (4) Hyponatremia Current Visit: Yes Status: Resolved Assessment and plan: Resolved - Time Spent With Patient 25 - 35 minutes - Subjective Interval history: Mr. Collado is a 67 year old male without known medical history (has not seen physician since 1994), who presented to the ED this evening because of left foot pain and erythema and fall and weakness. He states that he has had ulcers on the plantar surface of bilateral MTPs for the past one month. Two days ago he was walking out of his house and his legs "gave out" and he fell. He was extremely weak and unable to get up, so he spent two hour slowly dragging himself back into his house. He then laid on the floor and slept for nine hours. When he woke up he was able to drag himself to his sofa where he sat until today he was able to reach his phone and call for help. He had a gallon of milk sitting on the floor where he had been bringing in groceries at the time of the fall, and he was able to drink it for the past two days. He has had nothing to eat. He noticed that his left foot was more painful and the great toe had become dark colored. [facility] of an ALEK with creatinine >3. He denies history of known kidney disease. He denies fever, but did notice that he had chills three days ago. He does not look at his feet often, and is unsure when the left foot began to look dark. 05/12: Patient states his foot is feeling well. He now has a VAC dressing in place. Infectious disease and podiatry are both following along. White blood cell count continues to elevate, currently at 21.8. His renal failure has resolved. Denies any fevers or chills. No chest pain or shortness of breath. No nausea, vomiting, diarrhea. Patient understands that he may ultimately need a left BKA. He continues on IV antibiotics for multi-organism infection of his left foot including Proteus, Klebsiella, and Enterococcus faecalis. He is currently on Unasyn day #2 as well as Cipro day #4 for Klebsiella as directed by infectious disease. 3. Blood cultures remain negative and he will ultimately need a PICC line for long-term IV antibiotics. Still awaiting final surgical decision. Other than HPI a 10 pt ROS is negative, - Constitutional Vitals: Temp Pulse Resp BP Pulse Ox 97.9 F 67 16 123/73 94 05/12/17 07:37 05/12/17 07:37 05/12/17 07:37 05/12/17 07:37 05/12/17 07:37 General appearance: Present: A&O X 3, pleasant, no acute distress - Head Head exam: Present: atraumatic, normocephalic - Neck Neck exam general surgery: Present: supple, trachea midline. Absent: lymphadenopathy - Respiratory Respiratory exam: Present: CTAB. Absent: accessory muscle use, rales, rhonchi, wheezes - Cardiovascular Cardiovascular exam: Present: RRR, +S1, +S2. Absent: diastolic murmur, gallop, rubs, systolic murmur - GI/Abdominal GI/Abdominal exam: Present: normal bowel sounds, soft, no peritoneal signs. Absent: distended, tenderness - Extremities Exam Additional comments: Left foot has a VAC dressing in place. The foot appears clean and dry, not warm. Mildly edematous. - Neurological Exam Neurological exam: Present: CN II-XII intact, oriented X3, no focal deficits. Absent: pronater drift, facial droop, speech deficit - Skin Skin exam: Present: dry, intact Internal Medicine: Result - Labs CBC & Chem 7: 05/11/17 08:47 05/11/17 04:41 - ABG Interpretation ABG results: PT/INR, D-dimer PT 13.0 Seconds (9.4-12.1) H 05/05/17 00:15 - Impressions Impressions Ankle X-Ray 05/11/17 12:52 IMPRESSION: Interval left foot amputation with no acute abnormality in the left ankle. D/ / Luis Borja MD / Luis Borja MD Interpreting Provider: Luis Borja MD Foot MRI 05/11/17 16:34 IMPRESSION: Recent midfoot amputation. No definite focal drainable fluid collection is seen. Subcutaneous edema and soft tissue swelling likely relate to recent surgery. Packing material is in place along the medial aspect of the midfoot. 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
[2017-05-12 13:04] LABS: Basophils % 0.2 %; Eosinophils # 0.2 K/mcL (0.0-0.6); Eosinophils % 1.1 %; Hematocrit 44.1 % (37.5-50.1); Hemoglobin 14.4 g/dL (12.9-16.9); Immature Granulocytes % 0.7 % (0-4); Immature Platelets 7.1 % (1.1-6.1); Lymphocytes # 1.4 K/mcL (0.6-4.6); Lymphocytes % 8.1 %; Mean Corpuscular HGB Conc 32.7 g/dL (31.6-35.5); Mean Corpuscular Hemoglobin 27.6 pg (28.0-33.3); Mean Corpuscular Volume 84.5 fL (83.0-100.0); Monocytes # 0.8 K/mcL (0.0-1.3); Monocytes % 4.7 %; Platelet Count 136 K/mcL (140-400); Red Blood Count 5.22 M/mcL (4.19-5.50); Red Cell Distribution Width 16.3 % (11.5-14.5); Segmented Neutrophils % 85.2 %
[2017-05-13] MEDS: Ampicillin/Sulbactam 3,000 MG in 0.9 % Sodium Chloride Mini Bag 100 ML IVPB SCH ×4 (03:55→20:30)
[2017-05-13] MEDS: *HR* Heparin 5,000 UNIT/ML VIAL SQ SCH ×3 (06:13→20:30)
[2017-05-13 07:49] LABS: BUN/Creatinine Ratio 29 (6-26); Blood Urea Nitrogen 31 mg/dL (8-23); Calcium 8.7 mg/dL (8.6-10.3); Carbon Dioxide 25 mEq/L (23-29); Chloride 107 mEq/L (98-107); Glucose 186 mg/dL (70-105); Osmolality,Calculated 293 (280-300); Potassium 4.4 mEq/L (3.5-5.1); Sodium 136 mEq/L (136-145); eGFR For African Americans > 60 (> 60); eGFR For Non-African Americans > 60 (> 60)
[2017-05-13 07:59] LABS: Basophils # 0.1 K/mcL (0.0-0.2); Basophils % 0.3 %; Eosinophils # 0.1 K/mcL (0.0-0.6); Eosinophils % 0.8 %; Hematocrit 42.6 % (37.5-50.1); Hemoglobin 13.7 g/dL (12.9-16.9); Immature Granulocytes % 0.5 % (0-4); Lymphocytes # 1.2 K/mcL (0.6-4.6); Lymphocytes % 7.1 %; Mean Corpuscular HGB Conc 32.2 g/dL (31.6-35.5); Mean Corpuscular Hemoglobin 26.9 pg (28.0-33.3); Mean Corpuscular Volume 83.7 fL (83.0-100.0); Mean Platelet Volume 11.4 fL (9.4-12.4); Monocytes # 0.8 K/mcL (0.0-1.3); Monocytes % 4.5 %; Neutrophils # 14.9 K/mcL (1.6-8.9); Platelet Count 138 K/mcL (140-400); Red Blood Count 5.09 M/mcL (4.19-5.50); Red Cell Distribution Width 16.5 % (11.5-14.5); Segmented Neutrophils % 86.8 %
[2017-05-13] MEDS: Lactobacillus 1 EACH CAP.SPRINK PO SCH (08:27)
[2017-05-13] MEDS: Aspirin 81 MG TAB.CHEW PO SCH (08:27)
[2017-05-13] MEDS: Nystatin POWDER 30 GM BOTTLE TP SCH ×2 (08:31→20:30)
[2017-05-13] MEDS: Insulin LISPRO 300 UNITS/3 ML VIAL SQ SCH ×4 (08:31→20:30)
--- NOTE | 2017-05-13 10:51 | Internal Med Progress Note ---
Date of Encounter: 05/13/17 Time of Encounter: 10:00 - Assessment and plan (1) Osteomyelitis Current Visit: Yes Status: Acute Assessment and plan: CT of the LE on 05/04/17 demonstrated the followin. Deep soft tissue ulceration plantar to the 1st MTP joint with soft tissue gas throughout the 1st digit and dorsal to the 1st metatarsal and medial cuneiform. Diffuse subcutaneous fat stranding compatible with cellulitis. No well-defined drainable fluid collection. 2. Gas within the 1st metatarsal head and 1st proximal phalangeal base and shaft compatible with osteomyelitis. If clinically indicated MRI could be obtained to evaluate the extent of osteomyelitis. 3. Gas within the 1st metatarsophalangeal joint space compatible with septic arthritis. Podiatry and ID on board; continue IV abx Per podiatry: -Remain nonweightbearing to the left. -Wound vac M W F -Patient may need below the knee amputation if white count does not improve 05/13: Sepsis due to osteomyelitis present on admission, sepsis now resolved Patient understands that he may ultimately need a left BKA. He continues on IV antibiotics for multi-organism infection of his left foot including Proteus, Klebsiella, and Enterococcus faecalis. He is currently on Unasyn day #3 as well as Cipro day #5 for Klebsiella as directed by infectious disease. Blood cultures remain negative and he will ultimately need a PICC line for long-term IV antibiotics. Still awaiting final surgical decision. Once PICC line established and no further surgical indications, final recommendations in place he can transfer to a facility. Qualifiers: Osteomyelitis type: unspecified type Osteomyelitis location: foot Laterality: left Qualified Code(s): M86.9 - Osteomyelitis, unspecified (2) Acute renal failure (ARF) Current Visit: Yes Status: Acute Assessment and plan: Resolved -Patient with a creatinine of 3.91 on admission; last Cr was 1.03 -Continue IV fluids -Will continue to monitor 05/12: Resolved, avoid unnecessary nephrotoxins Qualifiers: Acute renal failure type: unspecified Qualified Code(s): N17.9 - Acute kidney failure, unspecified (3) Diabetes mellitus Current Visit: Yes Status: Acute Assessment and plan: Has had reasonable glycemic control but now his blood sugars elevated. We will continue with insulin sliding scale. And will likely need to add basal insulin as well. 05/13: Add Levemir 5 units subQ at HS Qualifiers: Diabetes mellitus type: type 2 Diabetes mellitus complication status: with skin complications Diabetes mellitus complication detail: with foot ulcer Diabetes mellitus long term acute care registered nurse insulin use: without long term acute care registered nurse use Qualified Code( s): E11.621 - Type 2 diabetes mellitus with foot ulcer; L97.509 - Non-pressure chronic ulcer of other part of unspecified foot with unspecified severity; L97.509 - Non-pressure chronic ulcer of other part of unspecified foot with unspecified severity; L97.509 - Non-pressure chronic ulcer of other part of unspecified foot with unspecified severity; L97.509 - Non-pressure chronic ulcer of other part of unspecified foot with unspecified severity (4) Hyponatremia Current Visit: Yes Status: Resolved Assessment and plan: Resolved - Time Spent With Patient 25 - 35 minutes - Subjective Interval history: Mr. Collado is a 67 year old male without known medical history (has not seen physician since 1994), who presented to the ED this evening because of left foot pain and erythema and fall and weakness. He states that he has had ulcers on the plantar surface of bilateral MTPs for the past one month. Two days ago he was walking out of his house and his legs "gave out" and he fell. He was extremely weak and unable to get up, so he spent two hour slowly dragging himself back into his house. He then laid on the floor and slept for nine hours. When he woke up he was able to drag himself to his sofa where he sat until today he was able to reach his phone and call for help. He had a gallon of milk sitting on the floor where he had been bringing in groceries at the time of the fall, and he was able to drink it for the past two days. He has had nothing to eat. He noticed that his left foot was more painful and the great toe had become dark colored. [facility] of an ALEK with creatinine >3. He denies history of known kidney disease. He denies fever, but did notice that he had chills three days ago. He does not look at his feet often, and is unsure when the left foot began to look dark. 05/12: Patient states his foot is feeling well. He now has a VAC dressing in place. Infectious disease and podiatry are both following along. White blood cell count continues to elevate, currently at 21.8. His renal failure has resolved. Denies any fevers or chills. No chest pain or shortness of breath. No nausea, vomiting, diarrhea. Patient understands that he may ultimately need a left BKA. He continues on IV antibiotics for multi-organism infection of his left foot including Proteus, Klebsiella, and Enterococcus faecalis. He is currently on Unasyn day #2 as well as Cipro day #4 for Klebsiella as directed by infectious disease. 3. Blood cultures remain negative and he will ultimately need a PICC line for long-term IV antibiotics. Still awaiting final surgical decision. 05/13: Patient states he is comfortable. Denies any chest pain or shortness of breath. No fevers or chills. No nausea, vomiting, diarrhea. Continues on broad-spectrum antibiotics as directed by infectious disease. Blood cultures from May 09 remain negative. Awaiting final ID and Podiatry reccs Other than HPI a 10 pt ROS is negative, - Constitutional Vitals: Temp Pulse Resp BP Pulse Ox 97.8 F 77 14 143/90 96 05/13/17 07:23 05/13/17 07:23 05/13/17 07:23 05/13/17 07:23 05/13/17 07:23 General appearance: Present: A&O X 3, pleasant, no acute distress - Head Head exam: Present: atraumatic, normocephalic - Eye Eye exam: Present: PERRL, conjuntiva pink, sclera anicteric Pupils: Present: PERRL - Neck Neck exam general surgery: Present: supple, trachea midline. Absent: lymphadenopathy - Respiratory Respiratory exam: Present: CTAB. Absent: accessory muscle use, rales, rhonchi, wheezes - Cardiovascular Cardiovascular exam: Present: RRR, +S1, +S2. Absent: diastolic murmur, gallop, rubs, systolic murmur - GI/Abdominal GI/Abdominal exam: Present: normal bowel sounds, soft, no peritoneal signs. Absent: distended, tenderness - Extremities Exam Additional comments: Right foot is bandaged - Neurological Exam Neurological exam: Present: CN II-XII intact, oriented X3, no focal deficits. Absent: pronater drift, facial droop, speech deficit - Skin Skin exam: Present: dry, intact Internal Medicine: Result - Labs CBC & Chem 7: 05/13/17 06:42 05/13/17 06:42 Labs: Short CBC 05/12/17 05/13/17 Range/Units 12:55 06:42 WBC 17.6 H 17.2 H (4.3-11.1) K/mcL Hgb 14.4 13.7 (12.9-16.9) g/dL Hct 44.1 42.6 (37.5-50.1) % Plt Count 136 L 138 L (140-400) K/mcL Neutrophils # 15.0 H 14.9 H (1.6-8.9) K/mcL BMP 05/13/17 06:42 Sodium 136 Potassium 4.4 Chloride 107 Carbon Dioxide 25 BUN 31 H Creatinine 1.06 Glucose 186 H Calcium 8.7 - ABG Interpretation ABG results: PT/INR, D-dimer PT 13.0 Seconds (9.4-12.1) H 05/05/17 00:15 - Impressions Impressions Echocardiogram 05/11/17 14:33 Impressions: Moderately reduced LV systolic function. Recommend repeat Limited echo with Definity for more accurate assessment of LV EF. Atypical septal motion. Indeterminate diastolic function. RV is not well visualized. Mild-moderate eccentric aortic regurgitation. Mild-moderate mitral regurgitation. Mild tricuspid regurgitation. Moderate pulmonary hypertension. RVSP 59 mmHg. Left Ventricular Wall Motion: Rest Echo Findings The apex, apical inferior, mid inferior, basal inferior, basal anterior, apical lateral, mid anterior lateral and basal anterior lateral clancy were hypokinetic. The apical septal, mid inferior septal, basal inferior septal, mid anterior septal and basal anterior septal clancy were dyskinetic. The apical anterior, mid anterior, mid inferior lateral and basal inferior lateral clancy were not visualized. Findings: Study Quality * Technically sub-optimal due to body habitus. ECG Findings * Atrial fibrillation. Left Ventricle * Moderately reduced LV systolic function. * LV wall thickness measurements not well obtained. * Atypical septal motion. * Indeterminate diastolic function. Right Ventricle * RV is not well visualized. Left Atrium * Normal left atrial size. Right Atrium * Normal right atrial size. Aortic Valve * Mild-moderately thickened aortic valve leaflets. * Mild-moderate eccentric aortic regurgitation. * No aortic stenosis. Mitral Valve * Normal mitral valve structure. * No mitral stenosis. * Mild-moderate mitral regurgitation. Tricuspid Valve * Normal tricuspid valve structure. * Mild tricuspid regurgitation. * Estimated RA pressure is 15 mmHg. Pulmonic Valve * Pulmonic valve is not well visualized. * No pulmonic stenosis. * No pulmonic regurgitation. Pulmonary Artery * Pulmonary artery not well visualized. Aorta * Normally sized aortic root. * Ascending aorta not well visualized. Interatrial Septum * No evidence of PFO by color Doppler. Pericardium * There is no pericardial effusion present. IVC * The IVC is dilated. * < 50% respiratory change. - VTE Documentation of Mechanical Device: Intermittent pneumatic compression device Consult Discharge Plan - Plan Instructions: Diabetic Foot Care (DC), Managing Diabetes During Sick Days (DC) , Diabetic Hyperglycemia (DC), Diabetes Mellitus Type 2 in Adults, Sleever (GEN) Referrals: Wound,Care [Other] - 05/17/17 9:30 am [facility] - (patient is going to [facility] no PCP appointment needed)
[2017-05-13] MEDS: Insulin DETEMIR 100 UNIT/ML X5UNITS SQ SCH (20:30)
[2017-05-14] MEDS: Ampicillin/Sulbactam 3,000 MG in 0.9 % Sodium Chloride Mini Bag 100 ML IVPB SCH ×2 (05:47→09:40)
[2017-05-14] MEDS: *HR* Heparin 5,000 UNIT/ML VIAL SQ SCH ×3 (05:52→21:35)
[2017-05-14 05:59] LABS: Basophils # 0.1 K/mcL (0.0-0.2); Basophils % 0.5 %; Eosinophils # 0.1 K/mcL (0.0-0.6); Eosinophils % 0.7 %; Hematocrit 44.8 % (37.5-50.1); Hemoglobin 14.3 g/dL (12.9-16.9); Immature Granulocytes % 0.6 % (0-4); Lymphocytes # 1.3 K/mcL (0.6-4.6); Lymphocytes % 7.3 %; Mean Corpuscular HGB Conc 31.9 g/dL (31.6-35.5); Mean Corpuscular Hemoglobin 27.2 pg (28.0-33.3); Mean Corpuscular Volume 85.3 fL (83.0-100.0); Mean Platelet Volume 12.1 fL (9.4-12.4); Monocytes # 0.9 K/mcL (0.0-1.3); Monocytes % 5.1 %; Neutrophils # 15.2 K/mcL (1.6-8.9); Platelet Count 146 K/mcL (140-400); Red Blood Count 5.25 M/mcL (4.19-5.50); Red Cell Distribution Width 16.6 % (11.5-14.5); Segmented Neutrophils % 85.8 %
[2017-05-14 06:00] LABS: BUN/Creatinine Ratio 28 (6-26); Blood Urea Nitrogen 27 mg/dL (8-23); Calcium 8.9 mg/dL (8.6-10.3); Carbon Dioxide 24 mEq/L (23-29); Chloride 110 mEq/L (98-107); Glucose 147 mg/dL (70-105); Osmolality,Calculated 296 (280-300); Potassium 4.4 mEq/L (3.5-5.1); Sodium 139 mEq/L (136-145); eGFR For African Americans > 60 (> 60); eGFR For Non-African Americans > 60 (> 60)
[2017-05-14] MEDS: Insulin LISPRO 300 UNITS/3 ML VIAL SQ SCH ×4 (08:05→21:42)
--- NOTE | 2017-05-14 09:39 | Internal Med Progress Note ---
<Todd Guzmán - Last Filed: 05/14/17 13:12> Date of Encounter: 05/14/17 Time of Encounter: 09:37 - Assessment and plan (1) Osteomyelitis Current Visit: Yes Status: Acute Assessment and plan: Partial foot amputation done by podiatry. Patients WBC is 17.7 increase from 17.2 yesterday. Podiatry is consulted and following. Per their recommendations: Remain nonweightbearing to the left. Change wound vac every sunday, sunday and sunday. Patient may need below the knee amputation if white count does not improve ID has been consulted. Continue with Unasyn and Cipro Will likely need a picc line and IV antibiotics. Qualifiers: Osteomyelitis type: unspecified type Osteomyelitis location: foot Laterality: left Qualified Code(s): M86.9 - Osteomyelitis, unspecified (2) Diabetes mellitus Current Visit: Yes Status: Acute Assessment and plan: glucose currently 147 Continue current medical management of low dose corrective insulin Qualifiers: Diabetes mellitus type: type 2 Diabetes mellitus complication status: with skin complications Diabetes mellitus complication detail: with foot ulcer Diabetes mellitus terminologist insulin use: without terminologist use Qualified Code( s): E11.621 - Type 2 diabetes mellitus with foot ulcer; L97.509 - Non-pressure chronic ulcer of other part of unspecified foot with unspecified severity; L97.509 - Non-pressure chronic ulcer of other part of unspecified foot with unspecified severity; L97.509 - Non-pressure chronic ulcer of other part of unspecified foot with unspecified severity; L97.509 - Non-pressure chronic ulcer of other part of unspecified foot with unspecified severity (3) ALEK (acute kidney injury) Current Visit: Yes Status: Resolved Assessment and plan: On admission Cr of 3.91 patient's creatinine has normalized and most recently is 0.98. (4) Hyponatremia Current Visit: Yes Status: Resolved Assessment and plan: Patient hyponatremia has resolved. (5) DVT prophylaxis Current Visit: Yes Status: Acute Assessment and plan: 5000 units SQ heparin q8h - Subjective Interval history: Overall patient states that he is getting better. States he feels like his muscles are getting sharp. States that he has been able to eat without issue and has been able to urinate but has only been able to on a bedpan. Overall the patient states that he is feeling better and is gaining strength. - Constitutional Vitals: Temp Pulse Resp BP Pulse Ox 97.6 F 62 12 125/91 98 05/14/17 07:15 05/14/17 07:15 05/14/17 07:15 05/14/17 07:15 05/14/17 07:15 General appearance: Present: A&O X 3, pleasant, no acute distress - Head Head exam: Present: atraumatic, normocephalic - Neck Neck exam general surgery: Present: full ROM, normal inspection, trachea midline - Respiratory Respiratory exam: Present: CTAB. Absent: accessory muscle use, rales, rhonchi, wheezes - Cardiovascular Cardiovascular exam: Present: RRR, +S1, +S2. Absent: diastolic murmur, gallop, rubs, systolic murmur - GI/Abdominal GI/Abdominal exam: Present: normal bowel sounds, soft, no peritoneal signs. Absent: distended, tenderness - Extremities Exam Additional comments: Patient has 2+ pitting edema bilateral lower extremities. Patient had a recent partial dictation of the left foot and a wound VAC dressing is placed on the left foot and is still draining. There is some erythema and bilateral lower extremities. - Neurological Exam Neurological exam: Present: alert, oriented X3, no focal deficits. Absent: facial droop, speech deficit - Psychiatric Psychiatric exam: Present: normal affect, normal mood - Skin Skin exam: Present: dry, erythema (Mild to bilateral lower extremities.) Additional comments: Recent surgery to the left with a partial foot amputation. Currently has a VAC dressing that is draining. Internal Medicine: Result - Labs CBC & Chem 7: 05/14/17 04:47 05/14/17 04:47 Labs: Short CBC 05/14/17 Range/Units 04:47 WBC 17.7 H (4.3-11.1) K/mcL Hgb 14.3 (12.9-16.9) g/dL Hct 44.8 (37.5-50.1) % Plt Count 146 (140-400) K/mcL Neutrophils # 15.2 H (1.6-8.9) K/mcL BMP 05/14/17 04:47 Sodium 139 Potassium 4.4 Chloride 110 H Carbon Dioxide 24 BUN 27 H Creatinine 0.98 Glucose 147 H Calcium 8.9 - ABG Interpretation ABG results: PT/INR, D-dimer PT 13.0 Seconds (9.4-12.1) H 05/05/17 00:15 - VTE Documentation of Mechanical Device: Intermittent pneumatic compression device Consult Discharge Plan - Plan Instructions: Diabetic Foot Care (DC), Managing Diabetes During Sick Days (DC) , Diabetic Hyperglycemia (DC), Diabetes Mellitus Type 2 in Adults, Regulatory Administrator (GEN) Referrals: Wound,Care [Other] - 05/17/17 9:30 [facility] - (patient is going to [facility] no PCP appointment needed) <Elvin Smith - Last Filed: 05/14/17 18:21> Date of Encounter: 05/14/17 - Assessment and plan (1) Osteomyelitis Current Visit: Yes Status: Acute Qualifiers: Osteomyelitis type: other acute Osteomyelitis location: foot Laterality: left Qualified Code(s): M86.172 - Other acute osteomyelitis, left ankle and foot (2) Diabetes mellitus Current Visit: Yes Status: Acute Qualifiers: Diabetes mellitus type: type 2 Diabetes mellitus complication status: with skin complications Diabetes mellitus complication detail: with foot ulcer Diabetes mellitus mcfp insulin use: without terminologist use Qualified Code( s): E11.621 - Type 2 diabetes mellitus with foot ulcer; L97.509 - Non-pressure chronic ulcer of other part of unspecified foot with unspecified severity; L97.509 - Non-pressure chronic ulcer of other part of unspecified foot with unspecified severity; L97.509 - Non-pressure chronic ulcer of other part of unspecified foot with unspecified severity; L97.509 - Non-pressure chronic ulcer of other part of unspecified foot with unspecified severity - Constitutional Vitals: Temp Pulse Resp BP Pulse Ox 98.1 F 84 15 137/80 97 05/14/17 15:18 05/14/17 15:18 05/14/17 15:18 05/14/17 15:18 05/14/17 15:18 Internal Medicine: Result - Labs CBC & Chem 7: 05/14/17 04:47 05/14/17 04:47 Labs: Short CBC 05/14/17 Range/Units 04:47 WBC 17.7 H (4.3-11.1) K/mcL Hgb 14.3 (12.9-16.9) g/dL Hct 44.8 (37.5-50.1) % Plt Count 146 (140-400) K/mcL Neutrophils # 15.2 H (1.6-8.9) K/mcL BMP 05/14/17 04:47 Sodium 139 Potassium 4.4 Chloride 110 H Carbon Dioxide 24 BUN 27 H Creatinine 0.98 Glucose 147 H Calcium 8.9 - ABG Interpretation ABG results: PT/INR, D-dimer PT 13.0 Seconds (9.4-12.1) H 05/05/17 00:15 - Attending Attestation I examined this patient and my medical decision-making was reviewed with the Resident Physician on 05/14/17. I agree with the documented findings, disposition and treatment plan as described except to the extent set forth below. Mr Collado is currently admitted for acute osteomyelitis. He is awaiting [place] for rehab. He remains moderate to high risk due to potential for worsening clinical status. Mr Collado feels OK. No fever or chills. Awaiting discharge to rehab. Exam alert Comfortable Mucus membranes dry Heart reg No wheeze Abd soft Dressing intact I/P 1. OM 2. DM Further diagnoses and plan as above.
[2017-05-14] MEDS: Lactobacillus 1 EACH CAP.SPRINK PO SCH (09:40)
[2017-05-14] MEDS: Aspirin 81 MG TAB.CHEW PO SCH (09:40)
[2017-05-14] MEDS: Nystatin POWDER 30 GM BOTTLE TP SCH ×2 (09:41→21:42)
--- NOTE | 2017-05-14 11:56 | Infectious Disease Progress No ---
Date of Encounter: 05/14/17 Time of Encounter: 11:53 - Assessment and Plan (1) Sepsis Current Visit: Yes Status: Acute Severe sepsis: The patient had two SIRS criteria plus ALEK, hypotension, elevated LFTs, and thrombocytopenia on admission. Likely secondary to left foot infection. Improved. WBC remains elevated at 17 this morning, could be reactive from recent infection and surgery. Afebrile. Hypotension resolved. ALEK resolved. Thrombocytopenia resolved. Blood cultures x 2 sets drawn 05/09/17 are NGTD. Lactic acid normal on admission. Qualifiers: Sepsis type: sepsis due to unspecified organism Qualified Code(s): A41.9 - Sepsis, unspecified organism (2) Osteomyelitis Current Visit: Yes Status: Acute Causative organism: E. faecalis and P. mirabilis per bone culture. Wound culture also grew K. oxytoca. Likely secondary to left foot ulcer. CT of the LLE showed findings consistent with OM of the 1st metatarsal and 1st proximal phalanx base. Podiatry consulted. Status post left TMA. Operative note reviewed. Intra-op cultures positive. Pathology positive for gangrenous changes. Per Podiatry, the patient may require BKA if the wound does not heal. Baseline ESR 56, CRP 265. Ankle x-ray and left foot MRI negative for new/persistent infection. Repeat ESR and CRP. Continue Cipro 400mg IV BID to cover Klebsiella. Discontinue Unasyn and de-escalate to ampicillin since anaerobic culture is negative. Start Ampicillin 2 grams IV Q4H. Duration of treatment depends on the clinical picture, but likely 6 weeks of IV antibiotics if the limb is salvageable. Will plan on continuing IV Cipro Q12H and IV Ampicillin (given via 24 hour continuous IV infusion) when ready for discharge. Monitor renal function and dose-adjust antibiotics. Qualifiers: Osteomyelitis type: unspecified type Osteomyelitis location: foot Laterality: left Qualified Code(s): M86.9 - Osteomyelitis, unspecified (3) Gas gangrene Current Visit: Yes Status: Acute Location: Left foot. Status post left foot TMA 05/05/[address] Saavedra. Extensive gangrenous tissue noted and was debrided. Wound care per the podiatry team. (4) Rhabdomyolysis Current Visit: Yes Status: Resolved CK level 2495 on admission. Trending down. Likely secondary to fall and lying on the floor for several hours. Resolved. Qualifiers: Rhabdomyolysis type: non-traumatic Qualified Code(s): M62.82 - Rhabdomyolysis (5) ALEK (acute kidney injury) Current Visit: Yes Status: Resolved Likely multifactorial: sepsis + rhabdo + poor PO intake. Resolved. Nephrology consulted and following. Continue to trend. Dose-adjust antibiotics. Avoid nephrotoxins as able. (6) Elevated liver enzymes Current Visit: Yes Status: Acute Etiology unclear: sepsis vs. other. Improved. Abdominal exam benign. Repeat LFTs in the AM. Continue to trend. (7) Hyponatremia Current Visit: Yes Status: Resolved (8) Hypocalcemia Current Visit: Yes Status: Resolved (9) Diabetes mellitus Current Visit: Yes Status: Acute New diagnosis. HgbA1C 7.6%. Recommend aggressive glucose monitoring and control to promote wound healing and prevent re-infection. Management per the primary team. Needs to establish with PCP on discharge to assist with management. Qualifiers: Diabetes mellitus type: type 2 Diabetes mellitus complication status: with skin complications Diabetes mellitus complication detail: with foot ulcer Diabetes mellitus snf insulin use: without technician terminal and repeater use Qualified Code( s): E11.621 - Type 2 diabetes mellitus with foot ulcer; L97.509 - Non-pressure chronic ulcer of other part of unspecified foot with unspecified severity; L97.509 - Non-pressure chronic ulcer of other part of unspecified foot with unspecified severity; L97.509 - Non-pressure chronic ulcer of other part of unspecified foot with unspecified severity; L97.509 - Non-pressure chronic ulcer of other part of unspecified foot with unspecified severity (10) Diarrhea Current Visit: Yes Status: Resolved Likely secondary to antibiotics. Improved. C. diff negative. Continue probiotics. Qualifiers: Diarrhea type: presumed infectious Qualified Code(s): R19.7 - Diarrhea, unspecified - Subjective Interval history: Patient seen and examined. Weekend notes reviewed. No acute events noted overnight. Patient states he feels okay today. Denies fevers, chills, or rigors. Denies nausea or vomiting today. Denies chest pain, shortness of breath , or cough. Denies diarrhea, abdominal pain, or urinary complaints. States his appetite is good. Denies pain at the surgical site. Denies oral thrush or new skin lesions. Infect Dis PN-Objective Data - Labs CBC & Chem 7: 05/14/17 04:47 05/14/17 04:47 Labs: Laboratory Results - last 24 hr 05/14/17 05/14/17 04:47 04:47 WBC 17.7 H RBC 5.25 Hgb 14.3 Hct 44.8 MCV 85.3 MCH 27.2 L MCHC 31.9 RDW 16.6 H Plt Count 146 MPV 12.1 Immature Gran % 0.6 Seg Neutrophils % 85.8 Lymphocytes % 7.3 Monocytes % 5.1 Eosinophils % 0.7 Basophils % 0.5 Neutrophils # 15.2 H Lymphocytes # 1.3 Monocytes # 0.9 Eosinophils # 0.1 Basophils # 0.1 Sodium 139 Potassium 4.4 Chloride 110 H Carbon Dioxide 24 BUN 27 H Creatinine 0.98 Est GFR ( Amer) > 60 Est GFR (Non-Af Amer) > 60 BUN/Creatinine Ratio 28 H Glucose 147 H Calculated Osmolality 296 Calcium 8.9 Cultures: Cultures 05/05/17 09:48 Surgical Biopsy Culture - Final Left Foot Proteus mirabilis Enterococcus species 05/09/17 16:07 Blood Culture - Preliminary Peripheral Venipuncture No growth. 05/09/17 16:07 Blood Culture - Preliminary Peripheral Venipuncture No growth. 05/05/17 09:48 Wound Culture - Final Left Foot Proteus mirabilis 05/05/17 14:30 Anaerobic Culture - Final Left Foot Serology 05/10/17 05/05/17 05/05/17 Range/Units 11:21 17:14 17:14 Urine Color (Yellow) Urine Clarity (Clear) Urine pH (5.0-8.0) pH Units Ur Specific [place] (1.010-1.025) Urine Protein (Neg-Trace) mg/dL Urine Glucose (UA) (Normal) mg/dL Urine Ketones (Negative) mg/dL Urine Blood (Negative) Urine Nitrite (Negative) Urine Bilirubin (Negative) Urine Urobilinogen (Normal) mg/dL Ur Leukocyte Esterase (Negative) Urine Microscopic RBC (0-3) per hpf Urine Microscopic WBC (0-3) per hpf Ur Eosinophil Smear 0 (None Seen) % Ur Squamous Epith Cells (None-Few) per lpf Amorphous Sediment (Few) Urine Bacteria (None-Few) per hpf Hyaline Casts (None-Few) per lpf Ur Culture Indicated? (NO) Urine Creatinine 188 mg/dL Urine Microalbumin 139 mg/L Microalb/Creat Ratio 74 H (Less than 30) mcg/mg Protein/Creatinin Ratio 0.59 H (0.00-0.20) mg/mg Urine Sodium 19.8 mEq/L Urine Total Protein 110 H (1-14) mg/dL Stl C. diff Tox B Gene Negative (Negative) 05/05/17 Range/Units 05:30 Urine Color Yellow (Yellow) Urine Clarity Turbid A (Clear) Urine pH 5.0 (5.0-8.0) pH Units Ur Specific [place] 1.024 (1.010-1.025) Urine Protein 30 H (Neg-Trace) mg/dL Urine Glucose (UA) 100 H (Normal) mg/dL Urine Ketones Negative (Negative) mg/dL Urine Blood Large H (Negative) Urine Nitrite Negative (Negative) Urine Bilirubin Negative (Negative) Urine Urobilinogen Normal (Normal) mg/dL Ur Leukocyte Esterase Negative (Negative) Urine Microscopic RBC 5-15 H (0-3) per hpf Urine Microscopic WBC 15-30 H (0-3) per hpf Ur Eosinophil Smear (None Seen) % Ur Squamous Epith Cells Many H (None-Few) per lpf Amorphous Sediment Moderate H (Few) Urine Bacteria Few (None-Few) per hpf Hyaline Casts Few (None-Few) per lpf Ur Culture Indicated? NO (NO) Urine Creatinine mg/dL Urine Microalbumin mg/L Microalb/Creat Ratio (Less than 30) mcg/mg Protein/Creatinin Ratio (0.00-0.20) mg/mg Urine Sodium mEq/L Urine Total Protein (1-14) mg/dL Stl C. diff Tox B Gene (Negative) Exam - Constitutional Vitals: Temp Pulse Resp BP Pulse Ox 97.6 F 62 12 125/91 98 05/14/17 07:15 05/14/17 07:15 05/14/17 07:15 05/14/17 07:15 05/14/17 07:15 General appearance: cooperative, no acute distress, obese - Head Head exam: Present: atraumatic, normal inspection, normocephalic - Eye Eye exam: Present: EOMI, normal appearance, PERRL Pupils: Present: normal accommodation - ENT ENT exam: Present: mucous membranes moist - Neck Neck exam: Present: normal inspection - Respiratory Respiratory exam: Present: CTAB. Absent: rales, respiratory distress, rhonchi, wheezes - Cardiovascular Cardiovascular exam: Present: RRR, +S1, +S2 - GI/Abdominal GI/Abdominal exam: Present: distended (obese), normal bowel sounds, soft. Absent: tenderness - Extremities Exam Extremities exam: Present: pedal edema (1+ BLE). Absent: joint swelling, tenderness Additional comments: Left foot with wound VAC dressing C/D/I with sponge well-compressed. Small amount of serosanguinous drainage noted in the wound VAC canister. Area of ecchymosis noted to the dorsal foot. No tenderness or fluctuance noted. - Neurological Exam Neurological exam: Present: alert, oriented X3, no focal deficits - Psychiatric Psychiatric exam: Present: normal affect, normal mood - Skin Skin exam: Present: dry, intact, normal color, warm - VTE Documentation of Mechanical Device: Intermittent pneumatic compression device Consult Discharge Plan - Plan Instructions: Diabetic Foot Care (DC), Managing Diabetes During Sick Days (DC) , Diabetic Hyperglycemia (DC), Diabetes Mellitus Type 2 in Adults, Dog Races Manager (GEN) Referrals: Wound,Care [Other] - 05/17/17 9:30 am [facility]P [Non-Partnered Physician] - (patient is going to [facility] no PCP appointment needed) - Attending Attestation I examined this patient and my medical decision-making was reviewed with the Resident Physician. I agree with the documented findings, disposition and treatment plan as described except to the extent set forth below.
[2017-05-14] MEDS: Ampicillin 2 GM in 0.9 % Sodium Chloride Mini Bag 100 ML IVPB SCH ×3 (16:02→23:47)
--- NOTE | 2017-05-14 17:05 | Podiatry Progress Note ---
Date of Encounter: 05/14/17 Time of Encounter: 16:30 - Assessment and Plan (1) Sepsis Current Visit: Yes Status: Acute s/p proximal transmetatarsal amputation with bone biopsy with partial resection of the medial cuneiform with flap advancement, all left foot by Sessions on 05/05/17. Flap is pink, warm and dry with immediate capillary refill time. No necrotic or dusky skin observed around wound vac sponge. WBC: 17.7, CRP: 265. ESR: 56. Microbiology 05/05/17 09:48 Left Foot Surgical Biopsy Culture - Final Proteus mirabilis Enterococcus species 05/05/17 09:48 Left Foot Wound Culture - Final Proteus mirabilis 05/05/17 14:30 Left Foot Anaerobic Culture - Final 05/04/17 19:54 Left Foot Wound Culture - Final Klebsiella oxytoca Proteus mirabilis Enterococcus faecalis Plan: Remain nonweightbearing to the left. Keep the wound VAC intact and have it changed every Sunday, Sunday, Sunday. Small black simplace wound vac sponge to incision line, connected to 125mmhg continuous suction. Wound vac changed today by nurse. Infectious disease following patient. Receiving IV Cipro and Ampicillin. Will continue to closely monitor the patient. Qualifiers: Sepsis type: sepsis due to unspecified organism Qualified Code(s): A41.9 - Sepsis, unspecified organism Subjective Principal diagnosis: Infection, left Interval history: Patient is s/p proximal transmetatarsal amputation with bone biopsy with partial resection of the medial cuneiform with flap advancement, all left foot by Sessions on 05/05/17. Patient is sitting up in bed with wound vac intact , 125 ml of serosanguineous drainage observed to canister. No c/o fever or chills. Patient denies any pain at rest. Nurse changed wound vac today. Objective - Vital Signs Vital Signs: Vital Signs Temp Pulse Resp BP Pulse Ox 05/14/17 15:18 98.1 F 84 15 137/80 97 05/14/17 12:00 97.8 F 98 14 141/95 95 05/14/17 07:15 97.6 F 62 12 125/91 98 05/14/17 04:21 98.1 F 86 19 145/80 96 05/13/17 19:03 98.9 F 80 19 149/82 96 Intake and Output 05/14/17 05/14/17 05/14/17 07:59 15:59 23:59 Intake Total 480 / 480 Output Total 810 / 810 300 / 300 Balance -810 / -810 180 / 180 Intake: Oral 480 / 480 Output: Urine 700 / 700 300 / 300 Wound Drainage 110 / 110 Left Foot 110 / 110 Other: Meal Lunch Percent of Meal Consumed 100% Stool Size Small Stool Consistency soft Stool Color Brown # Voids 1 Weight 107.8 kg Blood Glucose* 116 142 124 Patient Weight 05/14/17 23:59 Weight 107.8 kg - Exam Exam: General appearance: alert awake oriented X 3. Calm and pleasant, no acute distress.. Vascular: Unable to palpate pedal pulses secondary to edema, Edema graded at 1+/ 4, Skin Temperature warm, No calf pain with manual compression. capillary refill time is immediate. Neurologic: Sensation intact with light touch to foot. . Postop Exam: S/P Small black simplace wound vac sponge intact to left foot connected to 125 mmhg continuous suction, 125 mls of serosanguineous drainage observe to canister. Light periwound erythema, no necrosis or dusky discoloration to the proximal wound edge. Flap in pink warm and dry, 2 + edema. - Lab Result Diagrams: 05/14/17 04:47 05/14/17 04:47 Labs: Abnormal lab results WBC 17.7 K/mcL (4.3-11.1) H 05/14/17 04:47 MCH 27.2 pg (28.0-33.3) L 05/14/17 04:47 RDW 16.6 % (11.5-14.5) H 05/14/17 04:47 Neutrophils # 15.2 K/mcL (1.6-8.9) H 05/14/17 04:47 Nucleated RBCs/100 WBC 0.2 /100 WBC (0) H 05/10/17 06:21 Platelet Estimate Slight Decrease (Normal) L 05/06/17 08:40 Immature Plt Fraction 7.1 % (1.1-6.1) H 05/12/17 12:55 ESR 56 mm/hr (0-10) H 05/04/17 19:38 PT 13.0 Seconds (9.4-12.1) H 05/05/17 00:15 VBG pH 7.21 pH Units (7.32-7.42) L 05/07/17 04:41 Chloride 110 mEq/L (98-107) H 05/14/17 04:47 BUN 27 mg/dL (8-23) H 05/14/17 04:47 BUN/Creatinine Ratio 28 (6-26) H 05/14/17 04:47 Glucose 147 mg/dL (70-105) H 05/14/17 04:47 POC Glucose 142 (58-89) H 05/14/17 12:02 Hemoglobin A1c 7.6 % (-5.6) H 05/04/17 19:38 Uric Acid 11.8 mg/dL (2.3-7.6) H 05/05/17 17:14 Venous Ioniz Calcium 0.83 mmol/L (1.15-1.35) L 05/07/17 04:41 Phosphorus 7.1 mg/dL (2.7-4.5) H 05/06/17 08:40 Total Bilirubin 1.6 mg/dL (0.3-1.0) H 05/10/17 06:21 Direct Bilirubin 0.4 mg/dL (0.0-0.2) H 05/10/17 06:21 AST 47 Units/L (13-39) H 05/10/17 06:21 ALT 117 Units/L (7-52) H 05/10/17 06:21 C-Reactive Protein 265 mg/L (Less than 10) H 05/04/17 19:38 Albumin 2.6 g/dL (3.5-5.7) L 05/10/17 06:21 Globulin 3.9 g/dL (2.4-3.5) H 05/10/17 06:21 Albumin/Globulin Ratio 0.7 (1.1-2.2) L 05/10/17 06:21 Triglycerides 225 mg/dL (< 150) H 05/08/17 02:34 VLDL Cholesterol, Calc 45 mg/dL (< 31) H 05/08/17 02:34 HDL Cholesterol 13 mg/dL (40-59) L 05/08/17 02:34 Cholesterol/HDL Ratio 8.5 (0-4.9) H 05/08/17 02:34 25-OH Vitamin D Total 13 ng/mL (30-80) L 05/07/17 04:28 PTH Intact 243.3 pg/ml (10.0-65.0) H 05/07/17 04:28 Urine Clarity Turbid (Clear) A 05/05/17 05:30 Urine Protein 30 mg/dL (Neg-Trace) H 05/05/17 05:30 Urine Glucose (UA) 100 mg/dL (Normal) H 05/05/17 05:30 Urine Blood Large (Negative) H 05/05/17 05:30 Urine Microscopic RBC 5-15 per hpf (0-3) H 05/05/17 05:30 Urine Microscopic WBC 15-30 per hpf (0-3) H 05/05/17 05:30 Ur Squamous Epith Cells Many per lpf (None-Few) H 05/05/17 05:30 Amorphous Sediment Moderate (Few) H 05/05/17 05:30 Microalb/Creat Ratio 74 mcg/mg (Less than 30) H 05/05/17 17:14 Protein/Creatinin Ratio 0.59 mg/mg (0.00-0.20) H 05/05/17 17:14 Urine Total Protein 110 mg/dL (1-14) H 05/05/17 17:14 - VTE Documentation of Mechanical Device: Intermittent pneumatic compression device Consult Discharge Plan - Plan Instructions: Diabetic Foot Care (DC), Managing Diabetes During Sick Days (DC) , Diabetic Hyperglycemia (DC), Diabetes Mellitus Type 2 in Adults, Equipment Scheduler (GEN) Referrals: Wound,Care [Other] - 05/17/17 9:30 am [facility] [Non-Partnered Physician] - (patient is going to [facility] no PCP appointment needed)
[2017-05-14] MEDS: Ondansetron 4 MG/2 ML VIAL IVP PRN (21:35)
[2017-05-14] MEDS: Insulin DETEMIR 100 UNIT/ML X5UNITS SQ SCH (21:41)
[2017-05-15 05:27] LABS: Basophils # 0.1 K/mcL (0.0-0.2); Basophils % 0.5 %; Eosinophils # 0.1 K/mcL (0.0-0.6); Eosinophils % 0.5 %; Hematocrit 45.1 % (37.5-50.1); Hemoglobin 14.2 g/dL (12.9-16.9); Immature Granulocytes % 0.5 % (0-4); Lymphocytes # 1.1 K/mcL (0.6-4.6); Lymphocytes % 6.4 %; Mean Corpuscular HGB Conc 31.5 g/dL (31.6-35.5); Mean Corpuscular Hemoglobin 27.2 pg (28.0-33.3); Mean Corpuscular Volume 86.4 fL (83.0-100.0); Mean Platelet Volume 11.3 fL (9.4-12.4); Monocytes # 0.8 K/mcL (0.0-1.3); Monocytes % 4.5 %; Neutrophils # 15.1 K/mcL (1.6-8.9); Platelet Count 151 K/mcL (140-400); Red Blood Count 5.22 M/mcL (4.19-5.50); Red Cell Distribution Width 16.6 % (11.5-14.5); Segmented Neutrophils % 87.6 %
[2017-05-15] MEDS: Ampicillin 2 GM in 0.9 % Sodium Chloride Mini Bag 100 ML IVPB SCH ×2 (05:37→08:44)
[2017-05-15] MEDS: *HR* Heparin 5,000 UNIT/ML VIAL SQ SCH (05:38)
[2017-05-15 06:01] LABS: BUN/Creatinine Ratio 25 (6-26); Blood Urea Nitrogen 23 mg/dL (8-23); Calcium 8.8 mg/dL (8.6-10.3); Carbon Dioxide 26 mEq/L (23-29); Chloride 107 mEq/L (98-107); Glucose 148 mg/dL (70-105); Osmolality,Calculated 292 (280-300); Potassium 4.2 mEq/L (3.5-5.1); Sodium 138 mEq/L (136-145); eGFR For African Americans > 60 (> 60); eGFR For Non-African Americans > 60 (> 60)
[2017-05-15 07:13] VITALS: BP 136/84
[2017-05-15] MEDS: Insulin LISPRO 300 UNITS/3 ML VIAL SQ SCH (08:09)
[2017-05-15] MEDS: Aspirin 81 MG TAB.CHEW PO SCH (08:43)
[2017-05-15] MEDS: Lactobacillus 1 EACH CAP.SPRINK PO SCH (08:43)
[2017-05-15] MEDS: Nystatin POWDER 30 GM BOTTLE TP SCH (08:44)
[2017-05-15] MEDS: *HR* OxyCODONE Immed Rel 5 MG TABLET PO PRN (08:45)
--- NOTE | 2017-05-15 09:56 | Discharge Summary ---
Orders not resulted at time of discharge: Pathology 05/05/17 15:50 Surgical Pathology [PTH] Routine Comment: Department: Surgical Pathology Specimen: Has been collected Specimen placed in fixative?: Yes Tissue Removal Time:: 14:39 Tissue Fixative Time:: 14:25 DATE VIJAY:: 05/05/17 PRE-OP DIAGNOSIS:: left foot infection POST-OP DIAGNOSIS:: pathology pending SPECIMEN & SITE: 1: First Metatarsal Date of Encounter: 05/15/17 Time of Encounter: 09:54 - Discharge Diagnosis (1) Sepsis Priority: Primary Status: Acute Comments: Severe sepsis secondary to left foot osteomyelitis Wound culture was positive for Enterococcus faecalis, Proteus mirabilis and Klebsiella oxytoca Qualifiers: Sepsis type: sepsis due to unspecified organism Qualified Code(s): A41.9 - Sepsis, unspecified organism (2) Gas gangrene Priority: Primary Status: Acute (3) Acute renal failure (ARF) Priority: Primary Status: Acute Comments: Secondary to severe sepsis Qualifiers: Acute renal failure type: unspecified Qualified Code(s): N17.9 - Acute kidney failure, unspecified (4) Osteomyelitis Priority: Primary Status: Acute Qualifiers: Osteomyelitis type: other acute Osteomyelitis location: foot Laterality: left Qualified Code(s): M86.172 - Other acute osteomyelitis, left ankle and foot (5) Hypocalcemia Priority: Secondary Status: Resolved (6) Hyponatremia Priority: Secondary Status: Resolved (7) Rhabdomyolysis Priority: Secondary Status: Resolved Qualifiers: Rhabdomyolysis type: non-traumatic Qualified Code(s): M62.82 - Rhabdomyolysis (8) Diabetes mellitus Priority: Secondary Status: Acute Qualifiers: Diabetes mellitus type: type 2 Diabetes mellitus complication status: with skin complications Diabetes mellitus complication detail: with foot ulcer Diabetes mellitus long-term insulin use: without long-term use Qualified Code( s): E11.621 - Type 2 diabetes mellitus with foot ulcer; L97.509 - Non-pressure chronic ulcer of other part of unspecified foot with unspecified severity; L97.509 - Non-pressure chronic ulcer of other part of unspecified foot with unspecified severity; L97.509 - Non-pressure chronic ulcer of other part of unspecified foot with unspecified severity; L97.509 - Non-pressure chronic ulcer of other part of unspecified foot with unspecified severity Hospital course: Mr. Collado is a 67 year old male without unknown medical history (has not seen physician since 1994), who presented to the ED because of left foot pain and erythema and fall and weakness. He had ulcers on the plantar surface of bilateral MTPs for the past one month. Two days prior to admission he was walking out of his house and his legs "gave out" and he fell. He was extremely weak and unable to get up, so he spent two hour slowly dragging himself back into his house. He then laid on the floor and slept for nine hours. When he woke up he was able to drag himself to his sofa, he was able to reach his phone and call for help. He had a gallon of milk sitting on the floor where he had been bringing in groceries at the time of the fall, and he was able to drink it . He had nothing to eat. He noticed that his left foot was more painful and the great toe had become dark colored. [facility] to have evidence of an ALEK with creatinine >3. He denies history of known kidney disease. He does not look at his feet often, and is unsure when the left foot began to look dark. Labs returned with CK markedly elevated at 8500 - patient is making urine, will transfer to for very aggressive volume resuscitation while closely monitoring respiratory status. Will trend CK. Patient also with significant transaminitis (ALT >500, AST 605), possibly just related to rhabdomyolysis, Creatinine: 3.91 Was diagnosed with Left foot gas gangrene. Status post left foot TMA 05/05/[address] Saavedra. Was evaluated by ID Causative organism: E. faecalis and P. mirabilis per bone culture. Wound culture also grew K. oxytoca. Likely secondary to left foot ulcer. CT of the LLE showed findings consistent with OM of the 1st metatarsal and 1st proximal phalanx base. Podiatry consulted. Status post left TMA. Operative note reviewed. Intra-op cultures positive. Pathology positive for gangrenous changes. Per Podiatry, the patient may require BKA if the wound does not heal. Baseline ESR 56, CRP 265. Ankle x-ray and left foot MRI negative for new/persistent infection. MOnitor ESR and CRP. Continue Cipro 400mg IV BID to cover Klebsiella. Discontinue Unasyn and de-escalate to ampicillin since anaerobic culture is negative. Continue Ampicillin 2 grams IV Q6H. Duration of treatment: 6 weeks of IV antibiotics if the limb is salvageable. Continue IV Cipro Q12H and IV Ampicillin - Time Spent with Patient Total time spent providing and/or coordinating discharge services: Greater than 30 minutes (40 min) - Discharge Medications Prescriptions: OxyCODONE Immed Rel [Roxicodone 5 MG] 5 mg PO Q6HR PRN 7 Days #28 tablet PRN Reason: Severe Pain Ampicillin Sodium 2 gm IJ Q6H 30 Days vial Ciprofloxacin 400 MG/200 ML [Cipro Premix 400 MG/200 ML] 400 mg IVPB BID 30 Days #60 bag Insulin DETEMIR [Levemir] 5 unit SQ HS 30 Days [id number] Insulin LISPRO [HumaLOG] 2 units SQ TIDAC 30 Days vial Home Medications: Ampicillin Sodium 2 gm IJ Q6H 30 Days vial 05/15/17 [Rx] Aspirin 81 mg PO DAILY tab.chew 05/15/17 [Rx] Ciprofloxacin 400 MG/200 ML [Cipro Premix 400 MG/200 ML] 400 mg IVPB BID 30 Days #60 bag 05/15/17 [Rx] Insulin DETEMIR [Levemir] 5 unit SQ HS 30 Days [id number] 05/15/17 [Rx] Insulin LISPRO [HumaLOG] 2 units SQ TIDAC 30 Days vial 05/15/17 [Rx] Lactobacillus [Culturelle] 2 each PO DAILY cap.sprink 05/15/17 [Rx] OxyCODONE Immed Rel [Roxicodone 5 MG] 5 mg PO Q6HR PRN 7 Days #28 tablet [Rx] Allergies/Adverse Reactions: 3 Allergy/AdvReac Type Severity Reaction Status Date / Time chicken derived Allergy Vomiting Verified 05/05/17 12:26 Date of admission: 05/04/17 23:14 Primary care physician: PCP NONE Consults: 05/05/17 00:54 Consult to Procurement Engineer [CONS] Routine Reason for SW Consult: pt will need follow up care and lives alone. pt has no family other than his friend Juliocesar that is an emergency contact. Pt stated that fell at home outside and it took him 6 hours to drag himself up steps. Pt admits it is very difficult to ambulate. Patient is a and will need to a PCP set up. PT/OT will need to [facility]. 05/05/17 01:52 Consult to Wound Care [CONS] Routine Reason for Consult: left foot with ulcer on plantar surface - necrotic/eschar large area of skin sloughing on dorsal aspect of midfoot right foot ulcer at plantar surace Call Completed: No 05/07/17 08:04 Consult to Physical Therapy [CONS] Routine Comment: Evaluate, develop and implement POC Reason for Consult: [facility] s[facility]p [facility] foot amp OT [Consult to Occupational Therapy] [CONS] Routine Comment: Evaluate, develop and implement POC Reason for Consult: placement to [facility] s/p left foot amp 05/08/17 13:51 Consult to Infectious Diseases [CONS] Routine Consulting Provider: Infectious Disease Mayte Reason for Consult: antibiotic recommendations Call Completed: Yes 05/08/17 14:35 Consult to Invasive Line Access Team [CONS] Routine Reason for Consult: Patient to have extended IV antibiotic usage. Likely Ancef in addition to either Cipro or Doxycycline. Dual line or greater preferred. Line Type: PICC PICC line indications: rn long term care Med/Antibiotic - Constitutional Vitals: Temp Pulse Resp BP Pulse Ox 97.8 F 71 16 136/84 90 05/15/17 07:12 05/15/17 07:12 05/15/17 07:12 05/15/17 07:12 05/15/17 07:12 General appearance: Present: A&O X 3, pleasant, no acute distress - Head Head exam: Present: atraumatic, normocephalic - Eye Eye exam: Present: PERRL, conjuntiva pink, sclera anicteric Pupils: Present: PERRL - Neck Neck exam general surgery: Present: supple, trachea midline. Absent: lymphadenopathy - Respiratory Respiratory exam: Present: CTAB. Absent: accessory muscle use, rales, rhonchi, wheezes - Cardiovascular Cardiovascular exam: Present: RRR, +S1, +S2. Absent: diastolic murmur, gallop, rubs, systolic murmur - GI/Abdominal GI/Abdominal exam: Present: normal bowel sounds, soft, no peritoneal signs. Absent: distended, tenderness - Extremities Exam Extremities exam: Present: warm, radial pulses palpable and symmetrical. Absent : calf tenderness, cyanotic, pedal edema - Neurological Exam Neurological exam: Present: CN II-XII intact, oriented X3, no focal deficits. Absent: pronater drift, facial droop, speech deficit - Skin Skin exam: Present: dry. Absent: intact Additional comments: Left foot partial amputation, woundVac in place. +2 pitting edema in both lower extremities - Patient Status Disposition: Transfer SNF Condition: Fair - Discharge Instructions Instructions: Diabetic Foot Care (DC), Managing Diabetes During Sick Days (DC) , Diabetic Hyperglycemia (DC), Diabetes Mellitus Type 2 in Adults, Integrity Consultant (GEN) Follow Up With: Wound,Care [Other] - 05/17/17 9:30 am [facility] [Non-Partnered Physician] - (patient is going to [facility] no PCP appointment needed) Additional Instructions: Monitor ESR and CRP every week, continue ciprofloxacin and ampicillin IV for total of 6 weeks, follow-up with infectious diseases within the next 2 weeks. Continue insulin - Diet and Activity Activity: increase activity as tolerated Diet: diabetic diet - VTE Documentation of Mechanical Device: Intermittent pneumatic compression device
--- NOTE | 2017-05-15 10:19 | Infectious Disease Progress No ---
Date of Encounter: 05/15/17 Time of Encounter: 10:16 - Assessment and Plan (1) Sepsis Current Visit: Yes Status: Acute Severe sepsis: The patient had two SIRS criteria plus ALEK, hypotension, elevated LFTs, and thrombocytopenia on admission. Likely secondary to left foot infection. Improved. WBC remains elevated at 17 this morning, could be reactive from recent infection and surgery. Afebrile. Hypotension resolved. ALEK resolved. Thrombocytopenia resolved. Blood cultures x 2 sets drawn 05/09/17 are negative. Lactic acid normal on admission. Qualifiers: Sepsis type: sepsis due to unspecified organism Qualified Code(s): A41.9 - Sepsis, unspecified organism (2) Osteomyelitis Current Visit: Yes Status: Acute Causative organism: E. faecalis and P. mirabilis per bone culture. Wound culture also grew K. oxytoca. Likely secondary to left foot ulcer. CT of the LLE showed findings consistent with OM of the 1st metatarsal and 1st proximal phalanx base. Podiatry consulted. Status post left TMA. Operative note reviewed. Intra-op cultures positive. Pathology positive for gangrenous changes. Per Podiatry, the patient may require BKA if the wound does not heal. Baseline ESR 56, CRP 265. Ankle x-ray and left foot MRI negative for new/persistent infection. Repeat ESR and CRP.--> Add to AM labs. Continue Cipro 400mg IV BID to cover Klebsiella. Continue Ampicillin 2 grams IV Q4H. Duration of treatment depends on the clinical picture, but likely 6 weeks of IV antibiotics if the limb is salvageable. Will plan on continuing IV Cipro Q12H and IV Ampicillin (given via 24 hour continuous IV infusion) when ready for discharge. Monitor renal function and dose-adjust antibiotics. Will have the [facility] team switch out his Powerglide for a PICC. Will need weekly CBC, BUN/Cr, ESR, and CRP. Will need weekly PICC care. Wound care and activity per the podiatry team. Follow up with ID 05/29/17 at 0900. Qualifiers: Osteomyelitis type: other acute Osteomyelitis location: foot Laterality: left Qualified Code(s): M86.172 - Other acute osteomyelitis, left ankle and foot (3) Gas gangrene Current Visit: Yes Status: Acute Location: Left foot. Status post left foot TMA 05/05/[address] Saavedra. Extensive gangrenous tissue noted and was debrided. Wound care per the podiatry team. (4) Rhabdomyolysis Current Visit: Yes Status: Resolved CK level 2495 on admission. Trending down. Likely secondary to fall and lying on the floor for several hours. Resolved. Qualifiers: Rhabdomyolysis type: non-traumatic Qualified Code(s): M62.82 - Rhabdomyolysis (5) AELK (acute kidney injury) Current Visit: Yes Status: Resolved Likely multifactorial: sepsis + rhabdo + poor PO intake. Resolved. Nephrology consulted and following. Continue to trend. Dose-adjust antibiotics. Avoid nephrotoxins as able. (6) Elevated liver enzymes Current Visit: Yes Status: Acute Etiology unclear: sepsis vs. other. Improved. Abdominal exam benign. Continue to trend. (7) Hyponatremia Current Visit: Yes Status: Resolved (8) Hypocalcemia Current Visit: Yes Status: Resolved (9) Diabetes mellitus Current Visit: Yes Status: Acute New diagnosis. HgbA1C 7.6%. Recommend aggressive glucose monitoring and control to promote wound healing and prevent re-infection. Management per the primary team. Needs to establish with PCP on discharge to assist with management. Qualifiers: Diabetes mellitus type: type 2 Diabetes mellitus complication status: with skin complications Diabetes mellitus complication detail: with foot ulcer Diabetes mellitus adjunct faculty for medical terminology insulin use: without adjunct faculty for medical terminology use Qualified Code( s): E11.621 - Type 2 diabetes mellitus with foot ulcer; L97.509 - Non-pressure chronic ulcer of other part of unspecified foot with unspecified severity; L97.509 - Non-pressure chronic ulcer of other part of unspecified foot with unspecified severity; L97.509 - Non-pressure chronic ulcer of other part of unspecified foot with unspecified severity; L97.509 - Non-pressure chronic ulcer of other part of unspecified foot with unspecified severity (10) Diarrhea Current Visit: Yes Status: Resolved Likely secondary to antibiotics. Improved. C. diff negative. Continue probiotics. Qualifiers: Diarrhea type: presumed infectious Qualified Code(s): R19.7 - Diarrhea, unspecified - Subjective Interval history: Patient seen and examined. No acute events noted overnight. Patient states he doesn't feel very well today. He states the TUMS he is getting has altered his stomach acid and he has been having nausea and vomiting from certain foods. Reports emesis x 1 yesterday and x1 overnight. Reports poor appetite this morning. States he has periumbilical abdominal pain preceding the vomiting that is resolved after vomiting. Denies fevers, chills, or rigors. Denies chest pain , shortness of breath, or cough. Denies diarrhea or urinary complaints. Denies pain at the surgical site. Denies oral thrush or new skin lesions. States he feels like he is getting his strength back. Infect Dis PN-Objective Data - Labs CBC & Chem 7: 05/15/17 05:05 05/15/17 05:05 Labs: Laboratory Results - last 24 hr 05/13/17 05/13/17 05/14/17 16:01 20:15 07:17 WBC RBC Hgb Hct MCV MCH MCHC RDW Plt Count MPV Immature Gran % Seg Neutrophils % Lymphocytes % Monocytes % Eosinophils % Basophils % Neutrophils # Lymphocytes # Monocytes # Eosinophils # Basophils # Sodium Potassium Chloride Carbon Dioxide BUN Creatinine Est GFR ( Amer) Est GFR (Non-Af Amer) BUN/Creatinine Ratio Glucose POC Glucose 156 H 160 H 116 H Calculated Osmolality Calcium 05/14/17 05/14/17 05/15/17 12:02 20:29 05:05 WBC 17.2 H RBC 5.22 Hgb 14.2 Hct 45.1 MCV 86.4 MCH 27.2 L MCHC 31.5 L RDW 16.6 H Plt Count 151 MPV 11.3 Immature Gran % 0.5 Seg Neutrophils % 87.6 Lymphocytes % 6.4 Monocytes % 4.5 Eosinophils % 0.5 Basophils % 0.5 Neutrophils # 15.1 H Lymphocytes # 1.1 Monocytes # 0.8 Eosinophils # 0.1 Basophils # 0.1 Sodium Potassium Chloride Carbon Dioxide BUN Creatinine Est GFR ( Amer) Est GFR (Non-Af Amer) BUN/Creatinine Ratio Glucose POC Glucose 142 H 149 H Calculated Osmolality Calcium 05/15/17 05:05 WBC RBC Hgb Hct MCV MCH MCHC RDW Plt Count MPV Immature Gran % Seg Neutrophils % Lymphocytes % Monocytes % Eosinophils % Basophils % Neutrophils # Lymphocytes # Monocytes # Eosinophils # Basophils # Sodium 138 Potassium 4.2 Chloride 107 Carbon Dioxide 26 BUN 23 Creatinine 0.92 Est GFR ( Amer) > 60 Est GFR (Non-Af Amer) > 60 BUN/Creatinine Ratio 25 Glucose 148 H POC Glucose Calculated Osmolality 292 Calcium 8.8 Cultures: Cultures 05/09/17 16:07 Blood Culture - Final Peripheral Venipuncture No growth. 05/09/17 16:07 Blood Culture - Final Peripheral Venipuncture No growth. 05/05/17 09:48 Surgical Biopsy Culture - Final Left Foot Proteus mirabilis Enterococcus species 05/05/17 09:48 Wound Culture - Final Left Foot Proteus mirabilis 05/05/17 14:30 Anaerobic Culture - Final Left Foot Serology 05/10/17 05/05/17 05/05/17 Range/Units 11:21 17:14 17:14 Urine Color (Yellow) Urine Clarity (Clear) Urine pH (5.0-8.0) pH Units Ur Specific Irwin (1.010-1.025) Urine Protein (Neg-Trace) mg/dL Urine Glucose (UA) (Normal) mg/dL Urine Ketones (Negative) mg/dL Urine Blood (Negative) Urine Nitrite (Negative) Urine Bilirubin (Negative) Urine Urobilinogen (Normal) mg/dL Ur Leukocyte Esterase (Negative) Urine Microscopic RBC (0-3) per hpf Urine Microscopic WBC (0-3) per hpf Ur Eosinophil Smear 0 (None Seen) % Ur Squamous Epith Cells (None-Few) per lpf Amorphous Sediment (Few) Urine Bacteria (None-Few) per hpf Hyaline Casts (None-Few) per lpf Ur Culture Indicated? (NO) Urine Creatinine 188 mg/dL Urine Microalbumin 139 mg/L Microalb/Creat Ratio 74 H (Less than 30) mcg/mg Protein/Creatinin Ratio 0.59 H (0.00-0.20) mg/mg Urine Sodium 19.8 mEq/L Urine Total Protein 110 H (1-14) mg/dL Stl C. diff Tox B Gene Negative (Negative) 05/05/17 Range/Units 05:30 Urine Color Yellow (Yellow) Urine Clarity Turbid A (Clear) Urine pH 5.0 (5.0-8.0) pH Units Ur Specific Irwin 1.024 (1.010-1.025) Urine Protein 30 H (Neg-Trace) mg/dL Urine Glucose (UA) 100 H (Normal) mg/dL Urine Ketones Negative (Negative) mg/dL Urine Blood Large H (Negative) Urine Nitrite Negative (Negative) Urine Bilirubin Negative (Negative) Urine Urobilinogen Normal (Normal) mg/dL Ur Leukocyte Esterase Negative (Negative) Urine Microscopic RBC 5-15 H (0-3) per hpf Urine Microscopic WBC 15-30 H (0-3) per hpf Ur Eosinophil Smear (None Seen) % Ur Squamous Epith Cells Many H (None-Few) per lpf Amorphous Sediment Moderate H (Few) Urine Bacteria Few (None-Few) per hpf Hyaline Casts Few (None-Few) per lpf Ur Culture Indicated? NO (NO) Urine Creatinine mg/dL Urine Microalbumin mg/L Microalb/Creat Ratio (Less than 30) mcg/mg Protein/Creatinin Ratio (0.00-0.20) mg/mg Urine Sodium mEq/L Urine Total Protein (1-14) mg/dL Stl C. diff Tox B Gene (Negative) Exam - Constitutional Vitals: Temp Pulse Resp BP Pulse Ox 97.8 F 71 16 136/84 90 05/15/17 07:12 05/15/17 07:12 05/15/17 07:12 05/15/17 07:12 05/15/17 07:12 General appearance: cooperative, no acute distress, obese - Head Head exam: Present: atraumatic, normal inspection, normocephalic - Eye Eye exam: Present: EOMI, normal appearance, PERRL Pupils: Present: normal accommodation - ENT ENT exam: Present: mucous membranes moist Additional comments: Very poor dentition noted. - Neck Neck exam: Present: normal inspection - Respiratory Respiratory exam: Present: CTAB. Absent: rales, respiratory distress, rhonchi, wheezes - Cardiovascular Cardiovascular exam: Present: RRR, +S1, +S2 - GI/Abdominal GI/Abdominal exam: Present: normal bowel sounds, soft. Absent: distended, tenderness - Extremities Exam Extremities exam: Present: pedal edema (1+ BLE). Absent: joint swelling, tenderness Additional comments: Left foot wound VAC dressing intact with sponge well-compressed with a small amount of serosanguinous drainage noted in the wound VAC canister. Small area of ecchymosis noted to the dorsal aspect of the left foot along the surgical incision. - Neurological Exam Neurological exam: Present: alert, oriented X3, no focal deficits - Psychiatric Psychiatric exam: Present: normal affect, normal mood - Skin Skin exam: Present: dry, intact, normal color, warm - VTE Documentation of Mechanical Device: Intermittent pneumatic compression device Consult Discharge Plan - Plan Instructions: Diabetic Foot Care (DC), Managing Diabetes During Sick Days (DC) , Diabetic Hyperglycemia (DC), Diabetes Mellitus Type 2 in Adults, Crime Laboratory Analyst (GEN) Additional Instructions: Monitor ESR and CRP every week, continue ciprofloxacin and ampicillin IV for total of 6 weeks, follow-up with infectious diseases within the next 2 weeks. Continue insulin Referrals: Wound,Care [Other] - 05/17/17 9:30 am [facility]-Part[facility] Physician[facility] - (patient is going to [facility] no PCP appointment needed) Argenis Werner, [employer] [Advanced Practice Nurse] - 05/29/17 9:00 am Prescriptions: OxyCODONE Immed Rel [Roxicodone 5 MG] 5 mg PO Q6HR PRN 7 Days #28 tablet PRN Reason: Severe Pain Ampicillin Sodium 2 gm IJ Q6H 30 Days vial Ciprofloxacin 400 MG/200 ML [Cipro Premix 400 MG/200 ML] 400 mg IVPB BID 30 Days #60 bag Insulin DETEMIR [Levemir] 5 unit SQ HS 30 Days [id number] Insulin LISPRO [HumaLOG] 2 units SQ TIDAC 30 Days vial - Attending Attestation I examined this patient and my medical decision-making was reviewed with the Resident Physician. I agree with the documented findings, disposition and treatment plan as described except to the extent set forth below.
--- NOTE | 2017-05-15 10:19 | Physician Discharge Referral ---
ExtendedCare Referral Info Provider in Charge after Transfer: PCP Institutional Level of Care: Skilled - Diagnosis (1) Sepsis Status: Acute (2) Gas gangrene Status: Acute (3) Acute renal failure (ARF) Status: Acute (4) Osteomyelitis Status: Acute (5) Hypocalcemia Status: Resolved (6) Hyponatremia Status: Resolved (7) Rhabdomyolysis Status: Resolved (8) Diabetes mellitus Status: Acute - Transfer Medications Prescriptions: OxyCODONE Immed Rel [Roxicodone 5 MG] 5 mg PO Q6HR PRN 7 Days #28 tablet PRN Reason: Severe Pain Ampicillin Sodium 2 gm IJ Q6H 30 Days vial Ciprofloxacin 400 MG/200 ML [Cipro Premix 400 MG/200 ML] 400 mg IVPB BID 30 Days #60 bag Insulin DETEMIR [Levemir] 5 unit SQ HS 30 Days [id number] Insulin LISPRO [HumaLOG] 2 units SQ TIDAC 30 Days vial Home Medications: Ampicillin Sodium 2 gm IJ Q6H 30 Days vial 05/15/17 [Rx] Aspirin 81 mg PO DAILY tab.chew 05/15/17 [Rx] Ciprofloxacin 400 MG/200 ML [Cipro Premix 400 MG/200 ML] 400 mg IVPB BID 30 Days #60 bag 05/15/17 [Rx] Insulin DETEMIR [Levemir] 5 unit SQ HS 30 Days [id number] 05/15/17 [Rx] Insulin LISPRO [HumaLOG] 2 units SQ TIDAC 30 Days vial 05/15/17 [Rx] Lactobacillus [Culturelle] 2 each PO DAILY cap.sprink 05/15/17 [Rx] OxyCODONE Immed Rel [Roxicodone 5 MG] 5 mg PO Q6HR PRN 7 Days #28 tablet [Rx] Allergies/Adverse Reactions: 3 Allergy/AdvReac Type Severity Reaction Status Date / Time chicken derived Allergy Vomiting Verified 05/05/17 12:26 - Respiratory Orders Smoking Cessation: Smoking cessation has been advised. For more information, call the [place] Tobacco Quit Line at [phone]-LAUX-NOW. - Advance Directives Code Status: Full Code - Treatments List/Other: Monitor ESR and CRP every week, continue ciprofloxacin and ampicillin IV for total of 6 weeks, follow-up with infectious diseases within the next 2 weeks. Continue insulin - Diet Orders No Added Salt (LATOYA) CERTIFICATION: I certify that the transfer of the above named patient to an Extended Care Facility is necessary for the continuing treatment of the diagnosis listed. The above information is true and accurate reflection of patient's current condition. Confidential - Redisclosure prohibited without a patient's written consent.
[2017-05-15] MEDS ORDERED: Lidocaine -MPF 1% 2 ML VIAL INFILT ONE (11:23)
[2017-05-16 11:55] LABS: C-Reactive Protein 43 mg/L (Less than 10)
== END 2017-05-15 14:57 | DRG 853 ==
LOC: EMEROO 19:00 → SUATTDRO 23:14 → 3NENU 23:14 → 2NNU 05-05 04:51 → 2NENU 05-12 18:53
PROVIDERS: ADMIT Internal Medicine; ATTEND Internal Medicine

== ENCOUNTER 2017-06-06 07:31 | Inpatient (IN) ==
[2017-06-06] MEDS ORDERED: *HR* Midazolam HCl 2 MG/2 ML VIAL ONE ×2 (07:33→07:41)
[2017-06-06] MEDS ORDERED: *HR* Midazolam HCl 2 MG/2 ML VIAL IVP ONE (07:33)
[2017-06-06] MEDS ORDERED: *HR* FentaNYL (PF) 100 MCG/2 ML VIAL ONE ×2 (07:34→08:22)
--- NOTE | 2017-06-06 07:42 | Emergency Department Note ---
Disposition Clinical Impression: Septic shock Respiratory failure Qualifiers: Chronicity: acute Respiratory failure complication: hypoxia and hypercapnia Qualified Code(s): J96.01 - Acute respiratory failure with hypoxia Pneumonia Qualifiers: Pneumonia type: due to unspecified organism Laterality: bilateral Lung location : unspecified part of lung Qualified Code(s): J18.9 - Pneumonia, unspecified organism Acute exacerbation of CHF (congestive heart failure) Qualifiers: Heart failure type: unspecified Qualified Code(s): I50.9 - Heart failure, unspecified Disposition: Admitted As Inpatient Condition: Critical Time of Disposition: 09:22 General Adult HPI - General Chief complaint: ED Shortness of Breath/Dyspnea Stated complaint: unresponisve Time Seen by Provider: 06/06/17 07:33 Source: EMS Mode of arrival: EMS Limitations: altered mental status Nursing Notes Reviewed: Yes Vital Signs Reviewed: Yes - History of Present Illness HPI Narrative: Patient is a 67-year-old male with arrived by squad for a call for respiratory distress in which he was coded for a reported 20 minutes at the [place] [facility]. After speaking the patient's nurse they state that the patient's was given his meds at 3 AM and was alert and then was found at 6 AM unresponsive minutes when the code was initiated. - Related Data Home Medications Medication Instructions Recorded Confirmed Docusate Sodium [Dok] 200 mg PO BID 06/06/17 06/06/17 Furosemide [Lasix] 40 mg PO DAILY 06/06/17 06/06/17 Insulin ASPART [NovoLOG] 2 unit SQ TID 06/06/17 06/06/17 Eqyzwccxjgsn-Lyhk-Tufcpcmy,Iso 4.5 gm IV TID 06/06/17 06/06/17 [Zosyn 4.5 gm/100 ml Galaxy Bag] Polyethylene Glycol 3350 [MiraLAX 1 scoop PO DAILY PRN 06/06/17 06/06/17 Powder Bulk 17.9 Oz] Previous Rx's Medication Instructions Recorded Aspirin 81 mg PO DAILY tab.chew 05/15/17 Insulin DETEMIR [Levemir] 5 unit SQ HS 30 Days [id number] 05/15/17 Lactobacillus [Culturelle] 2 each PO DAILY cap.sprink 05/15/17 OxyCODONE Immed Rel [Roxicodone 5 5 mg PO Q6HR PRN 7 Days #28 tablet 05/15/17 MG] DiphenhydraMINE [Benadryl] 25 mg PO Q8HR PRN #0 capsule 05/28/17 Famotidine [Pepcid] 20 mg PO BID tablet 05/28/17 Ferrous Sulfate 325 mg PO BIDWM #0 tablet 05/28/17 Potassium Chloride 10 meq PO DAILY #30 tab.er.prt 05/28/17 Allergies Allergy/AdvReac Type Severity Reaction Status Date / Time chicken derived Allergy Vomiting Verified 06/06/17 07:49 Limitations: ROS unobtainable due to patients medical condition Past Medical History - Past Medical History Attestation: Yes The following information was validated with the patient. Medical history: Reports: no medical history Surgical history: Reports: other Psychiatric history: Reports: no psych history - Social History Smoking Status: Never smoker Smokeless Tobacco Status: No Alcohol use: Reports: none Drug use: Reports: none Physical Exam - General Limitations: altered mental status General appearance: in distress - Head Head exam: atraumatic, normocephalic, normal inspection - Eye Eye exam: Present: mydriasis (Pupils are 5 mm bilaterally and nonreactive) - ENT ENT exam: other (Patient has ET tube in place which has obvious blood in the tube.) - Neck Neck exam: Present: normal inspection, trachea midline - Chest Chest inspection: Present: normal inspection, symmetric chest wall rise ( Patient is on ventilator at this time) - Respiratory Respiratory exam: Present: respiratory distress (Patient requiring intubation and ventilation) - Expanded Respiratory Exam Location: rales: Left, Right, Upper, Lower - Cardiovascular Cardiovascular exam: Present: normal rhythm, +S1, +S2 - Abdominal Exam Abdominal exam: Present: soft, Non-Tender, normal bowel sounds - Rectal Exam Soap Grinder present during exam: Yes Rectal exam: Present: normal inspection, heme (-) stool. Absent: heme (+) stool , black stool, bloody stool - Extremities Exam Extremities exam: Present: other (Patient has chronic venous stasis changes of the bilateral lower extremities with 2+ pitting edema bilaterally. He has a TMA of the left foot.) - Neurological Exam Neurological exam: Present: other (AMS) - Skin Skin exam: Present: warm, dry, intact Course Course Narrative: Patient's vital signs in the emergency department on arrival are stable at this time he is borderline hypotensive but maintaining a MAP of about 75. He has a PICC line in his right arm as well as an IV in his left. He also had an IO in his right lower extremity. Patient received a total of 2.3 L of normal saline at this point. Patient is currently intubated with a Precedex drip. Blood cultures were taken. Extensive labs were ordered. Patient was recently discharged from the hospital when he was being treated for a GI bleed and also coded one time during that stay and was shown to have multiple rib fractures s/ p code. Patient also had an echo done on 05/18/17. It demonstrated the presence of mildly dilated left ventricle, global left ventricular systolic dysfunction, mild left ventricular diastolic dysfunction, atypical septal motion consistent with a bundle branch block, mild aortic, mitral, and tricuspid regurgitation, and severe pulmonary hypertension. - Reevaluation(s) Reevaluation #1: Additional fluids ordered patient was have received a total of 3 L normal saline. Patient's lactate was elevated. He is considered septic shock at this time. Blood cultures have been obtained antibiotics started. Septic shock note was completed. Suspect pneumonia vs CHF. Plan at this time is to admit the patient to the ICU for further evaluation and treatment. Patient MAP is decreasing patient started on levophed at this time. Time: 09:15 Reevaluation #2: Discussed the patient's case with Dr. Bowent deliverer merchandise on-call he agrees to accept the patient with no further recommendations at this time. Time: 10:00 Vital Signs Temperature 97.5 F L 06/06/17 07:39 Pulse Rate 112 06/06/17 07:39 Respiratory Rate 20 06/06/17 07:39 Blood Pressure 102/89 06/06/17 07:39 O2 Sat by Pulse Oximetry 95 06/06/17 07:39 Temperature 97.4 F L 06/06/17 09:01 Pulse Rate 95 06/06/17 10:16 Respiratory Rate 20 06/06/17 10:42 Blood Pressure 102/70 06/06/17 10:42 O2 Sat by Pulse Oximetry 100 06/06/17 10:16 Oxygen Delivery Oxygen Delivery Ventilator Medical Decision Making - Medical Records Medical records reviewed: Yes I reviewed the patient's medical records. - Lab Data Lab results reviewed: Yes I reviewed the patient's lab results. Result diagrams: 06/06/17 08:31 06/06/17 07:53 Lab Results 06/06/17 06/06/17 06/06/17 Range/Units 07:53 07:53 07:53 WBC (4.3-11.1) K/mcL RBC (4.19-5.50) M/mcL Hgb (12.9-16.9) g/dL Hct (37.5-50.1) % MCV (83.0-100.0) fL MCH (28.0-33.3) pg MCHC (31.6-35.5) g/dL RDW (11.5-14.5) % Plt Count (140-400) K/mcL MPV (9.4-12.4) fL Immature Gran % (0-4) % Seg Neutrophils % % Lymphocytes % % Monocytes % % Eosinophils % % Basophils % % Neutrophils # (1.6-8.9) K/mcL Lymphocytes # (0.6-4.6) K/mcL Monocytes # (0.0-1.3) K/mcL Eosinophils # (0.0-0.6) K/mcL Basophils # (0.0-0.2) K/mcL PT 15.8 H (9.4-12.1) Seconds INR 1.5 APTT 30.3 (26.0-36.0) Seconds ABG pH (7.32-7.45) pH Units ABG pCO2 (35-45) mmHg ABG pO2 (85-104) mmHg ABG HCO3 (21-27) mEq/L ABG Total CO2 (20-26) mEq/L ABG O2 Saturation (95-98) % ABG Base Excess (-2 to 3) mEq/L Respiration Rate O2 Delivery Device Blood Gas Modality Inspired O2 (1-15=lpm [id number]=%) Tidal Volume cc PEEP cm H2O Sodium 144 (136-145) mEq/L Potassium 3.6 (3.5-5.1) mEq/L Chloride 108 H (98-107) mEq/L Carbon Dioxide 24 (23-29) mEq/L BUN 12 (8-23) mg/dL Creatinine 1.19 (0.70-1.30) mg/dL Est GFR ( Amer) > 60 (> 60) Est GFR (Non-Af Amer) > 60 (> 60) BUN/Creatinine Ratio 10 (6-26) Glucose 107 H (70-105) mg/dL Calculated Osmolality 298 (280-300) Lactic Acid (0.5-2.2) mmol/L Calcium 7.6 L (8.6-10.3) mg/dL Total Bilirubin 0.7 (0.3-1.0) mg/dL Direct Bilirubin 0.3 H (0.0-0.2) mg/dL Indirect Bilirubin 0.4 (0.0-1.2) mg/dL AST 36 (13-39) Units/L ALT 23 (7-52) Units/L Alkaline Phosphatase 107 H (34-104) Units/L Troponin I 0.13 H* (< 0.04) ng/mL Serum Total Protein 6.4 (6.4-8.9) g/dL Albumin 2.5 L (3.5-5.7) g/dL Globulin 3.9 H (2.4-3.5) g/dL Albumin/Globulin Ratio 0.6 L (1.1-2.2) Urine Color (Yellow) Urine Clarity (Clear) Urine pH (5.0-8.0) pH Units Ur Specific [place] (1.010-1.025) Urine Protein (Neg-Trace) mg/dL Urine Glucose (UA) (Normal) mg/dL Urine Ketones (Negative) mg/dL Urine Blood (Negative) Urine Nitrite (Negative) Urine Bilirubin (Negative) Urine Urobilinogen (Normal) mg/dL Ur Leukocyte Esterase (Negative) Ur Culture Indicated? (NO) Urine Opiates Screen (Jdovxn=192) ng/mL Ur Barbiturates Screen (Ooagyx=851) ng/mL Ur Phencyclidine Scrn (Cutoff=25) ng/mL Ur Amphetamines Screen (Wajgey=8053) ng/mL U Benzodiazepines Scrn (Datcby=305) ng/mL Urine Cocaine Screen (Cutoff= 300) ng/mL U Marijuana (THC) Screen (Cutoff = 50) ng/mL Ethyl Alcohol < 10 (0-10) mg/dL Specimen Rejected Blood Type O POSITIVE Antibody Screen NEGATIVE 06/06/17 06/06/17 06/06/17 Range/Units 07:53 08:03 08:03 WBC (4.3-11.1) K/mcL RBC (4.19-5.50) M/mcL Hgb (12.9-16.9) g/dL Hct (37.5-50.1) % MCV (83.0-100.0) fL MCH (28.0-33.3) pg MCHC (31.6-35.5) g/dL RDW (11.5-14.5) % Plt Count (140-400) K/mcL MPV (9.4-12.4) fL Immature Gran % (0-4) % Seg Neutrophils % % Lymphocytes % % Monocytes % % Eosinophils % % Basophils % % Neutrophils # (1.6-8.9) K/mcL Lymphocytes # (0.6-4.6) K/mcL Monocytes # (0.0-1.3) K/mcL Eosinophils # (0.0-0.6) K/mcL Basophils # (0.0-0.2) K/mcL PT (9.4-12.1) Seconds INR APTT (26.0-36.0) Seconds ABG pH (7.32-7.45) pH Units ABG pCO2 (35-45) mmHg ABG pO2 (85-104) mmHg ABG HCO3 (21-27) mEq/L ABG Total CO2 (20-26) mEq/L ABG O2 Saturation (95-98) % ABG Base Excess (-2 to 3) mEq/L Respiration Rate O2 Delivery Device Blood Gas Modality Inspired O2 (1-15=lpm pw45-302=%) Tidal Volume cc PEEP cm H2O Sodium (136-145) mEq/L Potassium (3.5-5.1) mEq/L Chloride (98-107) mEq/L Carbon Dioxide (23-29) mEq/L BUN (8-23) mg/dL Creatinine (0.70-1.30) mg/dL Est GFR ( Amer) (> 60) Est GFR (Non-Af Amer) (> 60) BUN/Creatinine Ratio (6-26) Glucose (70-105) mg/dL Calculated Osmolality (280-300) Lactic Acid 6.7 H* (0.5-2.2) mmol/L Calcium (8.6-10.3) mg/dL Total Bilirubin (0.3-1.0) mg/dL Direct Bilirubin (0.0-0.2) mg/dL Indirect Bilirubin (0.0-1.2) mg/dL AST (13-39) Units/L ALT (7-52) Units/L Alkaline Phosphatase (34-104) Units/L Troponin I (< 0.04) ng/mL Serum Total Protein (6.4-8.9) g/dL Albumin (3.5-5.7) g/dL Globulin (2.4-3.5) g/dL Albumin/Globulin Ratio (1.1-2.2) Urine Color Yellow (Yellow) Urine Clarity Slightly Hazy (Clear) Urine pH 6.0 (5.0-8.0) pH Units Ur Specific [place] 1.020 (1.010-1.025) Urine Protein 100 H (Neg-Trace) mg/dL Urine Glucose (UA) Normal (Normal) mg/dL Urine Ketones Negative (Negative) mg/dL Urine Blood Trace H (Negative) Urine Nitrite Negative (Negative) Urine Bilirubin Negative (Negative) Urine Urobilinogen Normal (Normal) mg/dL Ur Leukocyte Esterase Negative (Negative) Ur Culture Indicated? NO (NO) Urine Opiates Screen Negative (Dutwxv=276) ng/mL Ur Barbiturates Screen Negative (Kwbahr=851) ng/mL Ur Phencyclidine Scrn Negative (Cutoff=25) ng/mL Ur Amphetamines Screen Negative (Uokbxc=2114) ng/mL U Benzodiazepines Scrn Negative (Tjpvpp=779) ng/mL Urine Cocaine Screen Negative (Cutoff= 300) ng/mL U Marijuana (THC) Screen Negative (Cutoff = 50) ng/mL Ethyl Alcohol (0-10) mg/dL Specimen Rejected Blood Type Antibody Screen 06/06/17 06/06/17 06/06/17 Range/Units 08:09 08:21 08:31 WBC 23.0 H (4.3-11.1) K/mcL RBC 3.42 L (4.19-5.50) M/mcL Hgb 9.6 L (12.9-16.9) g/dL Hct 32.0 L (37.5-50.1) % MCV 93.6 (83.0-100.0) fL MCH 28.1 (28.0-33.3) pg MCHC 30.0 L (31.6-35.5) g/dL RDW 18.1 H (11.5-14.5) % Plt Count 221 (140-400) K/mcL MPV 10.5 (9.4-12.4) fL Immature Gran % 1.0 (0-4) % Seg Neutrophils % 88.2 % Lymphocytes % 5.6 % Monocytes % 1.8 % Eosinophils % 3.1 % Basophils % 0.3 % Neutrophils # 20.3 H (1.6-8.9) K/mcL Lymphocytes # 1.3 (0.6-4.6) K/mcL Monocytes # 0.4 (0.0-1.3) K/mcL Eosinophils # 0.7 H (0.0-0.6) K/mcL Basophils # 0.1 (0.0-0.2) K/mcL PT (9.4-12.1) Seconds INR APTT (26.0-36.0) Seconds ABG pH 7.20 L* (7.32-7.45) pH Units ABG pCO2 72 H* (35-45) mmHg ABG pO2 114 H (85-104) mmHg ABG HCO3 28 H (21-27) mEq/L ABG Total CO2 30 H (20-26) mEq/L ABG O2 Saturation 97 (95-98) % ABG Base Excess -1 (-2 to 3) mEq/L Respiration Rate 14 O2 Delivery Device Adult Vent Blood Gas Modality ASSIST CONTROL Inspired O2 100.0 (1-15=lpm ve43-925=%) Tidal Volume 550 cc PEEP 5 cm H2O Sodium (136-145) mEq/L Potassium (3.5-5.1) mEq/L Chloride (98-107) mEq/L Carbon Dioxide (23-29) mEq/L BUN (8-23) mg/dL Creatinine (0.70-1.30) mg/dL Est GFR ( Amer) (> 60) Est GFR (Non-Af Amer) (> 60) BUN/Creatinine Ratio (6-26) Glucose (70-105) mg/dL Calculated Osmolality (280-300) Lactic Acid (0.5-2.2) mmol/L Calcium (8.6-10.3) mg/dL Total Bilirubin (0.3-1.0) mg/dL Direct Bilirubin (0.0-0.2) mg/dL Indirect Bilirubin (0.0-1.2) mg/dL AST (13-39) Units/L ALT (7-52) Units/L Alkaline Phosphatase (34-104) Units/L Troponin I (< 0.04) ng/mL Serum Total Protein (6.4-8.9) g/dL Albumin (3.5-5.7) g/dL Globulin (2.4-3.5) g/dL Albumin/Globulin Ratio (1.1-2.2) Urine Color (Yellow) Urine Clarity (Clear) Urine pH (5.0-8.0) pH Units Ur Specific [place] (1.010-1.025) Urine Protein (Neg-Trace) mg/dL Urine Glucose (UA) (Normal) mg/dL Urine Ketones (Negative) mg/dL Urine Blood (Negative) Urine Nitrite (Negative) Urine Bilirubin (Negative) Urine Urobilinogen (Normal) mg/dL Ur Leukocyte Esterase (Negative) Ur Culture Indicated? (NO) Urine Opiates Screen (Wcgeks=090) ng/mL Ur Barbiturates Screen (Rwilom=881) ng/mL Ur Phencyclidine Scrn (Cutoff=25) ng/mL Ur Amphetamines Screen (Cdbtzt=9494) ng/mL U Benzodiazepines Scrn (Mxrwfc=052) ng/mL Urine Cocaine Screen (Cutoff= 300) ng/mL U Marijuana (THC) Screen (Cutoff = 50) ng/mL Ethyl Alcohol (0-10) mg/dL Specimen Rejected MCV Delta Blood Type Antibody Screen - Radiology Data Radiology results reviewed: Yes I reviewed the patient's radiology results. Chest X-Ray 06/06/17 07:36 IMPRESSION: 1. Interval intubation with the endotracheal tube 4.2 cm above the olya. 2. Stable enlarged cardiac silhouette. 3. Acute asymmetric bilateral pulmonary consolidative changes more prominent on the right. This could represent asymmetric pulmonary edema versus acute pneumonia. D/ / 06/06/2017 07:59:44 Kai Pond MD / [facility] Interpreting Provider: Kai Pond MD Head CT 06/06/17 07:36 IMPRESSION: 1. No acute intracranial abnormality. D/ / Armando Rosenberg MD / Armando Rosenebrg MD Interpreting Provider: Armando Rosenberg MD - EKG Data EKG #1 EKG attestation: Yes I reviewed and interpreted this EKG. EKG results narrative: EKG done at 7:37 shows sinus tachycardia at a rate of 122 bpm. Right axis deviation. Right bundle branch block. Nonspecific ST and T-wave changes in V4. Otherwise unchanged from old EKG done on May 262017 Attestation Statement - Attestation Attestation: I examined this patient and my medical decision-making was reviewed with the Resident Physician. I agree with the documented findings, disposition and treatment plan as described except to the extent set forth below. Patient presents to the ED as a transfer from the [place]. Little report given was that he was found unresponsive at 6 AM and pulseless. He had 20 minutes of ACLS. They obtained Rosc. He had one shock for an unknown rhythm. Patient arrived here intubated. Diffuse rails on lung examination. Pitting edema to bilateral lower extremities. He has a bandage to the left foot. Plan. 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 He is currently on Zosyn for suspected osteomyelitis. Is a PICC line in his right upper arm. His blood pressure continues to be around 90-100 systolic. He had spontaneous respiratory efforts before he was sedated with Versed and fentanyl. Awaiting Precedex for sedation. Chest x-ray shows pulmonary edema versus pneumonia. Starting on broad-spectrum antibiotics. We will discuss with ICU. 45 minutes of critical care exclusive of separately billable procedures. Sepsis Reassessment Note - Evaluation Sepsis Screen: Severe Sepsis Risk Current Stage of Sepsis: septic shock Reason for ruling out sepsis: resp failure Possible Source of Sepsis: pulmonary - Focused Exam Date of Encounter: 06/06/17 Time of Encounter: :03 Vital Signs: Vital Signs Temp Pulse Resp BP Pulse Ox 06/06/17 09:01 97.4 F L 103 16 100/73 98 06/06/17 08:20 14 96 06/06/17 07:52 113 32 96/60 97 06/06/17 07:39 97.5 F L 112 20 102/89 95 Respiratory Exam: Present: rales, rhonchi Cardiovascular Exam: Present: tachycardia Capillary Refill: < 2 seconds Peripheral Pulse Strength: 3+ normal Peripheral Pulse Location: Radial Skin Exam: pale - Reassessment Comments Comments: Patient lactate is 6.7 and a white blood cell count of 23. Systolic blood pressures between 90 and 100. He received a liter and a half normal saline at the [place]. He has received a liter here. We will give him another 500 for 30 mL/ kg bolus. Patient not requiring pressors at this time. He has a PICC line in place at that would be needed. Patient will be admitted to ICU for septic shock , healthcare associated pneumonia, and respiratory failure.
[2017-06-06] MEDS ORDERED: Levofloxacin 500 MG/100 ML 500 MG/100 ML BAG IVPB ONE (08:05)
[2017-06-06] MEDS ORDERED: Piperacillin/Tazobactam 3.375 GM in 0.9 % Sodium Chloride Mini Bag 100 ML IVPB ONE (08:05)
[2017-06-06 08:20] LABS: Bilirubin,Urine Negative (Negative); Blood,Urine Trace (Negative); Color,Urine Yellow (Yellow); Glucose,Urine (UA) Normal (Normal); Ketones,Urine Negative (Negative); Leukocyte Esterase,Urine Negative (Negative); Nitrite,Urine Negative (Negative); Protein,Urine 100 mg/dL (Neg-Trace); Urobilinogen,Urine Normal (Normal)
[2017-06-06 08:21] LABS: Ethanol < 10 mg/dL (0-10)
[2017-06-06 08:25] LABS: Clarity,Urine Slightly Hazy (Clear)
[2017-06-06 08:27] LABS: ABG Base Excess -1 mEq/L (-2 to 3); ABG HCO3 28 mEq/L (21-27); ABG Oxygen Saturation 97 % (95-98); ABG PCO2 72 mmHg (35-45); ABG PO2 114 mmHg (85-104); ABG TCO2 30 mEq/L (20-26); Blood Gas Modality ASSIST CONTROL; Blood Gas PEEP 5 cm H2O; Blood Gas Respiration Rate 14; Blood Gas VT 550 cc
[2017-06-06 08:28] LABS: Alanine Aminotransferase 23 Units/L (7-52); Albumin 2.5 g/dL (3.5-5.7); Albumin/Globulin Ratio 0.6 (1.1-2.2); Alkaline Phosphatase 107 Units/L (34-104); Aspartate Amino Transferase 36 Units/L (13-39); BUN/Creatinine Ratio 10 (6-26); Bilirubin,Direct 0.3 mg/dL (0.0-0.2); Bilirubin,Indirect 0.4 mg/dL (0.0-1.2); Bilirubin,Total 0.7 mg/dL (0.3-1.0); Blood Urea Nitrogen 12 mg/dL (8-23); Calcium 7.6 mg/dL (8.6-10.3); Carbon Dioxide 24 mEq/L (23-29); Chloride 108 mEq/L (98-107); Globulin 3.9 g/dL (2.4-3.5); Glucose 107 mg/dL (70-105); Osmolality,Calculated 298 (280-300); Potassium 3.6 mEq/L (3.5-5.1); Sodium 144 mEq/L (136-145); Total Protein 6.4 g/dL (6.4-8.9); eGFR For African Americans > 60 (> 60); eGFR For Non-African Americans > 60 (> 60)
[2017-06-06 08:30] LABS: INR 1.5; Prothrombin Time 15.8 Seconds (9.4-12.1); Troponin I 0.13 ng/mL (< 0.04)
[2017-06-06 08:32] LABS: Activated Partial Thrombo Time 30.3 Seconds (26.0-36.0)
[2017-06-06] MEDS: *HR* FentaNYL (PF) 100 MCG/2 ML VIAL IVP ONE ×2 (08:33→12:33)
[2017-06-06 08:43] LABS: Basophils # 0.1 K/mcL (0.0-0.2); Basophils % 0.3 %; Eosinophils # 0.7 K/mcL (0.0-0.6); Eosinophils % 3.1 %; Hemoglobin 9.6 g/dL (12.9-16.9); Lymphocytes # 1.3 K/mcL (0.6-4.6); Lymphocytes % 5.6 %; Mean Corpuscular Hemoglobin 28.1 pg (28.0-33.3); Mean Corpuscular Volume 93.6 fL (83.0-100.0); Mean Platelet Volume 10.5 fL (9.4-12.4); Monocytes # 0.4 K/mcL (0.0-1.3); Monocytes % 1.8 %; Neutrophils # 20.3 K/mcL (1.6-8.9); Platelet Count 221 K/mcL (140-400); Red Blood Count 3.42 M/mcL (4.19-5.50); Red Cell Distribution Width 18.1 % (11.5-14.5); Segmented Neutrophils % 88.2 %
[2017-06-06] MEDS ORDERED: 0.9 % Sodium Chloride 500 ML IVC ONE (09:04)
[2017-06-06 09:15] LABS: Amphetamine Screen,Urine Negative ng/mL (Cutoff=1000); Barbiturate Screen,Urine Negative ng/mL (Cutoff=200); Benzodiazepines Screen,Urine Negative ng/mL (Cutoff=200); Cannabinoid Screen,Urine Negative ng/mL (Cutoff = 50); Cocaine Screen,Urine Negative ng/mL (Cutoff= 300); Opiate Screen,Urine Negative ng/mL (Cutoff=300); Phencyclidine Screen,Urine Negative ng/mL (Cutoff=25)
[2017-06-06] MEDS: Norepinephrine 4 MG in D5% in Water 250 ML IVC SCH ×2 (09:26→16:10)
[2017-06-06] MEDS: Dexmedetomidine HCl 400 MCG/100 ML MLS IVC SCH (09:26)
--- NOTE | 2017-06-06 10:54 | Pulmonology History & Physical ---
<Franklin Bowen W - Last Filed: 06/06/17 12:54> Date of Encounter: 06/06/17 History of Present Illness HPI: Mr. Collado is a 67 year old male Medications and Allergies Aspirin 81 mg PO DAILY tab.chew 05/15/17 [Rx] Insulin DETEMIR [Levemir] 5 unit SQ HS 30 Days r0sfqed 05/15/17 [Rx] Lactobacillus [Culturelle] 2 each PO DAILY cap.sprink 05/15/17 [Rx] OxyCODONE Immed Rel [Roxicodone 5 MG] 5 mg PO Q6HR PRN 7 Days #28 tablet [Rx] DiphenhydraMINE [Benadryl] 25 mg PO Q8HR PRN #0 capsule 05/28/17 [Rx] Famotidine [Pepcid] 20 mg PO BID tablet 05/28/17 [Rx] Ferrous Sulfate 325 mg PO BIDWM #0 tablet 05/28/17 [Rx] Potassium Chloride 10 meq PO DAILY #30 tab.er.prt 05/28/17 [Rx] Docusate Sodium [Dok] 200 mg PO BID 06/06/17 [History] Furosemide [Lasix] 40 mg PO DAILY 06/06/17 [History] Insulin ASPART [NovoLOG] 2 unit SQ TID 06/06/17 [History] Lghdxyjtcxaa-Rrwm-Xdpcquis,Iso [Zosyn 4.5 gm/100 ml Galaxy Bag] 4.5 gm IV TID [History] Polyethylene Glycol 3350 [MiraLAX Powder Bulk 17.9 Oz] 1 scoop PO DAILY PRN [History] 3 Allergy/AdvReac Type Severity Reaction Status Date / Time chicken derived Allergy Vomiting Verified 06/06/17 07:49 All Systems: The remainder of the systems were reviewed and are negative Physical Examination Vital Signs: Vital Signs, Last 4 Hours Temp Pulse Resp BP Pulse Ox 06/06/17 12:24 98.1 F 100 128/97 06/06/17 11:54 20 115/86 90 06/06/17 10:42 20 102/70 06/06/17 10:16 95 90/60 100 Results - Laboratory Findings CBC and BMP: 06/06/17 08:31 06/06/17 07:53 ABG ABG pH 7.35 pH Units (7.32-7.45) D 06/06/17 12:07 ABG pCO2 48 mmHg (35-45) H D 06/06/17 12:07 ABG pO2 357 mmHg (85-104) H D 06/06/17 12:07 ABG O2 Saturation 100 % (95-98) H 06/06/17 12:07 PT/INR, D-dimer PT 15.8 Seconds (9.4-12.1) H 06/06/17 07:53 Abnormal lab findings: Abnormal lab results WBC 23.0 K/mcL (4.3-11.1) H 06/06/17 08:31 RBC 3.42 M/mcL (4.19-5.50) L 06/06/17 08:31 Hgb 9.6 g/dL (12.9-16.9) L 06/06/17 08:31 Hct 32.0 % (37.5-50.1) L 06/06/17 08:31 MCHC 30.0 g/dL (31.6-35.5) L 06/06/17 08:31 RDW 18.1 % (11.5-14.5) H 06/06/17 08:31 Neutrophils # 20.3 K/mcL (1.6-8.9) H 06/06/17 08:31 Eosinophils # 0.7 K/mcL (0.0-0.6) H 06/06/17 08:31 PT 15.8 Seconds (9.4-12.1) H 06/06/17 07:53 ABG pCO2 48 mmHg (35-45) H D 06/06/17 12:07 ABG pO2 357 mmHg (85-104) H D 06/06/17 12:07 ABG Total CO2 28 mEq/L (20-26) H 06/06/17 12:07 ABG O2 Saturation 100 % (95-98) H 06/06/17 12:07 Chloride 108 mEq/L (98-107) H 06/06/17 07:53 Glucose 107 mg/dL (70-105) H 06/06/17 07:53 POC Glucose 120 (58-89) H 06/06/17 11:42 Lactic Acid 6.7 mmol/L (0.5-2.2) H* 06/06/17 07:53 Calcium 7.6 mg/dL (8.6-10.3) L 06/06/17 07:53 Direct Bilirubin 0.3 mg/dL (0.0-0.2) H 06/06/17 07:53 Alkaline Phosphatase 107 Units/L (34-104) H 06/06/17 07:53 Troponin I 0.13 ng/mL (< 0.04) H* 06/06/17 07:53 Albumin 2.5 g/dL (3.5-5.7) L 06/06/17 07:53 Globulin 3.9 g/dL (2.4-3.5) H 06/06/17 07:53 Albumin/Globulin Ratio 0.6 (1.1-2.2) L 06/06/17 07:53 Urine Protein 100 mg/dL (Neg-Trace) H 06/06/17 08:03 Urine Blood Trace (Negative) H 06/06/17 08:03 - Attending Attestation I examined this patient and my medical decision-making was reviewed with the Resident Physician. I agree with the documented findings, disposition and treatment plan as described except to the extent set forth below. We independently had anrz-gy-evxo contact with the patient I spent 40min of Critical Care time with this patient. It involved decision making of high complexity to assess, manipulate, and support vital organ system failure and/or to prevent further life threatening deterioration of the patient' s condition. The time involved in the performance of separately reportable procedures was not counted toward critical care time. Patient seen and examined at bedside Labs, radiology, chart personally reviewed. UPPER TIER: Status post cardiac arrest with evidence of seizure-like activity which I suspect is myoclonus from anoxia but will rule out status epilepticus with EEG. Head CT without evidence of stroke. We have initiated in the targeted temperature protocol postarrest. On presentation to the ICU patient had intact gag reflex but was also noted to be triggering the vent however the this is subsided without use of sedation and overall portends a poor prognosis neurologically he does not have any withdraw to pain at this time and has shown evidence of decerebrate posturing Pulm: Acute on chronic hypoxic hypercarbic respiratory failure secondary to pneumonia have a chest defend to increase minute ventilation for respiratory acidosis now with acceptable gas exchange have also increase PEEP for hypoxemia with significant consolidative changes bilaterally in the lung dc. Repeat ABG reassuring Cards: Status post cardiac arrest this was prolonged CPR of approximately 20 minutes. Circulatory shock combination of stunned myocardium and vasodilatory shock from sepsis patient has been adequately volume resuscitated and now is on vasopressor for goal map around 65. ECG not consistent with STEMI and troponin just mod distally elevated with likely does not explain etiology of cardiac arrest what appears to be respiratory from pneumonia. Lactate greater than 6 and we will trend this every 6 hours FEN-GI: Nothing by mouth for now GI prophylaxis given; recent GI bleeding: H/H Stable without evidence of hemorrhage continue to trend CBC Renal: No evidence of AK urine output monitored along with electrolytes ID: Septic shock on broad-spectrum antimicrobials cultures obtained planned to de-escalate based upon culture sensitivities Heme/Onc: DVT prophylaxis given Endo: Glucose Monitored Integ/MSK: Skin Care per routine ICU Nursing Protocol to prevent ulcers. Lines: All lines examined without evidence of infection : Dispo: ICU for critical illness CODE: Currently full code. Patient's overall prognosis given chronic debilitation and chronic illness coupled with a long cardiac arrest is extremely poor. Unfortunately patient does not have any close family members per medical record and is being seen at the [facility] currently in their nursing facility which has been contacted and the only number that spend provided is a family friend who we can update there is no family members listed however we will and consult social security assessor for help navigating this difficult situation. Although current care would not be deemed futile as it is too early to neurologically prognosticate he is at high-risk for further episodes of cardiac arrest and it is felt that additional CPR will offer no real therapeutic benefit but only prolong suffering. Sepsis Reassessment Note - Focused Exam Vital Signs: Vital Signs Temp Pulse Resp BP Pulse Ox 06/06/17 12:24 98.1 F 100 128/97 06/06/17 11:54 20 115/86 90 06/06/17 10:42 20 102/70 06/06/17 10:16 95 90/60 100 <Reed Cavanaugh - Last Filed: 06/06/17 14:41> Date of Encounter: 06/06/17 Time of Encounter: 09:45 Assessment and Plan (1) Cardiac arrest Current visit: Yes Status: Acute - S/p postcardiac arrest with last known well being 0300 this morning. - ROSC was achieved after approximately 20 minutes of CPR - EKG at that time revealed sinus rhythm with right bundle branch block unchanged from previous - This is possibly secondary to septic shock secondary to multifocal pneumonia as demonstrated on chest CT - We will continue with hypothermia protocol and treatment of underlying pathology - Patient does have a very poor prognosis at this time, we will contact social work as well as relatives for further goals of care (2) Septic shock Current visit: Yes Status: Acute - Septic shock with evidence of tachycardia, tachypnea, leukocytosis on presentation - This is likely secondary to multifocal pneumonia as demonstrated on chest CT - Patient was started on vancomycin, Levaquin, Zosyn emergency room which we will continue - Lactic acid of 6.7, troponin of 0.13 likely secondary to demand - Blood cultures and sputum cultures pending Plan - Continue supportive care with ventilation, antibiotics as above day #1 - We will attempt to wean as able from ventilator - Repeat lactic acid, troponin pending. - We will also perform a sepsis reassessment 6 hours after diagnosis (3) Respiratory failure Current visit: Yes Status: Acute - Secondary to multifocal pneumonia as well as COPD exacerbation - Currently on ventilator support that is post cardiac PEA arrest - Manage with underlying conditions as below - Social work consult for poor prognosis Qualifiers: Chronicity: acute Respiratory failure complication: hypoxia and hypercapnia Qualified Code(s): J96.01 - Acute respiratory failure with hypoxia ; J96.02 - Acute respiratory failure with hypercapnia; J96.02 - Acute respiratory failure with hypercapnia; J96.02 - Acute respiratory failure with hypercapnia (4) Elevated troponin Current visit: Yes Status: Acute - Troponin 0.13 on presentation to emergency room - This is notably decreased from previous visit - Likely secondary to cardiac arrest - We will continue to trend at this time with careful monitoring (5) Pneumonia Current visit: Yes Status: Acute As above for septic shock Qualifiers: Pneumonia type: due to unspecified organism Laterality: bilateral Lung location: unspecified part of lung Qualified Code(s): J18.9 - Pneumonia, unspecified organism (6) DVT prophylaxis Current visit: Yes Status: Acute SCDs as patient was recently admitted with GI bleed and is anemic History of Present Illness Chief complaint: Unresponsive HPI: Mr. Collado is a 67 year old male with past medical history of diabetes, congestive heart failure is asked to emergency room unresponsive from group home. Per emergency department note, patient's last known well was 0300 this morning when nursing care personnel checked on him and felt he was appropriate. At 0600, patient was found unresponsive in his room and underwent resuscitation on their way to the emergency room. He was coded for approximately 20 minutes and ROSC achieved. 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 Patient's vitals at time of ROSC worsening in for a pulse of 112 , otherwise unremarkable. Labs worsening in for a WBC of 23.0, H/H of 9.6/32.0 which is improved from previous admission. Arterial blood gas showed a respiratory acidosis. Lactic acid was 6.7 and troponin 0.13. Remaining subjective history is unobtainable due to patient's mental status as well as intubation status. Past Med Surg Social Fam HX - Past Medical History Medical history: no medical history Psychiatric history: no psych history - Past Surgical History Surgical History: other - Social History Smoking Status: Never smoker Smokeless Tobacco Status: No Alcohol use: none Drug use: none - Family History Mother Living Status: ROS unobtainable: due to endotracheal tube, due to mental status All Systems: The remainder of the systems were reviewed and are negative Physical Examination Vital Signs: Vital Signs, Last 4 Hours Pulse Resp BP Pulse Ox 06/06/17 10:42 20 102/70 06/06/17 10:16 95 90/60 100 Gen.: Vitals noted. No acute distress. Resting comfortably in bed in, sedated. HEENT: Normocephalic, atraumatic. Endotracheal tube in appropriate position, pupils reactive to light however myoclonic jerks are present. Cardiac: RRR, no murmur, +S1/S2 Pulmonary: Decreased breath sounds diffusely, wheezes appreciated on left Abdomen: soft, nontender, BS noted, no guarding Extremities: no BLE edema, nontender calf, no cyanosis or clubbing Neuro: Does not follow commands, sedated, not oriented or responsive to verbal or tactile stimuli. Myoclonic jerks present and posturing. Psych: Appropriate mood and behavior Results - Laboratory Findings CBC and BMP: 06/06/17 08:31 06/06/17 07:53 ABG ABG pH 7.20 pH Units (7.32-7.45) L* 06/06/17 08:21 ABG pCO2 72 mmHg (35-45) H* 06/06/17 08:21 ABG pO2 114 mmHg (85-104) H 06/06/17 08:21 ABG O2 Saturation 97 % (95-98) 06/06/17 08:21 PT/INR, D-dimer PT 15.8 Seconds (9.4-12.1) H 06/06/17 07:53 Abnormal lab findings: Abnormal lab results WBC 23.0 K/mcL (4.3-11.1) H 06/06/17 08:31 RBC 3.42 M/mcL (4.19-5.50) L 06/06/17 08:31 Hgb 9.6 g/dL (12.9-16.9) L 06/06/17 08:31 Hct 32.0 % (37.5-50.1) L 06/06/17 08:31 MCHC 30.0 g/dL (31.6-35.5) L 06/06/17 08:31 RDW 18.1 % (11.5-14.5) H 06/06/17 08:31 Neutrophils # 20.3 K/mcL (1.6-8.9) H 06/06/17 08:31 Eosinophils # 0.7 K/mcL (0.0-0.6) H 06/06/17 08:31 PT 15.8 Seconds (9.4-12.1) H 06/06/17 07:53 ABG pH 7.20 pH Units (7.32-7.45) L* 06/06/17 08:21 ABG pCO2 72 mmHg (35-45) H* 06/06/17 08:21 ABG pO2 114 mmHg (85-104) H 06/06/17 08:21 ABG HCO3 28 mEq/L (21-27) H 06/06/17 08:21 ABG Total CO2 30 mEq/L (20-26) H 06/06/17 08:21 Chloride 108 mEq/L (98-107) H 06/06/17 07:53 Glucose 107 mg/dL (70-105) H 06/06/17 07:53 Lactic Acid 6.7 mmol/L (0.5-2.2) H* 06/06/17 07:53 Calcium 7.6 mg/dL (8.6-10.3) L 06/06/17 07:53 Direct Bilirubin 0.3 mg/dL (0.0-0.2) H 06/06/17 07:53 Alkaline Phosphatase 107 Units/L (34-104) H 06/06/17 07:53 Troponin I 0.13 ng/mL (< 0.04) H* 06/06/17 07:53 Albumin 2.5 g/dL (3.5-5.7) L 06/06/17 07:53 Globulin 3.9 g/dL (2.4-3.5) H 06/06/17 07:53 Albumin/Globulin Ratio 0.6 (1.1-2.2) L 06/06/17 07:53 Urine Protein 100 mg/dL (Neg-Trace) H 06/06/17 08:03 Urine Blood Trace (Negative) H 06/06/17 08:03 Sepsis Reassessment Note - Evaluation Sepsis Screen: Severe Sepsis Risk Current Stage of Sepsis: septic shock Possible Source of Sepsis: pulmonary - Focused Exam Date of Encounter: 06/06/17 Time of Encounter: 14:28 Vital Signs: Vital Signs Pulse Resp BP Pulse Ox 06/06/17 10:42 20 102/70 06/06/17 10:16 95 90/60 100 Respiratory Exam: Present: rales, rhonchi Cardiovascular Exam: Present: RRR Capillary Refill: < 2 seconds Peripheral Pulse Strength: 1+ faint Peripheral Pulse Location: Radial Skin Exam: pink - Reassessment Comments Comments: Repeat lactic acid pending, and MAP stable on vasopressors and we are weaning dosing as tolerated
[2017-06-06] MEDS ORDERED: 0.9 % Sodium Chloride 1,000 ML IVC ONE (11:09)
[2017-06-06] MEDS ORDERED: Lacri-Lube 3.5 GM TUBE BOTH EYES PRN (11:37)
[2017-06-06] MEDS ORDERED: *HR* EPINEPHrine 1 MG/10 ML SYRINGE IVP ONE (12:10)
[2017-06-06 12:17] LABS: Magnesium 2.1 mg/dL (1.6-2.6)
[2017-06-06 12:23] LABS: ABG Base Excess 0 mEq/L (-2 to 3); ABG HCO3 26 mEq/L (21-27); ABG Oxygen Saturation 100 % (95-98); ABG PCO2 48 mmHg (35-45); ABG PH 7.35 pH Units (7.32-7.45); ABG PO2 357 mmHg (85-104); ABG TCO2 28 mEq/L (20-26); Blood Gas Modality ASSIST CONTROL; Blood Gas PEEP 10 cm H2O; Blood Gas Respiration Rate 20; Blood Gas VT 550 cc
[2017-06-06] MEDS: Lacri-Lube 3.5 GM TUBE BOTH EYES SCH ×4 (12:59→23:56)
--- NOTE | 2017-06-06 15:09 | Sepsis Event Note ---
Sepsis Reassessment Note - Evaluation Sepsis Screen: Severe Sepsis Risk Current Stage of Sepsis: severe sepsis Possible Source of Sepsis: pulmonary - Focused Exam Date of Encounter: 06/06/17 Time of Encounter: 14:50 Vital Signs: Vital Signs Temp Pulse Resp BP Pulse Ox 06/06/17 14:37 93.9 F L 80 104/74 06/06/17 13:45 34.9 F L 75 110/80 06/06/17 13:21 22 129/91 100 06/06/17 13:00 35.5 F L 95 129/97 06/06/17 12:45 36 F L 98 135/96 06/06/17 12:30 36.7 F L 100 136/93 06/06/17 12:24 98.1 F 100 128/97 06/06/17 12:15 36.8 F L 98 128/97 06/06/17 12:00 36.9 F L 100 111/72 06/06/17 11:54 20 115/86 90 06/06/17 11:45 37 F L 96 115/82 06/06/17 11:37 36.7 F L 100 22 106/76 97 06/06/17 10:42 20 102/70 06/06/17 10:16 95 90/60 100 Respiratory Exam: Present: rales, rhonchi Cardiovascular Exam: Present: RRR Capillary Refill: < 2 seconds Peripheral Pulse Strength: 1+ faint Peripheral Pulse Location: Radial Skin Exam: pink - Reassessment Comments Comments: Tolerating Ventilatory support. MAP stable with presser support. Will wean off as possible. Repeat lactic acid downtrending to 3.5 from 6.7. Septic Shock decreased to severe sepsis.
--- NOTE | 2017-06-06 15:19 | EEG/EMG/Oth Biometrics Report ---
EEG Procedure Report Date of procedure: 06/06/17 EEG Procedure: Routine EEG Procedure Note: Medication: no anticonvulsants listed. Report: This EEG was acquired with standard international 10-20 electrode placement system with EKG recording. The background activity during this EEG was replaced by diffuse suppression with intermittent burst activity. The burst activity last around one second in duration and followed by prolonged diffuse suppression lasting more than 10 seconds in duration. No reactivity seen during the recording. There are about 8-9 episodes of prolonged rhythmic diffuse burst activity, consisting of spike/wave activity starting with higher frequency at 5- 6 Hz slowing down to 1hz, lasting 15-18 seconds in duration, followed by diffuse suppression. The episodes repeat 8-9 times during the recording. Sleep stages were not identified. Photic stimulation produced no abnormalities. HV not performed during this study. EKG tracing showed no sinus tachycardia. Impression: This is a severely abnormal EEG showing burst-suppression pattern with intermixed episodes of rhythmic diffuse spike and wave activity, lasting 15 -18 seconds resembling status epilepticus. Clinical Correlation: This EEG is consistent with severe diffuse neuronal dysfunction characterized by presence of burst suppression pattern with intermittent episodes of evolving epileptiform discharges lasting 15-18 which indicating presence of electrographic status epilepticus. In the setting of present history of cardiac arrest the electrographic seizure activity is likely transitional and consistent with severe anoxic brain injury. Neurological prognosis is very poor with such pattern. Result is discussed with the medical team and options of treatment suggested.
[2017-06-06] MEDS: Piperacillin/Tazobactam 3.375 GM in 0.9 % Sodium Chloride Mini Bag 100 ML IVPB SCH ×2 (15:27→23:57)
[2017-06-06 16:51] LABS: Hepatitis A Antibody IgM Nonreactive (Nonreactive); Hepatitis B Core IgM Nonreactive (Nonreactive); Hepatitis B Surface Antigen Nonreactive (Nonreactive); Hepatitis C Virus Antibody Nonreactive (Nonreactive)
[2017-06-06] MEDS ORDERED: Potassium Chloride 10 MEQ in 0.9 % Sodium Chloride 100 ML IVPB PRN (18:16)
[2017-06-06] MEDS: Phenylephrine 10 MG in D5% in Water 250 ML IVC SCH ×2 (18:37→22:01)
[2017-06-06] MEDS: Chlorhexidine Rinse 15 ML MOUTHWASH MM SCH (20:10)
[2017-06-06] MEDS ORDERED: Perflutren Lipid Microsphere 2 ML VIAL ONE (20:18)
[2017-06-06] MEDS ORDERED: Amiodarone 150 MG in D5% in Water 100 ML IVPB ONE (20:24)
[2017-06-06] MEDS ORDERED: Amiodarone Premix 150 MG/100 ML BAG IVPB ONE (20:28)
[2017-06-06] MEDS ORDERED: Amiodarone Premix 360 MG/200 ML BAG IVC ONE (20:28)
[2017-06-06 21:21] LABS: Basophils % 0.2 %; Eosinophils % 0.2 %; Hematocrit 32.2 % (37.5-50.1); Hemoglobin 9.7 g/dL (12.9-16.9); Immature Granulocytes % 0.7 % (0-4); Lymphocytes # 1.2 K/mcL (0.6-4.6); Lymphocytes % 6.1 %; Mean Corpuscular HGB Conc 30.1 g/dL (31.6-35.5); Mean Corpuscular Hemoglobin 27.9 pg (28.0-33.3); Mean Corpuscular Volume 92.5 fL (83.0-100.0); Mean Platelet Volume 11.2 fL (9.4-12.4); Monocytes # 0.8 K/mcL (0.0-1.3); Monocytes % 4.3 %; Neutrophils # 17.3 K/mcL (1.6-8.9); Platelet Count 165 K/mcL (140-400); Red Blood Count 3.48 M/mcL (4.19-5.50); Segmented Neutrophils % 88.5 %
[2017-06-06] MEDS ORDERED: Furosemide 40 MG/4 ML VIAL IVP ONE (21:37)
[2017-06-06 21:38] LABS: Calcium 7.7 mg/dL (8.6-10.3); Potassium 3.9 mEq/L (3.5-5.1)
[2017-06-06 21:41] LABS: Troponin I 5.15 ng/mL (< 0.04)
[2017-06-06] MEDS: Amiodarone Premix 360 MG/200 ML BAG IVC SCH (22:41)
[2017-06-06 23:54] LABS: VBG Ionized Calcium 0.97 mmol/L (1.15-1.35)
[2017-06-07] MEDS: Phenylephrine 10 MG in D5% in Water 250 ML IVC SCH ×3 (02:13→08:44)
[2017-06-07] MEDS: Dexmedetomidine HCl 400 MCG/100 ML MLS IVC SCH ×2 (03:05→19:57)
[2017-06-07] MEDS: Lacri-Lube 3.5 GM TUBE BOTH EYES SCH ×6 (03:07→23:55)
[2017-06-07 03:09] LABS: Basophils % 0.2 %; Eosinophils % 0.2 %; Hematocrit 31.7 % (37.5-50.1); Hemoglobin 9.7 g/dL (12.9-16.9); Immature Granulocytes % 0.5 % (0-4); Lymphocytes # 1.2 K/mcL (0.6-4.6); Lymphocytes % 6.2 %; Mean Corpuscular HGB Conc 30.6 g/dL (31.6-35.5); Mean Corpuscular Hemoglobin 27.7 pg (28.0-33.3); Mean Corpuscular Volume 90.6 fL (83.0-100.0); Monocytes # 0.7 K/mcL (0.0-1.3); Monocytes % 3.8 %; Neutrophils # 16.8 K/mcL (1.6-8.9); Platelet Count 210 K/mcL (140-400); Red Cell Distribution Width 18.4 % (11.5-14.5); Segmented Neutrophils % 89.1 %
[2017-06-07 03:32] LABS: Calcium 7.8 mg/dL (8.6-10.3); Magnesium 2.1 mg/dL (1.6-2.6); Potassium 3.8 mEq/L (3.5-5.1)
[2017-06-07] MEDS ORDERED: Potassium Chloride 40 MEQ/200 ML BAG IVPB PRN (04:30)
[2017-06-07] MEDS ORDERED: Potassium Chloride 40 MEQ/200 ML BAG IVPB ONE (04:32)
[2017-06-07 06:02] LABS: ABG Base Excess -3 mEq/L (-2 to 3); ABG HCO3 23 mEq/L (21-27); ABG Oxygen Saturation 100 % (95-98); ABG PCO2 43 mmHg (35-45); ABG PH 7.34 pH Units (7.32-7.45); ABG PO2 299 mmHg (85-104); ABG TCO2 24 mEq/L (20-26); Blood Gas Modality ASSIST CONTROL; Blood Gas PEEP 10 cm H2O; Blood Gas Respiration Rate 22; Blood Gas VT 500 cc
--- NOTE | 2017-06-07 07:00 | Electrocardiograph Report ---
[address] [place], [place] [address] Test Date: 2017-06-06 Pat Name: Carroll Collado Department: 102 Room: 12 Gender: M Private Detective: ALEXANDRE : 1950 Requested By: Tom Richardson Order Number: [id number] Reading MD: Carroll Izaguirre MD Measurements Intervals [place] Rate: 122 P: [place]: 0 QRS: 208 QRSD: 157 T: 60 QT: 373 QTc: 445 Interpretive Statements ATRIAL FLUTTER/TACHYCARDIA WITH RAPID VENTRICULAR RESPONSE RIGHT BUNDLE BRANCH BLOCK Poor R wave progression Electronically Signed On 06-07-2017 6:58:38 EDT by Carroll Izaguirre MD
--- NOTE | 2017-06-07 07:02 | Electrocardiograph Report ---
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
[2017-06-07] MEDS: Piperacillin/Tazobactam 3.375 GM in 0.9 % Sodium Chloride Mini Bag 100 ML IVPB SCH ×3 (08:09→23:55)
[2017-06-07] MEDS: Chlorhexidine Rinse 15 ML MOUTHWASH MM SCH ×2 (08:12→20:02)
[2017-06-07] MEDS: Pantoprazole 40 MG VIAL IVP SCH (08:12)
--- NOTE | 2017-06-07 08:48 | Pulmonology Progress Note ---
<AndrésAbels W - Last Filed: 06/07/17 11:22> Date of Encounter: 06/07/17 Objective PUL Vital signs: Last Vital Signs Temp 94.3 F L 06/07/17 09:00 Pulse 53 06/07/17 09:00 Resp 22 06/07/17 09:00 BP 104/73 06/07/17 09:00 Pulse Ox 98 06/07/17 09:00 Ventilator Settings Ventilator Settings: Ventilator Settings, Last 8 Hours Ventilator Mode A/C Ventilator Mode A/C Ventilator Mode A/C Ventilator Mode A/C Ventilator Mode A/C Ventilator Mode A/C Ventilator Mode A/C Ventilator Mode A/C Ventilator Mode A/C Ventilator Mode A/C Ventilator Mode A/C Ventilator Mode A/C Ventilator Tidal Volume 500 Setting Ventilator Tidal Volume 500 Setting Ventilator Tidal Volume 500 Setting Ventilator Tidal Volume 500 Setting Ventilator Tidal Volume 500 Setting Ventilator Tidal Volume 500 Setting Ventilator Tidal Volume 500 Setting Ventilator Tidal Volume 500 Setting Ventilator Tidal Volume 500 Setting Ventilator Tidal Volume 500 Setting Ventilator Tidal Volume 500 Setting Ventilator Tidal Volume 500 Setting Ventilator Respiratory Rate 22 Setting Ventilator Respiratory Rate 22 Setting Ventilator Respiratory Rate 22 Setting Ventilator Respiratory Rate 22 Setting Ventilator Respiratory Rate 22 Setting Ventilator Respiratory Rate 22 Setting Ventilator Respiratory Rate 22 Setting Ventilator Respiratory Rate 22 Setting Ventilator Respiratory Rate 22 Setting Ventilator Respiratory Rate 22 Setting Ventilator Respiratory Rate 22 Setting Ventilator Respiratory Rate 22 Setting Actual Respiratory Rate 22 Actual Respiratory Rate 22 Actual Respiratory Rate 22 Actual Respiratory Rate 23 Actual Respiratory Rate 28 Actual Respiratory Rate 28 Actual Respiratory Rate 22 Actual Respiratory Rate 22 Actual Respiratory Rate 22 Actual Respiratory Rate 22 Actual Respiratory Rate 22 Positive End Expiratory 10 Pressure Positive End Expiratory 10 Pressure Positive End Expiratory 10 Pressure Positive End Expiratory 10 Pressure Positive End Expiratory 10 Pressure Positive End Expiratory 10 Pressure Positive End Expiratory 10 Pressure Positive End Expiratory 10 Pressure Positive End Expiratory 10 Pressure Positive End Expiratory 10 Pressure Positive End Expiratory 10 Pressure Positive End Expiratory 10 Pressure Peak Inspiratory Airway 27 Pressure Peak Inspiratory Airway 27 Pressure Peak Inspiratory Airway 27 Pressure Peak Inspiratory Airway 27 Pressure Peak Inspiratory Airway 20 Pressure Peak Inspiratory Airway 21 Pressure Peak Inspiratory Airway 28 Pressure Peak Inspiratory Airway 28 Pressure Peak Inspiratory Airway 27 Pressure Peak Inspiratory Airway 27 Pressure Peak Inspiratory Airway 27 Pressure Results - Laboratory Findings CBC and BMP: 06/07/17 03:00 06/07/17 03:00 ABG ABG pH 7.34 pH Units (7.32-7.45) 06/07/17 05:58 ABG pCO2 43 mmHg (35-45) 06/07/17 05:58 ABG pO2 299 mmHg (85-104) H 06/07/17 05:58 ABG O2 Saturation 100 % (95-98) H 06/07/17 05:58 PT/INR, D-dimer PT 15.8 Seconds (9.4-12.1) H 06/06/17 07:53 Abnormal lab findings: Abnormal lab results WBC 18.8 K/mcL (4.3-11.1) H 06/07/17 03:00 RBC 3.50 M/mcL (4.19-5.50) L 06/07/17 03:00 Hgb 9.7 g/dL (12.9-16.9) L 06/07/17 03:00 Hct 31.7 % (37.5-50.1) L 06/07/17 03:00 MCH 27.7 pg (28.0-33.3) L 06/07/17 03:00 MCHC 30.6 g/dL (31.6-35.5) L 06/07/17 03:00 RDW 18.4 % (11.5-14.5) H 06/07/17 03:00 Neutrophils # 16.8 K/mcL (1.6-8.9) H 06/07/17 03:00 PT 15.8 Seconds (9.4-12.1) H 06/06/17 07:53 ABG pO2 299 mmHg (85-104) H 06/07/17 05:58 ABG O2 Saturation 100 % (95-98) H 06/07/17 05:58 ABG Base Excess -3 mEq/L (-2 to 3) L 06/07/17 05:58 Creatinine 1.75 mg/dL (0.70-1.30) H 06/07/17 03:00 Est GFR ( Amer) 47 (> 60) L 06/07/17 03:00 Est GFR (Non-Af Amer) 39 (> 60) L 06/07/17 03:00 Glucose 222 mg/dL (70-105) H 06/07/17 03:00 POC Glucose 173 (58-89) H 06/07/17 08:08 Lactic Acid 3.4 mmol/L (0.5-2.2) H 06/07/17 03:00 Calcium 7.8 mg/dL (8.6-10.3) L 06/07/17 03:00 Venous Ioniz Calcium 0.97 mmol/L (1.15-1.35) L 06/06/17 23:42 Direct Bilirubin 0.3 mg/dL (0.0-0.2) H 06/06/17 07:53 Alkaline Phosphatase 107 Units/L (34-104) H 06/06/17 07:53 Troponin I 5.17 ng/mL (< 0.04) H* 06/07/17 03:00 Albumin 2.5 g/dL (3.5-5.7) L 06/06/17 07:53 Globulin 3.9 g/dL (2.4-3.5) H 06/06/17 07:53 Albumin/Globulin Ratio 0.6 (1.1-2.2) L 06/06/17 07:53 Urine Protein 100 mg/dL (Neg-Trace) H 06/06/17 08:03 Urine Blood Trace (Negative) H 06/06/17 08:03 - Clinical Findings Intake & Output: Intake & Output 06/06/17 06/07/17 06/07/17 23:59 07:59 15:59 Intake Total 1085 / 1085 864 / 864 247 / 247 Output Total 90 / 90 35 / 35 Balance 995 / 995 829 / 829 247 / 247 Weight 112.2 kg Consult Discharge Plan - Plan Referrals: [facility] [Primary Care Provider] - - Attending Attestation I examined this patient and my medical decision-making was reviewed with the Resident Physician. I agree with the documented findings, disposition and treatment plan as described except to the extent set forth below. We independently had [id number] contact with the patient I spent 35min of Critical Care time with this patient. It involved decision making of high complexity to assess, manipulate, and support vital organ system failure and/or to prevent further life threatening deterioration of the patient' s condition. The time involved in the performance of separately reportable procedures was not counted toward critical care time. Patient seen and examined at bedside Labs, radiology, chart personally reviewed. Management was reviewed during multidisciplinary critical care rounds. [employer]INATOR: ECG with burst suppression concerning for severe anoxic brain injury currently on propofol per neurology recs with Splenda repeat EEG today unfortunately targeted temperature protocol has had to be interrupted proximally 2 hours ahead of schedule because of life-threatening arrhythmias ( V. tach and bradycardia) Pulm: Acute respiratory failure secondary to pneumonia acceptable gas exchange today on ventilator continue to monitor Cards: Status post cardiac arrest; NSTEMI ECHO shows significant reduction in ejection fraction per report. No cardiology intervention because of the degree of critical illness ACS protocol started. He has had life-threatening arrhythmias including ventricular tachycardia and now bradycardia stopping targeted temperature protocol for this reason switching from phenylephrine and dopamine be need to load with amiodarone for ventricular arrhythmia persists. Remains in shock which is a combination septic and cardiogenic on vasopressor support for goal MAP around 60-65, lactate remains elevated continue to trend along with troponin FEN-GI: Nothing by mouth for now GI prophylaxis given Renal: Acute kidney injury and the patient is ANURIC trend potassium andrest of electrolytes ID: Treating for hospital-acquired pneumonia with broad-spectrum antimicrobials Heme/Onc: DVT prophylaxis given Endo: Glucose Monitored Integ/MSK: Skin Care per routine ICU Nursing Protocol to prevent ulcers. Lines: All lines examined without evidence of infection : Dispo: Currently full code CODE: Prognosis is grave no recovery anticipated plan to have a meeting with healthcare power of pharmacist aide Mr. Lindquist today when he is able to come to the hospital. I have also updated the patient's next of kin family member his cousin Ariadna and updated with a very poor prognosis she said she understood and will defer to Mr. Lindquist's decision-making as outlined per the patient's request and legally documented <Reed Cavanaugh - Last Filed: 06/07/17 14:13> Date of Encounter: 06/07/17 Time of Encounter: 08:48 Assessment and Plan (1) Cardiac arrest Current Visit: Yes Status: Acute - S/p postcardiac arrest with last known well being 0300 on day of arrival - ROSC was achieved after approximately 20 minutes of CPR - EKG at that time revealed sinus rhythm with right bundle branch block unchanged from previous - This is possibly secondary to septic shock secondary to multifocal pneumonia as demonstrated on chest CT - Troponin has been trended to 0.13/2.5/5.15/5.17 Plan - [place] II score of 31, estimating a 71% estimated mortality on this admission - We will discontinue hypothermic protocol prior to 24 hours sera due to bradycardia with evidence of possible AV block on monitor - Patient does have a very poor prognosis at this time, we will contact social work as well as relatives for further goals of care - Palliative consulted, appreciate recommendations - Will attempt to discuss with cousin, and friend who is POA. Family meeting scheduled for 1529 (2) Anoxic brain injury Current Visit: Yes Status: Acute - Secondary to cardiac arrest with unknown duration of arrest - EEG performed yesterday showed burst-supression pattern which may indicate seizure activity however most likely indicated severe anoxic brain injury - Per recommendation of neurologist, we started propofol overnight and will repeat EEG this afternoon once he is rewarmed from hypothermic protocol. (3) Septic shock Current Visit: Yes Status: Acute - Septic shock with evidence of tachycardia, tachypnea, leukocytosis on presentation - This is likely secondary to multifocal pneumonia as demonstrated on chest CT in addition to severe cardiac failure - Patient was started on vancomycin, Levaquin, Zosyn emergency room - Lactic acid of 6.7 which was trended to 3.5,3.4. - Blood cultures and sputum cultures pending Plan - Continue supportive care with ventilation, antibiotics as above day #2 - Will discontinue levaquin given ventricular arrythmias. - We will attempt to wean as able from ventilator (4) Respiratory failure Current Visit: Yes Status: Acute - Secondary to multifocal pneumonia as well as COPD exacerbation - Currently on ventilator support that is post cardiac PEA arrest - Manage with underlying conditions as below - Social work, palliative consult for poor prognosis Qualifiers: Chronicity: acute Respiratory failure complication: hypoxia and hypercapnia Qualified Code(s): J96.01 - Acute respiratory failure with hypoxia ; J96.02 - Acute respiratory failure with hypercapnia; J96.02 - Acute respiratory failure with hypercapnia; J96.02 - Acute respiratory failure with hypercapnia (5) Elevated troponin Current Visit: Yes Status: Acute - Troponin 0.13 on presentation to emergency room. Has been trended to 2.5/5.15/ 5.17 - Likely secondary to cardiac arrest - Echocardiogram showed EF of 15% with severe global hypokinesis - Started ASA and Heparin ACS dose Plan - Per score caller, poor outcome predicted and recommend medical therapy as he is a poor candidate for intervention. - We will continue to trend at this time with careful monitoring (6) Pneumonia Current Visit: Yes Status: Acute As above for septic shock Qualifiers: Pneumonia type: due to unspecified organism Laterality: bilateral Lung location: unspecified part of lung Qualified Code(s): J18.9 - Pneumonia, unspecified organism (7) DVT prophylaxis Current Visit: Yes Status: Acute Started Heparin 5000 units q8 hours (8) Arrhythmia Current Visit: Yes Status: Acute - Patient has been persistently bradycardic secondary likely to multifactorial including sedation, hypothermia, cardiac ischemia - Rhythms include Sinus bradycardia, ventricular tachycardia (max of 38 beats), AFib RVR - EKG on presentation showed Sinus rhythm with RBBB - Troponin increased with most recent of 5.17 - Changed levophed to phenylephrine last night after episode of Vtach - Has been placed on heparin and ASA Plan - Has amiodarone ordered PRN for episodes of Vtach - Will change to dopamine this afternoon for bradycardia and poor cardiac function on Echo Qualifiers: Arrhythmia type: unspecified cardiac arrhythmia Qualified Code(s): I49.9 - Cardiac arrhythmia, unspecified (9) Goals of care, counseling/discussion Current Visit: Yes Status: Acute - As above - Discussed with palliative care - Goal meeting with POA this afternoon Subjective Principal diagnosis: Cardiac arrest Interval history: Patient was seen and examined this morning at bedside. He is sedated and intubated at time of interview. No family present at bedside. Objective PUL Vital signs: Last Vital Signs Temp 94.6 F L 06/07/17 08:00 Pulse 60 06/07/17 08:00 Resp 22 06/07/17 08:00 BP 102/69 06/07/17 08:00 Pulse Ox 99 06/07/17 08:00 Gen.: Vitals noted. No acute distress. Sedated. Non responsive to stimuli. HEENT: Pupils fixed, dilated, non reactive to light. , oropharynx clear, Normocephalic, atraumatic, Mildly dry mucus membranes. Cardiac: Bradycardic, no murmur, +S1/S2 Pulmonary: Mild rhonchi, otherwise CTA bilaterally, no wheezes, rales, equal chest expansion Abdomen: soft, BS noted, no guarding Neuro: Sedated. No Cranial nerve activity appreciated. Negative reflexes in LE. Ventilator Settings Ventilator Settings: Ventilator Settings, Last 8 Hours Ventilator Mode A/C Ventilator Mode A/C Ventilator Mode A/C Ventilator Mode A/C Ventilator Mode A/C Ventilator Mode A/C Ventilator Mode A/C Ventilator Mode A/C Ventilator Mode A/C Ventilator Mode A/C Ventilator Mode A/C Ventilator Mode A/C Ventilator Mode A/C Ventilator Tidal Volume 500 Setting Ventilator Tidal Volume 500 Setting Ventilator Tidal Volume 500 Setting Ventilator Tidal Volume 500 Setting Ventilator Tidal Volume 500 Setting Ventilator Tidal Volume 500 Setting Ventilator Tidal Volume 500 Setting Ventilator Tidal Volume 500 Setting Ventilator Tidal Volume 500 Setting Ventilator Tidal Volume 500 Setting Ventilator Tidal Volume 500 Setting Ventilator Tidal Volume 500 Setting Ventilator Tidal Volume 500 Setting Ventilator Respiratory Rate 22 Setting Ventilator Respiratory Rate 22 Setting Ventilator Respiratory Rate 22 Setting Ventilator Respiratory Rate 22 Setting Ventilator Respiratory Rate 22 Setting Ventilator Respiratory Rate 22 Setting Ventilator Respiratory Rate 22 Setting Ventilator Respiratory Rate 22 Setting Ventilator Respiratory Rate 22 Setting Ventilator Respiratory Rate 22 Setting Ventilator Respiratory Rate 22 Setting Ventilator Respiratory Rate 22 Setting Ventilator Respiratory Rate 22 Setting Actual Respiratory Rate 22 Actual Respiratory Rate 22 Actual Respiratory Rate 23 Actual Respiratory Rate 28 Actual Respiratory Rate 28 Actual Respiratory Rate 22 Actual Respiratory Rate 22 Actual Respiratory Rate 22 Actual Respiratory Rate 22 Actual Respiratory Rate 22 Actual Respiratory Rate 24 Actual Respiratory Rate 27 Positive End Expiratory 10 Pressure Positive End Expiratory 10 Pressure Positive End Expiratory 10 Pressure Positive End Expiratory 10 Pressure Positive End Expiratory 10 Pressure Positive End Expiratory 10 Pressure Positive End Expiratory 10 Pressure Positive End Expiratory 10 Pressure Positive End Expiratory 10 Pressure Positive End Expiratory 10 Pressure Positive End Expiratory 10 Pressure Positive End Expiratory 10 Pressure Positive End Expiratory 10 Pressure Peak Inspiratory Airway 27 Pressure Peak Inspiratory Airway 27 Pressure Peak Inspiratory Airway 27 Pressure Peak Inspiratory Airway 20 Pressure Peak Inspiratory Airway 21 Pressure Peak Inspiratory Airway 28 Pressure Peak Inspiratory Airway 28 Pressure Peak Inspiratory Airway 27 Pressure Peak Inspiratory Airway 27 Pressure Peak Inspiratory Airway 27 Pressure Peak Inspiratory Airway 24 Pressure Peak Inspiratory Airway 21 Pressure Results - Laboratory Findings CBC and BMP: 06/07/17 03:00 06/07/17 11:00 ABG ABG pH 7.34 pH Units (7.32-7.45) 06/07/17 05:58 ABG pCO2 43 mmHg (35-45) 06/07/17 05:58 ABG pO2 299 mmHg (85-104) H 06/07/17 05:58 ABG O2 Saturation 100 % (95-98) H 06/07/17 05:58 PT/INR, D-dimer PT 15.8 Seconds (9.4-12.1) H 06/06/17 07:53 Abnormal lab findings: Abnormal lab results WBC 18.8 K/mcL (4.3-11.1) H 06/07/17 03:00 RBC 3.50 M/mcL (4.19-5.50) L 06/07/17 03:00 Hgb 9.7 g/dL (12.9-16.9) L 06/07/17 03:00 Hct 31.7 % (37.5-50.1) L 06/07/17 03:00 MCH 27.7 pg (28.0-33.3) L 06/07/17 03:00 MCHC 30.6 g/dL (31.6-35.5) L 06/07/17 03:00 RDW 18.4 % (11.5-14.5) H 06/07/17 03:00 Neutrophils # 16.8 K/mcL (1.6-8.9) H 06/07/17 03:00 PT 15.8 Seconds (9.4-12.1) H 06/06/17 07:53 ABG pO2 299 mmHg (85-104) H 06/07/17 05:58 ABG O2 Saturation 100 % (95-98) H 06/07/17 05:58 ABG Base Excess -3 mEq/L (-2 to 3) L 06/07/17 05:58 Creatinine 1.75 mg/dL (0.70-1.30) H 06/07/17 03:00 Est GFR ( Amer) 47 (> 60) L 06/07/17 03:00 Est GFR (Non-Af Amer) 39 (> 60) L 06/07/17 03:00 Glucose 222 mg/dL (70-105) H 06/07/17 03:00 POC Glucose 173 (58-89) H 06/07/17 08:08 Lactic Acid 3.4 mmol/L (0.5-2.2) H 06/07/17 03:00 Calcium 7.8 mg/dL (8.6-10.3) L 06/07/17 03:00 Venous Ioniz Calcium 0.97 mmol/L (1.15-1.35) L 06/06/17 23:42 Direct Bilirubin 0.3 mg/dL (0.0-0.2) H 06/06/17 07:53 Alkaline Phosphatase 107 Units/L (34-104) H 06/06/17 07:53 Troponin I 5.17 ng/mL (< 0.04) H* 06/07/17 03:00 Albumin 2.5 g/dL (3.5-5.7) L 06/06/17 07:53 Globulin 3.9 g/dL (2.4-3.5) H 06/06/17 07:53 Albumin/Globulin Ratio 0.6 (1.1-2.2) L 06/06/17 07:53 Urine Protein 100 mg/dL (Neg-Trace) H 06/06/17 08:03 Urine Blood Trace (Negative) H 06/06/17 08:03 - Clinical Findings Intake & Output: Intake & Output 06/06/17 06/07/17 06/07/17 23:59 07:59 15:59 Intake Total 1085 / 1085 864 / 864 Output Total 90 / 90 35 / 35 Balance 995 / 995 829 / 829
[2017-06-07] MEDS ORDERED: Levofloxacin 750 MG/150 ML 750 MG/150 ML BAG IVPB SCH (09:00)
[2017-06-07] MEDS ORDERED: Heparin 25,000 UNIT/500 ML D5W 25,000 UNIT/500 ML BAG IVC SCH (09:45)
[2017-06-07] MEDS ORDERED: *HR* Heparin 5,000 UNIT/ML VIAL IVP ONE (09:49)
[2017-06-07] MEDS ORDERED: *HR* Heparin 5,000 UNIT/ML VIAL IVP PRN ×2 (09:49)
[2017-06-07 11:47] LABS: VBG Ionized Calcium 0.98 mmol/L (1.15-1.35)
[2017-06-07 11:49] LABS: INR 1.6; Prothrombin Time 17.7 Seconds (9.4-12.1)
[2017-06-07 11:52] LABS: Activated Partial Thrombo Time 26.8 Seconds (26.0-36.0)
--- NOTE | 2017-06-07 12:51 | Neurology Progress Note ---
Date of Encounter: 06/07/17 Time of Encounter: 12:49 Assessment and Plan (1) Anoxic brain injury Current Visit: Yes Status: Acute Patient is currently being sedation and on hypothermal protocol. Cognitive function can not be assess due to sedation. No recurrent seizure identified. EEG pattern yesterday showed burst suppression pattern intermixed with prolonged rhythmic burst activity concerning for status epilepticus likely related to anoxic brain injury, indicating poor neurological prognosis. Repeat EEG can be done after weaning off sedation and hypothermia if clinically indicated. Subjective Principal diagnosis: Cardiac arrest Interval history: Patient seen and examined. Patient is current on Propofol drip and hypothermia protocol. No seizure activity reported. Patient remained unresponsive. Objective - Constitutional Vitals: Temp Pulse Resp BP Pulse Ox 96.8 F L 106 22 110/93 100 06/07/17 12:30 06/07/17 12:30 06/07/17 12:30 06/07/17 12:30 06/07/17 12:30 - Neurological Exam Sensorimotor examination: Present: other (Unable to assess due to sedation) Motor Examination: Present: other (Flaccid parelysed. No spontaneous movement seen) Sensation intact: Present: other (Unable to assess) Posture: Present: other (None) Reflex and gait examination: other (Unable to assess due to sedation, areflexic) Reflexes: Biceps: 0, Triceps: 0, Brachioradialis: 0, Patella: 0, Achilles: 0 Mental Status Examination: Present: coma Cranial nerve examination: Present: PERRL (Fixed and 4-5mm in diameter. No oculocephalic reflex. No corneal reflex) Results - Laboratory Findings CBC and BMP: 06/07/17 03:00 06/07/17 11:00 Abnormal lab findings: Abnormal lab results WBC 18.8 K/mcL (4.3-11.1) H 06/07/17 03:00 RBC 3.50 M/mcL (4.19-5.50) L 06/07/17 03:00 Hgb 9.7 g/dL (12.9-16.9) L 06/07/17 03:00 Hct 31.7 % (37.5-50.1) L 06/07/17 03:00 MCH 27.7 pg (28.0-33.3) L 06/07/17 03:00 MCHC 30.6 g/dL (31.6-35.5) L 06/07/17 03:00 RDW 18.4 % (11.5-14.5) H 06/07/17 03:00 Neutrophils # 16.8 K/mcL (1.6-8.9) H 06/07/17 03:00 PT 17.7 Seconds (9.4-12.1) H 06/07/17 11:00 ABG pO2 299 mmHg (85-104) H 06/07/17 05:58 ABG O2 Saturation 100 % (95-98) H 06/07/17 05:58 ABG Base Excess -3 mEq/L (-2 to 3) L 06/07/17 05:58 Creatinine 1.75 mg/dL (0.70-1.30) H 06/07/17 03:00 Est GFR ( Amer) 47 (> 60) L 06/07/17 03:00 Est GFR (Non-Af Amer) 39 (> 60) L 06/07/17 03:00 Glucose 222 mg/dL (70-105) H 06/07/17 03:00 POC Glucose 152 (58-89) H 06/07/17 10:09 Lactic Acid 3.4 mmol/L (0.5-2.2) H 06/07/17 03:00 Calcium 7.8 mg/dL (8.6-10.3) L 06/07/17 03:00 Venous Ioniz Calcium 0.98 mmol/L (1.15-1.35) L 06/07/17 11:44 Direct Bilirubin 0.3 mg/dL (0.0-0.2) H 06/06/17 07:53 Alkaline Phosphatase 107 Units/L (34-104) H 06/06/17 07:53 Troponin I 5.17 ng/mL (< 0.04) H* 06/07/17 03:00 Albumin 2.5 g/dL (3.5-5.7) L 06/06/17 07:53 Globulin 3.9 g/dL (2.4-3.5) H 06/06/17 07:53 Albumin/Globulin Ratio 0.6 (1.1-2.2) L 06/06/17 07:53 Urine Protein 100 mg/dL (Neg-Trace) H 06/06/17 08:03 Urine Blood Trace (Negative) H 06/06/17 08:03 Consult Discharge Plan - Plan [facility]errals: [facility] [Primary Care Provider] -
[2017-06-07] MEDS ORDERED: Aminoglycoside Consult 1 EACH MC ONE (13:06)
--- NOTE | 2017-06-07 13:50 | Palliative - Consult Note ---
<JovanFeroz aly - Last Filed: 06/07/17 16:24> Date of Encounter: 06/07/17 Time of Encounter: 13:42 - Assessment and Plan (1) Goals of care, counseling/discussion Current Visit: Yes Status: Acute Assessment and plan: Family meeting today with Juliocesar Lindquist, power of summer nanny ([phone]), ICU team, patient's close friend Stephen, palliative care team. Patient's overall poor prognosis and current medical condition was thoroughly explained to the power of summer nanny and friend Stephen. It was explained to them that at this time, his chances of surviving and having an acceptable quality of life remains unlikely. At this time, any further aggressive care including CPR, or other further lifesaving measures would be futile for the patient. Stephen and Juliocesar expressed understanding and agree with changing code status. Plan: changed code status to DNRCCA/DNI After family members made aware of patient's situation, withdrawal of care will take place, likely tomorrow. Patient will be kept comfortable. (2) Cardiac arrest Current Visit: Yes Status: Acute Assessment and plan: Patient was unresponsive for an unknown amount of time, was coded for about 20 minutes. Echo showed EF 15-20% patient still requiring vasopressors for septic/cardiogenic shock (3) Anoxic brain injury Current Visit: Yes Status: Acute Assessment and plan: Likely secondary to cardiac arrest. EEG reviewed, neurology input reviewed. Overall poor prognosis (4) Septic shock Current Visit: Yes Status: Acute Assessment and plan: multifactorial: septic shock/ cardiogenic shock. Management per primary team (5) Respiratory failure Current Visit: Yes Status: Acute Assessment and plan: Remains intubated and sedated. Management per primary team. Qualifiers: Chronicity: acute Respiratory failure complication: hypoxia and hypercapnia Qualified Code(s): J96.01 - Acute respiratory failure with hypoxia ; J96.02 - Acute respiratory failure with hypercapnia; J96.02 - Acute respiratory failure with hypercapnia; J96.02 - Acute respiratory failure with hypercapnia Palliative-CN HPI - Data of Consult Patient: new to practice Consult date: 06/07/17 Requesting Physician: Franklin Bowen MD [facility] Care Provider[facility] - Consult Narrative Palliative Care/Comfort Measures: Palliative care Reason for consult: goals of care/code status discussion History of present illness: Mr. Collado is a 67 year old male with past medical history of diabetes, CHF, history of osteomyelitis, history of G.I. bleed. History of osteomyelitis of the left foot with partial amputation done by podiatry here. He is from the [place]. She was found unresponsive at the [place] in his room and underwent a CLS on the way to the emergency room. He was coded for about 20 minutes before ROSC was achieved. She was admitted to the ICU subsequently thereafter. He remains intubated and sedated. He is being treated for septic shock, acute hypoxic respiratory failure. EEG showed severe diffuse neuronal dysfunction resembling status epilepticus. Patient was evaluated by neurology, and overall neurological prognosis is very poor with such pattern. Echocardiogram on 06/06 showed LVEF 15-20%, severe global left ventricular systolic dysfunction. Blood cultures remain negative, and patient is being treated with broad-spectrum antibiotics. Patient does have a power of summer nanny was on his way to the hospital. Palliative care team was consult it to discuss code status and goals of care. CC: Franklin Bowen MD Past Med Surg Social Fam HX - Past Medical History Medical history: no medical history Psychiatric history: no psych history - Past Surgical History Surgical History: other - Social History Smoking Status: Never smoker Smokeless Tobacco Status: No Alcohol use: none Drug use: none - Family History Mother History Unknown: Yes Living Status: Medications and Allergies Aspirin 81 mg PO DAILY tab.chew 05/15/17 [Rx] Insulin DETEMIR [Levemir] 5 unit SQ HS 30 Days [id number] 05/15/17 [Rx] Lactobacillus [Culturelle] 2 each PO DAILY cap.sprink 05/15/17 [Rx] OxyCODONE Immed Rel [Roxicodone 5 MG] 5 mg PO Q6HR PRN 7 Days #28 tablet [Rx] DiphenhydraMINE [Benadryl] 25 mg PO Q8HR PRN #0 capsule 05/28/17 [Rx] Famotidine [Pepcid] 20 mg PO BID tablet 05/28/17 [Rx] Ferrous Sulfate 325 mg PO BIDWM #0 tablet 05/28/17 [Rx] Potassium Chloride 10 meq PO DAILY #30 tab.er.prt 05/28/17 [Rx] Docusate Sodium [Dok] 200 mg PO BID 06/06/17 [History] Furosemide [Lasix] 40 mg PO DAILY 06/06/17 [History] Insulin ASPART [NovoLOG] 2 unit SQ TID 06/06/17 [History] Pujenlbbqtje-Igbe-Qtwhwxog,Iso [Zosyn 4.5 gm/100 ml Galaxy Bag] 4.5 gm IV TID [History] Polyethylene Glycol 3350 [MiraLAX Powder Bulk 17.9 Oz] 1 scoop PO DAILY PRN [History] 3 Allergy/AdvReac Type Severity Reaction Status Date / Time chicken derived Allergy Vomiting Verified 06/06/17 07:49 ROS unobtainable: due to endotracheal tube, due to mental status Palliative Care-Exam - Constitutional Vitals: Temp Pulse Resp BP Pulse Ox 96.8 F L 113 22 109/66 100 06/07/17 12:30 06/07/17 12:45 06/07/17 12:45 06/07/17 12:45 06/07/17 12:45 General appearance: Present: obese - Head Head Exam: Present: atraumatic, normocephalic - Eye Additional comments: Pupils fixed and dilated, no reaction to light. No extraocular movements. - ENT ENT exam: Present: mucous membranes dry - Respiratory Respiratory exam: Present: CTAB - Cardiovascular Cardiovascular exam: Present: tachycardia - Extremities Exam Additional comments: +2 bilateral upper and lower extremity pitting edema present. Partial amputation of the left foot. - Neurological Exam Neurological exam: Absent: alert, oriented X3 Additional comments: No response to painful or verbal stimuli. No extraocular movements, people fixed on dilated. Internal Medicine - CN: Reslt - Labs CBC & Chem 7: 06/07/17 03:00 06/07/17 11:00 Labs: Short CBC 06/06/17 06/07/17 Range/Units 21:01 03:00 WBC 19.5 H 18.8 H (4.3-11.1) K/mcL Hgb 9.7 L 9.7 L (12.9-16.9) g/dL Hct 32.2 L 31.7 L (37.5-50.1) % Plt Count 165 210 (140-400) K/mcL Neutrophils # 17.3 H 16.8 H (1.6-8.9) K/mcL BMP 06/06/17 06/07/17 06/07/17 21:01 03:00 11:00 Sodium 139 138 Potassium 3.9 3.8 4.0 Chloride 105 105 Carbon Dioxide 23 23 BUN 21 23 Creatinine 1.55 H 1.75 H Glucose 205 H 222 H Calcium 7.7 L 7.8 L Cardiac Enzymes 06/06/17 06/06/17 06/07/17 Range/Units 14:28 21:01 03:00 Troponin I 2.47 H* 5.15 H* 5.17 H* (< 0.04) ng/mL - ABG Interpretation ABG results: ABG ABG pH 7.34 pH Units (7.32-7.45) 06/07/17 05:58 ABG pCO2 43 mmHg (35-45) 06/07/17 05:58 ABG pO2 299 mmHg (85-104) H 06/07/17 05:58 ABG O2 Saturation 100 % (95-98) H 06/07/17 05:58 PT/INR, D-dimer PT 17.7 Seconds (9.4-12.1) H 06/07/17 11:00 - Impressions Impressions Echocardiogram 06/06/17 15:10 Impressions: LVEF 15-20%. Mildly dilated left ventricle. Mild left ventricular diastolic dysfunction. Severe global left ventricular systolic dysfunction. Mildly dilated right ventricle. Mild right ventricular hypokinesis. Mild mitral regurgitation. Mild pulmonary hypertension. Estimated RVSP is 36 mmHg. Compared to prior report, LVEF has worsened. Results communicated to ICU. Spoke with nurse. Left Ventricular Wall Motion: Rest Echo Findings The apex, apical inferior, mid inferior, basal inferior, apical anterior, mid anterior, basal anterior, apical septal, mid inferior septal, basal inferior septal, apical lateral, mid anterior lateral, basal anterior lateral, mid anterior septal, mid inferior lateral, basal anterior septal and basal inferior lateral clancy were hypokinetic. Findings: Study Quality * Technically sub-optimal due to clinical status. ECG Findings * Sinus bradycardia. Left Ventricle * LVEF 15-20%. * Mildly dilated left ventricle. * Mild left ventricular diastolic dysfunction. * Severe global left ventricular systolic dysfunction. * Atypical septal motion possibly due to a bundle branch block. Right Ventricle * Mildly dilated right ventricle. * Mild right ventricular hypokinesis. Left Atrium * Left atrium is not well visualized. Right Atrium * Right atrium is not well visualized. Interatrial Septum * Interatrial septum not well evaluated. Aortic Valve * Aortic valve not well visualized. * Mildly calcified aortic valve leaflets. * Trace aortic regurgitation. * No aortic stenosis. Mitral Valve * Mild mitral annular calcification * Mild mitral regurgitation. * No mitral stenosis. Tricuspid Valve * Normal tricuspid valve structure and function. * Trace tricuspid regurgitation. * Mild pulmonary hypertension. * Estimated RVSP is 36 mmHg. * Estimated RA pressure is 5 mmHg. Pulmonic Valve * Pulmonic valve not well visualized. Aorta * Normally sized aortic root. Pericardium * The pericardium appears normal. IVC * The IVC is not dilated. Pulmonary Artery * Normal visualized portions of the main pulmonary artery. Consult Discharge Plan - Plan [facility]errals: [facility] [Primary Care Provider] - Palliative Quality Palliative Quality: Screen for Code Status: Yes, Screen for Goals of Care: Yes, Screen for Pain: Yes, If Pain Regimen Started, Initiate Bowel Regimen: Yes, Screen for Nausea/Vomitting: Yes Code Status: 06/06/17 11:37 Resuscitation Status: Active [RES] Routine Comment: Resuscitation Status: Full Code <Corby Arthur L - Last Filed: 06/07/17 16:35> Date of Encounter: 06/07/17 Palliative-CN HPI - Data of Consult Requesting Physician: Franklin Bowen MD Primary Care Provider: PCP [facility] - Consult Narrative History of present illness: Mr. Collado is a 67 year old male CC: Franklin Bowen MD Palliative Care-Exam - Constitutional Vitals: Temp Pulse Resp BP Pulse Ox 97.3 F L 100 30 78/49 100 06/07/17 14:45 06/07/17 14:45 06/07/17 15:56 06/07/17 15:56 06/07/17 15:56 Internal Medicine - CN: Reslt - Labs CBC & Chem 7: 06/07/17 03:00 06/07/17 11:00 Labs: Short CBC 06/06/17 06/07/17 Range/Units 21:01 03:00 WBC 19.5 H 18.8 H (4.3-11.1) K/mcL Hgb 9.7 L 9.7 L (12.9-16.9) g/dL Hct 32.2 L 31.7 L (37.5-50.1) % Plt Count 165 210 (140-400) K/mcL Neutrophils # 17.3 H 16.8 H (1.6-8.9) K/mcL BMP 06/06/17 06/07/17 06/07/17 21:01 03:00 11:00 Sodium 139 138 Potassium 3.9 3.8 4.0 Chloride 105 105 Carbon Dioxide 23 23 BUN 21 23 Creatinine 1.55 H 1.75 H Glucose 205 H 222 H Calcium 7.7 L 7.8 L Cardiac Enzymes 06/06/17 06/07/17 Range/Units 21:01 03:00 Troponin I 5.15 H* 5.17 H* (< 0.04) ng/mL - ABG Interpretation ABG results: ABG ABG pH 7.34 pH Units (7.32-7.45) 06/07/17 05:58 ABG pCO2 43 mmHg (35-45) 06/07/17 05:58 ABG pO2 299 mmHg (85-104) H 06/07/17 05:58 ABG O2 Saturation 100 % (95-98) H 06/07/17 05:58 PT/INR, D-dimer PT 17.7 Seconds (9.4-12.1) H 06/07/17 11:00 - Impressions Impressions Echocardiogram 06/06/17 15:10 Impressions: LVEF 15-20%. Mildly dilated left ventricle. Mild left ventricular diastolic dysfunction. Severe global left ventricular systolic dysfunction. Mildly dilated right ventricle. Mild right ventricular hypokinesis. Mild mitral regurgitation. Mild pulmonary hypertension. Estimated RVSP is 36 mmHg. Compared to prior report, LVEF has worsened. Results communicated to ICU. Spoke with nurse. Left Ventricular Wall Motion: Rest Echo Findings The apex, apical inferior, mid inferior, basal inferior, apical anterior, mid anterior, basal anterior, apical septal, mid inferior septal, basal inferior septal, apical lateral, mid anterior lateral, basal anterior lateral, mid anterior septal, mid inferior lateral, basal anterior septal and basal inferior lateral clancy were hypokinetic. Findings: Study Quality * Technically sub-optimal due to clinical status. ECG Findings * Sinus bradycardia. Left Ventricle * LVEF 15-20%. * Mildly dilated left ventricle. * Mild left ventricular diastolic dysfunction. * Severe global left ventricular systolic dysfunction. * Atypical septal motion possibly due to a bundle branch block. Right Ventricle * Mildly dilated right ventricle. * Mild right ventricular hypokinesis. Left Atrium * Left atrium is not well visualized. Right Atrium * Right atrium is not well visualized. Interatrial Septum * Interatrial septum not well evaluated. Aortic Valve * Aortic valve not well visualized. * Mildly calcified aortic valve leaflets. * Trace aortic regurgitation. * No aortic stenosis. Mitral Valve * Mild mitral annular calcification * Mild mitral regurgitation. * No mitral stenosis. Tricuspid Valve * Normal tricuspid valve structure and function. * Trace tricuspid regurgitation. * Mild pulmonary hypertension. * Estimated RVSP is 36 mmHg. * Estimated RA pressure is 5 mmHg. Pulmonic Valve * Pulmonic valve not well visualized. Aorta * Normally sized aortic root. Pericardium * The pericardium appears normal. IVC * The IVC is not dilated. Pulmonary Artery * Normal visualized portions of the main pulmonary artery. - Attending Attestation I examined this patient and my medical decision-making was reviewed with the Resident Physician. I agree with the documented findings, disposition and treatment plan as described except to the extent set forth below. Palliative Quality Code Status: 06/06/17 11:37 Resuscitation Status: Active [RES] Routine Comment: Resuscitation Status: Full Code Resuscitation Status: Active [RES] Routine Comment: do not reintubate Resuscitation Status: [id number]
[2017-06-07] MEDS: FentaNYL (PF) 1,000 MCG in 0.9 % Sodium Chloride 80 ML IVC SCH (16:57)
[2017-06-07] MEDS: Amiodarone Premix 360 MG/200 ML BAG IVC SCH (19:56)
[2017-06-07 22:56] LABS: VBG Ionized Calcium 0.96 mmol/L (1.15-1.35)
[2017-06-08 02:32] LABS: Activated Partial Thrombo Time > 360.0 Seconds (26.0-36.0)
[2017-06-08 02:40] LABS: Heparin anti-factor XA UFH 1.22 IU/mL (0.30-0.70)
[2017-06-08 04:21] LABS: VBG Ionized Calcium 0.99 mmol/L (1.15-1.35)
[2017-06-08 04:27] LABS: Basophils # 0.1 K/mcL (0.0-0.2); Basophils % 0.3 %; Eosinophils # 0.1 K/mcL (0.0-0.6); Eosinophils % 0.7 %; Hematocrit 29.7 % (37.5-50.1); Hemoglobin 9.4 g/dL (12.9-16.9); Immature Granulocytes % 0.7 % (0-4); Lymphocytes # 1.3 K/mcL (0.6-4.6); Lymphocytes % 8.4 %; Mean Corpuscular HGB Conc 31.6 g/dL (31.6-35.5); Mean Corpuscular Hemoglobin 28.1 pg (28.0-33.3); Mean Corpuscular Volume 88.7 fL (83.0-100.0); Mean Platelet Volume 11.2 fL (9.4-12.4); Monocytes # 0.7 K/mcL (0.0-1.3); Monocytes % 4.9 %; Neutrophils # 12.7 K/mcL (1.6-8.9); Platelet Count 165 K/mcL (140-400); Red Blood Count 3.35 M/mcL (4.19-5.50); Red Cell Distribution Width 18.8 % (11.5-14.5)
[2017-06-08 04:38] LABS: Magnesium 2.2 mg/dL (1.6-2.6); Phosphorous 4.7 mg/dL (2.7-4.5)
[2017-06-08] MEDS: Lacri-Lube 3.5 GM TUBE BOTH EYES SCH ×5 (04:46→20:49)
[2017-06-08 05:06] LABS: ABG Base Excess 3 mEq/L (-2 to 3); ABG HCO3 26 mEq/L (21-27); ABG Oxygen Saturation 100 % (95-98); ABG PCO2 33 mmHg (35-45); ABG PO2 257 mmHg (85-104); ABG TCO2 27 mEq/L (20-26); Blood Gas Modality ASSIST CONTROL; Blood Gas PEEP 10 cm H2O; Blood Gas Respiration Rate 22; Blood Gas VT 500 cc
[2017-06-08] MEDS: Chlorhexidine Rinse 15 ML MOUTHWASH MM SCH (07:50)
[2017-06-08] MEDS: Pantoprazole 40 MG VIAL IVP SCH (07:50)
[2017-06-08] MEDS: Piperacillin/Tazobactam 3.375 GM in 0.9 % Sodium Chloride Mini Bag 100 ML IVPB SCH (07:51)
--- NOTE | 2017-06-08 08:52 | Palliative Progress Note ---
<Feroz Perez - Last Filed: 06/08/17 09:43> Date of Encounter: 06/08/17 Time of Encounter: 08:52 - Assessment and plan (1) Goals of care, counseling/discussion Current Visit: Yes Status: Acute Assessment and plan: Extensive conversation yesterday with power of family law attorney and close friend of the patient. It was determined that patient would not want any further aggressive care or heroic measures to keep him alive. Code status has since been changed to DNR CCA/DNI Plan: Attempting to get a hold of POA in order to discuss withdrawal of care. To be done per primary team. There will be no palliative care coverage this weekend. (2) Cardiac arrest Current Visit: Yes Status: Acute Assessment and plan: Patient was unresponsive for an unknown amount of time, was coded for about 20 minutes. Echo showed EF 15-20% patient still requiring vasopressors for septic/cardiogenic shock (3) Anoxic brain injury Current Visit: Yes Status: Acute Assessment and plan: Likely secondary to cardiac arrest. EEG reviewed, neurology input reviewed. Overall poor prognosis (4) Septic shock Current Visit: Yes Status: Acute Assessment and plan: multifactorial: septic shock/ cardiogenic shock. Management per primary team (5) Respiratory failure Current Visit: Yes Status: Acute Assessment and plan: Remains intubated and sedated. Management per primary team. Qualifiers: Chronicity: acute Respiratory failure complication: hypoxia and hypercapnia Qualified Code(s): J96.01 - Acute respiratory failure with hypoxia ; J96.02 - Acute respiratory failure with hypercapnia; J96.02 - Acute respiratory failure with hypercapnia; J96.02 - Acute respiratory failure with hypercapnia - Time Spent With Patient Total time spent is greater than 50% in coordination of care (as documented) at patient's floor/unit and/or counseling patient: - Subjective Interval history: 67-year-old male evaluated at bedside. He remains intubated and sedated. - Constitutional Vitals: Abnormal lab results WBC 15.0 K/mcL (4.3-11.1) H 06/08/17 04:05 RBC 3.35 M/mcL (4.19-5.50) L 06/08/17 04:05 Hgb 9.4 g/dL (12.9-16.9) L 06/08/17 04:05 Hct 29.7 % (37.5-50.1) L 06/08/17 04:05 RDW 18.8 % (11.5-14.5) H 06/08/17 04:05 Neutrophils # 12.7 K/mcL (1.6-8.9) H 06/08/17 04:05 PT 17.7 Seconds (9.4-12.1) H 06/07/17 11:00 APTT > 360.0 Seconds (26.0-36.0) H* D 06/08/17 01:56 Heparin Anti-Xa, Unfract 1.22 IU/mL (0.30-0.70) H* 06/08/17 01:56 ABG pH 7.50 pH Units (7.32-7.45) H 06/08/17 05:02 ABG pCO2 33 mmHg (35-45) L 06/08/17 05:02 ABG pO2 257 mmHg (85-104) H 06/08/17 05:02 ABG Total CO2 27 mEq/L (20-26) H 06/08/17 05:02 ABG O2 Saturation 100 % (95-98) H 06/08/17 05:02 BUN 28 mg/dL (8-23) H 06/08/17 04:05 Creatinine 2.59 mg/dL (0.70-1.30) H 06/08/17 04:05 Est GFR ( Amer) 30 (> 60) L 06/08/17 04:05 Est GFR (Non-Af Amer) 25 (> 60) L 06/08/17 04:05 Glucose 138 mg/dL (70-105) H 06/08/17 04:05 POC Glucose 130 (58-89) H 06/08/17 08:14 Lactic Acid 3.4 mmol/L (0.5-2.2) H 06/07/17 03:00 Calcium 8.0 mg/dL (8.6-10.3) L 06/08/17 04:05 Venous Ioniz Calcium 0.99 mmol/L (1.15-1.35) L 06/08/17 04:19 Phosphorus 4.7 mg/dL (2.7-4.5) H 06/08/17 04:11 Direct Bilirubin 0.3 mg/dL (0.0-0.2) H 06/06/17 07:53 Alkaline Phosphatase 107 Units/L (34-104) H 06/06/17 07:53 Troponin I 5.17 ng/mL (< 0.04) H* 06/07/17 03:00 Albumin 2.5 g/dL (3.5-5.7) L 06/06/17 07:53 Globulin 3.9 g/dL (2.4-3.5) H 06/06/17 07:53 Albumin/Globulin Ratio 0.6 (1.1-2.2) L 06/06/17 07:53 Urine Protein 100 mg/dL (Neg-Trace) H 06/06/17 08:03 Urine Blood Trace (Negative) H 06/06/17 08:03 - Head Head exam: Present: atraumatic, normocephalic - Neck Neck exam: Present: normal inspection - Respiratory Respiratory exam: Present: CTAB - Cardiovascular Cardiovascular exam: Present: RRR, +S1, +S2 - GI/Abdominal GI/Abdominal exam: Present: diminished bowel sounds, distended, soft - Extremities Exam Additional comments: +2 bilateral upper extremithy pitting edema, more prominent on the left arm than right arm. partal left foot amputation. +2 bilateral lower extremity pitting edema. - Neurological Exam Additional comments: People dilated and not reactive to light, no ocular reflex present. No Response to painful or verbal stimuli. Palliative Quality Palliative Quality: Screen for Code Status: Yes, Screen for Goals of Care: Yes, Screen for Pain: Yes, If Pain Regimen Started, Initiate Bowel Regimen: Yes, Screen for Nausea/Vomitting: Yes Code Status: 06/06/17 11:37 Resuscitation Status: Active [RES] Routine Comment: Resuscitation Status: Full Code Resuscitation Status: Active [RES] Routine Comment: do not reintubate Resuscitation Status: [id number] - Labs CBC & Chem 7: 06/08/17 04:05 06/08/17 04:05 Labs: Laboratory Results - last 24 hr 06/07/17 06/07/17 06/07/17 10:09 11:00 11:00 WBC RBC Hgb Hct MCV MCH MCHC RDW Plt Count MPV Immature Gran % Seg Neutrophils % Lymphocytes % Monocytes % Eosinophils % Basophils % Neutrophils # Lymphocytes # Monocytes # Eosinophils # Basophils # PT 17.7 H INR 1.6 APTT 26.8 Heparin Anti-Xa, Unfract Sample Site ABG pH ABG pCO2 ABG pO2 ABG HCO3 ABG Total CO2 ABG O2 Saturation ABG Base Excess Mendoza Test Respiration Rate O2 Delivery Device Blood Gas Modality Inspired O2 Tidal Volume PEEP Sodium Potassium 4.0 Chloride Carbon Dioxide BUN Creatinine Est GFR ( Amer) Est GFR (Non-Af Amer) BUN/Creatinine Ratio Glucose POC Glucose 152 H Calculated Osmolality Calcium Venous Ioniz Calcium Phosphorus Magnesium 06/07/17 06/07/17 06/07/17 11:44 16:31 18:40 WBC RBC Hgb Hct MCV MCH MCHC RDW Plt Count MPV Immature Gran % Seg Neutrophils % Lymphocytes % Monocytes % Eosinophils % Basophils % Neutrophils # Lymphocytes # Monocytes # Eosinophils # Basophils # PT INR APTT 47.9 H D Heparin Anti-Xa, Unfract Sample Site ABG pH ABG pCO2 ABG pO2 ABG HCO3 ABG Total CO2 ABG O2 Saturation ABG Base Excess Mendoza Test Respiration Rate O2 Delivery Device Blood Gas Modality Inspired O2 Tidal Volume PEEP Sodium Potassium Chloride Carbon Dioxide BUN Creatinine Est GFR ( Amer) Est GFR (Non-Af Amer) BUN/Creatinine Ratio Glucose POC Glucose 142 H Calculated Osmolality Calcium Venous Ioniz Calcium 0.98 L Phosphorus Magnesium 06/07/17 06/08/17 06/08/17 22:54 01:56 04:05 WBC 15.0 H RBC 3.35 L Hgb 9.4 L Hct 29.7 L MCV 88.7 MCH 28.1 MCHC 31.6 RDW 18.8 H Plt Count 165 MPV 11.2 Immature Gran % 0.7 Seg Neutrophils % 85.0 Lymphocytes % 8.4 Monocytes % 4.9 Eosinophils % 0.7 Basophils % 0.3 Neutrophils # 12.7 H Lymphocytes # 1.3 Monocytes # 0.7 Eosinophils # 0.1 Basophils # 0.1 PT INR APTT > 360.0 H* D Heparin Anti-Xa, Unfract 1.22 H* Sample Site ABG pH ABG pCO2 ABG pO2 ABG HCO3 ABG Total CO2 ABG O2 Saturation ABG Base Excess Mendoza Test Respiration Rate O2 Delivery Device Blood Gas Modality Inspired O2 Tidal Volume PEEP Sodium Potassium Chloride Carbon Dioxide BUN Creatinine Est GFR ( Amer) Est GFR (Non-Af Amer) BUN/Creatinine Ratio Glucose POC Glucose Calculated Osmolality Calcium Venous Ioniz Calcium 0.96 L Phosphorus Magnesium 06/08/17 06/08/17 06/08/17 04:05 04:11 04:19 WBC RBC Hgb Hct MCV MCH MCHC RDW Plt Count MPV Immature Gran % Seg Neutrophils % Lymphocytes % Monocytes % Eosinophils % Basophils % Neutrophils # Lymphocytes # Monocytes # Eosinophils # Basophils # PT INR APTT Heparin Anti-Xa, Unfract Sample Site ABG pH ABG pCO2 ABG pO2 ABG HCO3 ABG Total CO2 ABG O2 Saturation ABG Base Excess Mendoza Test Respiration Rate O2 Delivery Device Blood Gas Modality Inspired O2 Tidal Volume PEEP Sodium 138 Potassium 4.0 Chloride 104 Carbon Dioxide 23 BUN 28 H Creatinine 2.59 H Est GFR ( Amer) 30 L Est GFR (Non-Af Amer) 25 L BUN/Creatinine Ratio 11 Glucose 138 H POC Glucose Calculated Osmolality 294 Calcium 8.0 L Venous Ioniz Calcium 0.99 L Phosphorus 4.7 H Magnesium 2.2 06/08/17 06/08/17 05:02 08:14 WBC RBC Hgb Hct MCV MCH MCHC RDW Plt Count MPV Immature Gran % Seg Neutrophils % Lymphocytes % Monocytes % Eosinophils % Basophils % Neutrophils # Lymphocytes # Monocytes # Eosinophils # Basophils # PT INR APTT Heparin Anti-Xa, Unfract Sample Site R Radial ABG pH 7.50 H ABG pCO2 33 L ABG pO2 257 H ABG HCO3 26 ABG Total CO2 27 H ABG O2 Saturation 100 H ABG Base Excess 3 Mendoza Test N/A Respiration Rate 22 O2 Delivery Device Adult Vent Blood Gas Modality ASSIST CONTROL Inspired O2 70.0 Tidal Volume 500 PEEP 10 Sodium Potassium Chloride Carbon Dioxide BUN Creatinine Est GFR ( Amer) Est GFR (Non-Af Amer) BUN/Creatinine Ratio Glucose POC Glucose 130 H Calculated Osmolality Calcium Venous Ioniz Calcium Phosphorus Magnesium - Impressions Impressions Echocardiogram 06/06/17 15:10 Impressions: LVEF 15-20%. Mildly dilated left ventricle. Mild left ventricular diastolic dysfunction. Severe global left ventricular systolic dysfunction. Mildly dilated right ventricle. Mild right ventricular hypokinesis. Mild mitral regurgitation. Mild pulmonary hypertension. Estimated RVSP is 36 mmHg. Compared to prior report, LVEF has worsened. Results communicated to ICU. Spoke with nurse. Left Ventricular Wall Motion: Rest Echo Findings The apex, apical inferior, mid inferior, basal inferior, apical anterior, mid anterior, basal anterior, apical septal, mid inferior septal, basal inferior septal, apical lateral, mid anterior lateral, basal anterior lateral, mid anterior septal, mid inferior lateral, basal anterior septal and basal inferior lateral clancy were hypokinetic. Findings: Study Quality * Technically sub-optimal due to clinical status. ECG Findings * Sinus bradycardia. Left Ventricle * LVEF 15-20%. * Mildly dilated left ventricle. * Mild left ventricular diastolic dysfunction. * Severe global left ventricular systolic dysfunction. * Atypical septal motion possibly due to a bundle branch block. Right Ventricle * Mildly dilated right ventricle. * Mild right ventricular hypokinesis. Left Atrium * Left atrium is not well visualized. Right Atrium * Right atrium is not well visualized. Interatrial Septum * Interatrial septum not well evaluated. Aortic Valve * Aortic valve not well visualized. * Mildly calcified aortic valve leaflets. * Trace aortic regurgitation. * No aortic stenosis. Mitral Valve * Mild mitral annular calcification * Mild mitral regurgitation. * No mitral stenosis. Tricuspid Valve * Normal tricuspid valve structure and function. * Trace tricuspid regurgitation. * Mild pulmonary hypertension. * Estimated RVSP is 36 mmHg. * Estimated RA pressure is 5 mmHg. Pulmonic Valve * Pulmonic valve not well visualized. Aorta * Normally sized aortic root. Pericardium * The pericardium appears normal. IVC * The IVC is not dilated. Pulmonary Artery * Normal visualized portions of the main pulmonary artery. - ABG Interpretation ABG results: ABG ABG pH 7.50 pH Units (7.32-7.45) H 06/08/17 05:02 ABG pCO2 33 mmHg (35-45) L 06/08/17 05:02 ABG pO2 257 mmHg (85-104) H 06/08/17 05:02 ABG O2 Saturation 100 % (95-98) H 06/08/17 05:02 PT/INR, D-dimer PT 17.7 Seconds (9.4-12.1) H 06/07/17 11:00 Consult Discharge Plan - Plan [facility]: [facility]Primary Care Provider[facility] - <Corby Arthur - Last Filed: 06/08/17 10:44> Date of Encounter: 06/08/17 - Time Spent With Patient Total time spent is greater than 50% in coordination of care (as documented) at patient's floor/unit and/or counseling patient: - Constitutional Vitals: Abnormal lab results WBC 15.0 K/mcL (4.3-11.1) H 06/08/17 04:05 RBC 3.35 M/mcL (4.19-5.50) L 06/08/17 04:05 Hgb 9.4 g/dL (12.9-16.9) L 06/08/17 04:05 Hct 29.7 % (37.5-50.1) L 06/08/17 04:05 RDW 18.8 % (11.5-14.5) H 06/08/17 04:05 Neutrophils # 12.7 K/mcL (1.6-8.9) H 06/08/17 04:05 PT 17.7 Seconds (9.4-12.1) H 06/07/17 11:00 APTT > 360.0 Seconds (26.0-36.0) H* D 06/08/17 01:56 Heparin Anti-Xa, Unfract 1.22 IU/mL (0.30-0.70) H* 06/08/17 01:56 ABG pH 7.50 pH Units (7.32-7.45) H 06/08/17 05:02 ABG pCO2 33 mmHg (35-45) L 06/08/17 05:02 ABG pO2 257 mmHg (85-104) H 06/08/17 05:02 ABG Total CO2 27 mEq/L (20-26) H 06/08/17 05:02 ABG O2 Saturation 100 % (95-98) H 06/08/17 05:02 BUN 28 mg/dL (8-23) H 06/08/17 04:05 Creatinine 2.59 mg/dL (0.70-1.30) H 06/08/17 04:05 Est GFR ( Amer) 30 (> 60) L 06/08/17 04:05 Est GFR (Non-Af Amer) 25 (> 60) L 06/08/17 04:05 Glucose 138 mg/dL (70-105) H 06/08/17 04:05 POC Glucose 130 (58-89) H 06/08/17 08:14 Lactic Acid 3.4 mmol/L (0.5-2.2) H 06/07/17 03:00 Calcium 8.0 mg/dL (8.6-10.3) L 06/08/17 04:05 Venous Ioniz Calcium 0.99 mmol/L (1.15-1.35) L 06/08/17 04:19 Phosphorus 4.7 mg/dL (2.7-4.5) H 06/08/17 04:11 Direct Bilirubin 0.3 mg/dL (0.0-0.2) H 06/06/17 07:53 Alkaline Phosphatase 107 Units/L (34-104) H 06/06/17 07:53 Troponin I 5.17 ng/mL (< 0.04) H* 06/07/17 03:00 Albumin 2.5 g/dL (3.5-5.7) L 06/06/17 07:53 Globulin 3.9 g/dL (2.4-3.5) H 06/06/17 07:53 Albumin/Globulin Ratio 0.6 (1.1-2.2) L 06/06/17 07:53 Urine Protein 100 mg/dL (Neg-Trace) H 06/06/17 08:03 Urine Blood Trace (Negative) H 06/06/17 08:03 - Attending Attestation I examined this patient and my medical decision-making was reviewed with the Resident Physician. I agree with the documented findings, disposition and treatment plan as described except to the extent set forth below. Palliative Quality Code Status: 06/06/17 11:37 Resuscitation Status: Active [RES] Routine Comment: Resuscitation Status: Full Code Resuscitation Status: Active [RES] Routine Comment: do not reintubate Resuscitation Status: [id number] - Labs CBC & Chem 7: 06/08/17 04:05 06/08/17 04:05 Labs: Laboratory Results - last 24 hr 06/07/17 06/07/17 06/07/17 11:00 11:00 11:44 WBC RBC Hgb Hct MCV MCH MCHC RDW Plt Count MPV Immature Gran % Seg Neutrophils % Lymphocytes % Monocytes % Eosinophils % Basophils % Neutrophils # Lymphocytes # Monocytes # Eosinophils # Basophils # PT 17.7 H INR 1.6 APTT 26.8 Heparin Anti-Xa, Unfract Sample Site ABG pH ABG pCO2 ABG pO2 ABG HCO3 ABG Total CO2 ABG O2 Saturation ABG Base Excess Mendoza Test Respiration Rate O2 Delivery Device Blood Gas Modality Inspired O2 Tidal Volume PEEP Sodium Potassium 4.0 Chloride Carbon Dioxide BUN Creatinine Est GFR ( Amer) Est GFR (Non-Af Amer) BUN/Creatinine Ratio Glucose POC Glucose Calculated Osmolality Calcium Venous Ioniz Calcium 0.98 L Phosphorus Magnesium 06/07/17 06/07/17 06/07/17 16:31 18:40 22:54 WBC RBC Hgb Hct MCV MCH MCHC RDW Plt Count MPV Immature Gran % Seg Neutrophils % Lymphocytes % Monocytes % Eosinophils % Basophils % Neutrophils # Lymphocytes # Monocytes # Eosinophils # Basophils # PT INR APTT 47.9 H D Heparin Anti-Xa, Unfract Sample Site ABG pH ABG pCO2 ABG pO2 ABG HCO3 ABG Total CO2 ABG O2 Saturation ABG Base Excess Mendoza Test Respiration Rate O2 Delivery Device Blood Gas Modality Inspired O2 Tidal Volume PEEP Sodium Potassium Chloride Carbon Dioxide BUN Creatinine Est GFR ( Amer) Est GFR (Non-Af Amer) BUN/Creatinine Ratio Glucose POC Glucose 142 H Calculated Osmolality Calcium Venous Ioniz Calcium 0.96 L Phosphorus Magnesium 06/08/17 06/08/17 06/08/17 01:56 04:05 04:05 WBC 15.0 H RBC 3.35 L Hgb 9.4 L Hct 29.7 L MCV 88.7 MCH 28.1 MCHC 31.6 RDW 18.8 H Plt Count 165 MPV 11.2 Immature Gran % 0.7 Seg Neutrophils % 85.0 Lymphocytes % 8.4 Monocytes % 4.9 Eosinophils % 0.7 Basophils % 0.3 Neutrophils # 12.7 H Lymphocytes # 1.3 Monocytes # 0.7 Eosinophils # 0.1 Basophils # 0.1 PT INR APTT > 360.0 H* D Heparin Anti-Xa, Unfract 1.22 H* Sample Site ABG pH ABG pCO2 ABG pO2 ABG HCO3 ABG Total CO2 ABG O2 Saturation ABG Base Excess Mendoza Test Respiration Rate O2 Delivery Device Blood Gas Modality Inspired O2 Tidal Volume PEEP Sodium 138 Potassium 4.0 Chloride 104 Carbon Dioxide 23 BUN 28 H Creatinine 2.59 H Est GFR ( Amer) 30 L Est GFR (Non-Af Amer) 25 L BUN/Creatinine Ratio 11 Glucose 138 H POC Glucose Calculated Osmolality 294 Calcium 8.0 L Venous Ioniz Calcium Phosphorus Magnesium 06/08/17 06/08/17 06/08/17 04:11 04:19 05:02 WBC RBC Hgb Hct MCV MCH MCHC RDW Plt Count MPV Immature Gran % Seg Neutrophils % Lymphocytes % Monocytes % Eosinophils % Basophils % Neutrophils # Lymphocytes # Monocytes # Eosinophils # Basophils # PT INR APTT Heparin Anti-Xa, Unfract Sample Site R Radial ABG pH 7.50 H ABG pCO2 33 L ABG pO2 257 H ABG HCO3 26 ABG Total CO2 27 H ABG O2 Saturation 100 H ABG Base Excess 3 Mendoza Test N/A Respiration Rate 22 O2 Delivery Device Adult Vent Blood Gas Modality ASSIST CONTROL Inspired O2 70.0 Tidal Volume 500 PEEP 10 Sodium Potassium Chloride Carbon Dioxide BUN Creatinine Est GFR ( Amer) Est GFR (Non-Af Amer) BUN/Creatinine Ratio Glucose POC Glucose Calculated Osmolality Calcium Venous Ioniz Calcium 0.99 L Phosphorus 4.7 H Magnesium 2.2 06/08/17 08:14 WBC RBC Hgb Hct MCV MCH MCHC RDW Plt Count MPV Immature Gran % Seg Neutrophils % Lymphocytes % Monocytes % Eosinophils % Basophils % Neutrophils # Lymphocytes # Monocytes # Eosinophils # Basophils # PT INR APTT Heparin Anti-Xa, Unfract Sample Site ABG pH ABG pCO2 ABG pO2 ABG HCO3 ABG Total CO2 ABG O2 Saturation ABG Base Excess Mendoza Test Respiration Rate O2 Delivery Device Blood Gas Modality Inspired O2 Tidal Volume PEEP Sodium Potassium Chloride Carbon Dioxide BUN Creatinine Est GFR ( Amer) Est GFR (Non-Af Amer) BUN/Creatinine Ratio Glucose POC Glucose 130 H Calculated Osmolality Calcium Venous Ioniz Calcium Phosphorus Magnesium - ABG Interpretation ABG results: ABG ABG pH 7.50 pH Units (7.32-7.45) H 06/08/17 05:02 ABG pCO2 33 mmHg (35-45) L 06/08/17 05:02 ABG pO2 257 mmHg (85-104) H 06/08/17 05:02 ABG O2 Saturation 100 % (95-98) H 06/08/17 05:02 PT/INR, D-dimer PT 17.7 Seconds (9.4-12.1) H 06/07/17 11:00
--- NOTE | 2017-06-08 09:31 | Pulmonology Progress Note ---
Date of Encounter: 06/08/17 Time of Encounter: 09:31 Assessment and Plan (1) Anoxic brain injury Current Visit: Yes Status: Acute The patient has suffered a catastrophic brain injury related to anoxia which is last him comatose with extremely poor neurological prognosis EEG was suggestive of burst suppression. This has been complicated by suspected cardiac ischemia with acute on chronic heart failure and worsening of ejection fraction also manifested in terms of multiorgan system failure with respiratory failure and failure noted. Yesterday extensive conversations were undertaken between myself the ICU team and the palliative care team with the DURABLE POWER OF PERSONALIZED LIVING ASSISTANT Mr. Chacko and a close family friend who identified herself as "Stephen" and apparently the patient lives on her property and has known her for many many years. He also has and Aun and Uncle who are aware but ill and have not been to the hospital and a cousin who I also spoke to on the phone was identified as Ariadna.. Plan explained that overall prognosis is extremely poor and essentially that the patient could not survive and best case he would be in persistive vegetative state requiring constant life support all parties were in agreement that the patient would absolutely not want this his CODE STATUS was changed to DNA are and DNI in the case of inadvertent extubation with plan to proceed with compassionate extubation and focus on aggressive comfort measures . Stephen when she has had a chance his basic and with his uncle and aunt and cousin and make sure that everybody is aware. At this time plan is to not pursue any escalation of care (2) Cardiac arrest Current Visit: Yes Status: Acute (3) Goals of care, counseling/discussion Current Visit: Yes Status: Acute (4) Respiratory failure Current Visit: Yes Status: Acute Qualifiers: Chronicity: acute on chronic Respiratory failure complication: hypoxia Qualified Code(s): J96.21 - Acute and chronic respiratory failure with hypoxia Subjective Principal diagnosis: Cardiac arrest Interval history: Patient remains in coma off sedation without purposeful movement is no longer triggering the ventilator. Objective PUL Vital signs: Last Vital Signs Temp 98.3 F 06/08/17 08:00 Pulse 94 06/08/17 07:30 Resp 22 06/08/17 07:30 BP 135/88 06/08/17 07:30 Pulse Ox 100 06/08/17 07:30 General appearance: comatose Auscultation: bilateral: rales Cardiovascular: regular rate and rhythm Extremities: edema Musculoskeletal: other other (He has rhythmic eye twitching pupils are otherwise fixed and not reactive no gagreflex at this time can be appreciated no movement to painful stimuli) Ventilator Settings Ventilator Settings: Ventilator Settings, Last 8 Hours Ventilator Mode A/C Ventilator Mode A/C Ventilator Mode A/C Ventilator Mode A/C Ventilator Mode A/C Ventilator Mode A/C Ventilator Mode A/C Ventilator Mode A/C Ventilator Mode A/C Ventilator Tidal Volume 500 Setting Ventilator Tidal Volume 500 Setting Ventilator Tidal Volume 500 Setting Ventilator Tidal Volume 500 Setting Ventilator Tidal Volume 500 Setting Ventilator Tidal Volume 500 Setting Ventilator Tidal Volume 500 Setting Ventilator Tidal Volume 500 Setting Ventilator Tidal Volume 500 Setting Ventilator Respiratory Rate 22 Setting Ventilator Respiratory Rate 22 Setting Ventilator Respiratory Rate 22 Setting Ventilator Respiratory Rate 22 Setting Ventilator Respiratory Rate 22 Setting Ventilator Respiratory Rate 22 Setting Ventilator Respiratory Rate 22 Setting Ventilator Respiratory Rate 22 Setting Ventilator Respiratory Rate 22 Setting Actual Respiratory Rate 22 Actual Respiratory Rate 22 Actual Respiratory Rate 22 Actual Respiratory Rate 22 Actual Respiratory Rate 22 Actual Respiratory Rate 22 Actual Respiratory Rate 22 Actual Respiratory Rate 22 Positive End Expiratory 10 Pressure Positive End Expiratory 10 Pressure Positive End Expiratory 10 Pressure Positive End Expiratory 10 Pressure Positive End Expiratory 10 Pressure Positive End Expiratory 10 Pressure Positive End Expiratory 10 Pressure Positive End Expiratory 10 Pressure Positive End Expiratory 10 Pressure Peak Inspiratory Airway 28 Pressure Peak Inspiratory Airway 28 Pressure Peak Inspiratory Airway 30 Pressure Peak Inspiratory Airway 29 Pressure Peak Inspiratory Airway 28 Pressure Peak Inspiratory Airway 31 Pressure Peak Inspiratory Airway 31 Pressure Peak Inspiratory Airway 29 Pressure Results - Laboratory Findings CBC and BMP: 06/08/17 04:05 06/08/17 04:05 ABG ABG pH 7.50 pH Units (7.32-7.45) H 06/08/17 05:02 ABG pCO2 33 mmHg (35-45) L 06/08/17 05:02 ABG pO2 257 mmHg (85-104) H 06/08/17 05:02 ABG O2 Saturation 100 % (95-98) H 06/08/17 05:02 PT/INR, D-dimer PT 17.7 Seconds (9.4-12.1) H 06/07/17 11:00 Abnormal lab findings: Abnormal lab results WBC 15.0 K/mcL (4.3-11.1) H 06/08/17 04:05 RBC 3.35 M/mcL (4.19-5.50) L 06/08/17 04:05 Hgb 9.4 g/dL (12.9-16.9) L 06/08/17 04:05 Hct 29.7 % (37.5-50.1) L 06/08/17 04:05 RDW 18.8 % (11.5-14.5) H 06/08/17 04:05 Neutrophils # 12.7 K/mcL (1.6-8.9) H 06/08/17 04:05 PT 17.7 Seconds (9.4-12.1) H 06/07/17 11:00 APTT > 360.0 Seconds (26.0-36.0) H* D 06/08/17 01:56 Heparin Anti-Xa, Unfract 1.22 IU/mL (0.30-0.70) H* 06/08/17 01:56 ABG pH 7.50 pH Units (7.32-7.45) H 06/08/17 05:02 ABG pCO2 33 mmHg (35-45) L 06/08/17 05:02 ABG pO2 257 mmHg (85-104) H 06/08/17 05:02 ABG Total CO2 27 mEq/L (20-26) H 06/08/17 05:02 ABG O2 Saturation 100 % (95-98) H 06/08/17 05:02 BUN 28 mg/dL (8-23) H 06/08/17 04:05 Creatinine 2.59 mg/dL (0.70-1.30) H 06/08/17 04:05 Est GFR ( Amer) 30 (> 60) L 06/08/17 04:05 Est GFR (Non-Af Amer) 25 (> 60) L 06/08/17 04:05 Glucose 138 mg/dL (70-105) H 06/08/17 04:05 POC Glucose 130 (58-89) H 06/08/17 08:14 Lactic Acid 3.4 mmol/L (0.5-2.2) H 06/07/17 03:00 Calcium 8.0 mg/dL (8.6-10.3) L 06/08/17 04:05 Venous Ioniz Calcium 0.99 mmol/L (1.15-1.35) L 06/08/17 04:19 Phosphorus 4.7 mg/dL (2.7-4.5) H 06/08/17 04:11 Direct Bilirubin 0.3 mg/dL (0.0-0.2) H 06/06/17 07:53 Alkaline Phosphatase 107 Units/L (34-104) H 06/06/17 07:53 Troponin I 5.17 ng/mL (< 0.04) H* 06/07/17 03:00 Albumin 2.5 g/dL (3.5-5.7) L 06/06/17 07:53 Globulin 3.9 g/dL (2.4-3.5) H 06/06/17 07:53 Albumin/Globulin Ratio 0.6 (1.1-2.2) L 06/06/17 07:53 Urine Protein 100 mg/dL (Neg-Trace) H 06/06/17 08:03 Urine Blood Trace (Negative) H 06/06/17 08:03 - Microbiology Findings Microbiology Findings: Microbiology, Last 48 Hours 06/07/17 09:40 Legionella Antigen - Final Urine,[place] Streptococcus pneumoniae Antigen (M - Final - Clinical Findings Intake & Output: Intake & Output 06/07/17 06/08/17 06/08/17 23:59 07:59 15:59 Intake Total 709 / 709 560 / 560 71 / 71 Output Total 0 / 0 25 / 25 0 / 0 Balance 709 / 709 535 / 535 71 / 71 Consult Discharge Plan - Plan [facility]: [facility] [Primary Care Provider] -
[2017-06-08] MEDS ORDERED: *HR* FentaNYL (PF) 100 MCG/2 ML VIAL IVP ONE (14:56)
[2017-06-08] MEDS ORDERED: Haloperidol Lactate 5 MG/ML VIAL IVP ONE (14:57)
[2017-06-08] MEDS ORDERED: *HR* FentaNYL (PF) 100 MCG/2 ML VIAL IVP PRN (14:57)
[2017-06-08] MEDS ORDERED: *HR* LORazepam 2 MG/ML VIAL IVP ONE (14:57)
[2017-06-08] MEDS ORDERED: *HR* LORazepam 2 MG/ML VIAL IVP PRN (14:58)
[2017-06-08] MEDS ORDERED: Haloperidol Lactate 5 MG/ML VIAL IVP PRN (14:58)
[2017-06-09] MEDS: Lacri-Lube 3.5 GM TUBE BOTH EYES SCH ×4 (00:18→11:20)
--- NOTE | 2017-06-09 08:37 | Pulmonology Progress Note ---
Date of Encounter: 06/09/17 Time of Encounter: 08:37 Assessment and Plan (1) Anoxic brain injury Current Visit: Yes Status: Acute All parties the POA and family friend had come to the hospital yesterday into the patient's room and all agreed for compassionate extubation with planned to de-escalate HER TO FOCUS SOLELY ON COMFORT. AFTER THE PHYSICIANS AT LEFT THE ROOM NURSING STAFF REMAINED IN THE TO PARTICIPATE CAN TO SQUABBLE ABOUT FOR MY UNDERSTANDING WHO WOULD BE RESPONSIBLE FOR COVERING THE COST OF BURIAL AND WHO WOULD OBTAIN PRIVATE POSSESSIONS ETC. THIS LED TO DISAGREEMENT AND FRUSTRATION FROM BOTH PARTIES WHICH RESULTED IN THE POA LEAVING THE HOSPITAL WITH FINAL REQUEST TO DO NOTHING AT THIS TIME AND THAT HE DID NOT WANT TO MAKE A DECISION. THUS COMPASSIONATE EXTUBATION WAS NOT PURSUED I have personally spoken to the patient's aunt his cousin the POA and this close friend "Stephen" and they have all expressed the same sentiment that the patient would in no way want to be artificially kept alive in this situation that is catastrophic brain injury with severe anoxic coma. Unfortunately despite multiple phone call attempts by the nursing staff and myself we have been unable to reach the DURABLE POWER OF TENSION WORKER at this time. We will continue to attempt to reach this green party for final decision reflecting the patient's wishes which would be compassionate extubation. However without his final consent we are limited at this time I have consulted social media intern to further help in this complex case and if the POA cannot be reached by tomorrow we will consult ethics committee for intervention. (2) Cardiac arrest Current Visit: Yes Status: Acute (3) Goals of care, counseling/discussion Current Visit: Yes Status: Acute (4) Respiratory failure Current Visit: Yes Status: Acute Qualifiers: Chronicity: acute on chronic Respiratory failure complication: hypoxia Qualified Code(s): J96.21 - Acute and chronic respiratory failure with hypoxia Subjective Principal diagnosis: Cardiac arrest Interval history: Patient remains in coma off sedation without purposeful movements. Otherwise hemodynamically stable Objective PUL Vital signs: Last Vital Signs Temp 100.3 F H 06/09/17 07:00 Pulse 96 06/09/17 08:00 Resp 17 06/09/17 08:00 BP 134/78 06/09/17 08:00 Pulse Ox 100 06/09/17 08:00 General appearance: comatose Eyes: nonicteric Auscultation: bilateral: rales Cardiovascular: regular rate and rhythm Gastrointestinal: hypoactive bowel sounds other (Minimal gag reflex no spontaneous movements controlled pain pupils are dilated and fixed) Ventilator Settings Ventilator Settings: Ventilator Settings, Last 8 Hours Ventilator Mode A/C Ventilator Mode A/C Ventilator Mode A/C Ventilator Mode A/C Ventilator Mode A/C Ventilator Mode A/C Ventilator Mode A/C Ventilator Mode A/C Ventilator Mode A/C Ventilator Mode A/C Ventilator Mode A/C Ventilator Tidal Volume 500 Setting Ventilator Tidal Volume 500 Setting Ventilator Tidal Volume 500 Setting Ventilator Tidal Volume 500 Setting Ventilator Tidal Volume 500 Setting Ventilator Tidal Volume 500 Setting Ventilator Tidal Volume 500 Setting Ventilator Tidal Volume 500 Setting Ventilator Tidal Volume 500 Setting Ventilator Tidal Volume 500 Setting Ventilator Tidal Volume 500 Setting Ventilator Respiratory Rate 16 Setting Ventilator Respiratory Rate 16 Setting Ventilator Respiratory Rate 16 Setting Ventilator Respiratory Rate 16 Setting Ventilator Respiratory Rate 16 Setting Ventilator Respiratory Rate 16 Setting Ventilator Respiratory Rate 16 Setting Ventilator Respiratory Rate 16 Setting Ventilator Respiratory Rate 16 Setting Ventilator Respiratory Rate 16 Setting Ventilator Respiratory Rate 16 Setting Actual Respiratory Rate 17 Actual Respiratory Rate 17 Actual Respiratory Rate 17 Actual Respiratory Rate 17 Actual Respiratory Rate 16 Actual Respiratory Rate 16 Actual Respiratory Rate 16 Actual Respiratory Rate 16 Actual Respiratory Rate 19 Actual Respiratory Rate 18 Actual Respiratory Rate 17 Positive End Expiratory 10 Pressure Positive End Expiratory 10 Pressure Positive End Expiratory 10 Pressure Positive End Expiratory 10 Pressure Positive End Expiratory 10 Pressure Positive End Expiratory 10 Pressure Positive End Expiratory 10 Pressure Positive End Expiratory 10 Pressure Positive End Expiratory 10 Pressure Positive End Expiratory 10 Pressure Positive End Expiratory 10 Pressure Peak Inspiratory Airway 29 Pressure Peak Inspiratory Airway 30 Pressure Peak Inspiratory Airway 28 Pressure Peak Inspiratory Airway 28 Pressure Peak Inspiratory Airway 31 Pressure Peak Inspiratory Airway 31 Pressure Peak Inspiratory Airway 30 Pressure Peak Inspiratory Airway 30 Pressure Peak Inspiratory Airway 28 Pressure Peak Inspiratory Airway 30 Pressure Peak Inspiratory Airway 31 Pressure Results - Laboratory Findings CBC and BMP: 06/08/17 04:05 06/08/17 04:05 ABG ABG pH 7.50 pH Units (7.32-7.45) H 06/08/17 05:02 ABG pCO2 33 mmHg (35-45) L 06/08/17 05:02 ABG pO2 257 mmHg (85-104) H 06/08/17 05:02 ABG O2 Saturation 100 % (95-98) H 06/08/17 05:02 PT/INR, D-dimer PT 17.7 Seconds (9.4-12.1) H 06/07/17 11:00 Abnormal lab findings: Abnormal lab results WBC 15.0 K/mcL (4.3-11.1) H 06/08/17 04:05 RBC 3.35 M/mcL (4.19-5.50) L 06/08/17 04:05 Hgb 9.4 g/dL (12.9-16.9) L 06/08/17 04:05 Hct 29.7 % (37.5-50.1) L 06/08/17 04:05 RDW 18.8 % (11.5-14.5) H 06/08/17 04:05 Neutrophils # 12.7 K/mcL (1.6-8.9) H 06/08/17 04:05 PT 17.7 Seconds (9.4-12.1) H 06/07/17 11:00 APTT > 360.0 Seconds (26.0-36.0) H* D 06/08/17 01:56 Heparin Anti-Xa, Unfract 1.22 IU/mL (0.30-0.70) H* 06/08/17 01:56 ABG pH 7.50 pH Units (7.32-7.45) H 06/08/17 05:02 ABG pCO2 33 mmHg (35-45) L 06/08/17 05:02 ABG pO2 257 mmHg (85-104) H 06/08/17 05:02 ABG Total CO2 27 mEq/L (20-26) H 06/08/17 05:02 ABG O2 Saturation 100 % (95-98) H 06/08/17 05:02 BUN 28 mg/dL (8-23) H 06/08/17 04:05 Creatinine 2.59 mg/dL (0.70-1.30) H 06/08/17 04:05 Est GFR ( Amer) 30 (> 60) L 06/08/17 04:05 Est GFR (Non-Af Amer) 25 (> 60) L 06/08/17 04:05 Glucose 138 mg/dL (70-105) H 06/08/17 04:05 POC Glucose 130 (58-89) H 06/08/17 08:14 Lactic Acid 3.4 mmol/L (0.5-2.2) H 06/07/17 03:00 Calcium 8.0 mg/dL (8.6-10.3) L 06/08/17 04:05 Venous Ioniz Calcium 0.99 mmol/L (1.15-1.35) L 06/08/17 04:19 Phosphorus 4.7 mg/dL (2.7-4.5) H 06/08/17 04:11 Direct Bilirubin 0.3 mg/dL (0.0-0.2) H 06/06/17 07:53 Alkaline Phosphatase 107 Units/L (34-104) H 06/06/17 07:53 Troponin I 5.17 ng/mL (< 0.04) H* 06/07/17 03:00 Albumin 2.5 g/dL (3.5-5.7) L 06/06/17 07:53 Globulin 3.9 g/dL (2.4-3.5) H 06/06/17 07:53 Albumin/Globulin Ratio 0.6 (1.1-2.2) L 06/06/17 07:53 Urine Protein 100 mg/dL (Neg-Trace) H 06/06/17 08:03 Urine Blood Trace (Negative) H 06/06/17 08:03 - Microbiology Findings Microbiology Findings: Microbiology, Last 48 Hours 06/07/17 09:40 Legionella Antigen - Final Urine,[place] Streptococcus pneumoniae Antigen (M - Final - Clinical Findings Intake & Output: Intake & Output 06/08/17 06/09/17 06/09/17 23:59 07:59 15:59 Intake Total 0 / 0 0 / 0 Output Total 75 / 75 Balance -75 / -75 - / Weight 108.7 kg Consult Discharge Plan - Plan [facility]: [facility] [Primary Care Provider] -
[2017-06-09] MEDS ORDERED: Levofloxacin 750 MG/150 ML 750 MG/150 ML BAG IVPB SCH (10:00)
[2017-06-09 10:16] VITALS: BP 133/82
--- NOTE | 2017-06-09 11:34 | Event Note ---
Date of Encounter: 06/09/17 Time of Encounter: 11:31 The patient's DURABLE POWER OF STAFF TECHNOLOGIST Juliocesar Lindquist did call the ICU at approximately 11:30 and I had conversation with him and he was in full agreement to withdraw care to focus on comfort measures including compassionate extubation. This was witnessed verbally by ICU team including bedside nurse Beatrice and ICU nurse Argenis. The patient's CODE STATUS was changed to reflect this DNR CC.
[2017-06-09] MEDS: FentaNYL (PF) 1,000 MCG in 0.9 % Sodium Chloride 80 ML IVC SCH (12:21)
--- NOTE | 2017-06-10 11:35 | Death Note ---
Discharge Sum: Summary - Date and Time Date of admission: 06/06/17 09:43 Date of : 06/09/17 Time of : 13:07 - Summary Details: This is a 67-year-old gentleman who was transferred from the [place] after noted cardiac arrest. He had CPR performed for approximately 20 minutes with return of spontaneous circulation. In ED initial workup notable for pneumonia and hypoxia he was intubated transferred to the ICU where he was managed for shock and underwent hypothermia protocol for anoxic brain injury. Initial EEG suggestive of burst suppression pattern consistent with severe anoxic brain injury. Initial 24 hours complicated by shock and near fatal arrhythmia including ventricular tachycardia and bradycardia resulting in early termination of hypothermia protocol. Shock began to resolve and patient was weaned off vasopressor. Neurological function continued to decline and had very limited brainstem reflexes. Neurological prognosis was extremely poor and discussion with DURABLE POWER OF CLOTHING ROOM SUPERVISOR was had on multiple occasions including palliative care medicine joining in those conversations. It was clear from discussing with the DURABLE POWER OF CLOTHING ROOM SUPERVISOR as well as family friends and family members that he would not want persistent artificial life support and CODE STATUS was changed to reflect this resulting in compassionate extubation. Patient shortly thereafter - Additional Data Confirmation of as documented by pronouncing clinician: no pulse, no respirations, no heart sounds, pupils fixed and dilated Family: contacted Additional persons at bedside: other (Nurse) Attending/PCP notified?: No Attending physician: Franklin Bowen MD Was code activated?: No Autopsy requested?: No wrapper layer and examiner soft work notified?: No Organ bank notified?: No Advance directives: No Hospice patient?: No Discharge Sum: Diag - PCOD Probable Cause of : Respiratory arrest Discharge Sum: Prov - Provider Primary care physician: PCP [facility] Admitting clinician: Franklin Bowen Consults: 06/06/17 11:48 Consult to Pillowcase Sewer [CONS] Routine Reason for SW Consult: S/p cardiac arrest. Discharge planning 06/06/17 15:30 Consult to Interpret Exam [CONS] Routine Consulting Provider: Isaiah Kevin Consult to Interpret Exam: Interpret EEG 06/07/17 10:45 Consult to Palliative Care [CONS] Routine Comment: Consulting Provider: Palliative Care Mayte Reason for Consult: S/p cardiac arrest, goals of care Call Completed: Yes
--- NOTE | 2017-06-14 06:14 | Electrocardiograph Report ---
[address] [address] Test Date: 2017-06-07 Pat Name: Carroll Collado Department: 109 Room: 12 Gender: M Sanitary Landfill Supervisor: DAVID : [id number] Requested By: Franklin Bowen Order Number: [id number] Reading MD: Carroll Izaguirre Measurements Intervals [place] Rate: 45 P: 39 DE: 220 QRS: 215 QRSD: 143 T: 197 QT: 532 QTc: 487 Interpretive Statements SINUS BRADYCARDIA WITH FIRST DEGREE AV BLOCK WITH OCCASIONAL VENTRICULAR PREMATURE COMPLEXES MARKED RIGHT AXIS DEVIATION RIGHT BUNDLE BRANCH BLOCK BASELINE ARTIFACT COMPLICATES ACCURATE INTERPRETATION BASELINE ARTIFACT, REPEAT EKG Electronically Signed On 06-14-2017 6:12:21 EDT by Carroll Izaguirre
== END 2017-06-09 13:07 | disposition expired | DRG 871 ==
LOC: EMEROO 07:31 → ICNU 09:43
PROVIDERS: ADMIT Internal Medicine Hospice and Palliative Medicine; ATTEND Internal Medicine Hospice and Palliative Medicine